=== PATIENT | female | born 1950 | race American Indian/Alaskan Native ===

== ENCOUNTER 2017-02-11 16:10 | Emergency (ER) | payer MEDICARE, BC ==
[2017-02-11 16:10] VITALS: BMI 43.0
[2017-02-11 16:16] VITALS: BP 161/84; TEMP 98.3
--- NOTE | 2017-02-11 17:31 | CT ---
PROCEDURE: CT HEAD WITHOUT CONTRAST. HISTORY: headache COMPARISON: None available. TECHNIQUE: Axial computed tomography images were obtained through the head/brain without intravenous contrast. Radiation dose: Total exam DLP = 726 mGy-cm. This CT exam was performed using one or more of the following dose reduction techniques: Automated exposure control, adjustment of the mA and/or kV according to patient size, and/or use of iterative reconstruction technique. FINDINGS: HEMORRHAGE: No intracranial hemorrhage. BRAIN: No mass effect or edema. No atrophy or chronic microvascular ischemic changes. VENTRICLES: Unremarkable. No hydrocephalus. CALVARIUM: Unremarkable. PARANASAL SINUSES: Unremarkable as visualized. No significant inflammatory changes. MASTOID AIR CELLS: Unremarkable as visualized. No inflammatory changes. OTHER FINDINGS: None. IMPRESSION: Normal CT of the Head.
--- NOTE | 2017-02-11 17:34 | CT ---
PROCEDURE: CT Cervical Spine without contrast HISTORY: Neck pain COMPARISON: None available. TECHNIQUE: Axial computed tomography images were obtained of the cervical spine without the use of intravenous contrast. Coronal and sagittal reformatted images were created and reviewed. Radiation dose: Total exam DLP = 601 mGy-cm. This CT exam was performed using one or more of the following dose reduction techniques: Automated exposure control, adjustment of the mA and/or kV according to patient size, and/or use of iterative reconstruction technique. FINDINGS: VERTEBRAE: No fracture. Normal alignment. No destructive bony lesion. DISCS/SPINAL CANAL/NEURAL FORAMINA: No significant central canal or neural foraminal stenosis. Discs heights are grossly preserved. PARASPINAL SOFT TISSUES: Unremarkable. OTHER FINDINGS: None. IMPRESSION: Unremarkable CT of the cervical spine.
--- NOTE | 2017-02-11 17:40 | ED PDOC ---
Arrival/HPI - General Chief Complaint: Headache Time Seen by Provider: 02/11/17 16:21 Historian: Patient - History of Present Illness Narrative History of Present Illness (Text): 02/11/17 17:32 66yo female with PMhx of diabetes who present with complaint of neck pain that radiates to her lower back and headache x 2days. She noted chronic history of lower back pain secondary to herniated/bulging disc. Notes that neck pain is new. she have had similar headache, but years ago. She took OTC medication without relieve. She denies nuchal ridigity, fever, rash, trauma, focal weakness , urinary/fecal incontinence, urinary symptoms, ripping/tearing upper back pain , abdominal pain, chest pain. Past Medical History - Provider Review Nursing Documentation Reviewed: Yes - Infectious Disease Hx of Infectious Diseases: None - Tetanus Immunization Tetanus Immunization: Up to Date, Unknown - Cardiac Hx Cardiac Disorders: Yes (CAD) Hx Hypertension: Yes Hx Pacemaker: No - Pulmonary Hx Respiratory Disorders: Yes (PULMONARY EMBOLUS) Hx Asthma: Yes Hx Bronchitis: Yes Hx Pneumonia: Yes Hx Pulmonary Embolism: Yes - Neurological Hx Neurological Disorder: No - HEENT Hx HEENT Disorder: No - Renal Hx Renal Disorder: No - Endocrine/Metabolic Hx Endocrine Disorders: Yes Hx Diabetes Mellitus Type 2: Yes - Hematological/Oncological Hx Blood Disorders: Yes Other/Comment: dvt - Integumentary Hx Dermatological Disorder: No - Musculoskeletal/Rheumatological Hx Musculoskeletal Disorders: Yes Hx Falls: Yes - Gastrointestinal Hx Gastrointestinal Disorders: No - Genitourinary/Gynecological Hx Genitourinary Disorders: Yes Hx Hematuria: Yes Hx Urinary Tract Infection: Yes - Psychiatric Hx Emotional Abuse: No Hx Physical Abuse: No Hx Substance Use: No - Surgical History Hx Hysterectomy: Yes Other/Comment: RIGHT KNEE ARTHROSCOPIC SX - Anesthesia Hx Anesthesia: Yes Hx Anesthesia Reactions: No Hx Malignant Hyperthermia: No - Suicidal Assessment Feels Threatened In Home Enviroment: No Family/Social History - Physician Review Nursing Documentation Reviewed: Yes Family/Social History: Unknown Family HX Smoking Status: Never Smoked Hx Alcohol Use: No Hx Substance Use: No Hx Substance Use Treatment: No Allergies/Home Meds Allergies/Adverse Reactions: Allergies Insulins Allergy (Verified 02/11/17 16:16) hyperglycemia prednisone Adverse Reaction (Mild, Verified 02/11/17 16:16) HYPERTENSION Home Medications: Home Meds Medication Instructions Recorded Confirmed Albuterol Sulfate [Proair Hfa] 2 puff IH DAILY 07/24/15 02/11/17 Aspirin [Ecotrin] 81 mg PO DAILY 07/24/15 02/11/17 Atenolol 100 mg PO DAILY 07/24/15 02/11/17 Ergocalciferol (Vitamin D2) 50,000 iu PO WED 07/24/15 02/11/17 [Vitamin D2] Ferrous Sulfate [Feosol] 325 mg PO TTS 07/24/15 02/11/17 Glimepiride 4 mg PO BID 07/24/15 02/11/17 Losartan/Hydrochlorothiazide 1 tab PO DAILY 07/24/15 02/11/17 [Hyzaar 100-25 Tablet] Metformin HCl [Glucophage] 1,000 mg PO BID 07/24/15 02/11/17 Montelukast [Singulair] 10 mg PO DAILY 07/24/15 02/11/17 Pantoprazole Sodium 40 mg PO DAILY 07/24/15 02/11/17 Simvastatin 40 mg PO QPM 07/24/15 02/11/17 Liraglutide [Victoza 2-Aadm] 1.8 mg SC DAILY 07/27/15 02/11/17 Warfarin [Coumadin] 9 mg PO DAILY 07/27/15 02/11/17 Fluticasone/Vilanterol [Breo 1 puff IH DAILY 01/24/17 02/11/17 Ellipta 100-25 Mcg INH] Review of Systems - Physician Review All systems were reviewed & negative as marked: Yes - Review of Systems Constitutional: Normal Eyes: Normal ENT: Normal Respiratory: Normal Cardiovascular: Normal Gastrointestinal: Normal Genitourinary Female: Normal Musculoskeletal: Back Pain, Neck Pain Skin: Normal Neurological: Headache. absent: Dizziness, Focal Weakness, Speech Changes, Facial Droop Endocrine: Normal Hemo/Lymphatic: Normal Psychiatric: Normal Physical Exam Vital Signs Reviewed: Yes Vital Signs Temp Pulse Resp BP Pulse Ox 02/11/17 19:38 85 18 98 02/11/17 16:12 98.3 F 86 20 161/84 H 97 Temperature: Afebrile Blood Pressure: Normal Pulse: Regular Respiratory Rate: Normal Appearance: Positive for: Well-Appearing, Non-Toxic, Comfortable, Other ( Morbidly obese) Pain Distress: None Mental Status: Positive for: Alert and Oriented X 3 - Systems Exam Head: Present: Atraumatic, Normocephalic Pupils: Present: PERRL Extroacular Muscles: Present: EOMI Conjunctiva: Present: Normal Mouth: Present: Moist Mucous Membranes Neck: Present: Normal Range of Motion. No: Meningeal Signs, MIDLINE TENDERNESS , Paraspinal Tenderness Respiratory/Chest: Present: Clear to Auscultation, Good Air Exchange. No: Respiratory Distress, Accessory Muscle Use Cardiovascular: Present: Regular Rate and Rhythm, Normal S1, S2. No: Murmurs Abdomen: Present: Normal Bowel Sounds. No: Tenderness, Distention, Peritoneal Signs Back: Present: Midline Tenderness, Paraspinal Tenderness. No: CVA Tenderness Upper Extremity: Present: Normal Inspection. No: Cyanosis, Edema Lower Extremity: Present: Normal Inspection. No: Edema Neurological: Present: GCS=15, CN II-XII Intact, Speech Normal, Motor Func Grossly Intact, Normal Sensory Function, Normal Cerebellar Funct, Norm Deep Tendon Reflexes, Gait Normal, Memory Normal, Normal 2Pt Descrimination, Other ( No focal neurological deficit) Skin: Present: Warm, Dry, Normal Color. No: Rashes Psychiatric: Present: Alert, Oriented x 3, Normal Insight, Normal Concentration Medical Decision Making ED Course and Treatment: 02/12/17 00:32 PT was neurologically intact in ED. Her pain improved in ED with Tramadol. She have UTI and was treated with macrobid Head/Cervical Ct was negative she was ambulatory in ED with a cane. she was DC home with rx of Tramdol and Macrobid. She was advised to f/u with her PMD for her chronic back pain and further outpt evaluation. Advised to return to ED for anew or worsening symptoms. - Lab Interpretations Lab Results: Lab Results 02/11/17 17:55: Urine Color Yellow, Urine Appearance Clear, Urine pH 6.0, Ur Specific [place] 1.025, Urine Protein 100 H, Urine Glucose (UA) Negative, Urine Ketones Negative, Urine Blood Small H, Urine Nitrate Negative, Urine Bilirubin Negative, Urine Urobilinogen 0.2, Ur Leukocyte Esterase Trace H, Urine RBC 0 - 2 , Urine WBC 1 - 3, Ur Epithelial Cells 3 - 4, Urine Bacteria Small - RAD Interpretation Radiology Orders: 02/11/17 16:51 HEAD W/O CONTRAST [CT] Stat 02/11/17 17:18 CERVICAL SPINE W/O CONTRAST [CT] Stat - Medication Orders Current Medication Orders: Discontinued Medications Nitrofurantoin Macrocrystals (Macrobid) 100 mg PO ONCE STA Stop: 02/11/17 18:32 Last Admin: 02/11/17 19:12 Dose: 100 mg Ondansetron HCl (Zofran Odt) 4 mg PO STAT STA Stop: 02/11/17 18:14 Last Admin: 02/11/17 18:36 Dose: 4 mg Tramadol HCl (Ultram) 50 mg PO STAT STA Stop: 02/11/17 16:53 Last Admin: 02/11/17 17:10 Dose: 50 mg MAR Pain Assessment Document 02/11/17 17:10 GMD (Rec: 02/11/17 17:10 [place] [facility] [id number] Pain Reassessment Is this a pain reassessment? No Sleep Is patient sleeping during reassessment? No Presence of Pain Presence of Pain Yes Location Pain Location Body Temperer Disposition/Present on Arrival - Present on Arrival Any Indicators Present on Arrival: No History of DVT/PE: Yes History of Uncontrolled Diabetes: No Urinary Catheter: No History of Decub. Ulcer: No History Surgical Site Infection Following: None - Disposition Have Diagnosis and Disposition been Completed?: Yes Diagnosis: UTI (urinary tract infection), Back pain Disposition: HOME/ ROUTINE Disposition Time: 19:10 Patient Plan: Discharge Condition: STABLE Discharge Instructions (ExitCare): Urinary Tract Infection in Women (ED) Additional Instructions: Follow up with your doctor Return to ED for any new or worsening symptoms Prescriptions: Nitrofurantoin Macrocrystals [Macrobid] 100 mg PO BID #14 cap traMADol [Ultram] 50 mg PO TID #10 tab Referrals: Fina Canales, [Primary Care Provider] - Follow up with primary Forms: [employer] ([place])
[2017-02-11 18:11] LABS: URINE BILIRUBIN NEGATIVE (NEGATIVE); URINE BLOOD SMALL (NEGATIVE); URINE GLUCOSE (UA) NEGATIVE (NEGATIVE); URINE KETONE NEGATIVE (NEGATIVE); URINE LEUKOCYTE ESTERASE TRACE Leu/uL (NEGATIVE); URINE PROTEIN 100 mg/dL (<30 mg/dL); URINE UROBILINOGEN 0.2 E.U./dL (<1 E.U./dL)
[2017-02-11 18:14] LABS: URINE APPEARANCE CLEAR (CLEAR); URINE BACTERIA SMALL (NEG); URINE COLOR YELLOW (YELLOW); URINE RBC 0 - 2 /hpf (0-2)
[2017-02-11 19:39] VITALS: PULSE 85; RESP 18; O2SAT 98
== END 2017-02-11 19:40 | disposition home or self-care (01) ==
LOC: ED 16:10
DX: N39.0 Urinary tract infection, site not specified (principal); M54.5 Low back pain; E11.9 Type 2 diabetes mellitus without complications; I10 Essential (primary) hypertension; I25.10 Atherosclerotic heart disease of native coronary artery without angina pectoris

== ENCOUNTER 2017-04-17 09:44 | Observation (INO) | payer MEDICARE, BC ==
[2017-04-17 09:45] VITALS: BMI 43.0
--- NOTE | 2017-04-17 10:50 | ED PDOC ---
Arrival/HPI - General Chief Complaint: High Blood Pressure Time Seen by Provider: 04/17/17 09:53 Historian: Patient - History of Present Illness Narrative History of Present Illness (Text): you were treated in the ED today for difficulty breathing with ambulation and transient chest pain since last night. mild headache to back of head noted otherwise without any nausea/vomiting/dizziness/abdomen pain/numbness/tingling/ loss of limb function/pain with urination. history of diabetes, hypertension, hyperlipidemia, asthma, PE on Coumadin, non-obstructive CAD and morbid obesity. Time/Duration: Other (last night) Symptom Course: Unchanged Context: Home Past Medical History - Provider Review Nursing Documentation Reviewed: Yes - Infectious Disease Hx of Infectious Diseases: None - Tetanus Immunization Tetanus Immunization: Up to Date, Unknown - Cardiac Hx Cardiac Disorders: Yes (CAD) Hx Hypertension: Yes Hx Pacemaker: No - Pulmonary Hx Respiratory Disorders: Yes (PULMONARY EMBOLUS) Hx Asthma: Yes Hx Bronchitis: Yes Hx Pneumonia: Yes Hx Pulmonary Embolism: Yes - Neurological Hx Neurological Disorder: No - HEENT Hx HEENT Disorder: No - Renal Hx Renal Disorder: No - Endocrine/Metabolic Hx Endocrine Disorders: Yes Hx Diabetes Mellitus Type 2: Yes - Hematological/Oncological Hx Blood Disorders: Yes Other/Comment: dvt - Integumentary Hx Dermatological Disorder: No - Musculoskeletal/Rheumatological Hx Musculoskeletal Disorders: Yes Hx Falls: Yes - Gastrointestinal Hx Gastrointestinal Disorders: No - Genitourinary/Gynecological Hx Genitourinary Disorders: Yes Hx Hematuria: Yes Hx Urinary Tract Infection: Yes - Psychiatric Hx Emotional Abuse: No Hx Physical Abuse: No Hx Substance Use: No - Surgical History Hx Hysterectomy: Yes Other/Comment: RIGHT KNEE ARTHROSCOPIC SX - Anesthesia Hx Anesthesia: Yes Hx Anesthesia Reactions: No Hx Malignant Hyperthermia: No - Suicidal Assessment Feels Threatened In Home Enviroment: No Family/Social History - Physician Review Nursing Documentation Reviewed: Yes Family/Social History: No Known Family HX Smoking Status: Never Smoked Hx Alcohol Use: No Hx Substance Use: No Hx Substance Use Treatment: No Allergies/Home Meds Allergies/Adverse Reactions: Allergies Insulins Allergy (Verified 04/17/17 09:58) hyperglycemia prednisone Adverse Reaction (Mild, Verified 04/17/17 09:58) HYPERTENSION Home Medications: Home Meds Medication Instructions Recorded Confirmed Albuterol Sulfate [Proair Hfa] 2 puff IH DAILY 07/24/15 02/11/17 Aspirin [Ecotrin] 81 mg PO DAILY 07/24/15 02/11/17 Atenolol 100 mg PO DAILY 07/24/15 02/11/17 Ergocalciferol (Vitamin D2) 50,000 iu PO WED 07/24/15 02/11/17 [Vitamin D2] Ferrous Sulfate [Feosol] 325 mg PO TTS 07/24/15 02/11/17 Losartan/Hydrochlorothiazide 1 tab PO DAILY 07/24/15 02/11/17 [Hyzaar 100-25 Tablet] Metformin HCl [Glucophage] 1,000 mg PO BID 07/24/15 02/11/17 Montelukast [Singulair] 10 mg PO DAILY 07/24/15 02/11/17 Pantoprazole Sodium 40 mg PO DAILY 07/24/15 02/11/17 Simvastatin 40 mg PO QPM 07/24/15 02/11/17 Liraglutide [Victoza 2-Adam] 1.8 mg SC DAILY 07/27/15 02/11/17 Warfarin [Coumadin] 9 mg PO DAILY 07/27/15 04/17/17 Fluticasone/Vilanterol [Breo 1 puff IH DAILY 01/24/17 02/11/17 Ellipta 100-25 Mcg INH] Allopurinol [Zyloprim] 04/17/17 traMADol [Ultram] 80 mg PO BID 04/17/17 04/17/17 Review of Systems - Physician Review All systems were reviewed & negative as marked: Yes - Review of Systems Respiratory: SOB Cardiovascular: Chest Pain Gastrointestinal: absent: Abdominal Pain, Nausea, Vomiting Genitourinary Female: absent: Dysuria Neurological: Headache. absent: Dizziness, Focal Weakness Physical Exam Vital Signs Reviewed: Yes Vital Signs Temp Pulse Resp BP Pulse Ox 04/17/17 11:07 90 17 159/90 H 96 04/17/17 09:55 97.8 F 91 H 19 168/99 H 100 Temperature: Afebrile Blood Pressure: Hypertensive Pulse: Tachycardic Respiratory Rate: Normal Appearance: Positive for: Well-Appearing, Non-Toxic, Comfortable, Other ( Morbidly obese female) Pain Distress: None Mental Status: Positive for: Alert and Oriented X 3 - Systems Exam Head: Present: Atraumatic, Normocephalic Pupils: Present: PERRL Extroacular Muscles: Present: EOMI Conjunctiva: Present: Normal Mouth: Present: Moist Mucous Membranes Neck: Present: Normal Range of Motion Respiratory/Chest: Present: Clear to Auscultation, Good Air Exchange. No: Respiratory Distress, Accessory Muscle Use Cardiovascular: Present: Regular Rate and Rhythm, Normal S1, S2. No: Murmurs Abdomen: Present: Normal Bowel Sounds. No: Tenderness, Distention, Peritoneal Signs Back: Present: Normal Inspection Upper Extremity: Present: Normal Inspection. No: Cyanosis, Edema Lower Extremity: Present: Normal Inspection. No: Edema Neurological: Present: GCS=15, CN II-XII Intact, Speech Normal, Motor Func Grossly Intact, Normal Sensory Function, Normal Cerebellar Funct, Other ( neurologically intact) Skin: Present: Warm, Dry, Normal Color. No: Rashes Psychiatric: Present: Alert, Oriented x 3, Normal Insight, Normal Concentration Medical Decision Making ED Course and Treatment: you were treated in the ED today for difficulty breathing with ambulation and transient chest pain since last night. mild headache to back of head noted otherwise without any nausea/vomiting/dizziness/abdomen pain/numbness/tingling/ loss of limb function/pain with urination. history of diabetes, hypertension, hyperlipidemia, asthma, PE on coumdain, non-obstructive CAD and morbid obesity. You were otherwise breathing easily, smiling when talking, good strength/ sensation, walking easily, clear lungs, no abdomen tenderness, your vision was such no fever temp 97.8, stable heart rate 91, stable breathing rate 19, excellent oxygen level 100% room air, elevated blood pressure 168/99 which we recommend repeat in 2-3 days primary care office to determine further treatment , you have blood tests no infection count 10.1, low blood level hemoglobin 10.2/ platelets 209, stable chemistry sodium normal 140, potassium normal 4.1, bicarbonate normal 24, chloride normal 104, bun mildly elevated 31, creatinine 1.3, glucose mildly elevated 131, liver AST/ALT normal 18/23, Liver Alklaline Phosphatase normal 53, Liver bilirubin normal 0.3, magnesium 1.3, heart blood test normal, no acute CT head or chest xray results, ECG NSR, observation done in the ED with improvement, and d/w with Dr. Mitchell who stated order VQ for PE eval and admit to hospital and she will fu result. Report Date : 04/17/2017 11:52:12 PROCEDURE: CT HEAD WITHOUT CONTRAST. Dictator : Tiana Greco MD IMPRESSION: No acute intracranial abnormality. Report Date : 04/17/2017 12:17:19 Procedure: Chest xray Dictator : Tiana Greco MD IMPRESSION: No active pulmonary disease. 04/17/17 12:58 04/17/17 13:46 - Lab Interpretations Lab Results: 04/17/17 10:46 04/17/17 10:46 Lab Results 04/17/17 11:19: Urine Color Light yellow, Urine Appearance Clear, Urine pH 6.5, Ur Specific [place] 1.020, Urine Protein 100 H, Urine Glucose (UA) Negative, Urine Ketones Negative, Urine Blood Trace-intact H, Urine Nitrate Negative, Urine Bilirubin Negative, Urine Urobilinogen 0.2, Ur Leukocyte Esterase Negative , Urine RBC 0 - 2, Urine WBC 0 - 2, Ur Epithelial Cells 3 - 4, Urine Bacteria Few, Urine Other [place] 04/17/17 10:46: Sodium 140, Potassium 4.1, Chloride 104, Carbon Dioxide 24, Anion Gap 16, BUN 31 H, Creatinine 1.3 H, Est GFR ( Amer) 50, Est GFR ( Non-Af Amer) 41, Random Glucose 131 H, Calcium 9.5, Magnesium 1.3 L, Total Bilirubin 0.3, AST 18, ALT 23, Alkaline Phosphatase 53, Lactate Dehydrogenase 487, Total Creatine Kinase 195, Troponin I < 0.01, NT-Pro-B Natriuret Pep 173, Total Protein 7.0, Albumin 3.6, Globulin 3.4, Albumin/Globulin Ratio 1.1 04/17/17 10:46: PT 18.7 H, INR 1.61 H, APTT 37.0 H 04/17/17 10:46: WBC 10.1, RBC 3.87, Hgb 10.2 L, Hct 33.2 L, MCV 85.8, MCH 26.4, MCHC 30.7 L, RDW 15.8 H, Plt Count 209, MPV 11.7 H, Gran % 69.3 H, Lymph % (Auto ) 23.3, [place] % (Auto) 4.8, Eos % (Auto) 2.4, Baso % (Auto) 0.2, Gran # 6.98 H, Lymph # 2.3, [place] # 0.5, Eos # 0.2, Baso # 0.02 I have reviewed the lab results: Yes - RAD Interpretation Radiology Orders: 04/17/17 10:45 HEAD W/O CONTRAST [CT] Stat CHEST TWO VIEWS (PA/LAT) [RAD] Stat 04/17/17 13:41 LUNG PERF & VENT SCAN [NM] Stat Outside Machinist Supervisor: Radiologist - EKG Interpretation Interpreted by ED Physician: Yes (NSR) Type: 12 lead EKG Disposition/Present on Arrival - Present on Arrival Any Indicators Present on Arrival: Yes History of DVT/PE: Yes History of Uncontrolled Diabetes: No Urinary Catheter: No History of Decub. Ulcer: No History Surgical Site Infection Following: None - Disposition Have Diagnosis and Disposition been Completed?: Yes Diagnosis: Dyspnea, Chest pain Disposition: HOSPITALIZED Disposition Time: 13:47 Patient Plan: Admission, Telemetry Condition: STABLE Discharge Instructions (ExitCare): Chest Pain (ED) Referrals: Tracy Mitchell MD [Primary Care Provider] - Follow up with primary Forms: [employer] ([place]elsh)
[2017-04-17 11:00] LABS: BASO # 0.02 K/mm3 (0.0-2.0); BASO % 0.2 % (0.0-3.0); EOS # 0.2 (0.0-0.7); EOS % 2.4 % (1.5-5.0); GRAN # 6.98 (1.4-6.5); GRAN % 69.3 % (50.0-68.0); HEMOGLOBIN 10.2 g/dL (12.0-16.0); LYMPH # 2.3 (1.2-3.4); LYMPH % 23.3 % (22.0-35.0); MEAN CELL VOLUME 85.8 fl (80.0-105.0); MEAN CORPUSCULAR HEMOGLOBIN 26.4 pg (25.0-35.0); MEAN CORPUSCULAR HGB CONC 30.7 g/dl (31.0-37.0); MEAN PLATELET VOLUME 11.7 fl (7.0-11.0); MONO # 0.5 (0.1-0.6); MONO % 4.8 % (1.0-6.0); RBC 3.87 10^6/uL (3.5-6.1); RED CELL DISTRIBUTION WIDTH 15.8 % (11.5-14.5); WHITE BLOOD COUNT 10.1 10^3/ul (4.5-11.0)
[2017-04-17 11:12] LABS: INR 1.61 (0.93-1.08); PROTHROMBIN TIME 18.7 SECONDS (9.4-12.5)
[2017-04-17 11:13] LABS: ALB/GLOB RATIO 1.1 (1.1-1.8); ALBUMIN 3.6 g/dL (3.0-4.8); ALT/SGPT 23 U/L (7-56); AST/SGOT 18 U/L (14-36); BLOOD UREA NITROGEN 31 mg/dL (7-21); CALCIUM 9.5 mg/dL (8.4-10.5); GFR AFRICAN-AMERICAN 50; GFR NON-AFRICAN AMERICAN 41; MAGNESIUM 1.3 mg/dL (1.7-2.2)
[2017-04-17 11:26] LABS: B-TYPE NATRIURETIC PEPTIDE 173 pg/mL (0-450); TROPONIN I < 0.01 ng/mL
[2017-04-17 11:29] LABS: PH,URINE 6.5 (4.7-8.0); URINE APPEARANCE CLEAR (CLEAR); URINE BILIRUBIN NEGATIVE (NEGATIVE); URINE BLOOD TRACE-INTACT (NEGATIVE); URINE COLOR LIGHT YELLOW (YELLOW); URINE GLUCOSE (UA) NEGATIVE (NEGATIVE); URINE LEUKOCYTE ESTERASE NEGATIVE Leu/uL (NEGATIVE); URINE NITRATE NEGATIVE (NEGATIVE); URINE PROTEIN 100 mg/dL (<30 mg/dL); URINE UROBILINOGEN 0.2 E.U./dL (<1 E.U./dL)
--- NOTE | 2017-04-17 11:53 | CT ---
PROCEDURE: CT HEAD WITHOUT CONTRAST. HISTORY: Headache COMPARISON: 02/11/2017. TECHNIQUE: Axial computed tomography images were obtained through the head/brain without intravenous contrast. Radiation dose: Total exam DLP = 845.77 mGy-cm. This CT exam was performed using one or more of the following dose reduction techniques: Automated exposure control, adjustment of the mA and/or kV according to patient size, and/or use of iterative reconstruction technique. FINDINGS: HEMORRHAGE: No intracranial hemorrhage. BRAIN: Vargas-white matter differentiation is preserved. There is no mass, mass effect or abnormal extra-axial fluid collection. There are scattered extra-axial calcifications in the right parietal and occipital lobes, likely sequela of remote infection. VENTRICLES: There is mild age-related global parenchymal volume loss and proportionate enlargement of the ventricles and cortical sulci. CALVARIUM: The skull base and calvarium are normal. PARANASAL SINUSES: Predominantly clear. MASTOID AIR CELLS: Predominantly clear. OTHER FINDINGS: None. IMPRESSION: No acute intracranial abnormality.
[2017-04-17 12:05] LABS: URINE BACTERIA FEW (NEG); URINE RBC 0 - 2 /hpf (0-2); URINE WBC 0 - 2 /hpf (0-6)
--- NOTE | 2017-04-17 12:19 | RAD ---
HISTORY: COMPARISON: 01/24/2017. TECHNIQUE: Chest PA and lateral FINDINGS: LINES AND TUBES: None. LUNG AND PLEURA: The lungs are well inflated and clear. HEART AND MEDIASTINUM: The heart is not enlarged. The hilar and mediastinal contours are within normal limits. SKELETAL STRUCTURES: The bony structures are within normal limits for the patient's age. VISUALIZED UPPER ABDOMEN: Normal. OTHER FINDINGS: None. IMPRESSION: No active pulmonary disease.
--- NOTE | 2017-04-17 13:58 | CARD ---
APPROVED REPORT EKG Measurement Heart [id number] <Conclusion> Normal sinus rhythm Normal ECG
--- NOTE | 2017-04-17 15:46 | NM ---
COMPARISON: Chest x-ray same day TECHNIQUE: 30.3 mCi technetium 99-m DTPA aerosol. 5.0 mCI technetium 99-m MAA administered intravenously. FINDINGS: VENTILATION COMPONENT: Normal. PERFUSION COMPONENT: Normal. IMPRESSION: Lowprobability ventilation perfusion scan for pulmonary embolism.
[2017-04-17] MEDS ORDERED: Insulin Reg-LOW-Coverage SC SCH (16:30)
[2017-04-17] MEDS: Sodium Chloride 0.45% 1,000 ML IV SCH ×2 (18:51→20:34)
[2017-04-17] MEDS ORDERED: Enoxaparin 120 mg Syringe SC ONE (19:15)
[2017-04-17] MEDS ORDERED: Influenza Vaccine 60 mcg/0.5 mL SYR (4YR UP) IM ONE (19:33)
[2017-04-17] MEDS ORDERED: Pneumococcal 23-Valent Vaccine IM ONE (19:33)
[2017-04-17] MEDS: Magnesium Sulfate 2 GM in Sodium Chloride 0.9% 100 ML IVPB ONE ×2 (19:39→20:35)
[2017-04-17] MEDS ORDERED: Albuterol-Ipratrop 3 mg / 0.5 (3 ml) UD IH PRN (20:55)
[2017-04-18] MEDS: Apap-Butalbital-Caffeine 325-50-40mg Tab PO PRN ×2 (00:17→09:30)
[2017-04-18 00:46] VITALS: RESP 20; O2SAT 98
--- NOTE | 2017-04-18 01:02 | HP ---
CHIEF COMPLAINT: High blood pressure, headache, and shortness of breath. HISTORY OF PRESENT ILLNESS: Ms. Laura Emanuel my private patient is a 66-year-old lady with past medical history of DVT, pulmonary emboli, diabetes mellitus, and obesity came in the Emergency Room of [facility] with difficulty of breathing with ambulation and transient chest pain since last night, mild headache to the back of the head noted otherwise without any nausea or vomiting. No fever and no chills. No hematuria and no hematochezia. No loss of consciousness. No urinary problem. The patient is seen and examined at the bedside in her room. Granddaughter resting on the bedside also. PAST MEDICAL HISTORY: Coronary artery disease, hypertension, history of pulmonary embolism, asthma, bronchitis, pneumonia, diabetes mellitus, falls, hematuria, hysterectomy, and right knee arthroscopic surgery. FAMILY HISTORY: Father and mother noncontributory. HABITS: Never smoked. No drug and no ethanol. ALLERGIES: THE PATIENT IS ALLERGIC WITH INSULIN AND PREDNISONE. HOME MEDICATIONS: ProAir, Ecotrin, atenolol, vitamin D, iron, losartan, Glucophage, Singulair, pantoprazole, simvastatin, Victoza, Coumadin, Ellipta, allopurinol, and tramadol. REVIEW OF SYSTEMS: The patient is seen and examined at the bedside in her room, still complaining about coughing, sometime shortness of breath, persistent headache, and sometimes chest pain. No abdominal pain. No nausea or vomiting. No dysuria. No dizziness or focal weakness. PHYSICAL EXAMINATION: VITAL SIGNS: Temperature of 97.8, pulse of 91, respiratory rate of 19, blood pressure of 168/99, and pulse oximetry of 100%. HEENT: Head is normocephalic and atraumatic. Eyes: PERRLA. Extraocular muscles are intact. Conjunctivae are clear. Nose is patent. Mucous membranes are moist. NECK: Supple. No carotid bruits, JVD, or thyromegaly. CHEST: Bilaterally symmetrical. HEART: S1 and S2 positive. LUNGS: Clear to auscultation. ABDOMEN: Soft. Bowel sounds are positive. No organomegaly. EXTREMITIES: No edema. No cyanosis. NEUROLOGIC: The patient is awake and alert. Moving all four extremities. No focal deficit. LABORATORY DATA: White blood cell of 10.1, hemoglobin of 10.2, hematocrit of 33.2 and platelets of 209. Sodium of 140, potassium of 4.1, BUN of 31, creatinine of 1.3, and glucose of 131. ASSESSMENT AND PLAN: Ms. Laura Emanuel is a 66-year-old female with anemia, renal insufficiency, and hyperglycemia who came in with shortness of breath, chest pain, dyspnea, headache, history of diabetes mellitus type 2, non-insulin requiring, history of pulmonary emboli, obesity, coronary artery disease, asthma, bronchitis, and pneumonia. We admitted to the patient and put on sliding scale, seen by Dr. Brooks and Dr. Liang, they started her on all old medication. Lungs V/Q scan done and CAT scan of the head done. Chest x-ray done and reviewed by me. Restarted Coumadin, INR is low., not therapeutic. Given hydralazine by Dr. Bal. Continue losartan, metformin, and Lovenox given by Dr. Bal. Gastrointestinal and deep vein thrombosis prophylaxis. Repeat laboratories and we will follow. Tracy Mitchell MD
--- NOTE | 2017-04-18 06:23 | CON ---
DATE: 04/17/2017 PULMONARY CONSULTATION REFERRING PHYSICIAN: Dr. Mitchell. REASON FOR CONSULTATION: Sleep apnea syndrome, noncompliant, history of pulmonary embolism, chronic lung disease. HISTORY OF PRESENT ILLNESS: This is a 66-year-old female, known to me, noncompliant with the followup medication and use of her CPAP. She gained weight in the last few years, did not follow up, has been gaining weight, comes into emergency room with headache, chest pain, shortness of breath. No nausea, no vomiting. No diarrhea. No leg pain or leg swelling. PAST MEDICAL HISTORY: Obesity, pulmonary embolism, chronic obstructive lung disease, hypertension, hyperlipidemia, diabetes, sleep apnea syndrome, coronary artery disease. FAMILY HISTORY: No cardiopulmonary disease reported. SOCIAL HISTORY: Never smoked or any alcohol use. ALLERGIES: REALLY NO ALLERGY. Claims with the prednisone she has hypertension. MEDICATIONS: She is on hydralazine 10 mg q.i.d. p.r.n., Coumadin 9 mg daily, Cozaar 100 mg daily, aspirin 81 mg daily, ferrous sulfate 324 mg Fioricet 1 tablet q. 8 hours p.r.n., Breo Ellipta 100/25 one tab daily, metformin 1000 mg twice a day, Norvasc 10 mg daily, IV fluid half-normal saline 50 mL per hour, Tenormin 100 mg daily, allopurinol 300 mg daily. REVIEW OF SYSTEMS: Has a headache, no rhinitis. No cough. No sputum production. Short of breath with minimal exertion, chest pain. No nausea, no vomiting. No diarrhea. No dysuria. No significant leg swelling. PHYSICAL EXAMINATION: GENERAL: Lying in the bed, no acute distress. VITAL SIGNS: Temperature 98, heart rate 80, respiratory rate is 18, blood pressure 145/93, pulse of 98% on 2 liters nasal cannula. HEENT: Moist mucous membranes. Crowded airway. Mallampati score is IV. NECK: Supple. No JVD. LUNGS: Has a fair airflow with few rhonchi. HEART: S1 and S2. ABDOMEN: Soft, nontender. No organomegaly. EXTREMITIES: No edema. NEUROLOGIC: Awake, alert, follows simple commands. LABORATORY DATA: Shows hemoglobin 10.2, hematocrit 33.2, WBC 10.1, platelet count is 209. INR 1.61. PTT 37. Sodium 140, potassium 4.1, chloride 104, bicarbonate 24, BUN 31, creatinine 1.3, glucose is 131, calcium 9.5, magnesium 1.3, AST 18, ALT 23, alkaline phosphatase 53. Troponin less than 0.01. Albumin is 3.6. Urinalysis shows WBC 0 to 2, RBC 0 to 2. V/Q scan shows no DVT. CAT scan of the head is done, which shows no acute intracranial abnormality. Chest x-ray done shows no active pulmonary disease. IMPRESSION AND PLAN: Uncontrolled hypertension, chronic obstructive lung disease, coronary artery disease, diabetes, morbid obesity, sleep apnea syndrome, history of pulmonary embolism, deep venous thrombosis, noncompliant with the followup, she was noncompliant with CPAP machine, was taken away by vendor. We will add inhaled bronchodilator. Readjust her blood pressure medication, placed on BiPAP / while sleeping. Gastric prophylaxis. Spoke in detail with the patient about the risks, benefits, ratio of sleep apnea and its consequences, also weight gain and its relation to blood pressure. She expressed understanding. Thank you and we will follow with you. Layla Brooks MD
[2017-04-18 06:29] VITALS: TEMP 98
[2017-04-18 07:23] LABS: BASO # 0.03 K/mm3 (0.0-2.0); BASO % 0.3 % (0.0-3.0); EOS # 0.3 (0.0-0.7); EOS % 3.4 % (1.5-5.0); GRAN # 5.4 (1.4-6.5); GRAN % 57.8 % (50.0-68.0); HEMOGLOBIN 10.4 g/dL (12.0-16.0); LYMPH # 3.1 (1.2-3.4); MEAN CELL VOLUME 84.7 fl (80.0-105.0); MEAN CORPUSCULAR HEMOGLOBIN 26.1 pg (25.0-35.0); MEAN CORPUSCULAR HGB CONC 30.8 g/dl (31.0-37.0); MEAN PLATELET VOLUME 11.8 fl (7.0-11.0); MONO # 0.5 (0.1-0.6); MONO % 5.5 % (1.0-6.0); RBC 3.99 10^6/uL (3.5-6.1); RED CELL DISTRIBUTION WIDTH 15.8 % (11.5-14.5); WHITE BLOOD COUNT 9.3 10^3/ul (4.5-11.0)
[2017-04-18 07:34] LABS: INR 1.71 (0.93-1.08); PROTHROMBIN TIME 19.9 SECONDS (9.4-12.5)
[2017-04-18 07:52] LABS: LDL CHOLESTEROL 104 mg/dL (0-129)
[2017-04-18 07:59] LABS: ALBUMIN 3.6 g/dL (3.0-4.8); ALT/SGPT 18 U/L (7-56); AST/SGOT 21 U/L (14-36); BLOOD UREA NITROGEN 25 mg/dL (7-21); CALCIUM 9.4 mg/dL (8.4-10.5); GFR AFRICAN-AMERICAN > 60; GFR NON-AFRICAN AMERICAN 50; HDL CHOLESTEROL 37 mg/dL (29-60); MAGNESIUM 1.5 mg/dL (1.7-2.2); URIC ACID 3.1 mg/dL (2.5-6.2)
--- NOTE | 2017-04-18 08:13 | CON ---
DATE: 04/17/2017 CONSULT SERVICE: Cardiology. REASON FOR CONSULTATION: Cardiac evaluation, shortness of breath, questionable history of chest pain. BRIEF CLINICAL HISTORY: This is a 66-year-old morbidly obese female with past medical history significant for DVT, PE on Coumadin, came in with complaint of dyspnea on exertion and difficulty in ambulation, feels tightness in the chest. Denies any nausea or vomiting. Denies any diaphoresis. History of cardiac catheterization on 07/27/2015, nonobstructive coronary artery disease. She feels that air trapped in the chest and short winded.] PAST MEDICAL HISTORY: Significant for hypertension, hyperlipidemia, morbid obesity, history of DVT, history of PE, type 2 diabetes, history of COPD, history of obstructive sleep apnea, and stopped using CPAP more than 4 years ago. SOCIAL HISTORY: Denies smoking. Denies any history of alcohol abuse. PREVIOUS CARDIAC WORKUP: As follows, the patient had a stress test, was abnormal , equivocal ejection fraction 62% in 07/2015, so followed the patient's cardiac catheterization on 07/27/2015, that shows non-obstructive coronary artery disease, limited only to obtuse marginal to OM2 55% diffuse disease, very small caliber vessel less than 1.5 mm, not suitable for PTCA, preserved LV function, ejection fraction 55% to 60%, EDP was in the range of 14. CURRENT MEDICATION AT HOME: The patient was taking simvastatin, , Macrobid, Singulair, metformin, losartan, Victoza, ferrous sulfate, atenolol, aspirin, tramadol, Coumadin 9 mg daily, allopurinol, and Zyloric dose unknown. REVIEW OF SYSTEMS: As per HPI, and negative except HPI. PHYSICAL EXAMINATION: GENERAL: Height of the patient is 5 feet 10 inches, weight of the patient is 300 pounds, body mass index 43 kg/m2. VITAL SIGNS: Temperature afebrile, heart rate 85, blood pressure 158/90. HEENT: PERRLA. Extraocular muscles intact. NECK: Supple. No carotid bruits. No thyromegaly. CHEST: Clear to auscultation. HEART: S1 and S2. Regular. ABDOMEN: Soft. EXTREMITIES: Clubbing and cyanosis negative. LABORATORY DATA: Blood workup as follows; WBC 10.1, hemoglobin 10.2, hematocrit 33.2 and platelet count 209. Chemistry shows sodium 140, potassium 4.2, chloride 104, carbon dioxide 24, anion gap of 16, BUN 31, creatinine 1.3 and random sugar 131. Calcium 9.5, magnesium 1.3, troponin 0.01. EKG showed normal sinus, no acute ST changes, within normal limits. IMPRESSION: Atypical chest pain, diabetes, hypertension, hyperlipidemia, hypomagnesemia, hypokalemia, history of coronary artery disease, non-obstructive, status post cardiac catheterization on 07/27/2015, limited only to obtuse marginal 2, preserved left ventricular function, ejection fraction 55% to 60%, EDP was in the range of 14, obesity, admitted with mild chest pain and shortness of breath. RECOMMENDATIONS: We will follow labs. Serial CPK troponin remains negative. We will get echo to assess LV function. Also, supplement electrolyte, lipid profile, TSH and hemoglobin A1c. We will follow with you. Thank you Dr. Mitchell for providing us the opportunity in taking care of Laura Emanuel. We will follow with you. Layla Bal MD cc: Tracy Mitchell MD
[2017-04-18 09:05] VITALS: BP 138/89; PULSE 75
[2017-04-18] MEDS ORDERED: Magnesium Sulfate 2 GM in Sodium Chloride 0.9% 100 ML IVPB ONE ×2 (09:38→09:46)
[2017-04-18] MEDS ORDERED: Non Formulary Medication (Fluticasone/Vilanterol [Breo Ellipta 100-25 Mcg Inh] 1 PUFF) IH SCH (10:00)
[2017-04-18] MEDS ORDERED: Enoxaparin 120 mg Syringe SC ONE (10:00)
[2017-04-18] MEDS ORDERED: Magnesium Oxide 400 mg Tab UD PO SCH (10:00)
--- NOTE | 2017-04-18 12:35 | PN ---
DATE: 04/18/2017 REASON FOR CONSULTATION: Cardiac evaluation, shortness of breath, questionable history of chest pain, uncontrolled hypertension. SUBJECTIVE: The patient denies any chest pain, shortness of breath or any palpitation. OBJECTIVE: GENERAL: Not in apparent distress. VITAL SIGNS: As follows; temperature afebrile, heart rate 75, and blood pressure 138/89. HEENT: PERRLA. Extraocular muscles intact. NECK: Supple. No carotid bruits or thyromegaly. CHEST: Clear to auscultation. HEART: S1 and S2 regular. ABDOMEN: Soft. EXTREMITIES: Clubbing and cyanosis negative. LABORATORY DATA: Blood workup as follows: WBC 9.3, hemoglobin 10.5, hematocrit 33.8., and platelet count 218. Chemistry shows sodium 144, potassium 3.9, chloride 102, carbon dioxide 27, anion gap of 14, BUN 35, and creatinine 1.1. Total protein 7, albumin 3.6, albumin/globulin ratio 1 207, cholesterol 179, LDL 104, HDL 37, and TSH 1.57. IMPRESSION: Atypical chest pain. No evidence of acute myocardial infarction, uncontrolled hypertension, obesity, history of nonobstructive coronary artery disease, status post cardiac catheterization 07/27/2015, limited only to obtuse marginal branch, 55% stenosis, preserved left ventricular function, ejection fraction of 55% to 60%,EDP was in the range of 14, acute kidney injury, morbid obesity, history of deep vein thrombosis, pulmonary embolism, subtherapeutic INR. RECOMMENDATION: Last night started IV fluid, last night given losartan extra dose and IV fluids given because the patient's acute kidney injury now. This morning, creatinine came back to 1.1 as a normal creatinine function, INR is 1.71, creeping up. I will give one dose of more Lovenox, last night was given because of subtherapeutic INR. Uric acid is 3.1. Yesterday, a stat dose of losartan was given and another losartan was started this morning. If the patient is stable, we will DC telemetry. Further recommendation depend upon hospital course. We will follow with. Yesterday, also a dose of mag was given because mag was low. We will give another dose of magnesium 1 g load, and we will discontinue telemetry. No evidence of acute NE. No further cardiac workup is planned. I will get echo to assess LV function. We will continue IV fluid tonight. We will give one dose of Lovenox more until the INR is therapeutic. Thank you, Dr. Mitchell for providing the opportunity in taking care of Adelfo Sanchez. We will follow with you. Layla Bal MD
== END 2017-04-18 15:36 | disposition home or self-care (01) ==
LOC: ED 09:44 → ERH 13:41 → INTOOBSV 13:41 → ERH 14:05 → 3RSO 16:23
PROVIDERS: ADMIT Internal Medicine; ATTEND Internal Medicine
DX: R07.89 Other chest pain (principal); D64.9 Anemia, unspecified; E11.9 Type 2 diabetes mellitus without complications; E66.01 Morbid (severe) obesity due to excess calories; G47.33 Obstructive sleep apnea (adult) (pediatric); E78.5 Hyperlipidemia, unspecified; I10 Essential (primary) hypertension; I25.10 Atherosclerotic heart disease of native coronary artery without angina pectoris; J44.9 Chronic obstructive pulmonary disease, unspecified; N28.9 Disorder of kidney and ureter, unspecified; E83.42 Hypomagnesemia; Z79.01 Long term (current) use of anticoagulants; Z79.82 Long term (current) use of aspirin; Z79.899 Other long term (current) drug therapy; Z86.711 Personal history of pulmonary embolism; Z86.718 Personal history of other venous thrombosis and embolism; Z87.01 Personal history of pneumonia (recurrent); Z87.440 Personal history of urinary (tract) infections; Z90.710 Acquired absence of both cervix and uterus; Z91.19 Patient's noncompliance with other medical treatment and regimen
CPT/HCPCS: 36415; 70450; 71046; 78582; 80053; 80061; 81001; 82550; 82948; 83036; 83615; 83735; 83880; 84100; 84443; 84484; 84550; 85025; 85610; 85730; 93005; 99285; G0378; J1650; J3475; J7030

== ENCOUNTER 2017-06-16 10:40 | Inpatient (IN) | payer MEDICARE, BC ==
[2017-06-16 10:53] VITALS: BMI 44.1
--- NOTE | 2017-06-16 10:54 | ED PDOC ---
Arrival/HPI - General Chief Complaint: Abnormal Labs Time Seen by Provider: 06/16/17 10:50 Historian: Patient - History of Present Illness Narrative History of Present Illness (Text): 06/16/17 10:53 pt p/w + ~ 1-2 weeks onset of progressively worsening generalized weakness/ fatigue, now worse with exertion; pt also noted increasing shortness of breath with exertion; symptoms worsening over the last few days; pt also noted 1 week onset of left sided diffuse headache, at most pain is 9-10/10; pt states slight light sensitive; + nausea, no vomiting, no fever/chills/sweats; pt denied cp, no palpitations; pt also noted + progressively worsening b/l leg swelling; pt states no abd pain, no dysuria, no bowel changes; noted decr urination over the last few days however; pt had seen her PCP and Dr zayas and repeat Labs this week indicated pt with + worsening Bun/Creat; pt was made aware today and told to come to ED immediately pt denied slurr speech, no facial changes pt denied LOC pt denied new vision changes pt is here for further eval pt's without other complaints PCP: Dr Mitchell heme: Dr Zayas renal: Dr Jimenez 06/16/17 11:04 Time/Duration: 1 week Symptom Onset: Gradual Symptom Course: Worsening Quality: Throbbing Severity Level: 10, Severe Activities at Onset: Rest Context: Home Past Medical History - Provider Review Nursing Documentation Reviewed: Yes - Travel History Have you recently traveled outside [place] w/in the past 3 mons?: No - Past History Past History: No Previous - Infectious Disease Hx of Infectious Diseases: None - Tetanus Immunization Tetanus Immunization: Up to Date, Unknown - Reproductive Menopause: Yes Currently : No - Cardiac Hx Cardiac Disorders: Yes (CAD) Hx Cardiac Arrhythmia: Yes (afib) Hx Hypertension: Yes Hx Pacemaker: No Hx Peripheral Edema: Yes (ble +1) Other/Comment: dvt 5 yrs ago left leg - Pulmonary Hx Respiratory Disorders: Yes (pe 3 yrs ago can't remember which lung) Hx Asthma: Yes Hx Bronchitis: Yes Hx Pneumonia: Yes Hx Sleep Apnea: Yes Other/Comment: medicare took cpap back pt was not using it, pt now in process of getting another one as per dr shepherd, pt's nebulizer machine at home is broken - Neurological Hx Neurological Disorder: No - HEENT Hx HEENT Disorder: No - Renal Hx Renal Disorder: No - Endocrine/Metabolic Hx Endocrine Disorders: Yes Hx Diabetes Mellitus Type 2: Yes - Hematological/Oncological Hx Blood Disorders: Yes Hx Anemia: Yes - Integumentary Hx Dermatological Disorder: No - Musculoskeletal/Rheumatological Hx Falls: Yes (fell 2 wks ago) - Gastrointestinal Hx Gastrointestinal Disorders: Yes (obese) Hx Gastroesophageal Reflux: Yes Other/Comment: colonoscopy 02/13/13 dx hemorrhoids redundant colon - Genitourinary/Gynecological Hx Genitourinary Disorders: Yes Hx Hematuria: Yes Hx Urinary Tract Infection: Yes - Psychiatric Hx Substance Use: No - Surgical History Hx Cardiac Catheterization: Yes (07/2015) Hx Hysterectomy: Yes Other/Comment: RIGHT KNEE ARTHROSCOPIC SX 1998 - Anesthesia Hx Anesthesia: Yes Hx Anesthesia Reactions: No Hx Malignant Hyperthermia: No - Suicidal Assessment Feels Threatened In Home Enviroment: No Family/Social History - Physician Review Nursing Documentation Reviewed: Yes Family/Social History: No Known Family HX Smoking Status: Never Smoked Hx Alcohol Use: No Hx Substance Use: No Hx Substance Use Treatment: No Allergies/Home Meds Allergies/Adverse Reactions: Allergies Insulins Allergy (Verified 06/16/17 10:53) hyperglycemia prednisone Adverse Reaction (Mild, Verified 06/16/17 10:53) HYPERTENSION Home Medications: Home Meds Medication Instructions Recorded Confirmed Albuterol Sulfate [Proair Hfa] 2 puff IH DAILY 07/24/15 04/17/17 Aspirin [Ecotrin] 81 mg PO DAILY 07/24/15 04/17/17 Atenolol 100 mg PO DAILY 07/24/15 04/17/17 Ergocalciferol (Vitamin D2) 50,000 iu PO WED 07/24/15 04/17/17 [Vitamin D2] Ferrous Sulfate [Feosol] 325 mg PO TTS 07/24/15 04/17/17 Losartan/Hydrochlorothiazide 1 tab PO DAILY 07/24/15 04/17/17 [Hyzaar 100-25 Tablet] Metformin HCl [Glucophage] 1,000 mg PO BID 07/24/15 04/17/17 Montelukast [Singulair] 10 mg PO DAILY 07/24/15 04/17/17 Pantoprazole Sodium 40 mg PO DAILY 07/24/15 04/17/17 Simvastatin 40 mg PO QPM 07/24/15 04/17/17 Liraglutide [Victoza 2-Adam] 1.8 mg SC DAILY 07/27/15 04/17/17 Warfarin [Coumadin] 9 mg PO DAILY 07/27/15 04/17/17 Fluticasone/Vilanterol [Breo 1 puff IH DAILY 01/24/17 04/17/17 Ellipta 100-25 Mcg INH] Allopurinol [Zyloprim] 300 mg PO DAILY 04/17/17 04/17/17 traMADol [Ultram] 80 mg PO BID 04/17/17 04/17/17 Review of Systems - Review of Systems Constitutional: Fatigue Eyes: Normal ENT: Normal Respiratory: SOB Cardiovascular: Orthopnea Gastrointestinal: Nausea Genitourinary Female: Urine Output Changes. absent: Dysuria, Frequency, Vaginal Bleeding Musculoskeletal: Normal Skin: Normal Neurological: Headache, Dizziness. absent: Focal Weakness, Gait Changes Endocrine: Normal Hemo/Lymphatic: Normal Psychiatric: Normal Physical Exam Vital Signs Reviewed: Yes Vital Signs Temp Pulse Resp BP Pulse Ox 06/16/17 11:58 93 H 16 139/71 93 L 06/16/17 10:41 98.1 F 112 H 20 147/79 95 Temperature: Afebrile Blood Pressure: Hypertensive Pulse: Tachycardic Respiratory Rate: Normal Appearance: Positive for: Well-Appearing, Uncomfortable, Other (resting in bed, alert/awake, GCS = 15, cooperative, resting in bed, uncomfortable, NAD) Pain Distress: None Mental Status: Positive for: Alert and Oriented X 3 - Systems Exam Head: Present: Atraumatic, Normocephalic Pupils: Present: PERRL, Other (wearing eyeglasses, no nystagmus, no photophobia , sclera anicteric, visual field intact b/l) Extroacular Muscles: Present: EOMI Conjunctiva: Present: Normal Ears: Present: Normal Mouth: Present: Normal Teeth, Other (dry oral mucosa, no drooling/stridor, uvula /tongue are midline, no exudate/lesion) Pharnyx: Present: Normal Nose (External): Present: Atraumatic Nose (Internal): Present: Normal Inspection Neck: Present: Normal Range of Motion, Trachea Midline, Other (intact ROM, no step off). No: MIDLINE TENDERNESS Respiratory/Chest: Present: Clear to Auscultation, Good Air Exchange, Other ( CTA b/l, no accessory muscle use noted, no tachypenia) Cardiovascular: Present: Normal S1, S2, Tachycardic. No: Murmurs Abdomen: Present: Normal Bowel Sounds, Other (well nourished/obese female, no focal tenderness, no masses/rebound/guarding/rigidity, no mcburney's point tenderness, no papiah's sign) Back: Present: Normal Inspection, Other (intact ROM, no step off, no midline tenderness). No: CVA Tenderness, Midline Tenderness Upper Extremity: Present: Normal Inspection, Normal ROM, NORMAL PULSES, Neurovascularly Intact, Other (intact ROM, strength 5/5 grossly intact in all limbs). No: Deformity Lower Extremity: Present: Normal Inspection, Edema, NORMAL PULSES, Normal ROM, Neurovascularly Intact, Other (strength 5-/5 b/l lower ext; + 1-2/5 pitting edema up to mid calf b/l, no meg's sign noted b/l; + ambulatory) Neurological: Present: GCS=15, CN II-XII Intact, Speech Normal, Other (no slurr speech, no facial asymmetries) Skin: Present: Warm, Other (cap refill ~ 1 sec, + dry, mild pallor noted, no petechiae/rashes/ulcerations) Psychiatric: Present: Alert, Oriented x 3 Medical Decision Making ED Course and Treatment: 06/16/17 10:53 Impression: abnl labs i have consider all the differential diagnosis regarding pt's chief medical complaints/clinical findings, including but are not limited to: acute renal failure, r/o electrolyte derrangments, r/o obstructions A/P: abnl labs - labs - iv - xray - ua - observe - supportive care 06/16/17 12:[address] Mitchell, who agrees and accepts plan for patient admission and to consult Dr. Jimenez (nephrology) and Dr. Zayas (heme), respectively. 06/16/17 13:18 pt is doing well currently pt states her symptoms/pain are improved pt/family are made aware of pts' medical results agrees with admission Re-evaluation Time: 13:16 Reassessment Condition: Improving,but remains with symptoms - Critical Care Critical Care Minutes: 30 minutes Critical Care Time: Excluding Proc Time Narrative Critical Care (Text): 06/16/17 13:17 critical care time: 30min, excluding procedure time, excluding time teaching residents/students/mid-level providers; including initial eval/diagnosis, diagnostic interpretation, re-eval, consultations, final disposition - Lab Interpretations Lab Results: 06/16/17 11:00 06/16/17 11:00 Lab Results 06/16/17 11:30: Blood Type Confirm A POSITIVE 06/16/17 11:28: Urine Color Yellow, Urine Appearance Clear, Urine pH 5.5, Ur Specific Douglass 1.020, Urine Protein 30 H, Urine Glucose (UA) Negative, Urine Ketones Negative, Urine Blood Small H, Urine Nitrate Negative, Urine Bilirubin Negative, Urine Urobilinogen 0.2, Ur Leukocyte Esterase Negative, Urine RBC 1 - 3, Urine WBC 0 - 2, Ur Epithelial Cells 3 - 4, Urine Bacteria Few 06/16/17 11:00: Blood Type A POSITIVE, Antibody Screen Negative, BBK History Checked No verified bt 06/16/17 11:00: Sodium 139, Chloride 104, Potassium 4.9, Carbon Dioxide 19 L, Anion Gap 21 H, BUN 112 H, Creatinine 10.0 H* D, Est GFR ( Amer) 5, Est GFR (Non-Af Amer) 4, Random Glucose 245 H, Calcium 8.6, Total Bilirubin 0.3, AST 24, ALT 16, Alkaline Phosphatase 62, Lactate Dehydrogenase 684, Total Creatine Kinase 300 H, CK-MB (CK-2) 2.1, CK-MB (CK-2) % Cancelled, Troponin I 0.03 D, NT-Pro-B Natriuret Pep 2630 H, Total Protein 7.3, Albumin 3.9, Globulin 3.4, Albumin/Globulin Ratio 1.1 06/16/17 11:00: pO2 51, VBG pH 7.17 L*, VBG pCO2 52.0, VBG HCO3 19.0 L, VBG Total CO2 20.6 L, VBG O2 Sat (Calc) 85.9 H, VBG Base Excess -9.8 L, VBG Potassium 4.9, Sodium 136.0, Chloride 104.0, Glucose 254 H, Lactate 2.3 H, FiO2 21.0, Venous Blood Potassium 4.9 06/16/17 11:00: PT 57.2 H, INR 4.82 H*, APTT 51.7 H 06/16/17 11:00: WBC 12.4 H D, RBC 3.73, Hgb 9.8 L, Hct 30.5 L, MCV 81.8, MCH 26.3, MCHC 32.1, RDW 16.0 H, Plt Count 261, MPV 11.3 H, Gran % 55.3, Lymph % ( Auto) 37.2 H, [place] % (Auto) 4.9, Eos % (Auto) 2.4, Baso % (Auto) 0.2, Gran # 6.84 H, Lymph # (Auto) 4.6 H, [place] # (Auto) 0.6, Eos # (Auto) 0.3, Baso # (Auto ) 0.03 I have reviewed the lab results: Yes Interpretation: Abnormal lab values (elevated BUN/creat; elevated INR; elevated BNP) - RAD Interpretation Narrative RAD Interpretations (Text): 06/16/17 11:29 Chest X-ray- Creator : Segundo Hammond MD Dictator : Segundo Hammond MD FINDINGS: LUNGS: No active pulmonary disease. PLEURA: No significant pleural effusion identified, no pneumothorax apparent. CARDIOVASCULAR: Normal. OSSEOUS STRUCTURES: No significant abnormalities. VISUALIZED UPPER ABDOMEN: Normal. IMPRESSION: No active disease. Radiology Orders: 06/16/17 10:55 CHEST PORTABLE [RAD] Stat Trimmer And Reinforcer: Radiologist - EKG Interpretation EKG Interpretation (Text): 06/16/17 11:37 NSR at 90 bpm, normal axis, no ectopy, diffuse low voltage throughout, non- specific st-t changes, ABNL EKG; unchanged compare with old ekg 03/2017 Interpreted by ED Physician: Yes Type: 12 lead EKG Comparison: Similar to previous EKG - Medication Orders Current Medication Orders: Discontinued Medications Calcium Gluconate (Calcium Gluconate Iv) 1,000 mg IVP ONCE ONE Stop: 06/16/17 11:43 Last Admin: 06/16/17 11:47 Dose: 1,000 mg IVP Administration Document 06/16/17 11:47 SRE (Rec: 06/16/17 11:47 SRE [id number]) Charges for Administration # of IVP Administrations 1 Metoclopramide HCl (Reglan) 10 mg IVP STAT STA Stop: 06/16/17 10:58 Last Admin: 06/16/17 11:44 Dose: 10 mg IVP Administration Document 06/16/17 11:44 SRE (Rec: 06/16/17 11:44 SRE [id number]) Charges for Administration # of IVP Administrations 1 Morphine Sulfate (Morphine) 4 mg IVP STAT STA Stop: 06/16/17 11:05 Last Admin: 06/16/17 11:43 Dose: 4 mg MAR Pain Assessment Document 06/16/17 11:43 SRE (Rec: 06/16/17 11:44 SRE [id number]) Pain Reassessment Is this a pain reassessment? Yes Sleep Is patient sleeping during reassessment? No Presence of Pain Presence of Pain Yes Pain Scale Used Pain Scale Used Numeric Location Pain Location Body Head Machinist Description Description Intermittent IVP Administration Document 06/16/17 11:43 SRE (Rec: 06/16/17 11:44 SRE [id number]) Charges for Administration # of IVP Administrations 1 Disposition/Present on Arrival - Present on Arrival Any Indicators Present on Arrival: No History of DVT/PE: No History of Uncontrolled Diabetes: No Urinary Catheter: No History Surgical Site Infection Following: None - Disposition Have Diagnosis and Disposition been Completed?: Yes Diagnosis: Acute renal insufficiency, Respiratory distress, Headache, Weakness, Leg swelling Disposition: HOSPITALIZED Disposition Time: 11:40 Patient Plan: Admission, Telemetry Patient Problems: Current Active Problems Problem Status Onset Acute renal insufficiency Acute Respiratory distress Acute Headache Acute Weakness Acute Condition: FAIR
[2017-06-16] MEDS ORDERED: Morphine 4 mg/ml ISec IVP STA (11:04)
[2017-06-16 11:11] LABS: BASO # 0.03 K/mm3 (0.0-2.0); BASO % 0.2 % (0.0-3.0); EOS # 0.3 (0.0-0.7); EOS % 2.4 % (1.5-5.0); GRAN # 6.84 (1.4-6.5); GRAN % 55.3 % (50.0-68.0); HEMOGLOBIN 9.8 g/dL (12.0-16.0); LYMPH # 4.6 (1.2-3.4); LYMPH % 37.2 % (22.0-35.0); MEAN CELL VOLUME 81.8 fl (80.0-105.0); MEAN CORPUSCULAR HEMOGLOBIN 26.3 pg (25.0-35.0); MEAN CORPUSCULAR HGB CONC 32.1 g/dl (31.0-37.0); MEAN PLATELET VOLUME 11.3 fl (7.0-11.0); MONO # 0.6 (0.1-0.6); MONO % 4.9 % (1.0-6.0); RBC 3.73 10^6/uL (3.5-6.1); WHITE BLOOD COUNT 12.4 10^3/ul (4.5-11.0)
[2017-06-16 11:14] LABS: VENOUS BLOOD GAS BASE EXCESS -9.8 mmol/L (0.0-2.0); VENOUS BLOOD GAS PO2 51 mm/Hg (30-55)
[2017-06-16 11:16] LABS: VENOUS BLOOD PH 7.17 (7.32-7.43)
--- NOTE | 2017-06-16 11:26 | RAD ---
HISTORY: acute shortness of breath COMPARISON: 04/17/2017 FINDINGS: LUNGS: No active pulmonary disease. PLEURA: No significant pleural effusion identified, no pneumothorax apparent. CARDIOVASCULAR: Normal. OSSEOUS STRUCTURES: No significant abnormalities. VISUALIZED UPPER ABDOMEN: Normal. OTHER FINDINGS: None. IMPRESSION: No active disease.
[2017-06-16 11:28] LABS: PROTHROMBIN TIME 57.2 SECONDS (9.4-12.5)
[2017-06-16 11:30] LABS: INR 4.82 (0.93-1.08)
[2017-06-16 11:31] LABS: PARTIAL THROMBOPLASTIN TIME 51.7 Seconds (25.1-36.5); TROPONIN I 0.03 ng/mL
[2017-06-16 11:34] LABS: PH,URINE 5.5 (4.7-8.0); URINE BILIRUBIN NEGATIVE (NEGATIVE); URINE BLOOD SMALL (NEGATIVE); URINE GLUCOSE (UA) NEGATIVE (NEGATIVE); URINE LEUKOCYTE ESTERASE NEGATIVE Leu/uL (NEGATIVE); URINE PROTEIN 30 mg/dL (<30 mg/dL); URINE UROBILINOGEN 0.2 E.U./dL (<1 E.U./dL)
[2017-06-16 11:35] LABS: URINE APPEARANCE CLEAR (CLEAR); URINE COLOR YELLOW (YELLOW)
[2017-06-16 11:39] LABS: ALB/GLOB RATIO 1.1 (1.1-1.8); ALBUMIN 3.9 g/dL (3.0-4.8); CALCIUM 8.6 mg/dL (8.4-10.5)
[2017-06-16 11:52] LABS: URINE BACTERIA FEW (NEG); URINE WBC 0 - 2 /hpf (0-6)
[2017-06-16 12:12] LABS: CK-MB 2.1 ng/mL (0.0-3.6)
[2017-06-16] MEDS ORDERED: Sodium Chloride 0.45% 1,000 ML IV SCH (15:30)
[2017-06-16] MEDS ORDERED: Darbepoetin Alfa 100 mcg/ml Inj SC ONE (15:59)
[2017-06-16 17:35] LABS: VENOUS BLOOD GAS BASE EXCESS -8.9 mmol/L (0.0-2.0); VENOUS BLOOD GAS PO2 35 mm/Hg (30-55); VENOUS BLOOD PH 7.23 (7.32-7.43)
--- NOTE | 2017-06-16 17:54 | CON ---
CONSULT REQUESTED BY: Tracy Mitchell MD. REASON FOR CONSULTATION: Anemia, hypercoagulable state, history of DVT, PE. HISTORY OF PRESENT ILLNESS: Ms. Sanchez is a 66-year-old female seen in the office. Blood work done from office showed creatinine of 9.0, BUN 113, potassium of 5.7. She was advised to go to the ER for hospitalization for acute renal failure. She has history of chronic kidney disease, creatinine has been in the range of 1.5-1.9 in the office, monitored for past few years. She had anemia, but hemoglobin always has been above 10 g/dL. She has not required erythropoietin-stimulating agents for chronic kidney disease. She was complaining of decreased urine output for past few days. Also, increased leg swelling bilateral for past few days. She also had diarrhea for 3-4 days. This morning, she developed severe headache. She has not been feeling well for not more than 1 week. INR is supratherapeutic at 4. 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 No history of fever, chills, or rigor. PAST MEDICAL HISTORY: Coronary artery disease; atrial fibrillation; hypertension; history of DVT and history of pulmonary embolism; bilateral leg edema, worsening for 3 days. History of sleep apnea. Chronic kidney disease, stage III. PAST SURGICAL HISTORY: Cardiac catheterization in 2016, right knee surgery. FAMILY HISTORY: Strong positive family history of renal failure. Her sister has chronic kidney disease. One nephew is on dialysis for ESRD. PERSONAL HISTORY: Never smoked. No history of alcohol abuse. ALLERGIES: PREDNISONE, . HOME MEDICATIONS: Albuterol, aspirin, atenolol 100 daily, vitamin D, losartan, metformin, Protonix, simvastatin, Victoza, Coumadin, allopurinol, and tramadol. PHYSICAL EXAMINATION: VITAL SIGNS: Temperature 98.1, heart rate 93, respiratory rate 16 per minute, blood pressure 139/71, pulse ox is 93%. HEENT: No lymphadenopathy. normal CHEST: Air entry present and equal bilateral. No added sounds. CARDIOVASCULAR: S1 and S2 normal. No murmur. No gallop. ABDOMEN: Obese, soft, and nontender. EXTREMITIES: Bilateral 2+ edema. CENTRAL NERVOUS SYSTEM: Awake, alert, and oriented x3. No focal sensory or motor deficit. Skin ; no petechie, rash Spine : non tender. LABORATORY DATA: White count 12,000, hemoglobin 9.8, hematocrit 30.5, platelet 261. Sodium 139, potassium 4.9, BUN 112, creatinine 10, glucose 245. Troponin 0.03. BNP 26.30. EKG unchanged from previous. Chest x-ray, no infiltrate. ASSESSMENT: 1. Acute renal failure. 2. Chronic renal insufficiency. 3. Anemia related to chronic kidney disease. 4. Hypercoagulable state, history of pulmonary embolism, history of lower extremity deep venous thrombosis. 5. Coagulopathy due to Coumadin, supratherapeutic INR. 6. Coronary artery disease. 7. Hypertension. 8. Diabetes mellitus type 2. PLAN: 1. Anemia related to chronic kidney disease. Her blood iron has been normal and being monitored in the office. Hemoglobin declined to 9.8. Her hemoglobin has been more than 10 gm/dl for past few years. We will give her a dose of Aranesp 100 mg subcu now. We will continue to monitor hemoglobin and hematocrit. 2. Supratherapeutic INR of 4.2. We will hold Coumadin. If she needs any procedure, placement of dialysis catheter, we will reverse the INR. We will resume Coumadin once INR is around 2, at lower doses. She was talking 9 mg/day prior to hospitalization. 3. Acute renal failure. Renal supervisor home energy consultant Dr. Jimenez has seen her in office recently. Renal ultrasound was done on 05/29/2017 showed simple cyst, no mass lesions. No significant change compared to the prior exam. 4. Diabetes mellitus type 2. Management as per Dr. Mitchell. 5. Hypertension. Blood pressure controlled with current medication. Renal doses of medication will be advised as per Dr. Jimenez. Thank you, Dr. Micthell, for allowing us to participate in Ms. Emanuel's care. We will continue to follow during hospitalization. Darlene Zayas MD MTDThalia
[2017-06-16] MEDS ORDERED: GLIMEPIRIDE 1 MG PO SCH (18:00)
[2017-06-16] MEDS ORDERED: Non Formulary Medication (Simvastatin [Simvastatin] 40 MG) PO SCH (18:00)
[2017-06-16 19:48] LABS: IRON 45 ug/dL (45-180)
[2017-06-16 19:49] LABS: CALCIUM 8.5 mg/dL (8.4-10.5)
[2017-06-16 19:58] LABS: % IRON SATURATION 15 % (20-55); TOTAL IRON BINDING CAPACITY 308 ug/dL (265-497)
--- NOTE | 2017-06-16 20:21 | CARD ---
APPROVED REPORT EKG Measurement Heart [id number] <Conclusion> Normal sinus rhythm Low voltage QRS Borderline ECG
[2017-06-16] MEDS ORDERED: Sod Polystyrene Sulf 15 gm/60 ml Susp PO ONE (20:27)
[2017-06-16] MEDS ORDERED: Dextrose 50% SYRINGE Inj (50 ml) IVP ONE (20:28)
[2017-06-16] MEDS ORDERED: Insulin Regular 1 UNITS/0.01 ML ML IVP STA (20:28)
[2017-06-16] MEDS ORDERED: Albuterol 0.083% Inhal Sol (2.5 mg/3 mL) UD INH STA (20:31)
[2017-06-16] MEDS: Insulin Reg-LOW-Coverage SC SCH (21:28)
[2017-06-17] MEDS: Albuterol-Ipratrop 3 mg / 0.5 (3 ml) UD IH SCH ×5 (00:16→20:42)
--- NOTE | 2017-06-17 02:36 | CP.PCM.PN ---
Subjective - Date & Time of Evaluation Date of Evaluation: 06/17/17 Time of Evaluation: 02:34 - Subjective Subjective: Nurse calls to insert a heparin lock and to get and order for pain medications for headache. Patient was seen at bedside. She complains of left temporal headache for past 3 days, mild headache , going down to left side of neck, denies injury. States that she also has some tremors for same period. Denies dizziness, nausea, paraesthesia, weakness. Medical record was reviewed. This 66 year old woman was admitted with generalized weakness , fatigue, increasing sob, left sided diffuse headache, leukocytosis, anemia, renal insufficiency,respiratory distress. Has PMH of CAD, atrial fibrillation, HTN, obesity, DVT,PE,leg edema, SILVA , CKD III. Objective - Vital Signs/Intake and Output Vital Signs (last 24 hours): Temp Pulse Resp BP Pulse Ox 98.5 F 84 18 139/72 97 06/17/17 00:00 06/17/17 00:13 06/17/17 00:00 06/17/17 00:00 06/17/17 00:00 Intake and Output: 06/16/17 06/17/17 18:59 06:59 Output Total 1000 Balance -1000 - Medications Medications: Current Medications Albuterol/Ipratropium (Duoneb 3 Mg/0.5 Mg (3 Ml) Ud) 3 ml IH [id number] [facility] Last Admin: 06/17/17 01:20 Dose: Not Given Amlodipine Besylate (Norvasc) 10 mg PO DAILY [facility] Atenolol (Tenormin) 100 mg PO DAILY [facility] Atorvastatin Calcium (Lipitor) 20 mg PO DIN [facility] Ergocalciferol (Drisdol 50,000 Intl Units Cap) 1 cap PO WED [facility] Ferrous Sulfate (Feosol) 324 mg PO TTS [facility] Gabapentin (Neurontin) 300 mg PO TID [facility] PRN Reason: Protocol Last Admin: 06/16/17 18:21 Dose: 300 mg Glimepiride (Amaryl) 1 mg PO BID [facility] Last Admin: 06/16/17 18:21 Dose: 1 mg Sodium Bicarbonate 50 meq/ (Sodium Chloride) 1,050 mls @ 60 mls/hr IV .[id number] [facility] Stop: 06/17/17 08:59 Last Admin: 06/16/17 21:17 Dose: 60 mls/hr Insulin Human Regular (Humulin R Low) 0 units SC ACHS [facility] PRN Reason: Protocol Last Admin: 06/16/17 21:28 Dose: Not Given Pantoprazole Sodium (Protonix Ec Tab) 40 mg PO DAILY [facility] Tramadol HCl (Ultram) 50 mg PO DAILY [facility] - Labs Labs: 06/16/17 19:06 PT 57.2 SECONDS (9.4-12.5) H 06/16/17 11:00 INR 4.82 (0.93-1.08) H* 06/16/17 11:00 APTT 51.7 Seconds (25.1-36.5) H 06/16/17 11:00 Most Recent Lab Values WBC 12.4 10^3/ul (4.5-11.0) H D 06/16/17 11:00 RBC 3.73 10^6/uL (3.5-6.1) 06/16/17 11:00 Hgb 9.8 g/dL (12.0-16.0) L 06/16/17 11:00 Hct 30.5 % (36.0-48.0) L 06/16/17 11:00 MCV 81.8 fl (80.0-105.0) 06/16/17 11:00 MCH 26.3 pg (25.0-35.0) 06/16/17 11:00 MCHC 32.1 g/dl (31.0-37.0) 06/16/17 11:00 RDW 16.0 % (11.5-14.5) H 06/16/17 11:00 Plt Count 261 10^3/uL (120.0-450.0) 06/16/17 11:00 MPV 11.3 fl (7.0-11.0) H 06/16/17 11:00 Gran % 55.3 % (50.0-68.0) 06/16/17 11:00 Lymph % (Auto) 37.2 % (22.0-35.0) H 06/16/17 11:00 [place] % (Auto) 4.9 % (1.0-6.0) 06/16/17 11:00 Eos % (Auto) 2.4 % (1.5-5.0) 06/16/17 11:00 Baso % (Auto) 0.2 % (0.0-3.0) 06/16/17 11:00 Gran # 6.84 (1.4-6.5) H 06/16/17 11:00 Lymph # (Auto) 4.6 (1.2-3.4) H 06/16/17 11:00 [place] # (Auto) 0.6 (0.1-0.6) 06/16/17 11:00 Eos # (Auto) 0.3 (0.0-0.7) 06/16/17 11:00 Baso # (Auto) 0.03 K/mm3 (0.0-2.0) 06/16/17 11:00 PT 57.2 SECONDS (9.4-12.5) H 06/16/17 11:00 INR 4.82 (0.93-1.08) H* 06/16/17 11:00 APTT 51.7 Seconds (25.1-36.5) H 06/16/17 11:00 pO2 35 mm/Hg (30-55) 06/16/17 17:25 VBG pH 7.23 (7.32-7.43) L 06/16/17 17:25 VBG pCO2 44.0 (40-60) 06/16/17 17:25 VBG HCO3 18.4 mmol/l (21-28) L 06/16/17 17:25 VBG Total CO2 19.8 mmol.L (22-28) L 06/16/17 17:25 VBG O2 Sat (Calc) 80.3 % (40-65) H 06/16/17 17:25 VBG Base Excess -8.9 mmol/L (0.0-2.0) L 06/16/17 17:25 VBG Potassium 6.6 mmol/L (3.6-5.2) H* 06/16/17 17:25 Sodium 135.0 mmol/L (132-148) 06/16/17 17:25 Chloride 103.0 mmol/L (98-107) 06/16/17 17:25 Glucose 285 mg/dl (65-105) H 06/16/17 17:25 Lactate 2.1 mmol/L (0.7-2.1) 06/16/17 17:25 FiO2 21.0 % 06/16/17 17:25 Sodium 137 mmol/L (132-148) 06/16/17 19:06 Potassium 6.5 mmol/L (3.6-5.0) H* D 06/16/17 19:06 Chloride 104 mmol/L (98-107) 06/16/17 19:06 Carbon Dioxide 18 mmol/L (21-33) L 06/16/17 19:06 Anion Gap 22 (10-20) H 06/16/17 19:06 BUN 110 mg/dL (7-21) H 06/16/17 19:06 Creatinine 10.4 mg/dl (0.7-1.2) H* 06/16/17 19:06 Est GFR ( Amer) 5 06/16/17 19:06 Est GFR (Non-Af Amer) 4 06/16/17 19:06 POC Glucose (mg/dL) 271 mg/dL (65-110) H 06/16/17 21:00 Random Glucose 332 mg/dL (70-110) H* D 06/16/17 19:06 Calcium 8.5 mg/dL (8.4-10.5) 06/16/17 19:06 Iron 45 ug/dL (45-180) 06/16/17 19:06 TIBC 308 ug/dL (265-497) 06/16/17 19:06 % Saturation 15 % (20-55) L 06/16/17 19:06 Total Bilirubin 0.3 mg/dL (0.2-1.3) 06/16/17 11:00 AST 24 U/L (14-36) 06/16/17 11:00 ALT 16 U/L (7-56) 06/16/17 11:00 Alkaline Phosphatase 62 U/L (38-126) 06/16/17 11:00 Lactate Dehydrogenase 684 U/L (333-699) 06/16/17 11:00 Total Creatine Kinase 300 U/L (35-230) H 06/16/17 11:00 CK-MB (CK-2) 2.1 ng/mL (0.0-3.6) 06/16/17 11:00 CK-MB (CK-2) % Cancelled 06/16/17 11:00 Troponin I 0.03 ng/mL D 06/16/17 11:00 NT-Pro-B Natriuret Pep 2630 pg/mL (0-450) H 06/16/17 11:00 Total Protein 7.3 g/dL (5.8-8.3) 06/16/17 11:00 Albumin 3.9 g/dL (3.0-4.8) 06/16/17 11:00 Globulin 3.4 gm/dL 06/16/17 11:00 Albumin/Globulin Ratio 1.1 (1.1-1.8) 06/16/17 11:00 Triglycerides 135 mg/dL (35-160) 06/16/17 19:06 Cholesterol 135 mg/dL (130-200) 06/16/17 19:06 LDL Cholesterol Direct 59 mg/dL (0-129) 06/16/17 19:06 HDL Cholesterol 35 mg/dL (29-60) 06/16/17 19:06 Venous Blood Potassium 6.6 mmol/L (3.6-5.2) H* 06/16/17 17:25 Urine Color Yellow (YELLOW) 06/16/17 11:28 Urine Appearance Clear (CLEAR) 06/16/17 11:28 Urine pH 5.5 (4.7-8.0) 06/16/17 11:28 Ur Specific [place] 1.020 (1.005-1.035) 06/16/17 11:28 Urine Protein 30 mg/dL (<30 mg/dL) H 06/16/17 11:28 Urine Glucose (UA) Negative mg/dL (NEGATIVE) 06/16/17 11:28 Urine Ketones Negative mg/dL (NEGATIVE) 06/16/17 11:28 Urine Blood Small (NEGATIVE) H 06/16/17 11:28 Urine Nitrate Negative (NEGATIVE) 06/16/17 11:28 Urine Bilirubin Negative (NEGATIVE) 06/16/17 11:28 Urine Urobilinogen 0.2 E.U./dL (<1 E.U./dL) 06/16/17 11:28 Ur Leukocyte Esterase Negative Roman/uL (NEGATIVE) 06/16/17 11:28 Urine RBC 1 - 3 /hpf (0-2) 06/16/17 11:28 Urine WBC 0 - 2 /hpf (0-6) 06/16/17 11:28 Ur Epithelial Cells 3 - 4 /hpf (0-5) 06/16/17 11:28 Urine Bacteria Few (NEG) 06/16/17 11:28 Ur Random Creatinine 95 mg/dL 06/17/17 02:10 Ur Random Sodium 40 meq/L 06/17/17 02:10 Blood Type A POSITIVE 06/16/17 11:00 Blood Type Confirm A POSITIVE 06/16/17 11:30 Antibody Screen Negative 06/16/17 11:00 BBK History Checked No verified bt 06/16/17 11:00 - Constitutional Appears: Well, No Acute Distress - Head Exam Head Exam: ATRAUMATIC, NORMAL INSPECTION, NORMOCEPHALIC Additional comments: Obese. - ENT Exam ENT Exam: Normal External Ear Exam - Neck Exam Neck Exam: Normal Inspection - Respiratory Exam Respiratory Exam: NORMAL BREATHING PATTERN - Cardiovascular Exam Cardiovascular Exam: absent: JVD - GI/Abdominal Exam GI & Abdominal Exam: absent: Distended - Rectal Exam Rectal Exam: Deferred - Exam Additional comments: Deferred. - Extremities Exam Extremities Exam: Pedal Edema - Back Exam Back Exam: NORMAL INSPECTION - Neurological Exam Neurological Exam: Alert, Awake, Oriented x3 - Psychiatric Exam Psychiatric exam: Normal Affect, Normal Mood - Skin Skin Exam: Normal Color Assessment and Plan - Assessment and Plan (Free Text) Assessment: Headache-Left temporal. Poor venous access. HTN. Atrial fibrillation. CAD. Obesity. SILVA. CKD III. Plan: Tylenol 975 mg PO x 1. # 24 angiocath was inserted in left hand dorsum. Continue management as per PMD.
--- NOTE | 2017-06-17 02:49 | CON ---
DATE: 06/16/2017 REASON FOR CONSULTATION: Acute kidney injury, shortness of breath, edema. HISTORY OF PRESENTING ILLNESS: A 66-year-old lady known to me from recent evaluation in the office. The patient was seen in February. She was seen for proteinuria. She has a history of NIDDM, hypertension. At the time of consultation in February her creatinine was 1.4. Today, she was sent to the emergency room by Dr. Zayas because of a finding of creatinine of 10 as outpatient. In the emergency room, she was found to be mildly tachypneic. She is in moderate distress. She complains of shortness of breath. She complains of lower extremity edema for 2 weeks. She also reports that she has not been urinating as much for the last 2-3 weeks. She denies any nausea. She denies any bad taste. She denies any vomiting. She denies any NSAID use recently. Lasix 40 mg daily, allopurinol 100 mg daily, tramadol was recently added on 05/31. Review of her med list shows that she is on losartan 100/25 at home, atenolol 100, amlodipine 10. She denies any recent antibiotic use. PAST MEDICAL AND SURGICAL HISTORY: Lower extremity DVT, pulmonary embolism, morbid obesity, NIDDM, hypertension, chronic kidney disease stage II/III, creatinine of 1.4 in February. Recent renal ultrasound done on 05/29 showed right kidney to be 11.4 cm, left kidney to be 10.6 cm. The patient has a history of nonobstructive CAD, history of cardiac catheterization in July of 2015. FAMILY HISTORY: Noncontributory. SOCIAL HISTORY: No smoking, no alcohol use, no IV drug abuse. ALLERGIES: INSULIN AND PREDNISONE. MEDICATIONS AT HOME: Included atenolol 100, Protonix, glimepiride 1 mg b.i.d., KCl 10 mEq, Feosol 325, gabapentin 300, simvastatin 40, Lasix 40 mg, allopurinol 100, tramadol, amlodipine 10, Coumadin 9 mg, Hyzaar 100/25. REVIEW OF SYSTEMS: All systems are reviewed, pertinent positives as mentioned in history of presenting illness, rest unremarkable. PHYSICAL EXAMINATION: GENERAL: An obese elderly lady lying in bed in mild distress. VITAL SIGNS: Blood pressure 138/89, heart rate 75, respiratory rate 20, temperature 98. HEENT: Normocephalic, atraumatic, positive pallor. NECK: Supple, no JVD. LUNGS: Bilateral equal air entry, bilateral equal expansion, no rales. CARDIAC: S1 and S2, regular rate and rhythm, no murmur, no rub. ABDOMEN: Obese, distended, soft, nontender, bowel sounds present. EXTREMITIES: 1+ pitting edema of the lower extremities. INTAKE AND OUTPUT: Not charted. LABORATORY DATA WBC 9.3, hemoglobin 10.4, hematocrit 34, platelets 218, MCV 84.7. Sodium 140, potassium 3.9, chloride 102, CO2 of 27, BUN 25, creatinine 1.1, glucose 114, calcium 9.4, phosphorus 3.8, magnesium 1.5. Hemoglobin A1c 7.7, AST 21, ALT 18, albumin 3.6. TSH 1.5. Urinalysis, specific gravity 1.020, protein 100, trace blood, rbc's 0 to 2. ASSESSMENT: 1. Acute kidney injury superimposed on chronic kidney disease stage II. Etiology of acute kidney injury is not entirely clear, but suspect she has prerenal azotemia in the setting of Lasix, hydrochlorothiazide and angiotensin-receptor lakhwinder. 2. Underlying chronic kidney disease stage II. 3. Morbid obesity. 4. Sleep apnea. 5. History of deep vein thrombosis, pulmonary embolism, hypercoagulable state. 6. Lta-coeyimh-ioarpjyiz diabetes mellitus. 7. Anemia. 8. Hypomagnesemia. 9. Mild hypokalemia. 10. Contraction alkalosis. PLAN: 1. Hold ARB. 2. Hold hydrochlorothiazide and Lasix. 3. Monitor urine output closely. 4. Push p.o. fluids. 5. Hypotonic fluids, half normal saline x1 liter. Check urine sodium/urine creatinine. Monitor daily labs. Cheryl Jimenez MD
[2017-06-17 02:55] LABS: CREATININE,RANDOM URINE 95 mg/dL
[2017-06-17 07:35] LABS: HEMOGLOBIN 8.5 g/dL (12.0-16.0); MEAN CELL VOLUME 80.6 fl (80.0-105.0); MEAN CORPUSCULAR HEMOGLOBIN 26.2 pg (25.0-35.0); MEAN CORPUSCULAR HGB CONC 32.6 g/dl (31.0-37.0); MEAN PLATELET VOLUME 12.3 fl (7.0-11.0); RBC 3.24 10^6/uL (3.5-6.1); WHITE BLOOD COUNT 10.3 10^3/ul (4.5-11.0)
[2017-06-17 08:00] LABS: CALCIUM 8.4 mg/dL (8.4-10.5)
[2017-06-17 08:10] LABS: PROTHROMBIN TIME 69.1 SECONDS (9.4-12.5)
[2017-06-17] MEDS: Insulin Reg-LOW-Coverage SC SCH ×2 (08:10→12:01)
[2017-06-17 08:11] LABS: INR 5.8 (0.93-1.08)
[2017-06-17] MEDS ORDERED: Phytonadione 10 mg/ml Inj (Adult) SC ONE (08:34)
[2017-06-17] MEDS: Pantoprazole 40 mg EC Tab PO SCH (09:40)
[2017-06-17] MEDS ORDERED: ATENOLOL 100 MG PO SCH (10:00)
[2017-06-17] MEDS ORDERED: Non Formulary Medication (Ferrous Sulfate [Feosol] 325 MG) PO SCH (10:00)
[2017-06-17 11:06] LABS: IRON 35 ug/dL (45-180)
[2017-06-17 11:15] LABS: % IRON SATURATION 12 % (20-55); TOTAL IRON BINDING CAPACITY 302 ug/dL (265-497)
[2017-06-17] MEDS ORDERED: Insulin Lispro (humaLOG) MEDIUM Coverage SC SCH (11:30)
[2017-06-17] MEDS ORDERED: Insulin Reg-MEDIUM-Coverage SC ONE (12:00)
[2017-06-17 12:12] LABS: FOLATE 16.7 ng/mL
--- NOTE | 2017-06-17 16:24 | PN ---
DATE: 06/17/2017 SUBJECTIVE: The patient is seen lying in bed. She is awake, she is alert. She is eating lunch. She denies any chest pain. She denies any shortness of breath. She denies any nausea. She denies any vomiting. PHYSICAL EXAMINATION: GENERAL: Morbidly obese elderly lady lying in bed. VITAL SIGNS: Blood pressure 137/76, heart rate 77, respiratory rate 18, temperature 98.5. HEENT: Normocephalic, atraumatic, positive pallor. NECK: Supple, no JVD. LUNGS: Bilateral equal air entry, bilateral equal expansion, no rales. CARDIAC: S1 and S2. Regular rate and rhythm. No murmur, no rub. ABDOMEN: Obese, distended, soft, nontender, bowel sounds present. EXTREMITIES: A 1+ pitting edema of the ankles. INTAKE AND OUTPUT: 1000 output. LABORATORY DATA: WBC 10.3, hemoglobin 8.5, hematocrit 26, platelets 254. Sodium 138, potassium 4.6, chloride 106, CO2 of 19, BUN 110, creatinine 10.5, glucose 78, calcium 8.4. Iron saturation 12, iron 35. CURRENT MEDICATIONS: Amaryl 1 mg b.i.d., Drisdol, DuoNeb, insulin, iron, Lipitor, gabapentin, amlodipine, Protonix, atenolol, and Ultram. ASSESSMENT: 1. Acute kidney injury, superimposed on chronic kidney disease stage III. Suspect prerenal azotemia in the setting of diuresis, LALITA inhibitor, plus suspect underlying gastrointestinal bleed. 2. Over anticoagulation. 3. Severe anemia with low iron stores. 4. Non-insulin dependant diabetes mellitus. 5. Hypertension. 6. History of deep venous thrombosis/pulmonary embolism/hypercoagulable state. 7. Morbid obesity. PLAN: 1. Venofer 200 mg IV piggyback, total of 1 g. 2. Check stool occults. 3. GI evaluation. 4. Monitor H and H. 5. Continue hypotonic IV fluids with sodium bicarbonate. 6. No indication for renal replacement therapy at this time. We will monitor closely. Cheryl Jimenez MD [facility] # [id number]
--- NOTE | 2017-06-17 16:29 | CON ---
DATE: 06/17/2017 PULMONARY CONSULT REFERRING PHYSICIAN: Tracy Mitchell MD. REASON FOR CONSULT: Chronic lung disease, obstructive sleep apnea syndrome. HISTORY OF PRESENT ILLNESS: This is a 66-year-old female, known to me from office and previous admission, noncompliant with the followup. Has a history of chronic obstructive lung disease, obstructive sleep apnea syndrome, noncompliant with the CPAP, history of DVT, pulmonary embolism, on anticoagulation. Apparently, she had been constipated and subsequently had a large bowel movement. Seen at Hematology/Oncology office. Not feeling well and had a blood work done, which shows acute renal failure, coagulopathy. Sent to ER. She was found to be hyperkalemic. Received Kayexalate, was placed on BiPAP last night. Nebulizer treatment was given. This morning, she feels a little better. Has some tremor, sore throat. No nausea. No vomiting. Has a loose bowel movement overnight with Kayexalate. Not significant leg swelling. PAST MEDICAL HISTORY: Chronic obstructive lung disease, obstructive sleep apnea syndrome, coronary artery disease, atrial fibrillation, hypertension, history of DVT, history of pulmonary embolism, renal insufficiency. ALLERGIES: TO PREDNISONE. SOCIAL HISTORY: No active smoking. No alcohol use. FAMILY HISTORY: Positive for renal failure. MEDICATIONS: She is on Amaryl 1 mg twice a day, vitamin D 50,000 units weekly, DuoNeb every 6 hours, ferrous sulfate 324 mg, insulin coverage, Lipitor 20 mg daily, gabapentin 300 mg three times a day, Norvasc 10 mg daily, Protonix 40 mg daily, IV fluid with bicarbonate 60 mL/hour, Tenormin 100 mg daily, Ultram 50 mg daily, vitamin K subcu was given. REVIEW OF SYSTEMS: No headache, no rhinitis. Mild sore throat. No chest pain. No nausea. No vomiting. No abdominal pain. Not much leg swelling. PHYSICAL EXAMINATION: GENERAL: Lying in the bed, no acute distress. VITAL SIGNS: Temperature is 98, heart rate is 84, respiratory rate is 20, blood pressure 139/72, pulse ox 97% on room air. HEENT: Moist mucous membrane. Crowded airway. Mallampati score Is 4. NECK: Supple. No JVD. LUNGS: Have a fair airflow with rhonchi. HEART: S1 and S2. ABDOMEN: Soft, nontender. No organomegaly. EXTREMITIES: No edema. NEUROLOGIC: Awake and alert. Follows simple command. LABORATORY DATA: Shows hemoglobin 8.5, hematocrit 26.1, WBC 10.3, platelet is 254. INR today is 5.80. Blood gases done yesterday shows, VBG, pH 7.23, pCO2 was 44, O2 of 35. Sodium 138, potassium 4.6, chloride 106, bicarbonate is 19, BUN 110, creatinine 10.5, glucose is 78, calcium is 8.4. Had a chest x-ray done in the ER, which shows no active infiltrate or effusion. IMPRESSION AND PLAN: Acute renal failure, coagulopathy, anemia, atrial fibrillation, coronary artery disease, chronic obstructive lung disease, obstructive sleep apnea syndrome, history of recurrent deep venous thrombosis, history of pulmonary embolism. Agree with the present management. Continue IV fluid, inhaled bronchodilator. Bilevel positive airway pressure while sleeping. Follow up electrolyte, BUN, creatinine, INR. Nephrology, Hematology followup. Thank you and we will follow with you. Layla Brooks MD
[2017-06-17] MEDS: Insulin Reg-MEDIUM-Coverage SC SCH (17:01)
--- NOTE | 2017-06-17 19:12 | CON ---
DATE: 06/17/2017 LOCATION: The patient in room 365, bed 1. REASON FOR CONSULTATION: Shortness of breath, swelling of legs, acute kidney failure. HISTORY OF PRESENT ILLNESS: A 66-year-old morbidly obese female who has past history of DVT, pulmonary embolism, hypertension, type 2 diabetes mellitus, history of COPD, history of obstructive sleep apnea, admitted to the hospital with a history that she had a creatinine of 1.4 in02/2017. Dr. Zayas did the blood work and found the creatinine was 10, so patient was advised to come to the hospital. In emergency, patient was found to have slight shortness of breath. Also, noticed some swelling of the legs. She denies any chest pain or palpitation. Patient is now lying flat in bed without any shortness of breath. PAST MEDICAL HISTORY: Positive for hypertension, hyperlipidemia, morbid obesity, history of DVT, pulmonary embolism, type 2 diabetes mellitus, COPD, history of obstructive sleep apnea, stopped using CPAP more than 4 years ago. Patient's creatinine in 02/2017 was 1.4. PATIENT'S PREVIOUS CARDIAC WORKUP: Patient had echocardiogram on 05/20/2015, which showed normal-sized LV, [id number] LV hypertrophy, normal LV systolic function with ejection fraction of 61%, [id number] tricuspid regurgitation with RVSP 44 mmHg suggestive of very mild pulmonary hypertension. Patient has stress test on 06/25/2015, which was equivocal for reversible anteroseptal ischemia with ejection fraction of 63%. So, patient has cardiac catheterization on 07/27/2015, which showed nonobstructive coronary artery disease, limited only to obtuse marginal, OM2, 55% diffuse disease, very small caliber vessel, less than 1.5 mm, which is not suitable for PTCA, preserved LV function with ejection fraction of 55% to 60%, EDP was in the range of 14. PERSONAL HISTORY: Denies smoking, denies alcohol abuse. MEDICATIONS AT HOME: Patient was taking Protonix, simvastatin 40 daily, Lasix 40 daily, allopurinol 100 daily, tramadol, amlodipine 10 mg daily, Coumadin 9 mg daily, Hyzaar 100/25, hydrochlorothiazide once daily, KCl 10 mEq daily, Feosol 325 daily, gabapentin 300 mg daily, atenolol 100 daily, Protonix 40 daily, glimepiride 1 mg b.i.d. ALLERGIES: PATIENT DENIES ANY ALLERGIES. REVIEW OF SYSTEMS: All the systems reviewed, positive mentioned in the history, others are negative. PHYSICAL EXAMINATION: VITAL SIGNS: Blood pressure 137/76, respiration 18, pulse 77, patient is afebrile. HEENT: Head: Normocephalic. Eyes: Pupils are normal. Conjunctivae are slightly pale. NECK: JVP low. Carotids are equal. THORAX: AP diameter is normal. LUNGS: No significant rales. CARDIOVASCULAR: S1 and S2. ABDOMEN: Protuberant. No organomegaly. EXTREMITIES: No clubbing. No cyanosis. LABORATORY DATA: WBC 10.3, hemoglobin 8.5, hematocrit 26.1, platelet 254. Sodium 138, potassium 4.6, BUN 110, creatinine 10.5, random sugar 65, another sugar 407. AST and ALT normal. Troponin 0.03. NT-proB natriuretic peptide 2630. Chest x-ray, no active disease. EKG showed normal sinus rhythm, low voltage QRS, borderline EKG. DIAGNOSES: [id number] renal failure, diabetes mellitus, hypertension, morbid obesity, sleep apnea, anemia, history of deep vein thrombosis, pulmonary embolism, hyperkalemia, yesterday's potassium was 6.5, today is 4.6, although BNP is slightly elevated, but clinically patient is not in congestive heart failure. PLAN: As mentioned above, patient with previous cardiac cath, echo, and stress test, showed normal LV function and nonobstructive coronary artery disease. Plan is to continue glimepiride 1 mg b.i.d., DuoNeb hand nebulizer therapy, insulin as ordered, iron sucrose 200 mg IV piggyback daily for 5 days. Patient yesterday received Kayexalate, atorvastatin 20 mg daily, Neurontin 300 mg t.i.d., amlodipine 10 mg daily, Protonix 40 daily, atenolol 100 mg daily. We will follow up labs and we will follow with you. Layla Liang MD
--- NOTE | 2017-06-17 23:50 | PN ---
DATE: SUBJECTIVE: The patient is a 66-year-old female. The patient seen and examined at the bedside. Looking comfortable. No nausea, vomiting or diarrhea. No hematuria. No hematochezia. Still having headache. Sometime feeling nauseous, fatigue, tired. Awake and alert. No chest pain. Still having swelling of the leg. PHYSICAL EXAMINATION: VITAL SIGNS: Blood pressure 137/76, heart rate 77, respiratory rate 18, temperature 98.5. HEENT: Head normocephalic and atraumatic. Eyes, PERRLA. Extraocular muscles intact. Conjunctivae clear. Nose patent. Mucous membrane moist. NECK: Supple. No carotid bruit. No JVD or thyromegaly. CHEST: Bilaterally symmetrical. LUNGS: Bilateral equal air entry. Bilateral equal expansion. No rales. HEART: S1 and S2 positive. Regular rate and rhythm. No murmur. ABDOMEN: Soft. Bowel sounds present. No organomegaly. EXTREMITIES: +1 pitting edema of both ankles. NEUROLOGIC: Awake, alert. Moving all 4 extremities. Follows simple commands. MEDICATIONS: Amaryl, vitamin D, albuterol, insulin, iron, Lipitor, Neurontin, Norvasc, Protonix, Tenormin, tramadol. LABORATORY DATA: White blood cells 10.3, hemoglobin 8.5, hematocrit 26.1, platelets 254. Sodium 138, potassium 4.6. BUN 110, creatinine 10.5, glucose 407. ASSESSMENT AND PLAN: Ms. Laura Emanuel is a 66-year-old lady with leukocytosis, anemia, renal insufficiency, hyperkalemia, insulin-dependant diabetes mellitus, not very well controlled, proteinuria, hematuria, seen by Dr. Jimenez, ad operations associate, acute kidney injury superimposed on chronic kidney disease stage III, suspected prerenal azotemia in the setting of diuresis, LALITA inhibitors plus suspected underlying gastrointestinal bleeding, coagulopathy, hypertension, history of deep vein thrombosis and pulmonary emboli, morbid obesity; got Venofer, check stool, GI evaluation, monitoring hemoglobin and hematocrit, continue hypotonic IV fluids with sodium bicarbonate. No indication of renal replacement therapy at this time as per ad operations associate. atrial fibrillation, coronary artery disease, continue IV fluid, inhaled bronchodilator, bilevel positive airway pressure. We will follow with you. Tracy Mitchell MD [facility]
[2017-06-18] MEDS: Insulin Reg-MEDIUM-Coverage SC SCH ×5 (00:28→21:50)
[2017-06-18] MEDS: Albuterol-Ipratrop 3 mg / 0.5 (3 ml) UD IH SCH ×4 (03:38→22:39)
--- NOTE | 2017-06-18 05:25 | CP.PCM.PN ---
Subjective - Date & Time of Evaluation Date of Evaluation: 06/18/17 Time of Evaluation: 05:23 (Patient was seen earlier.) - Subjective Subjective: Patient was seen because she had headache. Mild head ache, left side of head, no other complaints. Denies dizziness,nausea,paraesthesia, weakness. Medical record was reviewed. 66 year old woman was admitted with fatigue, generalized weakness, increasing sob, left sided diffuse headache, leukocytosis, anemia, renal insufficiency,respiratory distress. PMH of CAD, atrial fibrillation, HTN, obesity, DVT,PE,leg edema, SILVA , CKD III. Objective - Vital Signs/Intake and Output Vital Signs (last 24 hours): Temp Pulse Resp BP Pulse Ox 98.5 F 70 18 137/76 97 06/17/17 00:00 06/18/17 02:00 06/17/17 00:00 06/17/17 09:40 06/17/17 00:00 Intake and Output: 06/17/17 06/18/17 18:59 06:59 Intake Total 1920 420 Output Total 1125 300 Balance 795 120 - Medications Medications: Current Medications Albuterol/Ipratropium (Duoneb 3 Mg/0.5 Mg (3 Ml) Ud) 3 ml IH [id number] [facility] Last Admin: 06/18/17 03:38 Dose: 3 ml Amlodipine Besylate (Norvasc) 10 mg PO DAILY [facility] Last Admin: 06/17/17 09:40 Dose: 10 mg Atenolol (Tenormin) 100 mg PO DAILY [facility] Last Admin: 06/17/17 09:40 Dose: 100 mg Atorvastatin Calcium (Lipitor) 20 mg PO DIN [facility] Last Admin: 06/17/17 17:01 Dose: 20 mg Ergocalciferol (Drisdol 50,000 Intl Units Cap) 1 cap PO WED [facility] Gabapentin (Neurontin) 300 mg PO TID [facility] PRN Reason: Protocol Last Admin: 06/17/17 17:01 Dose: 300 mg Glimepiride (Amaryl) 1 mg PO BID [facility] Last Admin: 06/17/17 17:01 Dose: 1 mg Iron Sucrose 200 mg/ Sodium (Chloride) 110 mls @ 110 mls/hr IVPB DAILY [facility] Stop: 06/21/17 10:59 Last Admin: 06/17/17 11:12 Dose: 110 mls/hr Insulin Human Regular (Humulin R Med) 0 units SC ACHS [facility] PRN Reason: Protocol Last Admin: 06/18/17 00:28 Dose: Not Given Pantoprazole Sodium (Protonix Ec Tab) 40 mg PO DAILY [facility] Last Admin: 06/17/17 09:40 Dose: 40 mg Tramadol HCl (Ultram) 50 mg PO DAILY [facility] Last Admin: 06/17/17 09:41 Dose: 50 mg - Labs Labs: 06/17/17 07:00 06/17/17 07:00 PT 69.1 SECONDS (9.4-12.5) H 06/17/17 07:00 INR 5.80 (0.93-1.08) H* 06/17/17 07:00 APTT 51.7 Seconds (25.1-36.5) H 06/16/17 11:00 - Constitutional Appears: Well, No Acute Distress - Head Exam Head Exam: ATRAUMATIC, NORMAL INSPECTION, NORMOCEPHALIC Additional comments: Found sitting at the edg of bed, not in distress. - Eye Exam Eye Exam: Normal appearance - ENT Exam ENT Exam: Normal Exam - Neck Exam Neck Exam: Normal Inspection - Respiratory Exam Respiratory Exam: NORMAL BREATHING PATTERN - Cardiovascular Exam Cardiovascular Exam: absent: JVD - GI/Abdominal Exam GI & Abdominal Exam: absent: Distended - Rectal Exam Rectal Exam: Deferred - Exam Additional comments: Deferred. - Extremities Exam Extremities Exam: Normal Inspection - Back Exam Back Exam: NORMAL INSPECTION - Neurological Exam Neurological Exam: Alert, Awake - Psychiatric Exam Psychiatric exam: Normal Affect, Normal Mood - Skin Skin Exam: Normal Color Assessment and Plan - Assessment and Plan (Free Text) Assessment: Headache. CAD. Atrial fibrillation. Hypertension. Obesity. DVT. PE. SILVA. CKD III. Plan: [id number] mg PO x 1. Continue present management.
--- NOTE | 2017-06-18 05:44 | CON ---
DATE: This patient was seen and evaluated earlier. HISTORY OF PRESENT ILLNESS: This is a 66-year-old patient with a past medical history of DVT, PE, morbid obesity, noninsulin-dependent diabetes mellitus, hypertension, chronic kidney disease with a creatinine of 1.4 in February because of the worsening of renal function and the kidney function deteriorated, the creatinine went from 1.4 to 10. The patient was also found to be anemic with a hemoglobin of 8.5. Yesterday, it was 9.8. GI consult was requested because of worsening of anemia with a drop in blood count. No bleeding per rectum or melena, nor any abdominal pain. The patient's colonoscopy was in 2012. No polyps found at that time. Never had an endoscopy done. OTHER PAST MEDICAL HISTORY: Significant as above. FAMILY HISTORY: Noncontributory. SOCIAL HISTORY: Denies smoking or alcohol. ALLERGIES: ALLERGIC TO INSULIN AND PREDNISONE. REVIEW OF SYSTEMS: Positive as above. Other systems reviewed. PHYSICAL EXAMINATION GENERAL: On examination, the patient is lying in the bed, not in acute distress. VITAL SIGNS: Temperature afebrile, blood pressure 127/76, pulse 77, and respirations 18. HEENT: Atraumatic, anicteric. NECK: Supple. HEART: S1 and S2 heard. LUNGS: Bilateral air entry present. ABDOMEN: Soft. No tenderness. EXTREMITIES: Bilateral pitting pedal edema present. NEUROLOGIC: Alert and oriented. Moves all the extremities. LABORATORY DATA: Hemoglobin 8.5, hematocrit 26.1, WBC 10.3, and platelets 254. Chemistry: Creatinine 10.5, sodium 138, potassium 4.6, and BUN 19. IMPRESSION: This is a 66-year-old patient, admitted with shortness of breath, weakness, and found to have [id number] kidney injury with a creatinine of 10. The patient was also found to be anemic, noticed that there is a drop in hemoglobin from 10.4 slowly to 8.5. No obvious gastrointestinal blood loss. RECOMMENDATIONS: I would recommend: 1. Stool for occult blood. 2. Iron studies, B12 normal. Transferrin saturation is slightly low, 12%. The etiology for anemia, drop in blood count unclear. Could be multifactorial in etiology, worsening of renal function. The patient's MCV is normal. Normocytic anemia, but saturation is slightly on the low. It is probably multifactorial in etiology. We would recommend: 1. Followup of stool for occult blood. 2. Empiric therapy with H2 blockers. The patient is on PPI. We will cut down the dose of the medication from 40 to 20 mg. 3. Close followup of the hemoglobin and hematocrit, and we will consider a CT scan of the abdomen and pelvis to further evaluate with only p.o. contrast. We will discuss with Renal to order the CAT scan. The patient would definitely benefit from the EGD and colonoscopy, which we will consider later after further patient, unless the patient has an active bleeding. Isela Rivera MD
[2017-06-18 07:06] LABS: HEMOGLOBIN 8.4 g/dL (12.0-16.0); MEAN CELL VOLUME 79.8 fl (80.0-105.0); MEAN CORPUSCULAR HEMOGLOBIN 25.8 pg (25.0-35.0); MEAN CORPUSCULAR HGB CONC 32.3 g/dl (31.0-37.0); RBC 3.26 10^6/uL (3.5-6.1); RED CELL DISTRIBUTION WIDTH 15.6 % (11.5-14.5); WHITE BLOOD COUNT 10.3 10^3/ul (4.5-11.0)
[2017-06-18 07:24] LABS: PROTHROMBIN TIME 52.5 SECONDS (9.4-12.5)
[2017-06-18 07:26] LABS: INR 4.43 (0.93-1.08)
[2017-06-18 07:38] LABS: CALCIUM 8.4 mg/dL (8.4-10.5)
[2017-06-18] MEDS: Pantoprazole 40 mg EC Tab PO SCH (09:26)
--- NOTE | 2017-06-18 14:31 | PN ---
DATE: 06/18/2017 LOCATION: The patient in room 365, bed 1. REASON FOR CONSULTATION AND FOLLOWUP: Shortness of breath, swelling of legs, [id number] kidney failure, COPD, history of pulmonary embolism, hypertension, diabetes, morbid obesity. SUBJECTIVE: Patient is lying flat in bed. Breathing is stable. Denies chest pain or palpitations. PHYSICAL EXAMINATION VITAL SIGNS: Blood pressure 148/72, respirations 20, pulse 78, patient is afebrile. HEENT: Head is normocephalic. Eyes: Pupils are normal. Conjunctivae are slightly pale. NECK: JVP low. Carotids are equal. THORAX: AP diameter is normal. LUNGS: Clear. CARDIOVASCULAR: S1 and S2. EXTREMITIES: No clubbing. No cyanosis. LABORATORY DATA: WBC 10.3, hemoglobin 8.4, hematocrit 26, platelet 241,000. Sodium 138, potassium 4.6, BUN 110, creatinine 10.5, glucose 78, calcium 8.4. Today's blood work shows sodium 139, potassium 4.9, BUN 111, creatinine 10.4, sugar 95, calcium 8.4. CARDIAC WORKUP: Patient had an echo on 05/20/2015, which showed normal-sized LV, [id number] LV hypertrophy, normal LV systolic function with ejection fraction of 61%, [id number] tricuspid regurgitation with RVSP 44 mmHg suggestive of very mild pulmonary hypertension. Patient had stress test on 06/25/2015, which was equivocal for reversible anterolateral ischemia with ejection fraction of 63%. So, patient had cardiac catheterization on 07/27/2015, which showed nonobstructive coronary artery disease, limited only to obtuse marginal, OM2, 55% diffuse disease, very small caliber vessel, less than 1.5 mm, which is not suitable for PTCA, preserved LV function with ejection fraction of 55% to 60%, EDP was in the range of 14. PLAN: We will repeat echocardiogram. Patient is on glimepiride 1 mg p.o. b.i.d., insulin as ordered, iron sucrose IV, Lipitor 20 mg daily, Neurontin 300 mg p.o. t.i.d., amlodipine 10 mg daily, Protonix 40 mg daily, atenolol 100 mg daily. We will follow. Layla Liang MD
--- NOTE | 2017-06-18 18:22 | PN ---
DATE: 06/18/2017 SUBJECTIVE: The patient is seen lying in bed. She is awake. She is alert. She is comfortable. She denies any nausea or vomiting. She denies any bad taste in the mouth. She denies any shortness of breath. PHYSICAL EXAMINATION: GENERAL: Obese elderly lady lying in bed. VITAL SIGNS: Blood pressure 148/72, heart rate 78, respiratory rate 20, temperature 97.9. HEENT: Normocephalic, atraumatic. NECK: Supple, no JVD. LUNGS: Bilateral equal air entry, bilateral equal expansion, no rales. CARDIAC: S1, S2, regular rate and rhythm, no murmur, no rub. ABDOMEN: Obese, distended, soft, nontender, bowel sounds present. EXTREMITIES: Trace lower extremity edema. INTAKE AND OUTPUT: 2340/2125. LABORATORY DATA: WBC 10.3, hemoglobin 8.4, hematocrit 26, platelets . Sodium 139, potassium 4.9, chloride 105, CO2 of 22, BUN 111, creatinine 10.4, glucose 104, calcium 8.1. CURRENT MEDICATIONS: Amaryl 1 mg b.i.d., Drisdol, DuoNeb, Humulin, Venofer 200 mg IV piggyback, Lipitor, gabapentin 300 t.i.d., amlodipine 10, Protonix 40, atenolol 100, tramadol 50. ASSESSMENT: 1. Acute kidney injury superimposed on chronic kidney disease stage III, no improvement in renal function. 2. Prerenal azotemia ?. 3. Gastrointestinal bleed ?. 4. Resolved hyperkalemia. 5. Non-insulin dependant diabetes mellitus. 6. Hypertension. 7. History of pulmonary embolism, deep venous thrombosis, hypercoagulable state, ? renal vein thrombosis. PLAN: 1. Change Neurontin to 300 mg daily in light of advanced kidney failure. 2. Increase IV fluids at 200 mL/hour. 3. Monitor H and H. 4. Follow up stool occults. 5. Continue Venofer. 6. Discussed with patient may need renal replacement therapy tomorrow if creatinine is still higher than 9. 7. Monitor fingersticks and attempt euglycemia. 8. Renal vein Dopplers. Cheryl Jimenez MD [facility] # [id number]
--- NOTE | 2017-06-18 22:04 | PN ---
DATE: 06/18/2017 PULMONARY PROGRESS NOTE REFERRING PHYSICIAN: Dr. Mitchell. SUBJECTIVE: She is lying in the bed, head at 45 degrees. Still has tremor, aches and pain. Nursing staff is at bedside. Tolerated BiPAP well. No headache, no rhinitis, not much cough or sputum production. No nausea, no vomiting, no diarrhea, no leg pain or leg swelling. OBJECTIVE: GENERAL: In no acute distress. VITAL SIGNS: Temperature is 98, heart rate is 86, respiratory rate 20, blood pressure 148/72, pulse oximetry 95% on room air. HEENT: Moist mucous membranes. Crowded airway. NECK: Supple. No JVD. LUNGS: Have fair airflow with rhonchi. HEART: S1, S2. ABDOMEN: Soft, nontender, no organomegaly. EXTREMITIES: No edema. NEUROLOGIC: Awake, alert, and follows simple commands. MEDICATIONS: She is on Amaryl 1 mg twice a day, vitamin D 50,000 units subcutaneous weekly, albuterol/Atrovent nebulizer every 6 hours around the clock, iron sucrose 200 mg IV daily, Lipitor 20 mg daily, Mycelex Filippo 10 mg three times a day, Neurontin 300 mg daily, Norvasc 10 mg daily, Protonix 40 mg daily, IV fluid 75 mL per hour, atenolol 100 mg daily, and Ultram 50 mg daily. LABORATORY DATA: Shows hemoglobin 8.4, hematocrit 26.0, WBC 10.3, platelet is 241. INR 4.43. Sodium 139, potassium 4.9, chloride 105, bicarbonate 22, BUN 111, creatinine 10.4, glucose 104, calcium is 8.4. IMPRESSION AND PLAN: Acute renal failure, coagulopathy which is iatrogenic, anemia, atrial fibrillation, coronary artery disease, chronic obstructive lung disease, obstructive sleep apnea syndrome, recurrent deep venous thrombosis, history of pulmonary embolism. Pulmonary point of view, she is okay. Keep head at 45 degrees. Encourage bilevel positive airway pressure use. Continue bronchodilator. Her coagulopathy was reversed yesterday with fresh frozen plasma. Presently getting intravenous iron. Continue intravenous fluid. Encourage p.o. intake. Follow BUN and creatinine. Gastric prophylaxis. Sequential compression device to lower extremities. Follow up labs in the morning. Thank you, and we will follow with you. Layla Brooks MD [facility] # [id number]
[2017-06-19] MEDS: Insulin Reg-MEDIUM-Coverage SC SCH ×5 (00:05→22:18)
[2017-06-19 00:14] LABS: ARTERIAL BLOOD GAS HCO3 19.2 mmol/L (21-28); ARTERIAL BLOOD GAS HEMOGLOBIN 9.2 g/dL (11.7-17.4); ARTERIAL BLOOD GAS O2 CAPACITY 12.8 mL/dl (16-24); ARTERIAL BLOOD GAS O2 CONTENT 12.5 ML/dl (15-23); ARTERIAL BLOOD GAS O2 SAT 97.5 % (95-98); ARTERIAL BLOOD GAS PCO2 34 mm/Hg (35-45); ARTERIAL BLOOD GAS PH 7.36 (7.35-7.45); ARTERIAL BLOOD GAS TCO2 20.2 mmol.L (22-28)
--- NOTE | 2017-06-19 00:39 | CP.PCM.PN ---
Subjective - Date & Time of Evaluation Date of Evaluation: 06/19/17 Time of Evaluation: 00:35 - Subjective Subjective: Patient was seen because nurse told that patient has been lethargic. I evaluated patient.She complains of head ache on left side, TICS in the head. No other complaints. Denies nausea,dizziness,chest pain, sob. Finger stick blood glucose was 379 mg %,repeat one is 312 mg % . BP 160/81, Temp:98.0*F, Pulse 86/ min, RR 20/min, pulse ox 96% on BiPAP -12/7 30 %. Medical record was reviewed. 66 year old woman was admitted with generalized increasing sob ,weakness, fatigue, left sided diffuse headache, leukocytosis, anemia, renal insufficiency,respiratory distress. Has PMH of HTN, CAD, atrial fibrillation,obesity, DVT,PE,leg edema, SILVA , CKD III. Objective - Vital Signs/Intake and Output Vital Signs (last 24 hours): Temp Pulse Resp BP Pulse Ox 98.0 F 86 20 148/72 96 06/18/17 23:40 06/18/17 23:40 06/18/17 23:40 06/18/17 09:26 06/18/17 23:40 Intake and Output: 06/18/17 06/19/17 18:59 06:59 Intake Total 420 Output Total 950 Balance -530 - Medications Medications: Current Medications Albuterol/Ipratropium (Duoneb 3 Mg/0.5 Mg (3 Ml) Ud) 3 ml IH [id number] [facility] Last Admin: 06/18/17 22:39 Dose: 3 ml Amlodipine Besylate (Norvasc) 10 mg PO DAILY [facility] Last Admin: 06/18/17 09:26 Dose: 10 mg Atenolol (Tenormin) 100 mg PO DAILY [facility] Last Admin: 06/18/17 09:26 Dose: 100 mg Atorvastatin Calcium (Lipitor) 20 mg PO DIN [facility] Last Admin: 06/18/17 16:45 Dose: 20 mg Clotrimazole (Mycelex Filippo) 10 mg MT TID [facility] Last Admin: 06/18/17 18:11 Dose: 10 mg Ergocalciferol (Drisdol 50,000 Intl Units Cap) 1 cap PO WED [facility] Gabapentin (Neurontin) 300 mg PO DAILY [facility] PRN Reason: Protocol Glimepiride (Amaryl) 1 mg PO BID [facility] Last Admin: 06/18/17 18:11 Dose: 1 mg Iron Sucrose 200 mg/ Sodium (Chloride) 110 mls @ 110 mls/hr IVPB DAILY [facility] Stop: 06/21/17 10:59 Last Admin: 06/18/17 09:27 Dose: 110 mls/hr Sodium Bicarbonate 75 meq/ (Sodium Chloride) 1,000 mls @ 80 mls/hr IV .[id number] [facility] Stop: 06/19/17 13:16 Last Admin: 06/18/17 16:01 Dose: 80 mls/hr Insulin Human Regular (Humulin R Med) 0 units SC ACHS [facility] PRN Reason: Protocol Last Admin: 06/19/17 00:05 Dose: 4 units Pantoprazole Sodium (Protonix Ec Tab) 40 mg PO DAILY [facility] Last Admin: 06/18/17 09:26 Dose: 40 mg Tramadol HCl (Ultram) 50 mg PO DAILY [facility] Last Admin: 06/18/17 09:31 Dose: 50 mg - Labs Labs: 06/18/17 06:25 06/18/17 06:25 PT 52.5 SECONDS (9.4-12.5) H 06/18/17 06:25 INR 4.43 (0.93-1.08) H* 06/18/17 06:25 APTT 51.7 Seconds (25.1-36.5) H 06/16/17 11:00 Most Recent Lab Values WBC 10.3 10^3/ul (4.5-11.0) 06/18/17 06:25 RBC 3.26 10^6/uL (3.5-6.1) L 06/18/17 06:25 Hgb 8.4 g/dL (12.0-16.0) L 06/18/17 06:25 Hct 26.0 % (36.0-48.0) L 06/18/17 06:25 MCV 79.8 fl (80.0-105.0) L 06/18/17 06:25 MCH 25.8 pg (25.0-35.0) 06/18/17 06:25 MCHC 32.3 g/dl (31.0-37.0) 06/18/17 06:25 RDW 15.6 % (11.5-14.5) H 06/18/17 06:25 Plt Count 241 10^3/uL (120.0-450.0) 06/18/17 06:25 MPV 12.0 fl (7.0-11.0) H 06/18/17 06:25 Gran % 55.3 % (50.0-68.0) 06/16/17 11:00 Lymph % (Auto) 37.2 % (22.0-35.0) H 06/16/17 11:00 [place] % (Auto) 4.9 % (1.0-6.0) 06/16/17 11:00 Eos % (Auto) 2.4 % (1.5-5.0) 06/16/17 11:00 Baso % (Auto) 0.2 % (0.0-3.0) 06/16/17 11:00 Gran # 6.84 (1.4-6.5) H 06/16/17 11:00 Lymph # (Auto) 4.6 (1.2-3.4) H 06/16/17 11:00 [place] # (Auto) 0.6 (0.1-0.6) 06/16/17 11:00 Eos # (Auto) 0.3 (0.0-0.7) 06/16/17 11:00 Baso # (Auto) 0.03 K/mm3 (0.0-2.0) 06/16/17 11:00 PT 52.5 SECONDS (9.4-12.5) H 06/18/17 06:25 INR 4.43 (0.93-1.08) H* 06/18/17 06:25 APTT 51.7 Seconds (25.1-36.5) H 06/16/17 11:00 pCO2 34 mm/Hg (35-45) L 06/18/17 23:58 pO2 90.0 mm/Hg (80-100) 06/18/17 23:58 HCO3 19.2 mmol/L (21-28) L 06/18/17 23:58 ABG pH 7.36 (7.35-7.45) 06/18/17 23:58 ABG Total CO2 20.2 mmol.L (22-28) L 06/18/17 23:58 ABG O2 Saturation 97.5 % (95-98) 06/18/17 23:58 ABG O2 Content 12.5 ML/dl (15-23) L 06/18/17 23:58 ABG Base Excess -5.6 mmol/L (-2.0-3.0) L 06/18/17 23:58 ABG Hemoglobin 9.2 g/dL (11.7-17.4) L 06/18/17 23:58 ABG Carboxyhemoglobin 1.5 % (0.5-1.5) 06/18/17 23:58 POC ABG HHb (Measured) 2.4 % (0-5) 06/18/17:58 ABG Methemoglobin 0.7 % (0.0-3.0) 06/18/17 23:58 ABG O2 Capacity 12.8 mL/dl (16-24) L 06/18/17 23:58 VBG pH 7.23 (7.32-7.43) L 06/16/17 17:25 VBG pCO2 44.0 (40-60) 06/16/17 17:25 VBG HCO3 18.4 mmol/l (21-28) L 06/16/17 17:25 VBG Total CO2 19.8 mmol.L (22-28) L 06/16/17 17:25 VBG O2 Sat (Calc) 80.3 % (40-65) H 06/16/17 17:25 VBG Base Excess -8.9 mmol/L (0.0-2.0) L 06/16/17 17:25 VBG Potassium 6.6 mmol/L (3.6-5.2) H* 06/16/17 17:25 Hgb O2 Saturation 95.5 % (95.0-98.0) 06/18/17 23:58 Sodium 135.0 mmol/L (132-148) 06/16/17 17:25 Chloride 103.0 mmol/L (98-107) 06/16/17 17:25 Glucose 285 mg/dl (65-105) H 06/16/17 17:25 Lactate 2.1 mmol/L (0.7-2.1) 06/16/17 17:25 FiO2 30.0 % 06/18/17 23:58 Sodium 139 mmol/L (132-148) 06/18/17 06:25 Potassium 4.9 mmol/L (3.6-5.0) 06/18/17 06:25 Chloride 105 mmol/L (98-107) 06/18/17 06:25 Carbon Dioxide 22 mmol/L (21-33) 06/18/17 06:25 Anion Gap 17 (10-20) 06/18/17 06:25 BUN 111 mg/dL (7-21) H 06/18/17 06:25 Creatinine 10.4 mg/dl (0.7-1.2) H* 06/18/17 06:25 Est GFR ( Amer) 5 06/18/17 06:25 Est GFR (Non-Af Amer) 4 06/18/17 06:25 POC Glucose (mg/dL) 312 mg/dL (65-110) H 06/18/17 23:42 Random Glucose 104 mg/dL (70-110) 06/18/17 06:25 Hemoglobin A1c 8.1 % (4.2-6.5) H 06/16/17 19:06 Calcium 8.4 mg/dL (8.4-10.5) 06/18/17 06:25 Iron 35 ug/dL (45-180) L 06/17/17 10:00 TIBC 302 ug/dL (265-497) 06/17/17 10:00 % Saturation 12 % (20-55) L 06/17/17 10:00 Ferritin 589.0 ng/mL 06/17/17 10:00 Total Bilirubin 0.3 mg/dL (0.2-1.3) 06/16/17 11:00 AST 24 U/L (14-36) 06/16/17 11:00 ALT 16 U/L (7-56) 06/16/17 11:00 Alkaline Phosphatase 62 U/L (38-126) 06/16/17 11:00 Lactate Dehydrogenase 684 U/L (333-699) 06/16/17 11:00 Total Creatine Kinase 300 U/L (35-230) H 06/16/17 11:00 CK-MB (CK-2) 2.1 ng/mL (0.0-3.6) 06/16/17 11:00 CK-MB (CK-2) % Cancelled 06/16/17 11:00 Troponin I 0.03 ng/mL D 06/16/17 11:00 NT-Pro-B Natriuret Pep 2630 pg/mL (0-450) H 06/16/17 11:00 Total Protein 7.3 g/dL (5.8-8.3) 06/16/17 11:00 Albumin 3.9 g/dL (3.0-4.8) 06/16/17 11:00 Globulin 3.4 gm/dL 06/16/17 11:00 Albumin/Globulin Ratio 1.1 (1.1-1.8) 06/16/17 11:00 Triglycerides 135 mg/dL (35-160) 06/16/17 19:06 Cholesterol 135 mg/dL (130-200) 06/16/17 19:06 LDL Cholesterol Direct 59 mg/dL (0-129) 06/16/17 19:06 HDL Cholesterol 35 mg/dL (29-60) 06/16/17 19:06 Vitamin B12 473 pg/mL (239-931) 06/16/17 19:06 Folate 16.7 ng/mL 06/16/17 19:06 Venous Blood Potassium 6.6 mmol/L (3.6-5.2) H* 06/16/17 17:25 Urine Color Yellow (YELLOW) 06/16/17 11:28 Urine Appearance Clear (CLEAR) 06/16/17 11:28 Urine pH 5.5 (4.7-8.0) 06/16/17 11:28 Ur Specific [place] 1.020 (1.005-1.035) 06/16/17 11:28 Urine Protein 30 mg/dL (<30 mg/dL) H 06/16/17 11:28 Urine Glucose (UA) Negative mg/dL (NEGATIVE) 06/16/17 11:28 Urine Ketones Negative mg/dL (NEGATIVE) 06/16/17 11:28 Urine Blood Small (NEGATIVE) H 06/16/17 11:28 Urine Nitrate Negative (NEGATIVE) 06/16/17 11:28 Urine Bilirubin Negative (NEGATIVE) 06/16/17 11:28 Urine Urobilinogen 0.2 E.U./dL (<1 E.U./dL) 06/16/17 11:28 Ur Leukocyte Esterase Negative Roman/uL (NEGATIVE) 06/16/17 11:28 Urine RBC 1 - 3 /hpf (0-2) 06/16/17 11:28 Urine WBC 0 - 2 /hpf (0-6) 06/16/17 11:28 Ur Epithelial Cells 3 - 4 /hpf (0-5) 06/16/17 11:28 Urine Bacteria Few (NEG) 06/16/17 11:28 Urine Eosinophils Negative 06/17/17 02:10 Ur Random Creatinine 95 mg/dL 06/17/17 02:10 Ur Random Sodium 40 meq/L 06/17/17 02:10 Blood Type A POSITIVE 06/16/17 11:00 Blood Type Confirm A POSITIVE 06/16/17 11:30 Antibody Screen Negative 06/16/17 11:00 BBK History Checked No verified bt 06/16/17 11:00 - Constitutional Appears: Well, No Acute Distress - Head Exam Head Exam: ATRAUMATIC, NORMAL INSPECTION, NORMOCEPHALIC - Eye Exam Eye Exam: Normal appearance - Neck Exam Neck Exam: Normal Inspection - Respiratory Exam Respiratory Exam: Clear to Ausculation Bilateral, NORMAL BREATHING PATTERN - Cardiovascular Exam Cardiovascular Exam: REGULAR RHYTHM, +S1 (Normal.), +S2 (Normal.). absent: JVD - GI/Abdominal Exam GI & Abdominal Exam: absent: Distended - Rectal Exam Rectal Exam: Deferred - Exam Additional comments: Deferred. - Extremities Exam Extremities Exam: Normal Inspection - Back Exam Back Exam: NORMAL INSPECTION - Neurological Exam Neurological Exam: Alert, Awake, Oriented x3 Additional comments: She is oriented to time, preson,location. Can recognize her nurse. - Psychiatric Exam Psychiatric exam: Normal Affect, Normal Mood - Skin Skin Exam: Normal Color Assessment and Plan - Assessment and Plan (Free Text) Assessment: Lethargy. AMS. Hyperglycemia. HTN. CKD. Obesity. SILVA. COPD Hx. CAD. Atrial fibrillation. Headaches/Tremors/Tics. Plan: FSBS stat. 312mg %.-Regular insulin 4 units SC x 1. ABG---> Hx COPD, R/o Hypercarbia. Awaiting a CT scan of head in AM. Observation. May need Neurology consultation.
--- NOTE | 2017-06-19 01:16 | PN ---
DATE: SUBJECTIVE: The patient is a 66-year-old female. Patient is seen and examined at the bedside. Looking comfortable. No nausea, vomiting, or diarrhea. No hematuria or hematochezia. No swelling of the legs. No chest pain, no palpitation. No headache, no dizziness. Feeling little bit depressed because of her medical condition. PHYSICAL EXAMINATION: VITAL SIGNS: Temperature 98.6, pulse 83, blood pressure 148/72, oxygenation 95%. HEENT: Head: Normocephalic, atraumatic. Eyes: PERRLA. Extraocular muscles are intact. Conjunctivae clear. Nose patent. NECK: Supple. No carotid bruits, JVD, or thyromegaly. CHEST: Bilaterally symmetrical. HEART: S1, S2 positive. LUNGS: Clear to auscultation. ABDOMEN: Soft. Bowel sounds present. No organomegaly. EXTREMITIES: No edema. No cyanosis. NEUROLOGICAL: Patient is awake, alert. Moving all four extremities. No focal deficit. MEDICATIONS: Amaryl, ergocalciferol, insulin, iron, atorvastatin, Mycelex Filippo, Neurontin, Norvasc, Lipitor, Protonix, NS, Ultram. LABORATORY DATA: White blood cells 10.3, hemoglobin 8.4, hematocrit 26.0, platelets 241. Sodium 139, potassium 4.9, BUN 111, creatinine 10.4, glucose 254. Yesterday, creatinine was 10.5, BUN was 111. ASSESSMENT AND PLAN: Ms. Laura Emanuel is a 66-year-old female with anemia; history of leukocytosis, improved; renal insufficiency, per Dr. Jimenez looks like pre-azotemia; diabetes mellitus type 2 uncontrolled; acute kidney injury, looks like superimposed on a chronic kidney disease stage III, no improvement in renal function; maybe gastrointestinal bleeding resolved; hyperkalemia; hypertension; history of pulmonary embolism; deep vein thrombosis; hypercoagulable state; rule out renal vein thrombosis as per Dr. Jimenez. Change Neurontin to daily. Increase intravenous fluid. Monitoring hemoglobin and hematocrit. Follow up stool culture, stool occult. Continue Venofer. According to Dr. Jimenez, maybe patient needs renal replacement therapy tomorrow if creatinine is still higher than 9. Monitoring fingerstick and attempt euglycemia. Renal vein Doppler ordered by Dr. Jimenez. Sometimes patient is feeling tremors and sometimes forgetting her words. Last seen by Dr. Cao for headache towards the left side. We will order CAT scan of the head. Gastrointestinal and deep vein thrombosis prophylaxis. We will follow up. Tracy Mitchell MD
[2017-06-19] MEDS: Albuterol-Ipratrop 3 mg / 0.5 (3 ml) UD IH SCH ×4 (03:35→21:10)
--- NOTE | 2017-06-19 05:32 | PN ---
DATE: SUBJECTIVE: This patient was seen and evaluated earlier. Patient is comfortable, not in acute distress, tolerating the diet. PHYSICAL EXAMINATION: VITAL SIGNS: Temperature is afebrile, blood pressure 148/72, heart rate 78, respirations 20. HEENT: Atraumatic, anicteric. NECK: Supple. HEART: S1 and S2 heard. LUNGS: Bilateral air entry present. ABDOMEN: Soft. There is no tenderness. EXTREMITIES: Bilateral edema present. NEUROLOGIC: Alert, oriented, moves all the extremities. LABORATORY DATA: Hemoglobin 8.4, hematocrit 26. IMPRESSION: This is a 66-year-old patient admitted with acute kidney disease on the top of chronic kidney disease, significant drop in the blood count, probably multifactorial etiology. No obvious gastrointestinal blood loss noticed. No bright red blood per rectum. Other comorbidities include kvx-iiuadji-nlfoojwhr diabetes mellitus, hypertension, history of pulmonary embolism, deep vein thrombosis, on anticoagulation. RECOMMENDATIONS: I would recommend followup of the hemoglobin and hematocrit. Patient would consider CT of the abdomen and pelvis to further evaluate. The last colonoscopy was in 2012, no polyps were found at that time. Thank you very much for allowing us to participate in the care of the patient. Isela Rivera MD
[2017-06-19 07:09] LABS: INR 2.12 (0.93-1.08); PROTHROMBIN TIME 24.8 SECONDS (9.4-12.5)
[2017-06-19 07:30] LABS: ALB/GLOB RATIO 1.1 (1.1-1.8); ALBUMIN 3.2 g/dL (3.0-4.8); CALCIUM 8.4 mg/dL (8.4-10.5)
--- NOTE | 2017-06-19 08:53 | HP ---
DATE OF EXAM: 06/16/2017 CHIEF COMPLAINT: Swelling of the leg, feeling of fatigue and tired, abnormal labs. HISTORY OF PRESENT ILLNESS: Ms. Adelfo Sanchez is a 66-year-old female with a past medical history of diabetes mellitus, PE, DVT, from two weeks has progressively worsening generalized weakness, fatigue, now worse with exertion. The patient also noted increasing shortness of breath with exertion with the symptom worsening over the last few days. The patient has noticed one week onset of left-sided diffuse headache. At most time, pain is 10/10. The patient states slight light sensitive nausea. No vomiting. No fever. No chills. No sweating. Denies chest pain. No palpitation, but has progressively worsening bilateral swelling of the leg. No abdominal pain. No hematuria. No hematochezia. No dysuria. The patient was seen in Dr. Zayas's office. She did her labs and her creatinine was 9 for the first time. She called my office after discussion and then we planned to sent the patient to the Emergency Room. While sitting in the Emergency Room even, her creatinine was higher, it was 10. Seen by Dr. Jimenez in the Emergency Room. I saw the patient in the room. Her granddaughter was sitting on the bedside also. PAST MEDICAL HISTORY: Coronary artery disease, atrial fibrillation, hypertension, bilateral swelling of the leg, DVT, PE, asthma, bronchitis, pneumonia, sleep apnea, diabetes mellitus type 2, not controlled, is under care of transitional studies instructor, obesity, history of hemorrhoids, right knee arthroscopy. FAMILY HISTORY: Father and mother noncontributory. HABITS: Never smoked. No drug. No ethanol. ALLERGIES: THE PATIENT IS ALLERGIC WITH INSULIN AND PREDNISONE HOME MEDICATIONS: Ecotrin, atenolol, vitamin D, Feosol, losartan, metformin, Singulair, pantoprazole, simvastatin, Victoza, Coumadin, fluticasone, allopurinol, and tramadol. REVIEW OF SYSTEMS: The patient seen and examined at bedside in her room. Still having the swelling of the leg, shortness of breath, fatigue, tired. Not nauseous at this moment. No chest pain or palpitation. According to the patient, has urine output changes. No vaginal bleeding. No dysuria. Sometimes complaining of headache and dizziness. No focal weakness. No gait changes. PHYSICAL EXAMINATION: VITAL SIGNS: Temperature 98.1, pulse 112, respiratory rate 20, blood pressure 147/79. HEENT: Head: Normocephalic, atraumatic. Eyes: PERRLA. Extraocular movements are intact. Conjunctivae are clear. Nose patent. Mucous membranes are moist. NECK: Supple. No carotid bruit. No JVD or thyromegaly. CHEST: Bilaterally symmetrical. HEART: S1 and S2 positive. LUNGS: Clear to auscultation. ABDOMEN: Soft, bowel sounds present. No organomegaly. EXTREMITIES: Positive edema bilaterally. NEUROLOGICAL: Awake and alert, moving all 4 extremities, no focal deficits. LABORATORY DATA: White blood cells 12.4, hemoglobin 9.8, hematocrit 30.5, platelets 261. Sodium 139, potassium 4.9, BUN 112, creatinine 10.0. Glucose 245. ASSESSMENT AND PLAN: Ms. Adelfo Sanchez is a 66-year-old lady with leukocytosis, anemia, renal insufficiency, new onset, acute on chronic, hyperglycemia, uncontrolled diabetes mellitus, history pulmonary embolism and deep vein thrombosis, is on Coumadin, INR is heigh , history of coronary artery disease, atrial fibrillation, does have sleep apnea, hypercoagulable state, h/o kidney disease. Hemoglobin is low and being monitored in the office by Dr. Zayas. Dr. Jimenez is patient's telepathist, and according to patient, patient was seen by Dr. Jimenez last week and ultrasound was done and Dr. Jimenez's office called her , informed results ' for Hypertension, the patient is getting medicine from Dr. Jimenez. Gastrointestinal and deep vein thrombosis prophylaxes. Repeat laboratories. Discussion done with the patient and the patient's granddaughter and the patient's nurse and Dr. Zayas. The patient has congestive heart failure. Cardiology consult called by Dr. Liang. We will follow up. Tracy Mitchell MD [facility]
--- NOTE | 2017-06-19 09:33 | CT ---
CT of the head without contrast History. Altered mentation Comments. CT of the head was performed without IV contrast. Comparison study 04/17/2017 The brain parenchyma is normal. There is no evidence of infarct or hemorrhage. The ventricles and sulci are normal in size. Impression: Negative study
--- NOTE | 2017-06-19 10:06 | US ---
PROCEDURE: Bilateral renal vein duplex ultrasound. CLINICAL HISTORY: Evaluate for renal vein thrombosis PHYSICIAN(S): Maikol Soares M.D. TECHNIQUE: Duplex sonography with color-flow Doppler was used to evaluate the visualized segments of the main renal veins. The patient was evaluated in a fasting state. Imaging in a supine and decubitus position was performed. FINDINGS: The kidneys are normal in size shape and location. The renal parenchyma is normal in thickness but somewhat echogenic. No hydronephrosis or solid renal mass is present. Limited images of the renal veins are patent. O obvious main renal vein thrombosis is appreciated. IMPRESSION: 1. No sonographic evidence of main renal vein thrombosis 2. The kidneys are normal in size, shape, and location. Renal parenchyma is somewhat echogenic 3. No hydronephrosis
[2017-06-19] MEDS: Pantoprazole 40 mg EC Tab PO SCH (11:00)
[2017-06-19] MEDS ORDERED: Apap-Butalbital-Caffeine 325-50-40mg Tab PO PRN (16:04)
--- NOTE | 2017-06-19 16:30 | PN ---
DATE: 06/19/2017 LOCATION: Patient is in room 365, bed 1. REASON FOR THE CONSULTATION AND FOLLOWUP: Shortness of breath, swelling of legs, acute on chronic kidney failure, COPD, history of pulmonary embolism, hypertension, diabetes, morbid obesity. SUBJECTIVE: Patient denies any chest pain or palpitation. Her breathing is also stable. Denies any shortness of breath. Patient is lying flat in bed at this present moment. PHYSICAL EXAMINATION: VITAL SIGNS: Blood pressure 148/81, respirations 20, pulse 85, temperature 99.6. HEENT: Head is normocephalic. Eyes: Pupils are normal. Conjunctivae are slightly pale. NECK: JVP low. Carotids are equal. THORAX: AP diameter is normal. LUNGS: Clear. CARDIOVASCULAR: S1 and S2. ABDOMEN: Soft, nontender. No organomegaly. EXTREMITIES: No clubbing. No cyanosis. LABORATORY DATA: WBC 10.3, hemoglobin 8.4, hematocrit 26, platelets 241. Sodium 139, potassium 4.9, BUN 114, creatinine 9.6. Random sugar 156. AST, ALT. total protein, albumin normal. Previous cardiac workup showed echo in 05/20/2015, which showed normal-sized LV, clmk-sa-ebvwpfnb LV hypertrophy, normal LV systolic function, ejection fraction 61%, azvp-ed-lcjsbxbj tricuspid regurgitation with RVSP 44 mmHg suggestive of very mild pulmonary hypertension. Patient has stress test on 06/25/2015, which was equivocal for reversible anterolateral ischemia with ejection fraction of 63%. So, patient had cardiac catheterization on 07/27/2015, which showed nonobstructive coronary artery disease, limited only to obtuse marginal branch, OM2, which showed 55% diffuse disease, but was a very small caliber vessel, not suitable for a PTCA, ejection fraction of 55% to 60%, EDP was in the range of 14. PLAN: Patient's creatinine is very slightly decreasing. Today the creatinine is 9.6, before that was 10.4, before that was 10.5. Plan is patient getting IV fluid, glimepiride 1 mg b.i.d., DuoNeb hand nebulizer therapy, atorvastatin 20 daily, gabapentin 300 daily, amlodipine 10 daily, atenolol 100 p.o. daily. Patient will have echocardiogram today to evaluate LV function. We will continue present therapy. We will follow with you. Layla Liang MD [facility] # [id number]
--- NOTE | 2017-06-19 16:54 | CARD ---
APPROVED REPORT EXAM: Two-dimensional and M-mode echocardiogram with Doppler and color Doppler. INDICATION LVFX/RVSP/EF/SOB 2D DIMENSIONS Left Atrium (2D)4.7 (1.6-4.0cm)IVSd1.2 (0.7-1.1cm) LVDd5.0 (3.9-5.9cm)PWd1.3 (0.7-1.1cm) LVDs3.1 (2.5-4.0cm)FS (%) 37.4 % LVEF (%)67.1 (>50%) M-Mode DIMENSIONS Aortic Root3.60 (2.2-3.7cm)Aortic Cusp Exc.2.10 (1.5-2.0cm) Aortic Valve AoV Peak Lkiaipcn990.0cm/Thomas Peak GR.9mmHgLVOT Peak Ftyjwwqf895.0cm/s LVOT VTI26.00cm Mitral Valve MV E Vsxjomsr964.0cm/sMV A Wkucsusr81.8cm/sE/A ratio1.2 TDI Lateral E' Peak V11.30cm/sMedial E' Peak V10.30cm/sE/Lateral E'9.1 E/Medial E'10.0 Pulmonary Valve PV Peak Aslpaeop33.8cm/sPV Peak Grad.3mmHg Tricuspid Valve TR Peak Ogxyusqa607dy/sRAP AWKRLDLA73igKvST Peak Gr.43mmHg [id number] LEFT VENTRICLE The left ventricle is normal size. There is mild concentric left ventricular hypertrophy. The left ventricular function is normal.EF-55-60% There is normal LV segmental wall motion. Transmitral Doppler flow pattern is Grade II-pseudonormal filling dynamics. No left ventricle thrombus noted on this study. There is no ventricular septal defect visualized. There is no left ventricular aneurysm. RIGHT VENTRICLE The right ventricle is normal size. There is normal right ventricular wall thickness. The right ventricular systolic function is normal. ATRIA The left atrium is mildly dilated. The right atrium is mildly dilated. The interatrial septum is intact with no evidence for an atrial septal defect. AORTIC VALVE The aortic valve is thickened but opens well. No aortic regurgitation is present. There is no aortic valvular stenosis. There is no aortic valvular vegetation. MITRAL VALVE The mitral valve is thickened but opens well. Mitral regurgitation is mild. There is no mitral valve stenosis. There is no evidence of mitral valve prolapse. TRICUSPID VALVE The tricuspid valve leaflets are thickened , but open well. There is mild to moderate tricuspid regurgitation.RVSP-53 mmof hg. There is mild pulmonary hypertension. There is no tricuspid valve stenosis. There is no tricuspid valve prolapse or vegetation. PULMONIC VALVE The pulmonary valve is normal in structure. There is trace pulmonic valvular regurgitation. There is no pulmonic valvular stenosis. GREAT VESSELS The aortic root is normal in size. The ascending aorta is normal in size. The pulmonary artery is normal. The IVC is normal in size and collapses >50% with inspiration. PERICARDIAL EFFUSION There is no pleural effusion. There is no pericardial effusion. <Conclusion> The left ventricle is normal size. There is mild concentric left ventricular hypertrophy. The left ventricular function is normal.EF-55-60% No aortic regurgitation is present. Mitral regurgitation is mild. There is mild to moderate tricuspid regurgitation.RVSP-53 mmof hg. There is mild pulmonary hypertension. The IVC is normal in size and collapses >50% with inspiration. There is no pericardial effusion.
--- NOTE | 2017-06-19 17:47 | CON ---
DATE: 06/19/2017 NEUROLOGY CONSULTATION CHIEF COMPLAINT: Headache on the left side. HISTORY OF PRESENT ILLNESS: A 66-year-old woman with past medical history of lower extremity DVT; pulmonary embolism; morbid obesity; jrj-enatzai-mlrkxbmll diabetes mellitus; hypertension; chronic kidney disease, stage II to III; history of nonobstructive coronary artery disease, who came in for shortness of breath and lower extremity edema for past 2 weeks who has been followed by Nephrology and electrolytes have been currently managed, kidney disease. Currently, no swelling of the legs, was consulted for throbbing left-sided headache. She describes the headache as more of a buzzing feeling on the left side. She has been stressed and she also has hyperglycemic fluctuations. Her A1c is 8 indicative of poorly controlled diabetes. Otherwise no focal weakness of lower extremities, feels to have evidence of diabetic peripheral neuropathy on neuro exam. PAST MEDICAL HISTORY AND SURGICAL HISTORY: Shows lower extremity DVT; pulmonary embolism; morbid obesity; djj-yxtgvnc-hslysmoxi diabetes mellitus; hypertension; chronic kidney disease, stage II to III; history of nonobstructive coronary artery disease; history cardiac catheterization in 07/2015. FAMILY HISTORY: Noncontributory. SOCIAL HISTORY: No illicit drug use, smoking or EtOH abuse. ALLERGIES: ALLERGIC TO INSULIN AND PREDNISONE. MEDICATIONS: Reviewed by nurse reconciliation sheet. REVIEW OF SYSTEMS: A 14-point review of systems negative except as per the HPI. LABORATORY DATA: Sodium is 139, potassium 4.9, chloride 102, carbon dioxide 22, BUN 114, creatinine 9.6, random glucose of 196. PHYSICAL EXAMINATION: VITAL SIGNS: Temperature 99.6, pulse 85, blood pressure 148/81, respiratory rate 20, oxygen saturation 96%. GENERAL: Patient is sitting up in bed, in no acute distress. She is morbidly obese. HEENT: Head is atraumatic, normocephalic. PERRLA. Extraocular muscles intact. NECK: Supple. No JVD. No adenopathy noted. LUNGS: Clear to auscultation. No adventitious sounds. HEART: S1,S2, normal rate and rhythm. No murmurs, rubs or gallops. ABDOMEN: Soft, nontender, nondistended. Bowel sounds are present. EXTREMITIES: No clubbing, no cyanosis. Peripheral pulses are 2+ felt bilaterally. Has 1+ pitting edema in lower extremities. NEUROLOGIC: Patient is alert, oriented to person, place, month and year. Speech is fluent without any errors. Cranial nerves II through XII intact. Motor: Moves all extremities equally. Toes are downgoing bilaterally. Sensory: Decreased light touch and pinprick up to the calves bilaterally. Decreased vibration of the toes. DTRs are 2+ throughout and absent at the knees and ankles. Coordination: Fmvltl-wj-aaor intact. No dysmetria noted. Gait is deferred for now. ASSESSMENT AND PLAN: This is a 66-year-old woman with history of nonobstructive coronary artery disease; rra-omaislz-ehqwnatum diabetes mellitus; history of lower extremity deep venous thrombosis pulmonary embolism; morbid obesity; history of sleep apnea, on continuous positive airway pressure, who presented with shortness of breath; generalized weakness; lower extremity swelling, found to have acute kidney injury superimposed on underlying chronic kidney disease stage II, which is being managed by Nephrology, was consulted for left-sided headache. Left-sided headache seems most likely a tension based headache with neuralgiform component likely from underlying electrolyte derangement as well as sleep apnea as well tension and hyperglycemic accelerations. RECOMMENDATIONS: At this time, recommend: 1. Keep blood sugars between 140 and 180. Given that her A1c is 8, needs a better diabetic regimen. 2. Advised weight reduction. 3. CPAP daily for underlying sleep apnea. 4. Get Fioricet one tab every 4 hours acute onset headache p.r.n. 5. Gabapentin 400 mg p.o. at bedtime for neuropathic pain as well as headache. 6. Continue with current medical management. Thank you for this consult. Jurgen Van MD
--- NOTE | 2017-06-19 18:26 | PN ---
DATE: 06/19/2017 SUBJECTIVE: The patient is seen sitting in bed. She is awake. She is alert. She is comfortable. She denies any cough, shortness of breath. She denies any abdominal pain. She denies any nausea, vomiting or diarrhea. Appetite is good. PHYSICAL EXAMINATION: GENERAL: Morbidly obese elderly lady, sitting in bed. VITAL SIGNS: Blood pressure 148/81, heart rate 85, respiratory rate 20, temperature 98.4. HEENT: Normocephalic, atraumatic. NECK: Supple, no JVD. LUNGS: Bilateral equal air entry, no rales. CARDIAC: S1 and S2, regular rate and rhythm, no murmur, no rub. ABDOMEN: Obese, distended, soft, nontender, bowel sounds present. EXTREMITIES: No lower extremity edema. INTAKE AND OUTPUT: 420/1600? LABORATORY DATA: No new CBC. Chemistry: Sodium 139, potassium 4.9, chloride 103, CO2 of 22, BUN 114, creatinine 9.6, glucose 196, calcium 8.4, AST 23, ALT 25. CURRENT MEDICATIONS: Amaryl 1 mg b.i.d., Drisdol, DuoNeb, Fioricet, Venofer, Lipitor, Neurontin, amlodipine 10, Protonix, half-normal saline with 75 mEq of sodium bicarbonate at 80, Tenormin, Ultram. ASSESSMENT: 1. Acute kidney injury superimposed on chronic kidney disease stage 2/3. 2. Largely prerenal azotemia. 3. ? gastrointestinal bleed. 4. Morbid obesity. 5. History of deep venous thrombosis/pulmonary embolism/hypercoagulable state. 6. Severe anemia. 7. Maa-zwogwsd-hhykxnyxg diabetes mellitus. 8. Hypertension. PLAN: 1. Continue IV fluids with sodium bicarbonate. 2. Monitor urine output closely. 3. Monitor for uremic signs and symptoms. 4. No renal replacement therapy at this time. 5. Follow up GI workup. Cheryl Jimenez MD
--- NOTE | 2017-06-19 23:04 | PN ---
DATE: 06/19/2017 PULMONARY PROGRESS NOTE REFERRING PHYSICIAN: Tracy Mitchell MD SUBJECTIVE: Patient is sitting at side of the bed, feels better than yesterday. Tremors are better. Still having some cluster type of headaches, seen by Neurology, tolerated BiPAP well. No chest pain, no shortness of breath. No leg swelling. OBJECTIVE: GENERAL: In no acute distress. VITAL SIGNS: Temperature is 98, heart rate is 89, respiratory rate is 20, blood pressure is 148/81, pulse ox is 96% on BiPAP at night. HEENT: Moist mucous membrane. Crowded airway. NECK: Supple. No JVD. LUNGS: Have fair airflow with few rhonchi. HEART: S1, S2. ABDOMEN: Soft, nontender, no organomegaly. EXTREMITIES: There is no edema. NEUROLOGIC: Awake, alert, and follows simple commands. MEDICATIONS: She is on Amaryl 1 mg twice a day, vitamin D 50,000 units weekly, DuoNeb every 6 hours, Fioricet 1 tablet every 4 hours p.r.n., insulin coverage, iron sucrose 200 mg daily, Lipitor 20 mg daily, Mycelex Filippo 10 mg three times a day, Neurontin 400 mg at bedtime, Norvasc 10 mg daily, Protonix 40 mg daily, IV fluid with bicarb 80 mL per hour, Tenormin 100 mg daily, Ultram 50 mg daily. LABORATORY DATA: Reviewed and shows INR today 2.12. Sodium 139, potassium 4.9, chloride 103, bicarbonate 22, BUN is 114, creatinine is 9.6, glucose 196, calcium is 8.4. AST 23, ALT 25, alkaline phosphatase is 45, albumin is 3.2. Echocardiogram shows right ventricular systolic function is 53, LV ejection fraction is 55 to 60. IMPRESSION AND PLAN: Acute renal failure, coagulopathy, anemia, atrial fibrillation, coronary artery disease, chronic obstructive lung disease, obstructive sleep apnea syndrome, recurrent deep venous thrombosis, pulmonary embolism. Clinically, she is improved. We will continue BiPAP while sleeping, keep head at 45 degrees. May need to start on Coumadin back again, has a history of pulmonary embolism and deep venous thrombosis, fall precaution, gastric prophylaxis. Followup labs in the morning. Thank you and we will follow with you. Layla Brooks MD [facility] # [id number]
[2017-06-20 00:11] LABS: INR 1.69 (0.93-1.08); PROTHROMBIN TIME 19.5 SECONDS (9.4-12.5)
[2017-06-20] MEDS: Albuterol-Ipratrop 3 mg / 0.5 (3 ml) UD IH SCH ×4 (01:58→19:59)
--- NOTE | 2017-06-20 03:01 | PN ---
DATE: SUBJECTIVE: Patient is a 66-year-old female. Patient is seen and examined at the bedside, looking a little bit comfortable, sleepy, arousable. Tremors are better, headache is better, cough is better. No shortness of breath. Denies any abdominal pain. Denies any nausea, vomiting, or diarrhea. No hematuria or hematochezia. Appetite is appropriate. PHYSICAL EXAMINATION: VITAL SIGNS: Blood pressure 140/80, heart rate 85, respiratory rate 20, temperature 98.4. HEENT: Head: Normocephalic, atraumatic. Eyes: PERRLA. Extraocular muscles intact. Conjunctivae clear. Nose: patent. Mucous membranes moist. NECK: Supple. No carotid bruits. No JVD or thyromegaly. CHEST: Bilaterally symmetrical. HEART: S1, S2 positive. Regular rate and rhythm. LUNGS: Clear to auscultation. No rales. ABDOMEN: Obese, distended, soft, nontender, no organomegaly. EXTREMITIES: Trace edema. LABORATORY DATA: White blood cell is 10.1, hemoglobin 8.4, hematocrit 26.0, platelets 241. Sodium 139; potassium 4.9; BUN 114; creatinine 9.6, yesterday was 10.4; glucose 340. ASSESSMENT AND PLAN: Ms. Laura Emanuel is a 66-year-old female with history of leukocytosis, improved; anemia; acute on chronic renal insufficiency, improving very slowly; diabetes mellitus, uncontrolled; seen by Dr. Cheryl Jimenez, merchandise stocker, acute kidney injury superimposed on chronic kidney disease, stage II/III; prerenal azotemia; rule out gastrointestinal bleeding as per Dr. Jimenez; morbid obesity, history of deep vein thrombosis; pulmonary emboli; hypercoagulable state; hypertension. Continue IV fluids, with sodium bicarbonate, monitor urine output closely, monitor for uremic signs and symptoms, no renal replacement therapy at this point. Seen by Dr. Van also, neurologist. Has nonobstructive coronary artery disease, sleep apnea syndrome. Continue with positive airway pressure. Left-sided headache, most likely has tension-based headache with neurology form of components likely from underlying left leg derangement as well as sleep apnea as well as tension and hyperglycemic acceleration. Try to manage blood sugar, urged to lose weight, we actually set one tablet every 4 hours acute onset headache p.r.n., gabapentin. We will follow up. Tracy Mitchell MD
--- NOTE | 2017-06-20 05:48 | PN ---
DATE: SUBJECTIVE: This patient was seen and evaluated earlier today. Patient is tolerating the diet. PHYSICAL EXAMINATION: VITAL SIGNS: Temperature is afebrile. Blood pressure 148/81, pulse 85, respirations 18. HEENT: Atraumatic and anicteric. NECK: Supple. HEART: S1 and S2 heard. LUNGS: Bilateral air entry present. ABDOMEN: Soft. No tenderness. LABORATORY DATA: Hemoglobin 8.4, hematocrit 26, WBC 10.3, platelets 241. Chemistry shows BUN 114, creatinine 9.6. IMPRESSION AND PLAN: This 66-year-old patient was admitted with acute kidney injury on top of chronic kidney disease, has a significant drop in blood count. Patient has been on anticoagulation for deep venous thrombosis and pulmonary embolism. No obvious bleeding per rectum or melena. Patient did have a colonoscopy done in 2012; no polyps were found. I had a detailed discussion with the patient and also spoke with Dr. Jimenez. Ordered for a CT scan of the abdomen and pelvis with only p.o. contrast to rule out any retroperitoneal or intraabdominal blood loss and rule out any mass/lesion. Patient may benefit from the colonoscopy. After further optimization, GI workup can be performed electively unless the patient has active blood loss to follow up the stool for occult blood. Isela Rivera MD : 06/20/2017 1:09:41
[2017-06-20 06:36] LABS: HEMOGLOBIN 8.6 g/dL (12.0-16.0); MEAN CELL VOLUME 79.9 fl (80.0-105.0); MEAN CORPUSCULAR HEMOGLOBIN 26.2 pg (25.0-35.0); MEAN CORPUSCULAR HGB CONC 32.8 g/dl (31.0-37.0); MEAN PLATELET VOLUME 12.3 fl (7.0-11.0); RBC 3.28 10^6/uL (3.5-6.1); WHITE BLOOD COUNT 13.9 10^3/ul (4.5-11.0)
[2017-06-20 06:51] LABS: CALCIUM 8.9 mg/dL (8.4-10.5)
[2017-06-20] MEDS ORDERED: Barium Sulfate Susp 2.1% w/v, 2.0% w/w 450 mL Bottle PO ONE (06:58)
[2017-06-20] MEDS: Pantoprazole 40 mg EC Tab PO SCH (09:02)
[2017-06-20] MEDS: Insulin Reg-MEDIUM-Coverage SC SCH ×4 (09:08→21:56)
[2017-06-20] MEDS ORDERED: Midazolam 2 MG/2 ML VIAL ONE ×2 (09:31→11:03)
[2017-06-20] MEDS ORDERED: Lidocaine 2% Inj (20ml) ONE (09:32)
[2017-06-20] MEDS ORDERED: Insulin Regular 100 units/ml ONE (12:13)
--- NOTE | 2017-06-20 15:30 | PN ---
DATE: 06/20/2017 SUBJECTIVE: The patient is seen in the dialysis unit. She is awake. She is somewhat groggy. She does not appear to be in any kind of distress. PHYSICAL EXAMINATION: VITAL SIGNS: Blood pressure 154/84, heart rate 76, respiratory rate 18, temperature 97.6. HEENT: Normocephalic, atraumatic, positive pallor. NECK: Supple, no JVD. LUNGS: Bilateral equal air entry, bilateral equal expansion, no rales. CARDIAC: S1, S2, regular rate and rhythm, no murmur, no rub. ABDOMEN: Obese, distended, soft, nontender, bowel sounds present. EXTREMITIES: No lower extremity edema. INTAKE AND OUTPUT: Not charted/675?. LABORATORY DATA: WBC 13.9, hemoglobin 8.6, hematocrit 26, platelets 258. Sodium 139, potassium 5.1, chloride 101, CO2 of 26, BUN 119, creatinine 10.3, glucose 249, calcium 8.9. Stool occults positive. ASSESSMENT: 1. Acute kidney injury superimposed on chronic kidney disease stage II/III. 2. Severe anemia, suspected gastrointestinal bleed. 3. Hyperkalemia. 4. Poor response to intravenous fluids. 5. Eyf-fjtnlma-yfnamtrha diabetes mellitus. 6. Hypertension. 7. History of deep venous thrombosis and pulmonary embolism. 8. Morbid obesity. PLAN: 1. Since renal function is not improving, the patient is somewhat hyperkalemic today, we will initiate dialysis. 2. Follow up CT of the abdomen. 3. GI followup, stool occult is positive. 4. Monitor fingersticks and intensified glycemic control. 5. Monitor daily labs. 6. Renal scan to evaluate for ATN. Cheryl Jimenez MD
--- NOTE | 2017-06-20 17:14 | PN ---
DATE: REASON FOR THE CONSULTATION AND FOLLOWUP: Shortness of breath, swelling of the leg, [id number] renal insufficiency, COPD, history of pulmonary embolism, hypertension, diabetes, and morbid obesity. SUBJECTIVE: Patient denies any chest pain, shortness of breath or any palpitations. Awaiting to go for vascular access for dialysis catheter. OBJECTIVE GENERAL: Not in apparent distress. VITAL SIGNS: As follows, temperature afebrile, heart rate 88, blood pressure 167/92. HEENT: PERRLA. Intact. NECK: Supple. No carotid bruit or thyromegaly. CHEST: Clear to auscultation. HEART: S1 and S2, regular. ABDOMEN: Soft. EXTREMITIES: Clubbing and cyanosis negative. LABORATORY DATA: Blood workup as follows: WBC of 13.9, hemoglobin of 8.6, hematocrit of 26.2, and platelet count of 258. Chemistry shows sodium of 139, potassium of 5.1, chloride 109, carbon dioxide , anion gap of 17, BUN of 119, and creatinine of 10.3. The patient had an echocardiography done yesterday that showed ejection fracture of 55% to 60%. No aortic regurgitation, mild mitral regurgitation, qhzi-cm-etlrisgi tricuspid regurgitation, mild pulmonary hypertension, right ventricular systolic function of 53, and no pericardial effusion. The patient had a stress test on 06/25/2015, which was equivocal for reversible ischemia with ejection fraction 55%. The patient had cardiac catheterization on 07/27/2015, which showed nonobstructive coronary artery disease, limited only to obtuse marginal 1 and acute renal insufficiency on chronic renal insufficiency. I recommended the patient is going for dialysis catheter today. Once the probably, we will start dialysis. Continue aggressively modification of lifestyle, modification of risk factor, insisted on weight reduction. Continue atorvastatin. Continue gabapentin. Continue low-dose beta-lakhwinder. We will follow with you. Since the patient will start dialysis, we will start LALITA inhibitors, once the patient start dialysis. For now, we will put hydralazine p.r.n. for systolic blood pressure more than 170. No further cardiac workup is planned or warranted. Thank you, Dr. Mitchell, for providing us the opportunity in taking care of the patient, Laura Emanuel. Layla Bal MD
--- NOTE | 2017-06-20 17:17 | CT ---
PROCEDURE: CT Abdomen and Pelvis without intravenous contrast HISTORY: anemia r/o retroperitoneal bleed r/o mass lesion COMPARISON: 07/07/2014 TECHNIQUE: Without contrast. Contrast Dose: Radiation dose: Total exam DLP = Total exam DLP = 1003 mGy-cm. This CT exam was performed using one or more of the following dose reduction techniques: Automated exposure control, adjustment of the mA and/or kV according to patient size, and/or use of iterative reconstruction technique. FINDINGS: LOWER THORAX: Unremarkable. LIVER: Unremarkable. No gross lesion or ductal dilatation. GALLBLADDER AND BILE DUCTS: Unremarkable. PANCREAS: Unremarkable. No gross lesion or ductal dilatation. SPLEEN: Unremarkable. ADRENALS: Unremarkable. No mass. KIDNEYS AND URETERS: Unremarkable. No hydronephrosis. No solid mass. VASCULATURE: Unremarkable. No aortic aneurysm. BOWEL: Unremarkable. No obstruction. No gross mural thickening. APPENDIX: Unremarkable. Normal appendix. PERITONEUM: Unremarkable. No free fluid. No free air. LYMPH NODES: Unremarkable. No enlarged lymph nodes. BLADDER: Unremarkable. REPRODUCTIVE: Unremarkable. BONES: No acute fracture. OTHER FINDINGS: None. IMPRESSION: No acute intra-abdominal findings. No evidence of retroperitoneal bleed
--- NOTE | 2017-06-20 17:29 | PN ---
DATE: SUBJECTIVE: Patient is a 66-year-old female. Patient is seen and examined at the bedside, early in the morning before fistula formation and before CAT scan. She looks comfortable. No nausea, vomiting, or diarrhea. Tolerating food very well. No headache. No dizziness. No chest pain. No palpitations. PHYSICAL EXAMINATION VITAL SIGNS: Temperature 98.6, blood pressure 140/80, pulse 85, respiratory rate 18. HEENT: Head: Normocephalic, atraumatic. Eyes: PERRLA. Extraocular muscles intact. Conjunctivae clear. Nose: patent. Mucous membranes moist. NECK: Supple. No carotid bruits, JVD or thyromegaly. CHEST: Bilaterally symmetrical. HEART: S1, S2 positive. LUNGS: Clear to auscultation. ABDOMEN: Soft, bowel sounds present. No organomegaly. EXTREMITIES: Trace edema. NEUROLOGICAL: Patient is awake, alert. Moving all four extremities. Following simple commands. LABORATORY DATA: White blood cells 13.9, hemoglobin 8.6, hematocrit 26.2, platelets 258. Sodium 139, potassium 5.1, BUN 119, creatinine 10.3, glucose 244. ASSESSMENT AND PLAN: Ms. Adelfo Sanchez is a 66-year-old lady with leukocytosis; anemia, acute on chronic, multifactorial; hyperkalemia; renal insufficiency, acute on chronic; diabetes mellitus, not very well controlled; history of pulmonary emboli and deep vein thrombosis; coagulopathy; coronary artery disease; chronic obstructive pulmonary disease; sleep apnea syndrome; we will continue Bilevel Positive Airway Pressure while sleeping; the patient has Dr. Jimenez, school of nursing director in the case even as outpatient; Dr. Morejon from the patient's vest tailor and Dr. Zayas is the patient's commercial credit reviewer monitoring PT and INR; we called consult with Dr. Rivera also; I appreciated Dr. Rivera's nurse practitioner Zoila's notes; Neurology consult was called by Dr. Van for headache and tremors; I appreciated his input; morbid obesity; has left sided headache, looks like tension-based headache as pre neurologist. PLAN: The patient will get catheter for dialysis as per Dr. Jimenez. Go for CAT scan of the abdomen and pelvis, p.o. contrast to make sure that she do not have any retroperitoneal bleeding. Stool guaiac is positive. GI is on the case. We will follow up. Tracy Mitchell MD [facility]
--- NOTE | 2017-06-20 17:46 | VASCULAR ---
PROCEDURE: Ultrasound and fluoroscopic tunneled right IJ dialysis catheter. CLINICAL HISTORY: ESRD PHYSICIAN(S): Maikol Soares M.D. TECHNIQUE: The relative risks and indications for the procedure were explained to the patient and informed written consent obtained. The patient was placed supine on the arteriography table and the right neck/chest was prepped and draped in the usual sterile fashion. 1% Xylocaine was used to anesthetize the skin and soft tissues at the puncture site. Conscious sedation and monitoring were provided throughout the procedure by a nurse. Under direct ultrasound guidance, the rightinternal jugular vein was punctured with a micropuncture set. A 0.035 Glidewire was advanced into the IVC. Sequential dilatation was performed with subsequent placement of a 28cm nextgen catheter with its tip in the right atrium. A retrograde tunnel below the right clavicle was performed. The catheter was trimmed and the hub attached. Both ports aspirate and inject easily. The catheter was secured and a dressing applied. The patient tolerated the procedure well. IMPRESSION: 1. Ultrasound and fluoroscopically placed right IJ tunneled dialysis catheter.
--- NOTE | 2017-06-20 21:26 | PN ---
DATE: 06/20/2017 PULMONARY PROGRESS NOTE REFERRING PHYSICIAN: Tracy Mitchell MD SUBJECTIVE: Patient is lying in the stretcher in Dialysis, status post dialysis. Night was unremarkable, tolerated CPAP well. No headache, no rhinitis. No nausea, no vomiting, no diarrhea. No leg pain or leg swelling. OBJECTIVE: GENERAL: In no acute distress. VITAL SIGNS: Temperature is 98, heart rate 76, respiratory rate is 20, blood pressure 154/84, pulse ox 97% on 3 liter nasal cannula. HEENT: Moist mucous membranes. Crowded airway. NECK: Supple. No JVD. LUNGS: Have fair airflow with rhonchi. HEART: S1, S2. ABDOMEN: Soft, nontender. No organomegaly. EXTREMITIES: There is no edema. NEUROLOGICAL: Awake, alert, follow simple commands. MEDICATIONS: She is on Amaryl 1 mg twice a day, hydralazine 10 mg q.i.d. p.r.n., vitamin D 50,000 units weekly, DuoNeb every 6 hours, Fioricet one tablet every 4 hours p.r.n., insulin coverage, iron sucrose 20 mg daily, Lipitor 20 mg daily, Mycelex Filippo 10 mg with the meals three times a day, gabapentin 400 mg at bedtime, Norvasc 10 mg daily, Protonix 40 mg daily, getting IV fluid with bicarbonate 80 mL/hour, Tenormin 100 mg daily, Ultram 50 mg daily, Zofran p.r.n. basis. LABORATORY DATA: Shows hemoglobin 8.6, hematocrit 26.2, WBC 13.9, platelet count is 254. Sodium 139, potassium 5.1, chloride 101, bicarbonate 26, BUN 119, creatinine 10.3, glucose 249, calcium is 8.9. IMPRESSION AND PLAN Acute renal failure, coagulopathy, anemia, atrial fibrillation, coronary artery disease, chronic obstructive lung disease, obstructive sleep apnea syndrome, reacting deep venous thrombosis, history of pulmonary embolism. After seeing no response to IV fluid and conservative therapy, dialysis was done today. She feels okay post dialysis. Continue to encourage BiPAP. Keep head at 45 degrees. Anticoagulation. Gastric prophylaxis. Fall precaution. Thank you and we will follow with you. Layla Brooks MD [facility] # [id number]
--- NOTE | 2017-06-20 23:34 | PN ---
DATE: 06/20/2017 SUBJECTIVE: She is very anxious right now. She is undergoing hemodialysis right now. The patient was seen in hemodialysis unit. Earlier today, she had CAT scan of the abdomen and pelvis, did not show any evidence of retroperitoneal bleeding. She stated that she was taking some supplements, which she ordered online, for past few months and all the troubles started then. I had advised her in office previously not to take unknown supplements, especially that she ordered online. She had some shaking tremors, evaluated by Neurology. She is very anxious about dialysis and asking if she has to continue dialysis life-long, like her nephew who is a very young 35-year-old and on hemodialysis. She also has iron deficiency anemia, which is chronic. Coumadin was on hold since admission because INR was supra-therapeutic, she had dialysis catheter placed today. We will start low-dose Coumadin 2 mg starting tomorrow. INR is 1.6 today. REVIEW OF SYSTEMS: As per HPI. A 12-point review of systems reviewed negative. LABORATORY DATA: White count 13.9, hemoglobin 8.6, hematocrit 26.2, platelet 258. Sodium 139, potassium 5.1, creatinine 10.3, calcium 8.9. MEDICATIONS: Fioricet one q.4h. p.r.n., DuoNeb, Norvasc 10 mg daily, atenolol 100 mg daily, Lipitor 20 mg daily, Mycelex, vitamin D, gabapentin, iron sucrose 200 mg daily, Protonix 40 mg daily, tramadol 50 mg daily. PHYSICAL EXAMINATION: GENERAL: Very anxious, currently getting dialyzed. VITAL SIGNS: Temperature 99.2, heart rate 82 per minute, blood pressure 157/83, respiratory rate 19 per minute, oxygen saturation 95% on oxygen by nasal cannula. HEENT: Pallor mucosa. NECK: No lymphadenopathy. CHEST: Air entry present and equal bilaterally. No added sounds. CARDIOVASCULAR: S1, S2 normal. No murmur. No gallop. ABDOMEN: Soft, nontender, obese. No hepatosplenomegaly. EXTREMITIES: Bilateral lower extremity edema. SKIN: Pallor positive. No petechiae. No rash. ASSESSMENT: 1. Hypercoagulable state, history of deep-vein thrombosis, history of pulmonary embolism. 2. Diabetes mellitus type 2. 3. Hypertension. 4. Acute renal failure. 5. Chronic anemia, iron deficiency, related to chronic kidney disease. PLAN: She is currently getting IV iron. Hemoglobin is stable at 8.6. She received a dose of iron as 100 mg . She is getting dialyzed. History of DVT and pulmonary embolism; we will start low-dose Coumadin at 2 mg daily. Chronic anemia; hemoglobin/hematocrit stable now. will continue aranesp weekly 100 mg [address]Q. Thank you Dr. Mitchell for allowing us to participate in Ms. Emanuel's care. Darlene Zayas MD [facility]
[2017-06-21] MEDS: Albuterol-Ipratrop 3 mg / 0.5 (3 ml) UD IH SCH ×4 (01:08→19:54)
--- NOTE | 2017-06-21 03:50 | CP.PCM.PN ---
Subjective - Date & Time of Evaluation Date of Evaluation: 06/21/17 Time of Evaluation: 03:15 - Subjective Subjective: Pt seen for her c/o pain at the site of insertion of the [place] Catheter. The Catheter was inserted yesterday morning.She had dialysis after that. Denies any other associated symptoms. Objective - Vital Signs/Intake and Output Vital Signs (last 24 hours): Temp Pulse Resp BP Pulse Ox 99.2 F 76 19 157/83 H 95 06/20/17 16:00 06/20/17 22:00 06/20/17 16:00 06/20/17 16:00 06/20/17 16:00 Intake and Output: 06/20/17 06/21/17 18:59 06:59 Intake Total 240 420 Output Total 500 600 Balance -260 -180 - Medications Medications: Current Medications Acetaminophen/Butalbital/Caffeine (Fioricet) 1 tab PO Q4H PRN PRN Reason: Headache Last Admin: 06/19/17 22:18 Dose: 1 tab Albuterol/Ipratropium (Duoneb 3 Mg/0.5 Mg (3 Ml) Ud) 3 ml IH [id number] [facility] Last Admin: 06/20/17 19:59 Dose: 3 ml Amlodipine Besylate (Norvasc) 10 mg PO DAILY [facility] Last Admin: 06/20/17 09:02 Dose: 10 mg Atenolol (Tenormin) 100 mg PO DAILY [facility] Last Admin: 06/20/17 09:04 Dose: 100 mg Atorvastatin Calcium (Lipitor) 20 mg PO DIN [facility] Last Admin: 06/20/17 18:46 Dose: 20 mg Clotrimazole (Mycelex Filippo) 10 mg MT TID [facility] Last Admin: 06/20/17 18:45 Dose: 10 mg Ergocalciferol (Drisdol 50,000 Intl Units Cap) 1 cap PO WED [facility] Gabapentin (Neurontin) 400 mg PO HS [facility] PRN Reason: Protocol Last Admin: 06/20/17 21:55 Dose: 400 mg Glimepiride (Amaryl) 1 mg PO BID [facility] Last Admin: 06/20/17 18:46 Dose: 1 mg Hydralazine HCl (Apresoline) 10 mg PO QID PRN PRN Reason: for sbp>170 Iron Sucrose 200 mg/ Sodium (Chloride) 110 mls @ 110 mls/hr IVPB DAILY [facility] Stop: 06/21/17 10:59 Last Admin: 06/20/17 09:07 Dose: 110 mls/hr Sodium Bicarbonate 75 meq/ (Sodium Chloride) 1,075 mls @ 80 mls/hr IV .[id number] [facility] Last Admin: 06/20/17 04:28 Dose: 80 mls/hr Insulin Human Regular (Humulin R Med) 0 units SC ACHS [facility] PRN Reason: Protocol Last Admin: 06/20/17 21:56 Dose: 5 units Ondansetron HCl (Zofran Inj) 4 mg IVP Q6H PRN PRN Reason: Nausea/Vomiting Pantoprazole Sodium (Protonix Ec Tab) 40 mg PO DAILY [facility] Last Admin: 06/20/17 09:02 Dose: 40 mg Tramadol HCl (Ultram) 50 mg PO DAILY [facility] Last Admin: 06/20/17 09:03 Dose: 50 mg Warfarin Sodium (Coumadin) 2 mg PO 1800 [facility] PRN Reason: Protocol Last Admin: 06/20/17 18:46 Dose: 2 mg - Labs Labs: 06/20/17 06:19 06/20/17 06:19 PT 19.5 SECONDS (9.4-12.5) H 06/19/17 23:40 INR 1.69 (0.93-1.08) H 06/19/17 23:40 APTT 51.7 Seconds (25.1-36.5) H 06/16/17 11:00 - Constitutional Appears: No Acute Distress - Head Exam Head Exam: ATRAUMATIC, NORMAL INSPECTION, NORMOCEPHALIC - Eye Exam Eye Exam: PERRL Additional comments: Conjuctiva is pale - ENT Exam ENT Exam: Mucous Membranes Moist - Neck Exam Neck Exam: Tenderness (localised tenderness is noted at the site of the R supraclavicular region.The dressing is intact,there is no bleeding noted.). absent: Meningismus - Respiratory Exam Respiratory Exam: Decreased Breath Sounds, NORMAL BREATHING PATTERN. absent: Wheezes, Respiratory Distress, Stridor Additional comments: Dialysis catheter is noted in the R upper chest wall. - Cardiovascular Exam Cardiovascular Exam: REGULAR RHYTHM - GI/Abdominal Exam GI & Abdominal Exam: Soft, Normal Bowel Sounds. absent: Tenderness - Extremities Exam Extremities Exam: Pedal Edema. absent: Calf Tenderness - Neurological Exam Neurological Exam: Alert, Awake, Oriented x3 - Psychiatric Exam Psychiatric exam: Anxious - Skin Skin Exam: Dry, Warm Assessment and Plan - Assessment and Plan (Free Text) Assessment: Tenderness at site of catheter insertion Plan: Removal of the dressing covering the site of the catheter insertion relieved the pain. (Apparently the dressing may have been too tight.) Pt is to be closely observed.
[2017-06-21 06:55] LABS: CALCIUM 8.6 mg/dL (8.4-10.5)
[2017-06-21 06:56] LABS: HEMOGLOBIN 8.2 g/dL (12.0-16.0); MEAN CELL VOLUME 80.4 fl (80.0-105.0); MEAN CORPUSCULAR HEMOGLOBIN 25.5 pg (25.0-35.0); MEAN CORPUSCULAR HGB CONC 31.7 g/dl (31.0-37.0); MEAN PLATELET VOLUME 12.6 fl (7.0-11.0); RBC 3.22 10^6/uL (3.5-6.1); RED CELL DISTRIBUTION WIDTH 15.7 % (11.5-14.5); WHITE BLOOD COUNT 11.3 10^3/ul (4.5-11.0)
[2017-06-21 06:57] LABS: INR 1.48 (0.93-1.08); PROTHROMBIN TIME 17.1 SECONDS (9.4-12.5)
--- NOTE | 2017-06-21 08:43 | PN ---
DATE: 06/20/2017 SUBJECTIVE: The patient seen and examined at the bedside, a little bit anxious, awake, agitation, then sometimes groggy, but not in severe distress. No fever, no chills. No hematuria or hematochezia. PHYSICAL EXAMINATION: VITAL SIGNS: Blood pressure 154/84, heart rate 80 , respiratory rate 18, temperature 97.6. HEENT: Head: Normocephalic, atraumatic. Eyes: PERRLA. Extraocular muscles intact. Conjunctivae clear. Nose patent. Mucous membranes moist. NECK: Supple. No carotid bruit, JVD or thyromegaly. CHEST: Bilaterally symmetrical. HEART: S1, S2 positive. LUNGS: Bilateral equal air entry. Bilateral equal expansion. No rales, no rhonchi. ABDOMEN: Obese, distended, soft, nontender. Bowel sounds positive. No organomegaly. EXTREMITIES: Trace edema. NEUROLOGIC: Patient is awake, alert. Moving all 4 extremities, obeying simple orders. LABORATORY DATA: White blood cells 13.9, hemoglobin 8.6, hematocrit 26, platelets 258. Sodium 139, potassium 5.1, BUN 119, creatinine 10.3, glucose 249, calcium 8.9, stool occult positive. MEDICATIONS: Glimepiride, hydralazine, vitamin D, albuterol, Mycelex troches, amlodipine, atorvastatin. ASSESSMENT AND PLAN: Brandi Emanuel is a 66-year-old female with acute kidney injury superimposed on chronic kidney disease, stage II/III; severe anemia, suspect gastrointestinal bleeding; wqohs-ok-hgzwfly hyperkalemia; poor response to intravenous fluids; diabetes mellitus, not controlled; hypertension; Tracy Mitchell MD [facility]
[2017-06-21] MEDS: Insulin Reg-MEDIUM-Coverage SC SCH ×4 (08:47→21:43)
[2017-06-21] MEDS ORDERED: Ergocalciferol 50,000 Intl Units Cap PO SCH (10:00)
[2017-06-21] MEDS ORDERED: POLYETHYLENE GLYCOL 3350 17 GM/Dose PACKET PO ONE (11:29)
--- NOTE | 2017-06-21 11:57 | CP.PCM.PN ---
<Pamela Milton - Last Filed: 06/21/17 12:44> Subjective - Date & Time of Evaluation Date of Evaluation: 06/21/17 Time of Evaluation: 10:15 - Subjective Subjective: Seen and examined at the bedside earlier today, status post dialysis catheter yesterday and dialysis treatment. She is due to have another treatment of dialysis today. Complain of constipation, had a small bowel movement but with straining. No reports of nausea, vomiting, abdominal pain or overt GI bleed. Tolerated small amount of food today. Objective - Vital Signs/Intake and Output Vital Signs (last 24 hours): Temp Pulse Resp BP Pulse Ox 98.8 F 67 20 113/58 L 95 06/21/17 08:04 06/21/17 08:04 06/21/17 08:04 06/21/17 08:04 06/21/17 08:04 Intake and Output: 06/21/17 06/21/17 06:59 18:59 Intake Total 660 Output Total 1100 Balance -440 - Medications Medications: Current Medications Acetaminophen/Butalbital/Caffeine (Fioricet) 1 tab PO Q4H PRN PRN Reason: Headache Last Admin: 06/19/17 22:18 Dose: 1 tab Albuterol/Ipratropium (Duoneb 3 Mg/0.5 Mg (3 Ml) Ud) 3 ml IH [id number] [facility] Last Admin: 06/21/17 08:11 Dose: 3 ml Amlodipine Besylate (Norvasc) 10 mg PO DAILY [facility] Last Admin: 06/20/17 09:02 Dose: 10 mg Atenolol (Tenormin) 100 mg PO DAILY [facility] Last Admin: 06/20/17 09:04 Dose: 100 mg Atorvastatin Calcium (Lipitor) 20 mg PO DIN [facility] Last Admin: 06/20/17 18:46 Dose: 20 mg Clotrimazole (Mycelex Filippo) 10 mg MT TID [facility] Last Admin: 06/20/17 18:45 Dose: 10 mg Ergocalciferol (Drisdol 50,000 Intl Units Cap) 1 cap PO WED [facility] Gabapentin (Neurontin) 400 mg PO HS [facility] PRN Reason: Protocol Last Admin: 06/20/17 21:55 Dose: 400 mg Glimepiride (Amaryl) 1 mg PO BID [facility] Last Admin: 06/20/17 18:46 Dose: 1 mg Hydralazine HCl (Apresoline) 10 mg PO QID PRN PRN Reason: for sbp>170 Sodium Bicarbonate 75 meq/ (Sodium Chloride) 1,075 mls @ 80 mls/hr IV .[id number] [facility] Last Admin: 06/20/17 04:28 Dose: 80 mls/hr Insulin Human Regular (Humulin R Med) 0 units SC ACHS [facility] PRN Reason: Protocol Last Admin: 06/21/17 11:26 Dose: 7 units Ondansetron HCl (Zofran Inj) 4 mg IVP Q6H PRN PRN Reason: Nausea/Vomiting Pantoprazole Sodium (Protonix Ec Tab) 40 mg PO DAILY [facility] Last Admin: 06/20/17 09:02 Dose: 40 mg Tramadol HCl (Ultram) 50 mg PO DAILY [facility] Last Admin: 06/20/17 09:03 Dose: 50 mg Warfarin Sodium (Coumadin) 7.5 mg PO 1800 [facility] PRN Reason: Protocol - Labs Labs: 06/21/17 06:00 06/21/17 06:00 PT 17.1 SECONDS (9.4-12.5) H 06/21/17 06:00 INR 1.48 (0.93-1.08) H 06/21/17 06:00 APTT 51.7 Seconds (25.1-36.5) H 06/16/17 11:00 - Constitutional Appears: No Acute Distress - Head Exam Head Exam: NORMOCEPHALIC - Eye Exam Eye Exam: Normal appearance. absent: Scleral icterus - ENT Exam ENT Exam: Mucous Membranes Moist - Neck Exam Neck Exam: Normal Inspection Additional comments: Hayward catheter present on right side of neck dressing dry and intact - Respiratory Exam Respiratory Exam: NORMAL BREATHING PATTERN. absent: Respiratory Distress - Cardiovascular Exam Cardiovascular Exam: +S1, +S2 - GI/Abdominal Exam GI & Abdominal Exam: Soft, Normal Bowel Sounds. absent: Guarding, Tenderness, Rebound - Extremities Exam Extremities Exam: Pedal Edema. absent: Calf Tenderness - Neurological Exam Neurological Exam: Alert, Awake, Oriented x3 Assessment and Plan - Assessment and Plan (Free Text) Assessment: Assessment: Acute on chronic renal insufficiency status post needle catheter and dialysis Constipation Anemia Positive guaiac Morbid obesity History of DVT/PE Plan: Continue to monitor H&H and for overt GI bleed Will start patient on MiraLAX daily hold first stools greater than 2 with day Diet as tolerated Patient would benefit from GI workup would consider when patient is more optimized. On Protonix 40 daily, decrease dose to 20 mg for ARF patient start on Coumadin tonight Seen and discussed with Dr. Rivera. <Isela Rivera V - Last Filed: 06/21/17 23:57> Objective - Vital Signs/Intake and Output Vital Signs (last 24 hours): Temp Pulse Resp BP Pulse Ox 98.4 F 73 20 154/79 H 100 06/21/17 16:00 06/21/17 16:08 06/21/17 16:00 06/21/17 16:08 06/21/17 16:00 Intake and Output: 06/21/17 06/22/17 18:59 06:59 Intake Total 600 Output Total 800 Balance -200 - Medications Medications: Current Medications Acetaminophen/Butalbital/Caffeine (Fioricet) 1 tab PO Q4H PRN PRN Reason: Headache Last Admin: 06/19/17 22:18 Dose: 1 tab Albuterol/Ipratropium (Duoneb 3 Mg/0.5 Mg (3 Ml) Ud) 3 ml IH [id number] [facility] Last Admin: 06/21/17 19:54 Dose: 3 ml Amlodipine Besylate (Norvasc) 10 mg PO DAILY [facility] Last Admin: 06/21/17 16:07 Dose: 10 mg Atenolol (Tenormin) 100 mg PO DAILY [facility] Last Admin: 06/21/17 16:08 Dose: 100 mg Atorvastatin Calcium (Lipitor) 20 mg PO DIN [facility] Last Admin: 06/21/17 16:07 Dose: 20 mg Clotrimazole (Mycelex Filippo) 10 mg MT TID [facility] Last Admin: 06/21/17 18:11 Dose: 10 mg Darbepoetin Emmanuel (Aranesp) 100 mcg SC ONCE ONE Stop: 06/22/17 10:01 Ergocalciferol (Drisdol 50,000 Intl Units Cap) 1 cap PO WED [facility] Last Admin: 06/21/17 16:07 Dose: 1 cap Gabapentin (Neurontin) 400 mg PO HS [facility] PRN Reason: Protocol Last Admin: 06/21/17 21:43 Dose: 400 mg Glimepiride (Amaryl) 1 mg PO BID [facility] Last Admin: 06/21/17 18:11 Dose: 1 mg Hydralazine HCl (Apresoline) 10 mg PO QID PRN PRN Reason: for sbp>170 Sodium Chloride (Sodium Chloride 0.45%) 1,000 mls @ 80 mls/hr IV .[id number] [facility] Last Admin: 06/21/17 16:07 Dose: 80 mls/hr Insulin Human Regular (Humulin R Med) 0 units SC ACHS [facility] PRN Reason: Protocol Last Admin: 06/21/17 21:43 Dose: Not Given Ondansetron HCl (Zofran Inj) 4 mg IVP Q6H PRN PRN Reason: Nausea/Vomiting Pantoprazole Sodium (Protonix Ec Tab) 20 mg PO ACB [facility] Tramadol HCl (Ultram) 50 mg PO DAILY [facility] Last Admin: 06/21/17 16:07 Dose: 50 mg Warfarin Sodium (Coumadin) 10 mg PO 1800 [facility] PRN Reason: Protocol Last Admin: 06/21/17 18:11 Dose: 10 mg - Labs Labs: 06/21/17 06:00 06/21/17 06:00 PT 17.1 SECONDS (9.4-12.5) H 06/21/17 06:00 INR 1.48 (0.93-1.08) H 06/21/17 06:00 APTT 51.7 Seconds (25.1-36.5) H 06/16/17 11:00 Attending/Attestation - Attestation I have personally seen and examined this patient.: Yes I have fully participated in the care of the patient.: Yes I have reviewed all pertinent clinical information, including history, physical exam and plan: Yes Notes (Text): This is an addendum to GI progress report dictated by Pamela Milton APN.The patient was seen and examined earlier. Medical records, lab studies, imagings were reviewed. Last 24 hours events reviewed. Agreed with the above treatment plan as outlined in Pamela Milton APN's notes the with the addition of the following patient comfortable hematology note reviewed history of hypercoagulable sp DVT PE acute kidney injury on CKD on dialysis stool for occult blood positive If the hemoglobin drops she would need EGD and colonoscopy in view of long-term anticoagulatio need 06/21/17 23:54
[2017-06-21] MEDS ORDERED: Magnesium Sulfate 1 gm in D5W 1 GM/100 ML BAG IVPB ONE (13:09)
[2017-06-21] MEDS ORDERED: Sodium Chloride 0.45% 1,000 ML IV SCH (13:38)
--- NOTE | 2017-06-21 16:15 | PN ---
DATE: 06/21/2017 REASON FOR CONSULTATION: Shortness of breath, swelling of the leg, [id number] renal insufficiency, COPD, history of pulmonary embolism, hypertension, diabetes, and morbid obesity. SUBJECTIVE: Patient denies any chest pain, shortness of breath or any palpitations. Yesterday, had a dialysis, feels better. OBJECTIVE GENERAL: Not in distress, lying almost flat in the bed. Had a dialysis catheter yesterday placed and then, dialysis yesterday. VITAL SIGNS: Temperature afebrile, heart rate , blood pressure 113/58. HEENT: PERRLA. Extraocular muscles intact. NECK: Supple. No carotid bruit or thyromegaly. CHEST: Clear to auscultation. HEART: S1 and S2, regular. ABDOMEN: Soft. EXTREMITIES: Clubbing and cyanosis negative. LABORATORY DATA: Blood workup as follows: WBC of , hemoglobin of 8.2, hematocrit of 25.9, platelet count of 222. Chemistry shows sodium of 141, potassium of , chloride 100, carbon dioxide 30, anion gap of 14, BUN of 85, and creatinine of 7.6. IMPRESSION: Acute kidney injury on chronic renal insufficiency, status post dialysis yesterday first session and status post dialysis catheter placed yesterday. The patient had echocardiography done yesterday that showed ejection fracture of 55% to 60%. No aortic regurgitation, mild mitral regurgitation, [id number] tricuspid regurgitation, mild pulmonary hypertension, right ventricular systolic function of 53, and no pericardial effusion. The patient had a stress test on 06/25/2015, which was equivocal for reversible ischemia with ejection fraction 55%. The patient had cardiac catheterization on 07/27/2015, which showed nonobstructive coronary artery disease, limited only to obtuse marginal 1. Medical treatment recommended. Morbid obesity, history of deep venous thrombosis, pulmonary embolism, INR 1.48. RECOMMENDATIONS: Continue dialysis as per nuisance animal damage control agent. Patient is getting IV fluids, possibly discontinue. We will leave up to the nuisance animal damage control agent. If the patient needs a long-term dialysis, there was started LALITA inhibitor. Patient is getting 2 mg of Coumadin, INR is 1.48. We will increase Coumadin to 7.5 today and tomorrow, monitor daily PT/INR. We will do CBC and basic profile tomorrow. Thank you, Dr. Mitchell, for providing us the opportunity in taking care of the patient, Laura Emanuel. Layla Bal MD
--- NOTE | 2017-06-21 17:40 | PN ---
DATE: 06/21/2017 PULMONARY PROGRESS NOTE REFERRING PHYSICIAN: Tracy Mitchell M.D. SUBJECTIVE: She is on dialysis, stable. Feels okay. Night was unremarkable, tolerated BiPAP well. She has some chest discomfort on the right side with deep breath. No nausea, no vomiting, no diarrhea. No leg pain or leg swelling. PHYSICAL EXAMINATION: GENERAL: In no acute distress. VITAL SIGNS: Temperature is 98, heart rate is 67, respiratory rate is 20, blood pressure 113/58, pulse ox 95% on nasal cannula. HEENT: Moist mucous membranes. Crowded airway. Mallampati score is 4. NECK: Supple. No JVD. LUNGS: Fair airflow. HEART: S1 and S2. ABDOMEN: Soft and nontender. No organomegaly. EXTREMITIES: No edema. NEUROLOGICAL: She is awake and alert. Follows simple commands. MEDICATIONS: She is on Amaryl 1 mg twice a day, hydralazine 10 mg q.i.d. p.r.n., Coumadin 7.5 mg given tonight, vitamin D 50,000 units weekly, DuoNeb every 6 hours round the clock, Fioricet one tablet every 4 hours p.r.n., insulin coverage, Lipitor 20 mg daily, Mycelex Filippo 10 mg with the meals three times a day, gabapentin 400 mg at bedtime, Norvasc 10 mg daily, Protonix 40 mg daily, IV fluid half normal saline 80 mL/hour, Tenormin 100 mg daily, Ultram 50 mg daily, Zofran on a p.r.n. basis. LABORATORY DATA: Shows hemoglobin 8.2, hematocrit 25.9, WBC 11.3, and platelet is 222. INR today 1.4. Sodium 141, potassium 4.2, chloride 100, bicarbonate 30, BUN 85, creatinine 7.6, glucose is 212, phosphorus is 5.6, magnesium 1.5. IMPRESSION AND PLAN: Acute renal failure, coagulopathy, anemia, atrial fibrillation, coronary artery disease, chronic obstructive lung disease, obstructive sleep apnea syndrome, history of deep venous thrombosis, history of recurrent pulmonary embolism. We received Coumadin 7.5 mg today. Encouraged BiPAP use. Continue bronchodilator. Follow up INR in the morning. Fall precautions. Thank you and we will follow with you. Layla Brooks MD [facility] # [id number]
--- NOTE | 2017-06-21 23:22 | CP.PCM.PN ---
Subjective - Date & Time of Evaluation Date of Evaluation: 06/21/17 Time of Evaluation: 08:00 - Subjective Subjective: Comfortable in bed. Complain of speech disturbance. Unable to find words for expression. She was dialyzed yesterday. Hypercoaguable state. Coumadin on hold for supratherapeutic INR. No nausea, vomiting. Hb declined to 8.2 gm/dl. Objective - Vital Signs/Intake and Output Vital Signs (last 24 hours): Temp Pulse Resp BP Pulse Ox 98.4 F 73 20 154/79 H 100 06/21/17 16:00 06/21/17 16:08 06/21/17 16:00 06/21/17 16:08 06/21/17 16:00 Intake and Output: 06/21/17 06/22/17 18:59 06:59 Intake Total 600 Output Total 800 Balance -200 - Medications Medications: Current Medications Acetaminophen/Butalbital/Caffeine (Fioricet) 1 tab PO Q4H PRN PRN Reason: Headache Last Admin: 06/19/17 22:18 Dose: 1 tab Albuterol/Ipratropium (Duoneb 3 Mg/0.5 Mg (3 Ml) Ud) 3 ml IH [id number] [facility] Last Admin: 06/21/17 19:54 Dose: 3 ml Amlodipine Besylate (Norvasc) 10 mg PO DAILY [facility] Last Admin: 06/21/17 16:07 Dose: 10 mg Atenolol (Tenormin) 100 mg PO DAILY [facility] Last Admin: 06/21/17 16:08 Dose: 100 mg Atorvastatin Calcium (Lipitor) 20 mg PO DIN [facility] Last Admin: 06/21/17 16:07 Dose: 20 mg Clotrimazole (Mycelex Filippo) 10 mg MT TID [facility] Last Admin: 06/21/17 18:11 Dose: 10 mg Ergocalciferol (Drisdol 50,000 Intl Units Cap) 1 cap PO WED [facility] Last Admin: 06/21/17 16:07 Dose: 1 cap Gabapentin (Neurontin) 400 mg PO HS [facility] PRN Reason: Protocol Last Admin: 06/21/17 21:43 Dose: 400 mg Glimepiride (Amaryl) 1 mg PO BID [facility] Last Admin: 06/21/17 18:11 Dose: 1 mg Hydralazine HCl (Apresoline) 10 mg PO QID PRN PRN Reason: for sbp>170 Sodium Chloride (Sodium Chloride 0.45%) 1,000 mls @ 80 mls/hr IV .[id number] [facility] Last Admin: 06/21/17 16:07 Dose: 80 mls/hr Insulin Human Regular (Humulin R Med) 0 units SC ACHS [facility] PRN Reason: Protocol Last Admin: 06/21/17 21:43 Dose: Not Given Ondansetron HCl (Zofran Inj) 4 mg IVP Q6H PRN PRN Reason: Nausea/Vomiting Pantoprazole Sodium (Protonix Ec Tab) 20 mg PO ACB [facility] Tramadol HCl (Ultram) 50 mg PO DAILY [facility] Last Admin: 06/21/17 16:07 Dose: 50 mg Warfarin Sodium (Coumadin) 10 mg PO 1800 [facility] PRN Reason: Protocol Last Admin: 06/21/17 18:11 Dose: 10 mg - Labs Labs: 06/21/17 06:00 06/21/17 06:00 PT 17.1 SECONDS (9.4-12.5) H 06/21/17 06:00 INR 1.48 (0.93-1.08) H 06/21/17 06:00 APTT 51.7 Seconds (25.1-36.5) H 06/16/17 11:00 - Constitutional Appears: Chronically Ill - Head Exam Head Exam: ATRAUMATIC, NORMAL INSPECTION, NORMOCEPHALIC - Eye Exam Eye Exam: Normal appearance - ENT Exam ENT Exam: Mucous Membranes Moist - Neck Exam Neck Exam: Normal Inspection - Cardiovascular Exam Cardiovascular Exam: REGULAR RHYTHM, +S1, +S2 - GI/Abdominal Exam GI & Abdominal Exam: Soft, Normal Bowel Sounds - Extremities Exam Extremities Exam: Normal Inspection, Pedal Edema - Back Exam Back Exam: NORMAL INSPECTION - Neurological Exam Neurological Exam: Alert, Awake, Oriented x3 - Psychiatric Exam Psychiatric exam: Anxious - Skin Skin Exam: Pallor, Warm Assessment and Plan - Assessment and Plan (Free Text) Assessment: 1. Acute renal failure on CKD. Started on hemodialysis yesterday. Creatinine improved. 2. Hypercoaguable state. INR declined. 10 mg coumadin today. NO procedures planned. 3. Anemia : related to CKD, iron deficiency. On IV iron, s/p aranesp 100 mg last week. 1 unit of PRBC to be given today. Aranesp 100 mg SQ tomorrow. 4. Expressive partial aphasia : neuro consulted. Thank you Dr. Mitchell for allowing us to participate in her care.
[2017-06-22] MEDS: Albuterol-Ipratrop 3 mg / 0.5 (3 ml) UD IH SCH ×3 (02:24→14:01)
[2017-06-22 06:50] LABS: BASO # 0.02 K/mm3 (0.0-2.0); BASO % 0.2 % (0.0-3.0); EOS # 0.3 (0.0-0.7); EOS % 2.4 % (1.5-5.0); GRAN # 8.52 (1.4-6.5); GRAN % 75.9 % (50.0-68.0); HEMOGLOBIN 8.8 g/dL (12.0-16.0); LYMPH # 1.9 (1.2-3.4); LYMPH % 16.5 % (22.0-35.0); MEAN CELL VOLUME 82.6 fl (80.0-105.0); MEAN CORPUSCULAR HEMOGLOBIN 26.4 pg (25.0-35.0); MEAN PLATELET VOLUME 12.3 fl (7.0-11.0); MONO # 0.6 (0.1-0.6); RBC 3.33 10^6/uL (3.5-6.1); RED CELL DISTRIBUTION WIDTH 15.7 % (11.5-14.5); WHITE BLOOD COUNT 11.2 10^3/ul (4.5-11.0)
[2017-06-22 06:54] LABS: INR 1.37 (0.93-1.08); PROTHROMBIN TIME 15.8 SECONDS (9.4-12.5)
[2017-06-22 07:18] LABS: CALCIUM 8.9 mg/dL (8.4-10.5)
[2017-06-22] MEDS ORDERED: Pantoprazole 20 mg EC Tab PO SCH (07:30)
[2017-06-22 08:27] VITALS: RESP 19; O2SAT 98
--- NOTE | 2017-06-22 08:37 | PN ---
DATE: 06/21/2017 SUBJECTIVE: The patient is seen in the dialysis unit. She is awake, she is alert, she is somewhat groggy. She denies any pain. She denies any shortness of breath. She complains of some pain on inspiration on the right side of her chest. PHYSICAL EXAMINATION: GENERAL: Obese elderly lady, sitting in chair. VITAL SIGNS: Blood pressure 154/79, heart rate 73, respiratory rate 20, temperature 98.4. HEENT: Normocephalic, atraumatic. NECK: Supple, no JVD. LUNGS: Bilateral equal air entry, bilateral equal expansion, no rales. CARDIAC: S1 and S2, regular rate and rhythm, no murmur, no rub. ABDOMEN: Obese, distended, soft, nontender, bowel sounds present. EXTREMITIES: No lower extremity edema. INTAKE AND OUTPUT: 900/1600 LABORATORY DATA: WBC 11.3, hemoglobin 8.2, hematocrit 26, and platelets 222. Sodium 141, potassium 4.2, chloride 100, CO2 of 30. BUN 85, creatinine 7.6. Glucose 212. Calcium 8.6, phosphorus 5.6 magnesium 1.5. CURRENT MEDICATIONS: Amaryl one b.i.d., Coumadin 10 to be given today, Drisdol 50,000, DuoNeb, Fioricet, insulin, Lipitor, Mycelex, Neurontin, amlodipine 10, Protonix, sodium bicarbonate with IV fluids, Tenormin, tramadol, and Zofran. ASSESSMENT AND PLAN: 1. Acute kidney injury superimposed on chronic kidney disease stage 3. 2. Severe anemia. 3. History of deep venous thrombosis and pulmonary embolism. 4. Uxs-vihydwi-dentjkast diabetes mellitus. 5. Hypertension. 6. Morbid obesity. 7. Sleep apnea. PLAN: 1. Stable dialysis. 2. Change IV fluids to half-normal saline. 3. Restart Coumadin. 4. Monitor H and H. 5. Transfuse on dialysis tomorrow if needed. Cheryl Jimenez MD
--- NOTE | 2017-06-22 09:15 | PN ---
DATE: 06/21/2017 SUBJECTIVE: The patient is seen and examined at the bedside, status post dialysis, stable. Feels fine, but still feeling fatigue and tired. Tolerated BiPAP very well. No nausea, vomiting or diarrhea. No swelling of the leg. No headache. No dizziness. No fever. No chills. PHYSICAL EXAMINATION VITAL SIGNS: Temperature 98, heart rate 67, respiratory rate 20, blood pressure 113/58, and pulse oximetry 95% on nasal cannula. HEENT: Head: normocephalic, atraumatic. Eyes: PERRLA. Extraocular movements are intact. Conjunctivae clear. Nose patent. Mucous membranes are moist. NECK: Supple. No carotid bruits. No JVD or thyromegaly. CHEST: Bilaterally symmetrical. HEART: S1, S2 positive. ABDOMEN: Soft, nontender. No organomegaly. EXTREMITIES: No edema. NEUROLOGIC: The patient is sleepy. Otherwise, positive response. Moving all four extremities. MEDICATIONS: Amaryl, hydralazine, Coumadin, vitamin D, DuoNeb, Fioricet, insulin, Lipitor, Mycelex Troches, gabapentin, Norvasc, Protonix, Tenormin, tramadol and Zofran. LABORATORY DATA: Hemoglobin 8.2, hematocrit 25.9, white blood cells 11.3 and platelets 222. BUN 85, creatinine 7.6, and glucose 212. ASSESSMENT AND PLAN: Ms. Brandi Emanuel is a 66-year-old lady with anemia, acute on chronic, getting blood transfusion; acute renal failure, getting dialysis; coagulopathy, atrial fibrillation, coronary artery disease, chronic obstructive lung disease, obstructive sleep apnea syndrome; history of deep vein thrombosis and pulmonary embolisms, getting Coumadin. Encouragebilevel positive airway pressure. Getting bronchodilators. Follow up PT/INR. We will repeat hemoglobin and hematocrit after blood transfusion. Seen by croze cutter, GI, sash repairer and platform architect. History of constipation, positive guaiac, morbid obesity. Continue monitoring hemoglobin and hematocrit for overt gastrointestinal bleeding. We will start the patient on MiraLax and hold if stool is greater than 2 times a day. According to GI, the patient will get benefit from gastrointestinal workup when is more optimized. Patient is on Protonix 40 mg, decreased to 20 mg because of acute renal failure. We will follow up. Tracy Mitchell MD [facility] # [id number]
[2017-06-22] MEDS ORDERED: Darbepoetin Alfa 100 mcg/ml Inj SC ONE (10:00)
[2017-06-22] MEDS: Insulin Reg-MEDIUM-Coverage SC SCH ×3 (10:25→17:48)
--- NOTE | 2017-06-22 13:01 | PN ---
DATE: 06/22/2017 PULMONARY PROGRESS NOTE REFERRING PHYSICIAN: Tracy Mitchell MD. SUBJECTIVE: She is lying in the bed, sleepy, arousable. Part of the night used BiPAP. No headache. No rhinitis. Mild discomfort at the catheter site, which is dialysis catheter. No nausea. No vomiting, diarrhea, leg pain, leg swelling. OBJECTIVE: GENERAL: In no acute distress. VITAL SIGNS: Temperature is 98, heart rate is 75, respiratory rate is 98, blood pressure is 144/70. HEENT: Moist mucous membrane. Crowded airway. NECK: Supple. No JVD. LUNGS: Have a fair airflow with rhonchi. HEART: S1 and S2. ABDOMEN: Soft, nontender. No organomegaly. EXTREMITIES: No edema. NEUROLOGIC: Sleepy, arousable. Follows simple command. MEDICATIONS: She is on Amaryl 1 mg twice a day, hydralazine 10 mg four times daily p.r.n., Coumadin 10 mg, vitamin D 50,000 units weekly, DuoNeb every 6 hours, Fioricet 1 tab every 4 hours p.r.n., insulin coverage, Lipitor 20 mg daily, Mycelex Filippo 10 mg three times a day, gabapentin 400 mg at bedtime, Norvasc 10 mg daily, Protonix 20 mg daily, IV fluid half-normal saline 80 mL/hour, Tenormin 100 mg daily, Ultram 50 mg daily, Zofran p.r.n. basis. LABORATORY DATA: Shows hemoglobin 8.8, hematocrit 27.5, WBC 11.2, platelet is 202. INR 1.37. Sodium 138, potassium 4.4, chloride 99, bicarbonate 29, BUN 58, creatinine 5.1, glucose 250, calcium is 8.9. IMPRESSION AND PLAN: Acute renal failure, status post coagulopathy, anemia, atrial fibrillation, coronary artery disease, chronic obstructive lung disease, obstructive sleep apnea syndrome, history of deep venous thrombosis, history of recurrent pulmonary embolism. She will receive Coumadin 10 mg today. INR in the morning. Continue to encourage bilevel positive airway pressure use. Gastric prophylaxis. Status post transfusion. Out of bed to chair, physical therapy. Thank you and we will follow with you. Layla Brooks MD [facility] # [id number]
[2017-06-22] MEDS ORDERED: Iron Sucrose 100 mg/5 ml Inj IVP ONE ×2 (14:57→15:15)
[2017-06-22] MEDS ORDERED: Darbepoetin Alfa 100 mcg/ml Inj IVP ONE (15:31)
--- NOTE | 2017-06-22 15:34 | PN ---
DATE: REASON FOR CONSULTATION AND FOLLOWUP: Shortness of breath, swelling of the leg, acute on chronic renal insufficiency, COPD, morbid obesity, history of pulmonary embolism, hypertension, diabetes, nonobstructive coronary artery disease, status post dialysis started. SUBJECTIVE: Patient denies any chest pain, shortness of breath, or any palpitations. Feels better, swelling of the leg going down. OBJECTIVE: GENERAL: Not in apparent distress. VITAL SIGNS: Temperature afebrile, heart rate 77, blood pressure 144/70. HEENT: PERRLA, intact. NECK: Supple. No carotid bruit or thyromegaly. CHEST: Clear to auscultation. HEART: S1 and S2, regular. ABDOMEN: Soft. EXTREMITIES: Clubbing and cyanosis negative. LABORATORY DATA: Blood workup as follows: WBC 11.8, hemoglobin of 8.8, hematocrit of 27.5, platelet count of 202. Chemistry shows sodium of 130, potassium of 4.4, chloride 99, carbon dioxide 29, anion gap of 14. BUN of 58 and creatinine of 5.1. IMPRESSION: End-stage renal disease, on dialysis, started recently and still getting IV fluid; morbid obesity; diabetes; hypertension; hyperlipidemia; status pot cardiac catheterization; nonobstructive coronary artery disease. Last echo done yesterday shows ejection fraction of 55% to 60%, no aortic regurgitation, mild mitral regurgitation, mild to moderate tricuspid regurgitation, mild pulmonary hypertension, right ventricular systolic pressure 53, no pericardial effusion. As mentioned, the patient had a stress test on 06/25/2015, which was equivocal, following that the patient had cardiac catheterization on 07/27/2015, that showed nonobstructive coronary artery disease, limited only to obtuse marginal 1. Medical treatment. History of deep venous thrombosis, history of pulmonary embolism. INR yesterday was 1.48, today went to 1.39. We will and PT/INR daily. Once INR is around 2, we will cut down to 10 mg to adjust probably patient with 9 mg at home. We will follow with you. Thank you, Dr. Mitchell, for providing us the opportunity in taking care of the patient, Laura Emanuel. Layla Bal MD
--- NOTE | 2017-06-22 17:33 | PN ---
DATE: 06/22/2017 SUBJECTIVE: The patient is seen in the dialysis unit. She is awake and alert. She is comfortable. She reports she had some rectal bleeding versus vaginal bleeding this morning. She also reports that she got 1 unit of blood transfusion early this morning. She denies any chest pain. She denies any palpitations. She denies any abdominal pain. PHYSICAL EXAMINATION: GENERAL: Obese elderly lady seen in the dialysis unit. VITAL SIGNS: Blood pressure 144/70, heart rate 75, respiratory rate 18, temperature 98.6. HEENT: Normocephalic, atraumatic. NECK: Supple, no JVD. LUNGS: Bilateral equal air entry, bilateral equal expansion, no rales. CARDIAC: S1, S2, regular rate and rhythm, no murmur, no rub. ABDOMEN: Obese, distended, soft, nontender, bowel sounds present. EXTREMITIES: No lower extremity edema. INTAKE AND OUTPUT: 925/800. LABORATORY DATA: WBC 11, hemoglobin 8.8, hematocrit 27.5, platelets 202. Sodium 138, potassium 4.4, chloride 99, CO2 of 29, BUN 58, creatinine 5.1, glucose 250, calcium 8.9. CURRENT MEDICATIONS: Amaryl, Apresoline, Coumadin, Drisdol, DuoNeb, insulin, Lipitor, Neurontin, amlodipine, Protonix, Tenormin, Ultram, Zofran. ASSESSMENT: 1. Acute kidney injury superimposed on chronic kidney disease stage III, etiology not entirely clear. 2. Severe anemia,? gastrointestinal bleed. 3. History of deep venous thrombosis/pulmonary embolism,on chronic anticoagulation. 4. Qpu-mfnayik-fuqecqnoy diabetes mellitus. 5. Hypertension. 6. Morbid obesity. PLAN: 1. Nuclear renal scan to assess for ATN. 2. No objection to transfer to TCU. 3. Will likely need dialysis at least for the short-term. 4. Venofer 100 mg IV on dialysis. 5. Start phosphate binders. 6. Check intact PTH levels. Cheryl Jimenez MD
[2017-06-22 18:01] VITALS: BP 127/83; PULSE 72; TEMP 98.8
== END 2017-06-22 18:49 | DRG 683 ==
LOC: ED 10:40 → ERH 12:09 → 3RNO 15:11
PROVIDERS: ADMIT Internal Medicine; ATTEND Internal Medicine
PROC: 05HM33Z Insertion of Infusion Device into Right Internal Jugular Vein, Percutaneous Approach (ICD-10-PCS; principal; 2017-06-20)
PROC: B543ZZA Ultrasonography of Right Jugular Veins, Guidance (ICD-10-PCS; 2017-06-20)
PROC: B5131ZA Fluoroscopy of Right Jugular Veins using Low Osmolar Contrast, Guidance (ICD-10-PCS; 2017-06-20)
PROC: 5A1D70Z Performance of Urinary Filtration, Intermittent, Less than 6 Hours Per Day (ICD-10-PCS; 2017-06-20)
PROC: 5A1D70Z Performance of Urinary Filtration, Intermittent, Less than 6 Hours Per Day (ICD-10-PCS; 2017-06-21)
PROC: 5A1D70Z Performance of Urinary Filtration, Intermittent, Less than 6 Hours Per Day (ICD-10-PCS; 2017-06-22)
DX: N17.9 Acute kidney failure, unspecified (principal); D68.59 Other primary thrombophilia; E87.3 Alkalosis; I13.2 Hypertensive heart and chronic kidney disease with heart failure and with stage 5 chronic kidney disease, or end stage renal disease; I82.3 Embolism and thrombosis of renal vein; K92.2 Gastrointestinal hemorrhage, unspecified; R47.01 Aphasia; Z68.41 Body mass index [BMI] 40.0-44.9, adult; D50.9 Iron deficiency anemia, unspecified; D63.1 Anemia in chronic kidney disease; E11.22 Type 2 diabetes mellitus with diabetic chronic kidney disease; E11.65 Type 2 diabetes mellitus with hyperglycemia; E66.01 Morbid (severe) obesity due to excess calories; E78.5 Hyperlipidemia, unspecified; E83.42 Hypomagnesemia; E87.5 Hyperkalemia; E87.6 Hypokalemia; G47.33 Obstructive sleep apnea (adult) (pediatric); I07.1 Rheumatic tricuspid insufficiency; I25.10 Atherosclerotic heart disease of native coronary artery without angina pectoris; I48.91 Unspecified atrial fibrillation; I50.9 Heart failure, unspecified; J44.9 Chronic obstructive pulmonary disease, unspecified; K21.9 Gastro-esophageal reflux disease without esophagitis; K59.00 Constipation, unspecified; N18.6 End stage renal disease; T45.515A Adverse effect of anticoagulants, initial encounter; Z79.01 Long term (current) use of anticoagulants; Z79.82 Long term (current) use of aspirin; Z79.899 Other long term (current) drug therapy; Z86.711 Personal history of pulmonary embolism; Z86.718 Personal history of other venous thrombosis and embolism; Z87.01 Personal history of pneumonia (recurrent); Z87.440 Personal history of urinary (tract) infections; Z90.710 Acquired absence of both cervix and uterus; Z91.19 Patient's noncompliance with other medical treatment and regimen; Z99.2 Dependence on renal dialysis

== ENCOUNTER 2017-06-22 18:49 | Inpatient (IN) | payer OTHER, BC ==
[2017-06-22 19:59] VITALS: BMI 45.7
[2017-06-22] MEDS: Albuterol-Ipratrop 3 mg / 0.5 (3 ml) UD IH SCH (20:00)
[2017-06-22] MEDS: Sodium Chloride 0.45% 1,000 ML IV SCH (21:34)
[2017-06-22] MEDS: Insulin Reg-MEDIUM-Coverage SC SCH (21:36)
[2017-06-23] MEDS: Albuterol-Ipratrop 3 mg / 0.5 (3 ml) UD IH SCH ×4 (02:00→20:19)
[2017-06-23] MEDS: Pantoprazole 20 mg EC Tab PO SCH ×2 (05:12→08:12)
[2017-06-23 06:51] LABS: BASO # 0.04 K/mm3 (0.0-2.0); BASO % 0.4 % (0.0-3.0); EOS # 0.3 (0.0-0.7); EOS % 2.6 % (1.5-5.0); GRAN # 7.46 (1.4-6.5); GRAN % 65.8 % (50.0-68.0); HEMOGLOBIN 8.5 g/dL (12.0-16.0); LYMPH # 2.8 (1.2-3.4); LYMPH % 24.9 % (22.0-35.0); MEAN CELL VOLUME 83.7 fl (80.0-105.0); MEAN CORPUSCULAR HEMOGLOBIN 26.6 pg (25.0-35.0); MEAN CORPUSCULAR HGB CONC 31.8 g/dl (31.0-37.0); MONO # 0.7 (0.1-0.6); MONO % 6.3 % (1.0-6.0); RBC 3.19 10^6/uL (3.5-6.1); RED CELL DISTRIBUTION WIDTH 16.1 % (11.5-14.5); WHITE BLOOD COUNT 11.3 10^3/ul (4.5-11.0)
[2017-06-23] MEDS: Insulin Reg-MEDIUM-Coverage SC SCH ×4 (06:56→22:15)
[2017-06-23 07:20] LABS: ALB/GLOB RATIO 0.9 (1.1-1.8); CALCIUM 9.1 mg/dL (8.4-10.5)
[2017-06-23] MEDS: Sodium Chloride 0.45% 1,000 ML IV SCH (10:39)
--- NOTE | 2017-06-23 11:06 | CON ---
DATE: 06/23/2017 NEUROLOGY CONSULT CHIEF COMPLAINT: Headache. HISTORY OF PRESENT ILLNESS: This is a 66-year-old woman with past medical history of lower extremity DVT, embolism, morbid obesity, obc-vkfrxwy-bxxgazuxx diabetes mellitus, hypertension, chronic kidney disease stage 2 to 3, history of nonobstructive coronary artery disease, who came in initially to the medical side of the hospital with shortness of breath, lower extremity edema and some electrolyte imbalances, which she was being followed by Nephrology in terms of her acute kidney injury and she was having hyperglycemic fluctuations as well. I was initially called due to having left-sided headache with a buzzy feeling on the left side. She has been stressed lately and was also having hyperglycemic fluctuations. Her A1c was 8 indicating poorly-controlled diabetes. Otherwise, no focal weakness or paresthesia. She is currently on TCU for rehabilitation. She is doing much better than my initial evaluation on the medical side. PAST MEDICAL HISTORY: History of lower extremity DVT, pulmonary embolism, morbid obesity, lch-uqmtzsu-gpgogljbb diabetes mellitus, hypertension, chronic kidney disease stage 2 to 3, history of nonobstructive coronary artery disease, history of cardiac catheterization in 07/2015. FAMILY HISTORY: Noncontributory. SOCIAL HISTORY: No illicit drug use, smoking or EtOH abuse. ALLERGIES: ALLERGIC TO INSULIN AND PREDNISONE. MEDICATIONS: Reviewed by nurse's reconciliation sheet. REVIEW OF SYSTEMS: Fourteen-point review of systems is negative except for the HPI. PHYSICAL EXAMINATION: VITAL SIGNS: Temperature afebrile, pulse rate of 76, blood pressure 137/79, respiratory rate of 18, oxygen saturation 95% by room air. GENERAL: The patient is sitting up in bed, in no acute distress. HEENT: Atraumatic, normocephalic. PERRLA. Extraocular muscles intact. NECK: Supple. No JVD. No adenopathy noted. LUNGS: Clear to auscultation. No adventitious sounds. HEART: S1, S2. Normal rate and rhythm. No murmurs, rubs or gallops. ABDOMEN: Soft, nontender and nondistended. Bowel sounds are present. EXTREMITIES: No clubbing. No cyanosis. Peripheral pulses 2+ felt bilaterally. NEUROLOGIC: The patient is alert and oriented to person, place, month and year. Speech is fluent without any errors. Cranial nerves II through XII intact. Motor exam: Moves all extremities equally. Toes are downgoing bilaterally. Sensory exam: Decreased light touch and pinprick up to the calves bilaterally. Decreased vibration of the toes. DTRs are 2+ throughout and absent at the knees and ankles. Coordination: Oghcac-ey-yobf intact. No dysmetria noted. Gait is deferred for now. LABORATORY DATA: Sodium 148, potassium 4.3, chloride 100, carbon dioxide of 31, BUN of 42, creatinine of 4.3, random glucose of 303. ASSESSMENT AND PLAN: This is a 66-year-old woman, history of nonobstructive coronary artery disease, kdr-iedwewc-cdrvyjhjc diabetes mellitus, history of lower extremity deep venous thrombosis, pulmonary embolism, morbid obesity, history of sleep apnea, on continuous positive airway pressure, who is presenting with shortness of breath, generalized weakness and lower extremity swelling, found to have acute kidney injury superimposed on a chronic kidney disease and has been managed by Nephrology, is now in Transitional Care Unit for rehabilitation, was consulted for a left-sided headache with some underlying paresthesias. Her left-sided headache has seems more likely a tension-base headache with neuralgiform component with underlying electrolyte derangements as well as sleep apnea as well as hyperglycemic accelerations. She is doing well on gabapentin. At this time, recommend, 1. Continue with gabapentin 400 mg p.o. at bedtime for neuropathic relief. 2. Fioricet 1 tablet every 4 hours p.r.n. for acute onset of headache. 3. Continue with continuous positive airway pressure daily for underlying sleep apnea. 4. Advise weight reduction. 5. Monitor electrolytes and correct accordingly. 6. Keep blood sugars between 140-180 given that her A1c is 8 and continue with current present medical management. Thank you for this consult. Jurgen Van MD
--- NOTE | 2017-06-23 17:03 | CP.PCM.HP ---
History of Present Illness - History of Present Illness History of Present Illness: Chief Complaint: Hemodialysis, SOB, fatigue 66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 CPAP use, DM II, morbid obesity, frequent falls, GERD, R knee surgery. On 06/16, pt was admitted for acute renal insufficiency, respirtory distress, headache, weakness, and L swelling. Pt Anemia s/p 1 unit RBC. 06/20/17 R IJ dialysis catheter inserted. Pt is now going to Hemodialysis as needed (scheduled T--S). Pt transfered to TCU for continuity of care. Today, seen in bed with no distress. O2 via nasal cannula in place. Denies fever, chills, headache, nausea, vomiting, diarrhea, constipation or urinary changes. Present on Admission - Present on Admission Any Indicators Present on Admission: No History of DVT/PE: Yes History of Uncontrolled Diabetes: No Urinary Catheter: No Decubitus Ulcer Present: No Review of Systems - Constitutional Constitutional: As Per HPI - EENT Eyes: As Per HPI Ears: As Per HPI Nose/Mouth/Throat: As Per HPI - Breasts Breasts: As Per HPI - Cardiovascular Cardiovascular: As Per HPI - Respiratory Respiratory: As Per HPI - Gastrointestinal Gastrointestinal: As Per HPI - Genitourinary Genitourinary: As Per HPI - Reproductive: Female Reproductive:Female: As Per HPI - Menstruation Menstruation: As Per HPI - Musculoskeletal Musculoskeletal: As Per HPI - Integumentary Integumentary: As Per HPI - Neurological Neurological: As Per HPI - Psychiatric Psychiatric: As Per HPI - Endocrine Endocrine: As Per HPI - Hematologic/Lymphatic Hematologic: As Per HPI Past Patient History - Infectious Disease Hx of Infectious Diseases: None - Tetanus Immunizations Tetanus Immunization: Up to Date, Unknown - Past Social History Smoking Status: Unknown If Ever Smoked - CARDIAC Hx Cardiac Disorders: Yes Hx Hypertension: Yes - PULMONARY Hx Respiratory Disorders: Yes (pe 3 yrs ago can't remember which lung) Hx Asthma: Yes Hx Bronchitis: Yes Hx Pneumonia: Yes Hx Sleep Apnea: Yes Other/Comment: medicare took cpap back pt was not using it, pt now in process of getting another one as per dr brooks, pt's nebulizer machine at home is broken - NEUROLOGICAL Hx Neurological Disorder: No - HEENT Hx HEENT Problems: No - RENAL Hx Chronic Kidney Disease: No - ENDOCRINE/METABOLIC Hx Diabetes Mellitus Type 2: Yes - HEMATOLOGICAL/ONCOLOGICAL Hx Blood Disorders: Yes Hx Anemia: Yes - INTEGUMENTARY Hx Dermatological Problems: No - MUSCULOSKELETAL/RHEUMATOLOGICAL Hx Falls: No - GASTROINTESTINAL Hx Gastrointestinal Disorders: No - GENITOURINARY/GYNECOLOGICAL Hx Reproductive Disorders: No - PSYCHIATRIC Hx Psychophysiologic Disorder: No - SURGICAL HISTORY Hx Cardiac Catheterization: Yes (07/2015) Hx Hysterectomy: Yes Other/Comment: RIGHT KNEE ARTHROSCOPIC SX 1998 - ANESTHESIA Hx Anesthesia: Yes Hx Anesthesia Reactions: No Hx Malignant Hyperthermia: No Meds Allergies/Adverse Reactions: Allergies Allergy/AdvReac Type Severity Reaction Status Date / Time Insulins Allergy hyperglycem Verified 06/22/17 20:42 ia prednisone AdvReac Mild HYPERTENSIO Verified 06/22/17 20:42 N Physical Exam - Constitutional Appears: No Acute Distress - Head Exam Head Exam: ATRAUMATIC, NORMAL INSPECTION, NORMOCEPHALIC - Eye Exam Eye Exam: EOMI, Normal appearance, PERRL Pupil Exam: NORMAL ACCOMODATION, PERRL - ENT Exam ENT Exam: Mucous Membranes Moist, Normal Exam Additional comments: O2 nasal cannula in place. - Neck Exam Neck exam: Positive for: Normal Inspection - Respiratory Exam Respiratory Exam: Clear to Auscultation Bilateral, NORMAL BREATHING PATTERN - Cardiovascular Exam Cardiovascular Exam: REGULAR RHYTHM, +S1, +S2 - GI/Abdominal Exam GI & Abdominal Exam: Normal Bowel Sounds, Soft. absent: Tenderness - Extremities Exam Extremities exam: Positive for: normal inspection - Back Exam Back exam: NORMAL INSPECTION - Neurological Exam Neurological exam: Alert, CN II-XII Intact, Normal Gait, Oriented x3, Reflexes Normal - Psychiatric Exam Psychiatric exam: Normal Affect, Normal Mood - Skin Skin Exam: Dry, Intact, Normal Color, Warm Results - Vital Signs Recent Vital Signs: Last Vital Signs Temp 98.9 F 06/23/17 16:49 Pulse 77 06/23/17 16:49 Resp 18 06/23/17 16:49 BP 139/88 06/23/17 16:49 Pulse Ox 100 06/23/17 16:49 - Labs Result Diagrams: 06/23/17 06:30 06/23/17 06:30 Labs: Laboratory Results - last 24 hr 06/22/17 06/23/17 06/23/17 21:34 06:30 06:30 WBC 11.3 H RBC 3.19 L Hgb 8.5 L Hct 26.7 L MCV 83.7 MCH 26.6 MCHC 31.8 RDW 16.1 H Plt Count 167 MPV 11.0 Gran % 65.8 Lymph % (Auto) 24.9 Churchill % (Auto) 6.3 H Eos % (Auto) 2.6 Baso % (Auto) 0.4 Gran # 7.46 H Lymph # (Auto) 2.8 Churchill # (Auto) 0.7 H Eos # (Auto) 0.3 Baso # (Auto) 0.04 Sodium 138 Potassium 4.3 Chloride 100 Carbon Dioxide 31 Anion Gap 11 BUN 42 H Creatinine 4.3 H Est GFR ( Amer) 13 Est GFR (Non-Af Amer) 10 POC Glucose (mg/dL) 219 H Random Glucose 203 H Calcium 9.1 Total Bilirubin 0.3 AST 32 ALT 16 Alkaline Phosphatase 51 Total Protein 6.3 Albumin 3.0 Globulin 3.3 Albumin/Globulin Ratio 0.9 L 06/23/17 11:08 WBC RBC Hgb Hct MCV MCH MCHC RDW Plt Count MPV Gran % Lymph % (Auto) Churchill % (Auto) Eos % (Auto) Baso % (Auto) Gran # Lymph # (Auto) Churchill # (Auto) Eos # (Auto) Baso # (Auto) Sodium Potassium Chloride Carbon Dioxide Anion Gap BUN Creatinine Est GFR ( Amer) Est GFR (Non-Af Amer) POC Glucose (mg/dL) 229 H Random Glucose Calcium Total Bilirubin AST ALT Alkaline Phosphatase Total Protein Albumin Globulin Albumin/Globulin Ratio Assessment & Plan (1) Chronic renal insufficiency Status: Acute (2) S/P dialysis catheter insertion Status: Acute (3) Constipation Status: Acute (4) Anemia Status: Acute (5) Guaiac positive stools Status: Acute (6) Morbid obesity Status: Acute (7) Personal history of DVT (deep vein thrombosis) Status: Acute (8) Hypercoagulable state Status: Acute (9) Iron deficiency Status: Acute (10) Expressive aphasia Status: Acute (11) Acute renal insufficiency Status: Acute - Assessment and Plan (Free Text) Plan: IVF hydration. Daily Coumadin. Labs ordered. On IV iron, s/p aranesp 1 unit of PRBC 4/4. Aranesp 100 mg SQ. VTE/GI prophlyaxis. PT/OT onboard. Bipap qHS. Consults: Hemo - Dr. Zayas Nephro - Dr. Jimenez Pulmo - Dr. Brooks Cardio - Dr. Garth DENSON - Dr. Rivera Neuro - Dr. Van IR - Dr. Maikol Soares Reviewed: CXR = WNL CT head = WNL Renal US = WNL CT abd/pelvis = WNL ECG = BORDERLINE, NSR, low voltage QRS ECHO = EF 55-60%, mild concentric LVH, mild-mod tricuspid regurg, mild pulmonary htn - Date & Time Date: 06/23/17 Time: 09:45
[2017-06-23] MEDS: Apap-Butalbital-Caffeine 325-50-40mg Tab PO PRN (17:48)
[2017-06-23] MEDS ORDERED: Insulin Reg-MEDIUM-Coverage SC SCH (17:53)
[2017-06-23] MEDS ORDERED: POLYETHYLENE GLYCOL 3350 17 GM/Dose PACKET PO PRN (18:15)
--- NOTE | 2017-06-23 18:15 | CP.PCM.PN ---
Subjective - Date & Time of Evaluation Date of Evaluation: 06/23/17 Time of Evaluation: 10:50 - Subjective Subjective: Seen and examined at the bedside earlier today, chart review. Patient reports good bowel movement yesterday. No reports of any bleeding. Patient denies nausea, vomiting, or abdominal pain. No acute overnight events reported. Objective - Vital Signs/Intake and Output Vital Signs (last 24 hours): Temp Pulse Resp BP Pulse Ox 98.9 F 77 18 139/88 100 06/23/17 16:49 06/23/17 16:49 06/23/17 16:49 06/23/17 16:49 06/23/17 16:49 Intake and Output: 06/23/17 06/23/17 06:59 18:59 Output Total 450 Balance -450 - Medications Medications: Current Medications Acetaminophen/Butalbital/Caffeine (Fioricet) 1 tab PO Q4H PRN PRN Reason: Headache Last Admin: 06/23/17 17:48 Dose: 1 tab Albuterol/Ipratropium (Duoneb 3 Mg/0.5 Mg (3 Ml) Ud) 3 ml IH [id number] [facility] Last Admin: 06/23/17 13:22 Dose: 3 ml Amlodipine Besylate (Norvasc) 10 mg PO DAILY [facility] Last Admin: 06/23/17 10:38 Dose: 10 mg Atenolol (Tenormin) 100 mg PO DAILY [facility] Last Admin: 06/23/17 10:40 Dose: 100 mg Atorvastatin Calcium (Lipitor) 20 mg PO DIN [facility] Last Admin: 06/23/17 17:47 Dose: 20 mg Clotrimazole (Mycelex Filippo) 10 mg MT TID [facility] Last Admin: 06/23/17 17:47 Dose: 10 mg Ergocalciferol (Drisdol 50,000 Intl Units Cap) 1 cap PO WED [facility] Gabapentin (Neurontin) 400 mg PO HS [facility] PRN Reason: Protocol Last Admin: 06/22/17 21:35 Dose: 400 mg Glimepiride (Amaryl) 1 mg PO 0730,1730 [facility] Last Admin: 06/23/17 17:42 Dose: 1 mg Hydralazine HCl (Apresoline) 10 mg PO QID PRN PRN Reason: for sbp>170 Sodium Chloride (Sodium Chloride 0.45%) 1,000 mls @ 80 mls/hr IV .[id number] [facility] Last Admin: 06/23/17 10:39 Dose: Not Given Insulin Human Regular (Humulin R Med) 0 units SC ACHS [facility] PRN Reason: Protocol Ondansetron HCl (Zofran Inj) 4 mg IVP Q6H PRN PRN Reason: Nausea/Vomiting Pantoprazole Sodium (Protonix Ec Tab) 20 mg PO 0630 [facility] Tramadol HCl (Ultram) 50 mg PO DAILY [facility] Last Admin: 06/23/17 10:45 Dose: 50 mg Warfarin Sodium (Coumadin) 4 mg PO 1800 [facility] PRN Reason: Protocol Last Admin: 06/23/17 17:43 Dose: 4 mg - Labs Labs: 06/23/17 06:30 06/23/17 06:30 - Constitutional Appears: No Acute Distress - Head Exam Head Exam: NORMOCEPHALIC - Eye Exam Eye Exam: Normal appearance. absent: Scleral icterus - ENT Exam ENT Exam: Mucous Membranes Moist - Neck Exam Neck Exam: Normal Inspection - Respiratory Exam Respiratory Exam: NORMAL BREATHING PATTERN. absent: Respiratory Distress - Cardiovascular Exam Cardiovascular Exam: +S1, +S2 - GI/Abdominal Exam GI & Abdominal Exam: Soft, Normal Bowel Sounds. absent: Guarding, Tenderness, Rebound - Extremities Exam Extremities Exam: Pedal Edema. absent: Calf Tenderness - Neurological Exam Neurological Exam: Alert, Awake, Oriented x3 Assessment and Plan - Assessment and Plan (Free Text) Assessment: Assessment: Acute on chronic renal insufficiency status post [place] catheter and dialysis Constipation Anemia Positive guiac Morbid obesity History of DVT/PE Plan: Continue to monitor H&H and for overt GI bleed MiraLAX prn Diet as tolerated On Protonix 20 mg daily on Coumadin tonight Patient would benefit from GI workup would consider when patient is more optimized. Seen and discussed with Dr. Rivera.
--- NOTE | 2017-06-23 22:13 | CON ---
DATE: 06/23/2017 LOCATION: Patient is in room 320, bed 1, transitional care unit. REASON FOR CONSULTATION: Follow up shortness of breath, swelling of legs, acute kidney failure. HISTORY OF PRESENT ILLNESS: Patient is a 66-year-old female who was admitted to medical floor with acute on chronic kidney failure and started on dialysis. She improved and now she is admitted to transitional care unit for deconditioning and physical therapy. Patient denies chest pain. Her shortness of breath has improved. Denies any palpitations. Patient has morbid obesity, COPD, sleep apnea, history of DVT and pulmonary embolism, and has been on anticoagulation. Denies cardiac symptoms of chest pain, shortness of breath or palpitations. The patient was admitted to medical floor with complaints of weakness, some shortness of breath and swelling of legs. PAST MEDICAL HISTORY: Positive for hypertension, hyperlipidemia, morbid obesity, history of DVT, pulmonary embolism, type 2 diabetes mellitus, COPD, obstructive sleep apnea, stopped using CPAP more than 4 years ago. Creatinine in 02/2017 was 1.4. PREVIOUS CARDIAC WORKUP: Patient had an echo on 05/20/2015, which showed normal-sized LV, resf-qx-bvozxuql LV hypertrophy, normal LV systolic function with ejection fraction of 61%, uehg-[id number]-aaemrjts tricuspid regurgitation with RVSP 44 mmHg suggestive of very mild pulmonary hypertension. Patient had stress test on 06/25/2015, which was equivocal for reversible anteroseptal ischemia, with ejection fraction of 63%, so patient had cardiac catheterization on 07/27/2015, which showed nonobstructive coronary artery disease, limited only to obtuse marginal, OM2 showed 55% diffused disease, very small caliber vessel, less than 1.5 mm, which is not suitable for PTCA, preserved LV systolic function with ejection fraction of 55% to 60%, EDP was in the range of 14. The patient had again echocardiogram on 06/19/2017, which showed normal-sized LV, mild concentric left ventricular hypertrophy, LV ejection fraction of 55% to 60%, mild mitral regurgitation, eyqy-ui-duzzvxne tricuspid regurgitation, RVSP 53 mmHg suggestive of moderate pulmonary hypertension. PERSONAL HISTORY: Patient denies any smoking, denies alcohol abuse. HOME MEDICATIONS: Patient was taking Protonix, simvastatin 40 daily, Lasix 40 daily, allopurinol 100 daily, tramadol, amlodipine 10 mg daily, Coumadin 9 mg daily, Hyzaar 100/25 once a day, KCl 10 mEq daily, Feosol 325 mg daily, gabapentin 300 mg daily, atenolol 100 mg daily, Protonix 40 daily, glimepiride 1 mg b.i.d. ALLERGIES: PATIENT DENIES ANY ALLERGIES. REVIEW OF SYSTEMS: All the systems reviewed, positive mentioned in the history, others are negative. PHYSICAL EXAMINATION: VITAL SIGNS: Blood pressure 137/79, respiration 18, pulse 76, temperature 97.9. HEENT: Head is normocephalic. Eyes, pupils normal. Conjunctivae are slightly pale. NECK: JVP low. Carotids equal. THORAX: AP diameter is normal. LUNGS: Clear. CARDIOVASCULAR: S1 and S2. ABDOMEN: Soft, nontender. No organomegaly. EXTREMITIES: No clubbing. No cyanosis. LABORATORY DATA: WBC 11.3, hemoglobin 8.5, hematocrit 26.7, platelet 167. Sodium 138, potassium 4.3, BUN 42, creatinine 4.3, sugar random 229. AST and ALT normal. Protein and albumin normal. Chest x-ray, no active disease. EKG showed normal sinus rhythm, low voltage. DIAGNOSES: Luwxz-ge-uohshqc renal failure, patient on dialysis, diabetes, hypertension, morbid obesity, sleep apnea, anemia, history of deep vein thrombosis and pulmonary embolism. PLAN: Clinically, patient's cardiac status is stable. Patient on dialysis, we will continue that. Patient is getting IV fluid 80 mL an hour, glimepiride 1 mg p.o. b.i.d., mg p.o. daily, DuoNeb and nebulizer therapy, insulin as ordered, atorvastatin 20 daily, gabapentin 400 mg at bedtime, amlodipine 10 mg daily, 20 mg daily, atenolol 100 mg daily. We will continue present therapy. The patient is being followed by Renal. The patient getting dialysis. We will follow with you. Layla Liang MD
--- NOTE | 2017-06-24 00:24 | CON ---
DATE: PULMONARY CONSULTATION REFERRING PHYSICIAN: Dr. Mitchell. REASON FOR CONSULTATION: Chronic lung disease, sleep apnea syndrome, history of PE. HISTORY OF PRESENT ILLNESS: This is a 66-year-old female well known to me from the office and previous admission, who has a known history of chronic lung disease; obstructive sleep apnea syndrome, but noncompliant with CPAP and BiPAP; history of DVT, which is recurrent, also has a history of pulmonary embolism, on anticoagulation, who originally admitted with coagulopathy found to have acute renal failure, admitted to hospital, failed conservative treatment for the renal failure, presently on renal replacement therapy, admitted to TICU for continued care. She feels better, still gets short of breath with exertion, tolerating CPAP well. No chest pain. No nausea. No vomiting or diarrhea. No leg pain or leg swelling. PAST MEDICAL HISTORY: Obstructive lung disease, obstructive sleep apnea syndrome, coronary artery disease, atrial fibrillation, hypertension, history of DVT, history of pulmonary embolism, renal failure. ALLERGIES: PREDNISONE. SOCIAL HISTORY: No smoking or no alcohol use. FAMILY HISTORY: Positive for renal failure. MEDICATIONS: She is on Amaryl 1 mg twice a day, hydralazine 10 mg four times a day p.r.n., Coumadin 4 mg will be given today, vitamin D 50,000 units weekly, albuterol/Atrovent nebulizer every 6 hours, Fioricet 1 tablet every 4 hours p.r.n., insulin coverage, Lipitor 20 mg daily, MiraLax 17 g daily, Mycelex Filippo 10 mg three times a day, gabapentin 400 mg at bedtime, Norvasc 10 mg daily, Protonix 20 mg daily, IV fluid half-normal saline 80 mL/hour, Tenormin 100 mg p.o. daily, Ultram 50 mg daily, Zofran p.r.n. basis. LABORATORY DATA: Shows hemoglobin 8.5, hematocrit 26.7, WBC 11.3, platelet is 167. INR 1.37. Sodium 138, potassium 4.3, chloride 100, bicarbonate 31, BUN 42, creatinine 4.3, glucose 203, calcium 9.1, AST 32, ALT 16, alk phos is 51. Albumin is 3.0. IMPRESSION AND PLAN: Acute renal failure, presently on renal replacement therapy, atrial fibrillation, anemia, coronary artery disease, chronic obstructive lung disease, obstructive sleep apnea syndrome, history of deep venous thrombosis, recurrent pulmonary embolism. Pulmonary point view, doing okay. Continue anticoagulation. Keep head at 45 degrees, inhaled bronchodilator, encourage continuous positive airway pressure use, renal replacement therapy. Gastric prophylaxis. Fall precaution. Continue therapy. Thank you and we will follow with you. Layla Brooks MD
--- NOTE | 2017-06-24 00:55 | CON ---
DATE: 06/23/2017 REASON FOR CONSULTATION: Severe anemia, need for dialysis. HISTORY OF PRESENTING ILLNESS: A 66-year lady known to me from recent evaluation on the medical side. Patient has a history of morbid obesity, NIDDM, hypertension. She presented with acute kidney injury. She presented with nonoliguric acute kidney failure. Patient was started on dialysis because of no improvement in her renal function with IV fluids. Patient has a history of DVT and pulmonary embolism. She is on chronic anticoagulation. At the time of presentation, her INR was elevated. She was also found to be severely anemic, but there was no evidence of any GI blood loss. Currently now, she is transferred to the Transitional Care Unit. She remains profoundly anemic. PAST MEDICAL AND SURGICAL HISTORY: Morbid obesity, NIDDM, hypertension, CKD III, CHF, DVT, PE, chronic anticoagulation, chronic anemia. FAMILY HISTORY: Noncontributory. SOCIAL HISTORY: No smoking, no alcohol use, no IV drug abuse. ALLERGIES: INSULIN AND PREDNISONE. CURRENT MEDICATIONS: Glimepiride 1 mg b.i.d., hydralazine 10 four times a day p.r.n., Coumadin 4 mg, Drisdol, DuoNeb, Fioricet, insulin, Lipitor 20, MiraLax 17 g p.r.n., gabapentin 400, amlodipine 10, Protonix 20, half normal saline at 80, Tenormin 100, tramadol, Zofran. REVIEW OF SYSTEMS: All systems are reviewed, pertinent positives are mentioned in the history of presenting illness, rest unremarkable. PHYSICAL EXAMINATION: GENERAL: Morbidly obese, elderly lady, lying in bed. VITAL SIGNS: Blood pressure 139/88, heart rate 77, respiratory rate 18, temperature 98.9. HEENT: Normocephalic, atraumatic, positive pallor. NECK: Supple, no JVD. LUNGS: Bilateral equal air entry, bilateral equal expansion, no rales. CARDIAC: S1, S2. Regular rate and rhythm, no murmur, no rub. ABDOMEN: Obese, distended, soft, nontender, bowel sounds present. EXTREMITIES: No lower extremity edema. LABORATORY DATA: WBC 11.3, hemoglobin 8.5, hematocrit 26.7, platelets 167. Sodium 138, potassium 4.3, chloride 100, CO2 31, BUN 42, creatinine 4.3, glucose 203, calcium 9.1, AST 32, ALT 16, albumin 3.0, globulin 3.3. ASSESSMENT: 1. Acute kidney injury, nonoliguric, suspect acute tubular necrosis. 2. Severe anemia. 3. Non-insulin dependent diabetes mellitus. 4. Hypertension. 5. History of deep venous thrombosis/pulmonary embolism/hypercoagulable state. 6. Stool occult positive. PLAN: 1. Transfuse 1 unit of blood during dialysis tomorrow. 2. Dialysis tomorrow. 3. Discontinue IV fluids. 4. Monitor fingersticks and continue insulin coverage. 5. Continue current antihypertensives. 6. No LALITA inhibitor or ARB. 7. Avoid nephrotoxins. 8. Continue Coumadin as per Hematology. Cheryl Jimenez MD
[2017-06-24] MEDS: Pantoprazole 20 mg EC Tab PO SCH (05:46)
[2017-06-24] MEDS: Insulin Reg-MEDIUM-Coverage SC SCH ×4 (06:56→21:55)
[2017-06-24 07:21] LABS: BASO # 0.03 K/mm3 (0.0-2.0); BASO % 0.2 % (0.0-3.0); EOS # 0.3 (0.0-0.7); EOS % 2.7 % (1.5-5.0); GRAN # 8.43 (1.4-6.5); GRAN % 70.1 % (50.0-68.0); HEMOGLOBIN 8.7 g/dL (12.0-16.0); LYMPH # 2.6 (1.2-3.4); LYMPH % 21.5 % (22.0-35.0); MEAN CELL VOLUME 83.9 fl (80.0-105.0); MEAN CORPUSCULAR HEMOGLOBIN 26.4 pg (25.0-35.0); MEAN CORPUSCULAR HGB CONC 31.5 g/dl (31.0-37.0); MEAN PLATELET VOLUME 11.2 fl (7.0-11.0); MONO # 0.7 (0.1-0.6); MONO % 5.5 % (1.0-6.0); RBC 3.29 10^6/uL (3.5-6.1); RED CELL DISTRIBUTION WIDTH 16.2 % (11.5-14.5)
[2017-06-24] MEDS: Albuterol-Ipratrop 3 mg / 0.5 (3 ml) UD IH SCH ×3 (07:31→19:41)
[2017-06-24 07:38] LABS: INR 1.85 (0.93-1.08); PROTHROMBIN TIME 21.6 SECONDS (9.4-12.5)
--- NOTE | 2017-06-24 13:56 | PN ---
DATE: REASON FOR CONSULTATION AND FOLLOWUP: Shortness of breath; swelling of the leg; acute kidney injury, started on dialysis. SUBJECTIVE: Patient denies any chest pain, shortness of breath, or any palpitations. OBJECTIVE GENERAL: Not in apparent distress. VITAL SIGNS: Temperature afebrile, heart rate 80, blood pressure 134/67. HEENT: PERRLA, extraocular muscles intact. NECK: Supple. No carotid bruit or thyromegaly. CHEST: Clear to auscultation. HEART: S1 and S2, regular. ABDOMEN: Soft. EXTREMITIES: Clubbing and cyanosis negative. LABORATORY DATA: Blood workup as follows: WBC 12, hemoglobin of , hematocrit of 27.6, platelet count 178. Chemistry shows sodium 137, potassium of 3.9, chloride 100, carbon dioxide 27, anion gap of 14. BUN of and creatinine of 5.1. IMPRESSION: Acute kidney injury with chronic renal insufficiency, status post dialysis, morbid obesity; diabetes; hypertension; hyperlipidemia; status post cardiac catheterization; nonobstructive coronary artery disease, deconditioning of the body. RECOMMENDATIONS: The patient is going for dialysis today. Hemoglobin is 8.7, possibly get the blood transfusion during the dialysis. Continue amlodipine, continue atorvastatin, will continue hydralazine, continue Coumadin. INR 1.85. Coumadin for DVT, PE. Thank you, Dr. Mitchell, for providing us the opportunity in taking care of the patient, Laura Emanuel. Layla Bal MD
--- NOTE | 2017-06-24 15:44 | PN ---
DATE: 06/24/2017 SUBJECTIVE: The patient is seen in the dialysis unit. She is awake. She is alert. She has a low-grade fever. She denies any abdominal pain, nausea, vomiting or diarrhea. She complains of some cough. PHYSICAL EXAMINATION: GENERAL: Obese elderly lady seen in the dialysis unit. VITAL SIGNS: Blood pressure 137/75, heart rate 74, respiratory rate 18, temperature 98.4. HEENT: Normocephalic, atraumatic. NECK: Supple, no JVD. LUNGS: Bilateral equal air entry, bilateral equal expansion. CARDIAC: S1 and S2, regular rate and rhythm, no murmur, no rub. ABDOMEN: Obese, distended, soft, nontender, bowel sounds present. EXTREMITIES: No lower extremity edema. INTAKE AND OUTPUT: 850 output. LABORATORY DATA: WBC 12, hemoglobin 8.7, hematocrit 27.6, platelets 178, polys 70%. Sodium 137, potassium 3.9, chloride 100, CO2 of 27, BUN 53, creatinine 5.1, glucose 215, phosphorus 5.0, magnesium 1.7. MEDICATIONS: List reviewed. ASSESSMENT: 1. Acute kidney injury, nonoliguric, currently remains dialysis dependent. 2. Anemia, acute, with low iron stores. 3. Jsf-ayaunol-mglmablok diabetes mellitus. 4. Hypertension. 5. History of deep venous thrombosis, pulmonary embolism, hypercoagulable state, anticoagulation. PLAN: 1. We will hold off on blood transfusion currently because of low-grade fever. 2. Blood cultures x2. 3. Monitor for further high temperatures, 4. Repeat urinalysis and urine culture. 5. Chest x-ray. Cheryl Jimenez MD
[2017-06-25] MEDS: Albuterol-Ipratrop 3 mg / 0.5 (3 ml) UD IH SCH ×4 (01:54→20:03)
--- NOTE | 2017-06-25 03:25 | PN ---
DATE: SUBJECTIVE: The patient seen and examined at the bedside, in the dialysis center. She is awake and alert. Feeling better. Feeling like low grade fevers. Complaining about headache. No nausea, vomiting or diarrhea. No hematuria. No hematochezia. No swelling of the legs. PHYSICAL EXAMINATION: VITAL SIGNS: Temperature 98.6, blood pressure 137/75, heart rate 74, respiratory rate 18. HEENT: Head normocephalic and atraumatic. Eyes: PERRLA. Extraocular muscles intact. Conjunctivae clear. Nose patent. Mucous membrane moist. NECK: Supple. No carotid bruit. No JVD or thyromegaly. CHEST: Bilaterally symmetrical. HEART: S1 and S2 positive. LUNGS: Clear to auscultation. ABDOMEN: Soft. Bowel sounds present. No organomegaly. EXTREMITIES: No edema. No cyanosis. NEUROLOGIC: Patient is awake, alert. Moving all four extremities. No focal deficit. MEDICATIONS: Amaryl, hydralazine, Coumadin, insulin, Lipitor, caffeine, MiraLax, Mycelex Filippo, Neurontin, insulin, Tramadol, Zofran. LABORATORY DATA: White blood cell 12.0, hemoglobin 8.7, hematocrit 27.6, platelets 178. Sodium 137, potassium 3.9, BUN 53, creatinine 5.1. Glucose 262. ASSESSMENT AND PLAN: Ms. Laura Emanuel is a 66-year-old lady with leukocytosis, anemia. INR is almost therapeutic, abnormal liver function test, diabetes mellitus - uncontrolled, hyperphosphatemia. She was seen by Dr. Jimenez, senior actuarial analyst. Acute kidney injury, nonoliguric, currently remain dialysis dependent, iron deficiency, hypertension, history of deep vein thrombosis and pulmonary emboli and hypercoagulable state. She is on warfarin. The patient needs blood transfusion, but as per Dr. Jimenez, we will hold blood transfusion because of low grade fever. Blood cultures x2 ordered. Monitoring further temperature cure. Obtain urinalysis and urine cultures, septic workup. Repeat labs. Chest x-ray actually done. Results are pending. We will follow up. Tracy Mitchell MD [facility] # [id number]
[2017-06-25] MEDS: Apap-Butalbital-Caffeine 325-50-40mg Tab PO PRN ×2 (04:46→22:32)
[2017-06-25] MEDS: Pantoprazole 20 mg EC Tab PO SCH (05:30)
[2017-06-25] MEDS: Insulin Reg-MEDIUM-Coverage SC SCH ×4 (06:51→22:29)
[2017-06-25 07:48] LABS: INR 1.91 (0.93-1.08); PROTHROMBIN TIME 22.3 SECONDS (9.4-12.5)
--- NOTE | 2017-06-25 09:09 | RAD ---
HISTORY: sob, fever COMPARISON: 06/16/2017 TECHNIQUE: Chest PA and lateral FINDINGS: LUNGS: There is a minimal infiltrate at the right lung base. This could represent atelectasis. PLEURA: No significant pleural effusion identified. No pneumothorax apparent. CARDIOVASCULAR: Normal. OSSEOUS STRUCTURES: No significant abnormalities. VISUALIZED UPPER ABDOMEN: Normal. OTHER FINDINGS: There is a right IJ dialysis catheter at the junction of the SVC and right atrium IMPRESSION: Minimal infiltrate at the right lung base
--- NOTE | 2017-06-25 14:39 | PN ---
DATE: 06/25/2017 REASON FOR CONSULTATION: Followup shortness of breath, swelling of the legs, acute kidney disease, started on dialysis. SUBJECTIVE: The patient denies any chest pain, shortness of breath, or any palpitations. The patient not in apparent distress. PHYSICAL EXAMINATION: VITAL SIGNS: Temperature afebrile, heart rate 70, blood pressure 126/87. HEENT: PERRLA. Extraocular muscles intact. NECK: Supple. No carotid bruit or thyromegaly. CHEST: Clear to auscultation. HEART: S1 and S2 regular. ABDOMEN: Soft. EXTREMITIES: Clubbing and cyanosis negative. LABORATORY DATA: Blood workup as follows: WBC 12, hemoglobin __00:51___, hematocrit 27.6, platelet count 178. Chemistry shows sodium __00:54___, potassium 3.9, chloride 100, carbon dioxide 27, anion gap of 14, BUN __00:57___, creatinine 5.1. IMPRESSION: Acute kidney injury, chronic renal insufficiency, status post dialysis started, history of morbid obesity, hypertension, hyperlipidemia, diabetes, status post cardiac catheterization, nonischemic coronary artery disease, deconditioning of the body. RECOMMENDATIONS: Continue dialysis, monitor H and H. If it goes below 8, consider packed RBC transfusion, continue atorvastatin, continue hydralazine p.r.n., continue Coumadin. Today, INR is 1.91 for DVT and PE, repeat PT/INR tomorrow. She is almost therapeutic. Continue amlodipine. Continue atenolol. We will follow with you. We will add baby aspirin. We will repeat the blood workup in the morning. Thank you, Dr. Mitchell, for providing us the opportunity in taking care of the patient, Laura Emanuel. Layla Bal MD
[2017-06-25 19:52] LABS: PH,URINE 6.5 (4.7-8.0); URINE BILIRUBIN NEGATIVE (NEGATIVE); URINE BLOOD SMALL (NEGATIVE); URINE GLUCOSE (UA) NEGATIVE (NEGATIVE); URINE LEUKOCYTE ESTERASE MODERATE Leu/uL (NEGATIVE); URINE PROTEIN 100 mg/dL (<30 mg/dL); URINE UROBILINOGEN 0.2 E.U./dL (<1 E.U./dL)
[2017-06-25 19:58] LABS: URINE APPEARANCE CLEAR (CLEAR); URINE COLOR YELLOW (YELLOW)
[2017-06-25 20:09] LABS: URINE BACTERIA MANY (NEG)
[2017-06-25 20:10] LABS: URINE WBC 20 - 25 /hpf (0-6)
--- NOTE | 2017-06-25 20:30 | PN ---
DATE: 06/25/2017 SUBJECTIVE: The patient is seen lying in bed. The patient is awake. She is alert. She is comfortable. She feels much better today. She denies any chest pain. She denies any shortness of breath. She does have some cough. She denies any urinary complaints. PHYSICAL EXAMINATION GENERAL: Obese elderly lady sitting in bed. VITAL SIGNS: Blood pressure 126/87, heart rate 70, respiratory rate 18, temperature 99.2, T-max was 99.4. HEENT: Normocephalic, atraumatic, positive pallor. NECK: Supple, no JVD. LUNGS: Bilateral equal air entry, bilateral equal expansion, no rales. CARDIAC: S1 and S2, regular rate and rhythm, no murmur, no rub. ABDOMEN: Obese, distended, soft, nontender, bowel sounds present. EXTREMITIES: No lower extremity edema. Intake and output, not charted. LABORATORY DATA: No new labs available. CURRENT MEDICATIONS: Amaryl, Apresoline, aspirin, Coumadin, Drisdol, DuoNeb, insulin, Lipitor, MiraLax, Mycelex, Neurontin, amlodipine, Protonix, Tenormin, Ultram, Zofran. ASSESSMENT: 1. Acute kidney injury superimposed on chronic kidney disease stage III. 2. Severe anemia. 3. Deep venous thrombosis/pulmonary embolism/hypercoagulable state. 4. Morbid obesity. 5. Ppv-jobjniz-ycthdnnci diabetes mellitus. 6. Hypertension. PLAN: 1. DC Munoz. 2. Check urinalysis. 3. Continue fingerstick monitoring. 4. Continue current medications. 5. Will likely need dialysis for the near future, make arrangement for outpatient dialysis at [facility], Monday, Monday and Monday. Cheryl Jimenez MD
--- NOTE | 2017-06-25 22:06 | CP.PCM.CON ---
History of Present Illness - History of Present Illness History of Present Illness: Ms. Sanchez is a 66 year old female admitted with acute renal failure. hemodialysis was started. She also has chronic anemia. She received 2 units of PRBC since admission. Also on Aranesp 100 mcgm weekly. Hb stable now. Hypercoaguable state on coumadin . Review of Systems - Constitutional Constitutional: As Per HPI - EENT Eyes: absent: As Per HPI, Blind Spots, Blurred Vision, Change in Vision, Decreased Night Vision, Diplopia, Discharge, Dry Eye, Exophthalmos, Floaters, Irritation, Itchy Eyes, Loss of Peripheral Vision, Pain, Photophobia, Requires Corrective Lenses, Sees Flashes, Spots in Vision, Tunnel Vision, Other Visual Disturbances, Loss of Vision, Other Nose/Mouth/Throat: absent: As Per HPI, Epistaxis, Nasal Congestion, Nasal Discharge, Nasal Obstruction, Nasal Trauma, Nose Pain, Post Nasal Drip, Sinus Pain, Sinus Pressure, Bleeding Gums, Change in Voice, Dental Pain, Dry Mouth, Dysphagia, Halitosis, Hoarsness, Lip Swelling, Mouth Lesions, Mouth Pain, Odynophagia, Sore Throat, Throat Swelling, Tongue Swelling, Facial Pain, Neck Pain, Neck Mass, Other - Breasts Breasts: absent: As Per HPI, Change in Shape, Mass, Pain, Nipple Discharge, Nipple Inversion, Skin Changes, Swelling, Other - Cardiovascular Cardiovascular: absent: As Per HPI, Acrocyanosis, Chest Pain, Chest Pain at Rest , Chest Pain with Activity, Claudication, Diaphoresis, Dyspnea, Dyspnea on Exertion, Edema, Irregular Heart Rhythm, Pain Radiating to Arm/Neck/Jaw, Leg Edema, Leg Ulcers, Lightheadedness, Orthopnea, Palpitations, Paroxysmal Nocturnal Dyspnea, Pedal Edema, Radiating Pain, Rapid Heart Rate, Slow Heart Rate, Syncope, Other - Respiratory Respiratory: absent: As Per HPI, Cough, Dyspnea, Hemoptysis, Dyspnea on Exertion , Wheezing, Snoring, Stridor, Pain on Inspiration, Chest Congestion, Excessive Mucous Production, Change in Mucous Color, Pain with Coughing, Other - Gastrointestinal Gastrointestinal: As Per HPI - Genitourinary Genitourinary: absent: As Per HPI, Change in Urinary Stream, Difficulty Urinating, Dysuria, Flank Pain, Hematuria, Pyuria, Nocturia, Urinary Incontinence, Urinary Frequency, Urinary Hesitance, Urinary Urgency, Voiding Freq/Small Amts, Freq UTI, Hx Renal/Bladder Calculi, Hx /Renal Surgery, Bladder Distension, Other - Reproductive: Female Reproductive:Female: absent: As Per HPI, Amenorrhea, Amenorrhea/ Control, Currently Menstual, Cycle <21 Days, Cycle >35 Days, Cycle Variable, Menses 1-7 Days, Menses >/= 8 Days, Menses Variable, Cycle > 4 Weeks Between, No Menses for 6 Months, Heavy Menses, Light Menses, Normal Menses, Spotting Between Cycles , S/P Hysterectomy, Menopausal, Post Menopausal, Premenarche, Abnormal Vaginal Bleeding, Dysmenorrhea, Dyspareunia, Genital Lesions, Genital Pruritis, Pelvic Pain, Prolapse Symptoms, Sexual Dysfunction, Vaginal Discharge, Vaginal Dryness , Vaginal Odor, Vaginal Pruritis, Other - Musculoskeletal Musculoskeletal: absent: As Per HPI, Abnormal Gait, Arthralgias, Atrophy, Back Pain, Deformity, Joint Swelling, Limited Range of Motion, Loss of Height, Muscle Cramps, Muscle Weakness, Myalgias, Neck Pain, Numbness, Radiating Pain into Limb, Stiffness, Tingling, Other - Neurological Neurological: absent: As Per HPI, Abnormal Gait, Abnormal Hearing, Abnormal Movements, Abnormal Speech, Behavioral Changes, Burning Sensations, Confusion, Convulsions, Disequilibrium, Dizziness, Numbness, Focal Weakness, Frequent Falls , Headaches, Lack of Coordination, Loss of Vision, Memory Loss, Paresthesias, Radicular Pain, Restless Legs, Sensory Deficit, Syncope, Tingling, Tremor, Vertigo, Weakness, Other Visual Disturbances, Other - Psychiatric Psychiatric: absent: As Per HPI, Abnormal Sleep Pattern, Anhedonia, Anxiety, Auditory Hallucinations, Behavioral Changes, Change in Appetite, Change in Libido, Confusion, Depression, Difficulty Concentrating, Hallucinations, Homicidal Ideation, Hopelessness, Irritability, Memory Loss, Mood Swings, Panic Attacks, Paranoia, Suicidal Ideation, Visual Hallucinations, Tactile Hallucinations, Other - Endocrine Endocrine: absent: As Per HPI, Change in Body Appearance, Change in Libido, Cold Intolorance, Deepening of Voice, Excessive Sweating, Fatigue, Flushing, Heat Intolorance, Increase in Ring/Shoe/Hat Size, Palpitations, Polydipsia, Polyphagia, Polyuria, Other - Hematologic/Lymphatic Hematologic: As Per HPI Past Patient History - Infectious Disease Hx of Infectious Diseases: None - Tetanus Immunizations Tetanus Immunization: Up to Date, Unknown - Past Social History Smoking Status: Unknown If Ever Smoked - CARDIAC Hx Cardiac Disorders: Yes (Afib) Hx Hypertension: Yes - PULMONARY Hx Respiratory Disorders: Yes (pe 3 yrs ago can't remember which lung) Hx Asthma: Yes Hx Bronchitis: Yes Hx Pneumonia: Yes Hx Sleep Apnea: Yes Other/Comment: medicare took cpap back pt was not using it, pt now in process of getting another one as per dr shepherd, pt's nebulizer machine at home is broken - NEUROLOGICAL Hx Neurological Disorder: No - HEENT Hx HEENT Problems: No - RENAL Hx Renal Failure: Yes - ENDOCRINE/METABOLIC Hx Diabetes Mellitus Type 2: Yes - HEMATOLOGICAL/ONCOLOGICAL Hx Blood Disorders: Yes Hx Anemia: Yes - INTEGUMENTARY Hx Dermatological Problems: No - MUSCULOSKELETAL/RHEUMATOLOGICAL Hx Falls: No - GASTROINTESTINAL Hx Gastrointestinal Disorders: No - GENITOURINARY/GYNECOLOGICAL Hx Reproductive Disorders: No - PSYCHIATRIC Hx Psychophysiologic Disorder: No - SURGICAL HISTORY Hx Cardiac Catheterization: Yes (07/2015) Hx Hysterectomy: Yes Other/Comment: RIGHT KNEE ARTHROSCOPIC SX 1998 - ANESTHESIA Hx Anesthesia: Yes Hx Anesthesia Reactions: No Hx Malignant Hyperthermia: No Meds Allergies/Adverse Reactions: Allergies Allergy/AdvReac Type Severity Reaction Status Date / Time Insulins Allergy hyperglycem Verified 06/22/17 20:42 ia prednisone AdvReac Mild HYPERTENSIO Verified 06/22/17 20:42 N - Medications Medications: Current Medications Acetaminophen/Butalbital/Caffeine (Fioricet) 1 tab PO Q4H PRN PRN Reason: Headache Last Admin: 06/25/17 04:46 Dose: 1 tab Albuterol/Ipratropium (Duoneb 3 Mg/0.5 Mg (3 Ml) Ud) 3 ml IH [id number] [facility] Last Admin: 06/25/17 20:03 Dose: 3 ml Amlodipine Besylate (Norvasc) 10 mg PO DAILY [facility] Last Admin: 06/25/17 10:29 Dose: 10 mg Aspirin (Aspirin Chewable) 81 mg PO DAILY [facility] Atenolol (Tenormin) 100 mg PO DAILY [facility] Last Admin: 06/25/17 10:30 Dose: 100 mg Atorvastatin Calcium (Lipitor) 20 mg PO DIN [facility] Last Admin: 06/25/17 17:43 Dose: 20 mg Clotrimazole (Mycelex Filippo) 10 mg MT TID [facility] Last Admin: 06/25/17 17:43 Dose: 10 mg Ergocalciferol (Drisdol 50,000 Intl Units Cap) 1 cap PO WED [facility] Gabapentin (Neurontin) 400 mg PO HS [facility] PRN Reason: Protocol Last Admin: 06/24/17 21:54 Dose: 400 mg Glimepiride (Amaryl) 1 mg PO 0730,1730 [facility] Last Admin: 06/25/17 17:39 Dose: 1 mg Hydralazine HCl (Apresoline) 10 mg PO QID PRN PRN Reason: for sbp>170 Insulin Human Regular (Humulin R Med) 0 units SC ACHS [facility] PRN Reason: Protocol Last Admin: 06/25/17 17:42 Dose: 5 units Ondansetron HCl (Zofran Inj) 4 mg IVP Q6H PRN PRN Reason: Nausea/Vomiting Pantoprazole Sodium (Protonix Ec Tab) 20 mg PO 0630 [facility] Last Admin: 06/25/17 05:30 Dose: 20 mg Polyethylene Glycol (Miralax) 17 gm PO PRN PRN PRN Reason: Constipation Tramadol HCl (Ultram) 50 mg PO DAILY [facility] Last Admin: 06/25/17 10:32 Dose: 50 mg Warfarin Sodium (Coumadin) 3 mg PO 1800 [facility] PRN Reason: Protocol Physical Exam - Constitutional Appears: Chronically Ill - Head Exam Head Exam: ATRAUMATIC, NORMAL INSPECTION, NORMOCEPHALIC - Eye Exam Eye Exam: Normal appearance - ENT Exam ENT Exam: Mucous Membranes Moist - Neck Exam Neck exam: Positive for: Normal Inspection - Respiratory Exam Respiratory Exam: Clear to Auscultation Bilateral, NORMAL BREATHING PATTERN - Cardiovascular Exam Cardiovascular Exam: REGULAR RHYTHM, +S1, +S2 - GI/Abdominal Exam GI & Abdominal Exam: Normal Bowel Sounds - Extremities Exam Extremities exam: Positive for: normal inspection - Back Exam Back exam: NORMAL INSPECTION - Neurological Exam Neurological exam: Alert, CN II-XII Intact, Oriented x3 Results - Vital Signs Recent Vital Signs: Last Vital Signs Temp 97.6 F 06/25/17 16:00 Pulse 72 06/25/17 16:00 Resp 16 06/25/17 16:00 BP 156/81 H 04/08/18 16:00 Pulse Ox 100 06/25/17 16:00 - Labs Result Diagrams: 06/24/17 07:00 06/24/17 06:30 Labs: Laboratory Results - last 24 hr 06/25/17 06/25/17 06/25/17 06:09 07:31 11:31 PT 22.3 H INR 1.91 H POC Glucose (mg/dL) 247 H 272 H Urine Color Urine Appearance Urine pH Ur Specific [place] Urine Protein Urine Glucose (UA) Urine Ketones Urine Blood Urine Nitrate Urine Bilirubin Urine Urobilinogen Ur Leukocyte Esterase Urine RBC Urine WBC Ur Epithelial Cells Urine Bacteria 06/25/17 06/25/17 16:18 19:30 PT INR POC Glucose (mg/dL) 253 H Urine Color Yellow Urine Appearance Clear Urine pH 6.5 Ur Specific [place] 1.015 Urine Protein 100 H Urine Glucose (UA) Negative Urine Ketones Negative Urine Blood Small H Urine Nitrate Negative Urine Bilirubin Negative Urine Urobilinogen 0.2 Ur Leukocyte Esterase Moderate H Urine RBC 10 - 15 Urine WBC 20 - 25 Ur Epithelial Cells 4 - 5 Urine Bacteria Many Assessment & Plan - Assessment and Plan (Free Text) Assessment: 1. Severe anemia : related to CKD, ARF. received IV iron , aranesp . Will continue aranesp 100 mcgm weekly. 2. ARF : on HD. GC improved. 3. Hypercoaguable state. on coumadin. PT INR in am. 4. DM II ; mgm as per Dr. Mitchell . 5. PT : to continue for deconditioning. Thank you Dr. Mitchell for allowing us to participate in her care.
--- NOTE | 2017-06-25 22:09 | CP.PCM.PN ---
Subjective - Date & Time of Evaluation Date of Evaluation: 06/25/17 Time of Evaluation: 11:00 - Subjective Subjective: GC improved. On HD for ARF. Hb/Hct stable at 8.7 gm/dl. No complaints today. Objective - Vital Signs/Intake and Output Vital Signs (last 24 hours): Temp Pulse Resp BP Pulse Ox 97.6 F 72 16 156/81 H 100 06/25/17 16:00 06/25/17 16:00 06/25/17 16:00 06/25/17 16:00 06/25/17 16:00 Intake and Output: 06/25/17 06/26/17 18:59 06:59 Output Total 650 Balance -650 - Medications Medications: Current Medications Acetaminophen/Butalbital/Caffeine (Fioricet) 1 tab PO Q4H PRN PRN Reason: Headache Last Admin: 06/25/17 04:46 Dose: 1 tab Albuterol/Ipratropium (Duoneb 3 Mg/0.5 Mg (3 Ml) Ud) 3 ml IH [id number] [facility] Last Admin: 06/25/17 20:03 Dose: 3 ml Amlodipine Besylate (Norvasc) 10 mg PO DAILY [facility] Last Admin: 06/25/17 10:29 Dose: 10 mg Aspirin (Aspirin Chewable) 81 mg PO DAILY [facility] Atenolol (Tenormin) 100 mg PO DAILY [facility] Last Admin: 06/25/17 10:30 Dose: 100 mg Atorvastatin Calcium (Lipitor) 20 mg PO DIN [facility] Last Admin: 06/25/17 17:43 Dose: 20 mg Clotrimazole (Mycelex Filippo) 10 mg MT TID [facility] Last Admin: 06/25/17 17:43 Dose: 10 mg Ergocalciferol (Drisdol 50,000 Intl Units Cap) 1 cap PO WED [facility] Gabapentin (Neurontin) 400 mg PO HS [facility] PRN Reason: Protocol Last Admin: 06/24/17 21:54 Dose: 400 mg Glimepiride (Amaryl) 1 mg PO 0730,1730 [facility] Last Admin: 06/25/17 17:39 Dose: 1 mg Hydralazine HCl (Apresoline) 10 mg PO QID PRN PRN Reason: for sbp>170 Insulin Human Regular (Humulin R Med) 0 units SC ACHS [facility] PRN Reason: Protocol Last Admin: 06/25/17 17:42 Dose: 5 units Ondansetron HCl (Zofran Inj) 4 mg IVP Q6H PRN PRN Reason: Nausea/Vomiting Pantoprazole Sodium (Protonix Ec Tab) 20 mg PO 0630 [facility] Last Admin: 06/25/17 05:30 Dose: 20 mg Polyethylene Glycol (Miralax) 17 gm PO PRN PRN PRN Reason: Constipation Tramadol HCl (Ultram) 50 mg PO DAILY [facility] Last Admin: 06/25/17 10:32 Dose: 50 mg Warfarin Sodium (Coumadin) 3 mg PO 1800 [facility] PRN Reason: Protocol - Labs Labs: 06/24/17 07:00 06/24/17 06:30 PT 22.3 SECONDS (9.4-12.5) H 06/25/17 07:31 INR 1.91 (0.93-1.08) H 06/25/17 07:31 - Constitutional Appears: Chronically Ill - Head Exam Head Exam: ATRAUMATIC, NORMAL INSPECTION, NORMOCEPHALIC - Eye Exam Eye Exam: Normal appearance Pupil Exam: NORMAL ACCOMODATION - Respiratory Exam Respiratory Exam: Clear to Ausculation Bilateral, NORMAL BREATHING PATTERN - Cardiovascular Exam Cardiovascular Exam: REGULAR RHYTHM, +S1, +S2 - GI/Abdominal Exam GI & Abdominal Exam: Soft, Normal Bowel Sounds - Extremities Exam Extremities Exam: Normal Capillary Refill, Normal Inspection - Back Exam Back Exam: NORMAL INSPECTION - Neurological Exam Neurological Exam: Alert, Awake, CN II-XII Intact, Oriented x3 - Psychiatric Exam Psychiatric exam: Normal Affect - Skin Skin Exam: Normal Color, Warm Assessment and Plan - Assessment and Plan (Free Text) Assessment: 1. Severe anemia : related to CKD, ARF. received IV iron , aranesp . Will continue aranesp 100 mcgm weekly. Monitor Hb/hct. 2. ARF : on HD. GC improved. 3. Hypercoaguable state. on coumadin. PT INR in am. decrease coumadin to 3 mg daily. 4. DM II ; mgm as per Dr. Mitchell . 5. PT : to continue for deconditioning. participating in PT. daughter bedside. Discussed the status with daughter , patient.
--- NOTE | 2017-06-26 00:08 | PN ---
DATE: 06/25/2017 REFERRING PHYSICIAN: Tracy Mitchell MD SUBJECTIVE: The patient is lying in the bed. Night was unremarkable. Doing well, tolerated BiPAP well, able to get up and ambulate now with the help of walker. No headache, no rhinitis. No nausea, no abdominal pain. No leg pain or leg swelling. OBJECTIVE: GENERAL: In no acute distress. VITAL SIGNS: Temperature is 98, heart rate is 72, respiratory rate is 18, blood pressure 158/81, pulse ox 100% on nasal cannula. HEENT: Moist mucous membrane. Crowded airway. NECK: Supple. No JVD. LUNGS: Has a fair airflow with rhonchi. HEART: S1 and S2. ABDOMEN: Soft, nontender, no organomegaly. EXTREMITIES: No edema. NEUROLOGICAL: Awake and alert, follows simple command. MEDICATIONS: She is on Amaryl 1 mg twice a day, hydralazine 10 mg four times daily p.r.n., aspirin 81 mg daily, Coumadin 6 mg will be given today, vitamin D 50,000 units weekly, DuoNeb every 6 hours [id number], Fioricet 1 tablet every 4 hours p.r.n., insulin coverage, Lipitor 20 mg daily, MiraLax 17 g p.r.n. basis, Mycelex to the mouth three times a day, Neurontin 400 mg at bedtime, Norvasc 10 mg daily, Protonix 20 mg daily, Tenormin 100 mg daily, Ultram 50 mg daily, Zofran p.r.n. basis. LABORATORY DATA: Reviewed. INR is 1.91. Blood sugar this morning 272. Microbiology, blood culture has been so far negative drawn since yesterday. Had a chest x-ray done yesterday which showed minimal infiltrate at the right lung base. IMPRESSION AND PLAN: Acute renal failure requiring renal replacement therapy, atrial fibrillation, anemia, coronary artery disease, chronic obstructive lung disease, obstructive sleep apnea syndrome, history of deep vein thrombosis, history of recurrent pulmonary embolism. Continue anticoagulation. Keep head at 45 degrees. Encourage BiPAP use. Continue renal replacement therapy. Gastric prophylaxis. SCD to lower extremities. Continue therapy. Thank you. We will send procalcitonin for tomorrow and we will follow with you. Layla Brooks MD [facility] # [id number]
[2017-06-26] MEDS: Albuterol-Ipratrop 3 mg / 0.5 (3 ml) UD IH SCH ×5 (02:14→20:09)
[2017-06-26] MEDS: Pantoprazole 20 mg EC Tab PO SCH (05:31)
[2017-06-26] MEDS: Insulin Reg-MEDIUM-Coverage SC SCH ×4 (06:53→22:23)
[2017-06-26 07:06] LABS: BASO # 0.04 K/mm3 (0.0-2.0); BASO % 0.3 % (0.0-3.0); EOS # 0.3 (0.0-0.7); EOS % 2.6 % (1.5-5.0); GRAN # 8.89 (1.4-6.5); GRAN % 70.3 % (50.0-68.0); HEMOGLOBIN 8.9 g/dL (12.0-16.0); LYMPH # 2.7 (1.2-3.4); LYMPH % 20.9 % (22.0-35.0); MEAN CELL VOLUME 85.7 fl (80.0-105.0); MEAN CORPUSCULAR HEMOGLOBIN 25.9 pg (25.0-35.0); MEAN CORPUSCULAR HGB CONC 30.3 g/dl (31.0-37.0); MEAN PLATELET VOLUME 11.5 fl (7.0-11.0); MONO # 0.8 (0.1-0.6); MONO % 5.9 % (1.0-6.0); RBC 3.43 10^6/uL (3.5-6.1); RED CELL DISTRIBUTION WIDTH 16.8 % (11.5-14.5); WHITE BLOOD COUNT 12.7 10^3/ul (4.5-11.0)
[2017-06-26 07:22] LABS: CALCIUM 9.4 mg/dL (8.4-10.5)
[2017-06-26 07:28] LABS: INR 1.82 (0.93-1.08); PROTHROMBIN TIME 21.2 SECONDS (9.4-12.5)
--- NOTE | 2017-06-26 11:11 | PN ---
DATE: 06/25/2017 SUBJECTIVE: Patient is 66-year-old female. Patient is seen and examined at the bedside, looking comfortable, seen early in the morning, just woke up. Headache is better, shortness of breath is better, coughing is better, tremors are better. No fever, no chills. Does not look like in apparent distress. REVIEW OF SYSTEMS: A 10-point review of system is within normal limits except above. PHYSICAL EXAMINATION: VITAL SIGNS: Patient is afebrile, heart rate 70, blood pressure 126/87, respiratory rate 18. HEENT: Head normocephalic and atraumatic. Eyes: PERRLA. Extraocular muscles intact. Conjunctivae clear. Nose patent. Mucous membrane moist. NECK: Supple. No carotid bruit. No JVD or thyromegaly. CHEST: Bilaterally symmetrical. HEART: S1 and S2 positive. Regular rate and rhythm. ABDOMEN: Soft. Bowel sounds present. No organomegaly. EXTREMITIES: No edema. No cyanosis. NEUROLOGIC: Patient is awake, alert. Follows simple commands. LABORATORY DATA: White blood cells 12, hemoglobin 8.7, hematocrit 27.6, platelets 178. Sodium 137, potassium 3.9, BUN 53, creatinine 5.1, glucose 272, phosphorus 5.0. ASSESSMENT AND PLAN: Ms. Laura Emanuel is a 66-year-old lady with leukocytosis, anemia, renal insufficiency, getting dialysis three times a week, getting better. INR is 1.91, almost therapeutic. Seen by the blunger, Dr. Bal, and sales strategy manager, Dr. Jimenez. Patient has acute kidney injury, chronic renal insufficiency, history of morbid obesity, hypercholesterolemia, status post cardiac catheterization, non-ischemic coronary artery disease, deconditioning. Continue dialysis. Monitoring hemoglobin and hematocrit. If patient has a drop in hemoglobin below 8, needs blood transfusion as per blunger. Continue atorvastatin, Coumadin and checking PT/INR. Appreciated other doctors' notes. Gastrointestinal and deep vein thrombosis prophylaxis. Repeat labs. We will follow up. Tracy Mitchell MD
[2017-06-26] MEDS ORDERED: Magnesium Sulfate 1 gm in D5W 1 GM/100 ML BAG IVPB ONE (13:08)
--- NOTE | 2017-06-26 14:10 | CP.PCM.PN ---
<Tasia Johnson - Last Filed: 06/26/17 14:07> Subjective - Date & Time of Evaluation Date of Evaluation: 06/26/17 Time of Evaluation: 11:45 - Subjective Subjective: Chief Complaint: R anterior chest wall pain, "Blisters" R neck 66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 CPAP use, DM II, morbid obesity, frequent falls, GERD, R knee surgery. On 06/16, pt was admitted for acute renal insufficiency, respirtory distress, headache, weakness, and L swelling. Pt Anemia s/p 1 unit RBC. 06/20/17 R IJ dialysis catheter inserted. Pt is now going to Hemodialysis as needed (scheduled --). Pt transfered to TCU for continuity of care. Today, seen in bed reporting R anterior chest wall pain and "Blisters" on R neck. O2 via nasal cannula in place. Denies fever, chills, headache, nausea, vomiting, diarrhea, constipation or urinary changes. Objective - Vital Signs/Intake and Output Vital Signs (last 24 hours): Temp Pulse Resp BP Pulse Ox 98.2 F 72 20 157/88 H 97 06/26/17 06:00 06/26/17 06:00 06/26/17 06:00 06/26/17 10:17 06/26/17 06:00 - Medications Medications: Current Medications Acetaminophen/Butalbital/Caffeine (Fioricet) 1 tab PO Q4H PRN PRN Reason: Headache Last Admin: 06/25/17 22:32 Dose: 1 tab Albuterol/Ipratropium (Duoneb 3 Mg/0.5 Mg (3 Ml) Ud) 3 ml IH [id number] [facility] Last Admin: 06/26/17 13:33 Dose: 3 ml Amlodipine Besylate (Norvasc) 10 mg PO DAILY [facility] Last Admin: 06/26/17 10:16 Dose: 10 mg Aspirin (Aspirin Chewable) 81 mg PO DAILY [facility] Last Admin: 06/26/17 10:16 Dose: 81 mg Atenolol (Tenormin) 100 mg PO DAILY [facility] Last Admin: 06/26/17 10:17 Dose: 100 mg Atorvastatin Calcium (Lipitor) 20 mg PO DIN [facility] Last Admin: 06/25/17 17:43 Dose: 20 mg Clotrimazole (Mycelex Filippo) 10 mg MT TID [facility] Last Admin: 06/26/17 10:18 Dose: 10 mg Ergocalciferol (Drisdol 50,000 Intl Units Cap) 1 cap PO WED [facility] Gabapentin (Neurontin) 400 mg PO HS [facility] PRN Reason: Protocol Last Admin: 06/25/17 22:29 Dose: 400 mg Glimepiride (Amaryl) 1 mg PO 0730,1730 [facility] Last Admin: 06/26/17 08:03 Dose: 1 mg Hydralazine HCl (Apresoline) 10 mg PO QID PRN PRN Reason: for sbp>170 Magnesium Sulfate/Dextrose (Magnesium Sulfate 1 Gm/100 Ml D5w) 1 gm in 100 mls @ 100 mls/hr IVPB ONCE ONE Stop: 06/26/17 14:07 Insulin Human Regular (Humulin R Med) 0 units SC ACHS [facility] PRN Reason: Protocol Last Admin: 06/26/17 12:13 Dose: 7 units Lidocaine (Lidocaine 5%) 0 gm TOP DAILY [facility] Ondansetron HCl (Zofran Inj) 4 mg IVP Q6H PRN PRN Reason: Nausea/Vomiting Pantoprazole Sodium (Protonix Ec Tab) 20 mg PO 0630 [facility] Last Admin: 06/26/17 05:31 Dose: 20 mg Polyethylene Glycol (Miralax) 17 gm PO PRN PRN PRN Reason: Constipation Tramadol HCl (Ultram) 50 mg PO DAILY [facility] Last Admin: 06/26/17 10:17 Dose: 50 mg Warfarin Sodium (Coumadin) 3 mg PO 1800 [facility] PRN Reason: Protocol - Labs Labs: 06/26/17 06:30 06/26/17 06:30 PT 21.2 SECONDS (9.4-12.5) H 06/26/17 06:30 INR 1.82 (0.93-1.08) H 06/26/17 06:30 - Constitutional Appears: No Acute Distress - Head Exam Head Exam: ATRAUMATIC, NORMAL INSPECTION, NORMOCEPHALIC - Eye Exam Eye Exam: EOMI, Normal appearance, PERRL Pupil Exam: NORMAL ACCOMODATION, PERRL - ENT Exam ENT Exam: Mucous Membranes Moist, Normal Exam - Neck Exam Neck Exam: Full ROM Additional comments: R nape of neck 1x1cm blister - Respiratory Exam Respiratory Exam: Chest Wall Tenderness, Clear to Ausculation Bilateral, NORMAL BREATHING PATTERN - Cardiovascular Exam Cardiovascular Exam: REGULAR RHYTHM, +S1, +S2 - GI/Abdominal Exam GI & Abdominal Exam: Soft, Normal Bowel Sounds. absent: Tenderness - Extremities Exam Extremities Exam: Full ROM, Normal Capillary Refill, Normal Inspection. absent : Joint Swelling, Pedal Edema - Back Exam Back Exam: NORMAL INSPECTION - Neurological Exam Neurological Exam: Alert, Awake, CN II-XII Intact, Normal Gait, Oriented x3 - Psychiatric Exam Psychiatric exam: Normal Affect, Normal Mood - Skin Skin Exam: Vesicles Assessment and Plan (1) Chronic renal insufficiency Status: Acute (2) S/P dialysis catheter insertion Status: Acute (3) Constipation Status: Acute (4) Anemia Status: Acute (5) Guaiac positive stools Status: Acute (6) Morbid obesity Status: Acute (7) Personal history of DVT (deep vein thrombosis) Status: Acute (8) Hypercoagulable state Status: Acute (9) Iron deficiency Status: Acute (10) Expressive aphasia Status: Acute (11) Acute renal insufficiency Status: Acute - Assessment and Plan (Free Text) Plan: Topical lidocaine ordered to apply to R chest wall. Cultures ordered for R neck blister if they rupture. Keep as a standing order. Daily Coumadin. Labs ordered. s/p IVF hydration, s/p IV iron, & s/p aranesp 1 unit of PRBC on 06/21. Aranesp 100 mg SQ. Blood culture: NEGATIVE. VTE/GI prophlyaxis. PT/OT onboard. Bipap qHS. pain mngmnt: tramadol 50mg q daily, topical lidocaine Consults: Hemo - Dr. Zayas Nephro - Dr. Jimenez Pulmo - Dr. Brooks Cardio - Dr. Liang GI - Dr. Rivera Neuro - Dr. Van IR - Dr. Maikol Soares Reviewed: CXR = WNL CT head = WNL Renal US = WNL CT abd/pelvis = WNL ECG = BORDERLINE, NSR, low voltage QRS ECHO = EF 55-60%, mild concentric LVH, mild-mod tricuspid regurg, mild pulmonary htn <Tracy Mitchell - Last Filed: 06/26/17 17:32> Objective - Vital Signs/Intake and Output Vital Signs (last 24 hours): Temp Pulse Resp BP Pulse Ox 97.6 F 68 18 143/70 97 06/26/17 16:00 06/26/17 16:00 06/26/17 16:00 06/26/17 16:00 06/26/17 16:00 - Medications Medications: Current Medications Acetaminophen/Butalbital/Caffeine (Fioricet) 1 tab PO Q4H PRN PRN Reason: Headache Last Admin: 06/25/17 22:32 Dose: 1 tab Albuterol/Ipratropium (Duoneb 3 Mg/0.5 Mg (3 Ml) Ud) 3 ml IH [id number] [facility] Last Admin: 06/26/17 13:33 Dose: 3 ml Amlodipine Besylate (Norvasc) 10 mg PO DAILY [facility] Last Admin: 06/26/17 10:16 Dose: 10 mg Aspirin (Aspirin Chewable) 81 mg PO DAILY [facility] Last Admin: 06/26/17 10:16 Dose: 81 mg Atenolol (Tenormin) 100 mg PO DAILY [facility] Last Admin: 06/26/17 10:17 Dose: 100 mg Atorvastatin Calcium (Lipitor) 20 mg PO DIN [facility] Last Admin: 06/26/17 17:21 Dose: 20 mg Clotrimazole (Mycelex Filippo) 10 mg MT TID [facility] Last Admin: 06/26/17 17:24 Dose: 10 mg Ergocalciferol (Drisdol 50,000 Intl Units Cap) 1 cap PO WED [facility] Gabapentin (Neurontin) 400 mg PO HS [facility] PRN Reason: Protocol Last Admin: 06/25/17 22:29 Dose: 400 mg Glimepiride (Amaryl) 1 mg PO 0730,1730 [facility] Last Admin: 06/26/17 17:21 Dose: 1 mg Hydralazine HCl (Apresoline) 10 mg PO QID PRN PRN Reason: for sbp>170 Insulin Human Regular (Humulin R Med) 0 units SC ACHS [facility] PRN Reason: Protocol Last Admin: 06/26/17 17:20 Dose: 3 units Lidocaine (Lidocaine 5%) 0 gm TOP DAILY [facility] Last Admin: 06/26/17 14:34 Dose: 1 appl Magnesium Oxide (Mag-Ox) 400 mg PO BID [facility] Stop: 06/29/17 18:01 Last Admin: 06/26/17 17:23 Dose: 400 mg Ondansetron HCl (Zofran Inj) 4 mg IVP Q6H PRN PRN Reason: Nausea/Vomiting Pantoprazole Sodium (Protonix Ec Tab) 20 mg PO 0630 [facility] Last Admin: 06/26/17 05:31 Dose: 20 mg Polyethylene Glycol (Miralax) 17 gm PO PRN PRN PRN Reason: Constipation Tramadol HCl (Ultram) 50 mg PO DAILY [facility] Last Admin: 06/26/17 10:17 Dose: 50 mg Warfarin Sodium (Coumadin) 3 mg PO 1800 [facility] PRN Reason: Protocol Last Admin: 06/26/17 17:26 Dose: 3 mg - Labs Labs: 06/26/17 06:30 06/26/17 06:30 PT 21.2 SECONDS (9.4-12.5) H 06/26/17 06:30 INR 1.82 (0.93-1.08) H 06/26/17 06:30 Assessment and Plan - Assessment and Plan (Free Text) Plan: 66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 CPAP use, DM II, morbid obesity, frequent falls, GERD, R knee surgery. On 06/16, pt was admitted for acute renal insufficiency, respirtory distress, headache, weakness, and L swelling. Pt Anemia s/p 1 unit RBC. 06/20/17 R IJ dialysis catheter inserted. Pt is now going to Hemodialysis as needed (scheduled M-W-F). Pt transfered to TCU for continuity of care. Today, seen in bed reporting R anterior chest wall pain and "Blisters" on R neck. O2 via nasal cannula in place. Denies fever, chills, headache, nausea, vomiting, diarrhea, constipation or urinary changes. pt is seen and examined at bed side , agreed all above , will f/u
[2017-06-26] MEDS: Lidocaine 5% Oint(35 gm) TOP SCH (14:34)
--- NOTE | 2017-06-26 16:33 | PN ---
DATE: 06/26/2017 LOCATION: The patient is in room 320, bed 1. REASON FOR THE CONSULTATION AND FOLLOWUP: Shortness of breath, swelling of legs, and acute kidney disease, the patient on dialysis. SUBJECTIVE: The patient is lying flat in bed without any cardiac symptoms like chest pain, shortness of breath, or palpitation. The patient's edema in legs has also improved. The patient has been on dialysis. PHYSICAL EXAMINATION: VITAL SIGNS: Blood pressure 148/85, respirations 20, pulse 72, temperature 98.2. HEENT: Head is normocephalic. Eyes: Pupils are normal. Conjunctivae are slightly pale. NECK: JVP low. Carotids equal. THORAX: AP diameter is normal. LUNGS: Clear. CARDIOVASCULAR: S1 and S2. ABDOMEN: Protuberant, no organomegaly. EXTREMITIES: No clubbing. No cyanosis. LABORATORY DATA: WBC 12.7, hemoglobin 8.9, hematocrit 29.4, platelets 169. Sodium 140, potassium 3.6, BUN 47, creatinine 4.4. Random sugar 301. Magnesium is 1.6. TSH 1.37. IMPRESSION: Acute on chronic kidney disease, exacerbation of underlying renal insufficiency, status post dialysis which was started on this admission; morbid obesity; hypertension; hyperlipidemia; diabetes; status post cardiac catheterization; nonobstructive coronary artery disease; deconditioning; and hypomagnesemia. The patient's prothrombin time is 31.2, INR 1.82. PLAN: The patient on dialysis. The patient is on warfarin 3 mg p.o. daily, glimepiride 1 mg p.o. b.i.d., hydralazine 10 mg p.o. 4 times daily p.r.n, insulin as ordered. We will give 2 mg extra warfarin today, total dose today will be 5 mg. Atorvastatin 20 daily, clotrimazole 10 mg p.o. t.i.d., Neurontin 400 mg at bedtime, amlodipine 10 mg daily, Protonix 20 mg p.o. daily, atenolol 100 mg p.o. daily. We will give magnesium therapy. We will follow with you. Layla Liang MD
[2017-06-26] MEDS: Magnesium Oxide 400 mg Tab UD PO SCH (17:23)
--- NOTE | 2017-06-26 17:28 | PN ---
DATE: 06/26/2017 SUBJECTIVE: The patient is seen lying in bed. She is awake. She is alert. She complains of pain on the right side of her neck at the site of the catheter. She denies any fever, chills. PHYSICAL EXAMINATION: GENERAL: Morbidly obese, elderly lady, lying in bed. VITAL SIGNS: Blood pressure 157/88, heart rate 72, respiratory rate 20, temperature 98.2, T-max is 98.2. HEENT: Normocephalic, atraumatic, positive pallor. NECK: Supple, no JVD. LUNGS: Bilateral equal air entry, bilateral equal expansion. CARDIAC: S1 and S2, regular rate and rhythm, no murmur, no rub. ABDOMEN: Obese, distended, soft, nontender, bowel sounds present. EXTREMITIES: No lower extremity edema. INTAKE AND OUTPUT: Output charted at 650. LABORATORY DATA: WBC 12.7, hemoglobin 8.9, hematocrit 29, platelets 169. Sodium 140, potassium 3.6, chloride 99, CO2 of 31, BUN 47, creatinine 4.4, glucose 199, calcium 9.4, magnesium 1.6. Urinalysis: Yellow, clear, pH 6.5, specific gravity 1.015, protein 100, blood small, leukocyte esterase moderate, rbc's 10-15, wbc's 20-25. CURRENT MEDICATIONSL: Amaryl, Apresoline, aspirin, Coumadin, Drisdol, DuoNeb, Fioricet, Lipitor 20, mag oxide 400 b.i.d., MiraLax, Neurontin, amlodipine, Protonix, Tenormin, tramadol, Zofran. ASSESSMENT: 1. Acute kidney injury superimposed on chronic kidney disease stage 3, currently dialysis dependent. 2. Severe anemia, low iron stores, stool occult positive. 3. Deep venous thrombosis/pulmonary embolism/hypercoagulable state, on chronic anticoagulation. 4. Morbid obesity. 5. Uiy-fctdrhi-fqketuufe diabetes mellitus. 6. Hypertension. PLAN: 1. Will likely need dialysis at least for the short-term. 2. Low-grade fever. Follow up urine culture. 3. Munoz is now out. 4. Dr. Maikol Soares to follow up for tenderness around the catheter. 5. Physical therapy. Cheryl Jimenez MD [facility] # [id number]
--- NOTE | 2017-06-26 22:23 | PN ---
DATE: 06/26/2017 PULMONARY PROGRESS NOTE REFERRING PHYSICIAN: Tracy Mitchell MD. SUBJECTIVE: She is sitting on the side of the bed. Night was unremarkable. Doing well. Tolerated BiPAP well. Able to ambulate. No chest pain. No nausea, no vomiting, or diarrhea. No leg pain or leg swelling. OBJECTIVE: GENERAL: In no acute distress. VITAL SIGNS: Temperature 98, heart rate 68, respiratory rate 18, blood pressure 143/70, pulse ox 97% on 2 L nasal cannula. HEENT: Moist mucous membrane. No ulcer or thrush. NECK: Supple. No JVD. LUNGS: Fair airflow with a few rhonchi. HEART: S1 and S2. ABDOMEN: Soft, nontender. No organomegaly. EXTREMITIES: No edema. NEUROLOGIC: Awake and alert, follows simple command. MEDICATIONS: She is on Amaryl 1 mg twice a day, hydralazine 10 mg four times a day p.r.n., aspirin 81 mg daily, Coumadin 3 mg will be given today, vitamin D 50,000 units weekly, DuoNeb every 6 hours round the clock, Fioricet 1 tab every 4 hours p.r.n., insulin coverage, lidocaine patch to affected area daily, Lipitor 20 mg daily, magnesium oxide 400 mg twice a day, MiraLax 17 g p.r.n., Mycelex Filippo 10 mg three times a day, Neurontin 400 mg at bedtime, Norvasc 10 mg daily, Protonix 40 mg daily, Tenormin 100 mg daily, Ultram 50 mg daily, Zofran p.r.n. basis. LABORATORY DATA: Hemoglobin 8.9, hematocrit 29.4, WBC 12.7, platelets 169. INR 1.82. Sodium 140, potassium 3.6, chloride 99, bicarbonate 31, BUN 47, creatinine 4.4, glucose 301, calcium is 9.4, phosphorus 4.2, magnesium 1.6, procalcitonin 0.22. Microbiology: Blood culture, there is no growth. IMPRESSION AND PLAN: Acute renal failure requiring renal transplant therapy, atrial fibrillation, anemia, coronary artery disease, chronic obstructive lung disease, obstructive sleep apnea syndrome, history of deep vein thrombosis, pulmonary embolism. Pulmonary point of view, she is doing okay. Encourage BiPAP use, keep head at 45 degree, bronchodilators, gastric prophylaxis, sequential compression device to lower extremities, fall precaution, nephrology followup. Thank you and we will follow with you. Layla Brooks MD
--- NOTE | 2017-06-26 23:47 | CP.PCM.PN ---
Subjective - Date & Time of Evaluation Date of Evaluation: 06/26/17 Time of Evaluation: 19:00 - Subjective Subjective: Comfortable in bed. fatigue improved. shortness of breath improved. On HD for ARF. Hb/hct stable. INR improved. On coumadin. Objective - Vital Signs/Intake and Output Vital Signs (last 24 hours): Temp Pulse Resp BP Pulse Ox 97.6 F 68 18 143/70 97 06/26/17 16:00 06/26/17 23:12 06/26/17 16:00 06/26/17 16:00 06/26/17 16:00 - Medications Medications: Current Medications Acetaminophen/Butalbital/Caffeine (Fioricet) 1 tab PO Q4H PRN PRN Reason: Headache Last Admin: 06/25/17 22:32 Dose: 1 tab Albuterol/Ipratropium (Duoneb 3 Mg/0.5 Mg (3 Ml) Ud) 3 ml IH [id number] [facility] Last Admin: 06/26/17 20:09 Dose: 3 ml Amlodipine Besylate (Norvasc) 10 mg PO DAILY [facility] Last Admin: 06/26/17 10:16 Dose: 10 mg Aspirin (Aspirin Chewable) 81 mg PO DAILY [facility] Last Admin: 06/26/17 10:16 Dose: 81 mg Atenolol (Tenormin) 100 mg PO DAILY [facility] Last Admin: 06/26/17 10:17 Dose: 100 mg Atorvastatin Calcium (Lipitor) 20 mg PO DIN [facility] Last Admin: 06/26/17 17:21 Dose: 20 mg Clotrimazole (Mycelex Filippo) 10 mg MT TID [facility] Last Admin: 06/26/17 17:24 Dose: 10 mg Ergocalciferol (Drisdol 50,000 Intl Units Cap) 1 cap PO WED [facility] Gabapentin (Neurontin) 400 mg PO HS [facility] PRN Reason: Protocol Last Admin: 06/26/17 21:38 Dose: 400 mg Glimepiride (Amaryl) 1 mg PO 0730,1730 [facility] Last Admin: 06/26/17 17:21 Dose: 1 mg Hydralazine HCl (Apresoline) 10 mg PO QID PRN PRN Reason: for sbp>170 Insulin Human Regular (Humulin R Med) 0 units SC ACHS [facility] PRN Reason: Protocol Last Admin: 06/26/17 22:23 Dose: Not Given Lidocaine (Lidocaine 5%) 0 gm TOP DAILY [facility] Last Admin: 06/26/17 14:34 Dose: 1 appl Magnesium Oxide (Mag-Ox) 400 mg PO BID [facility] Stop: 06/29/17 18:01 Last Admin: 06/26/17 17:23 Dose: 400 mg Ondansetron HCl (Zofran Inj) 4 mg IVP Q6H PRN PRN Reason: Nausea/Vomiting Pantoprazole Sodium (Protonix Ec Tab) 20 mg PO 0630 [facility] Last Admin: 06/26/17 05:31 Dose: 20 mg Polyethylene Glycol (Miralax) 17 gm PO PRN PRN PRN Reason: Constipation Tramadol HCl (Ultram) 50 mg PO DAILY [facility] Last Admin: 06/26/17 10:17 Dose: 50 mg Warfarin Sodium (Coumadin) 3 mg PO 1800 [facility] PRN Reason: Protocol Last Admin: 06/26/17 17:26 Dose: 3 mg - Labs Labs: 06/26/17 06:30 06/26/17 06:30 PT 21.2 SECONDS (9.4-12.5) H 06/26/17 06:30 INR 1.82 (0.93-1.08) H 06/26/17 06:30 - Constitutional Appears: Chronically Ill - Head Exam Head Exam: ATRAUMATIC, NORMAL INSPECTION, NORMOCEPHALIC - Eye Exam Pupil Exam: NORMAL ACCOMODATION - ENT Exam ENT Exam: Mucous Membranes Moist - Neck Exam Neck Exam: Normal Inspection - Respiratory Exam Respiratory Exam: Clear to Ausculation Bilateral, NORMAL BREATHING PATTERN - Cardiovascular Exam Cardiovascular Exam: REGULAR RHYTHM, +S1, +S2 - GI/Abdominal Exam GI & Abdominal Exam: Normal Bowel Sounds - Extremities Exam Extremities Exam: Normal Inspection - Back Exam Back Exam: NORMAL INSPECTION - Neurological Exam Neurological Exam: Alert, Normal Gait - Skin Skin Exam: Normal Color, Pallor Assessment and Plan - Assessment and Plan (Free Text) Assessment: 1. Severe anemia : related to CKD, ARF. received IV iron , aranesp . Will continue aranesp 100 mcgm weekly. Monitor Hb/hct. Hb stable. 2. ARF : on HD. GC improved. 3. Hypercoaguable state. on coumadin. PT INR in am. decrease coumadin to 3 mg daily. 4. DM II ; mgm as per Dr. Mitchell . 5. PT : to continue for deconditioning. participating in PT. 6. B/L leg edema improved. Thank you Dr. Mitchell for allowing us to participate in her care.
[2017-06-27] MEDS: Albuterol-Ipratrop 3 mg / 0.5 (3 ml) UD IH SCH ×4 (01:26→21:15)
[2017-06-27] MEDS: Pantoprazole 20 mg EC Tab PO SCH (05:41)
--- NOTE | 2017-06-27 06:46 | PN ---
DATE: PULMONARY PROGRESS NOTE REFERRING PHYSICIAN: Tracy Mitchell MD. SUBJECTIVE: She is lying in the bed, head at 45 degrees, getting dialysis. Night was unremarkable. Had low grade fever. Her blood culture is being done. Tolerated BiPAP well. No cough. No sputum production. No nausea. Did have a bowel movement. No leg pain or leg swelling. OBJECTIVE: GENERAL: In no acute distress. VITAL SIGNS: Temperature is 98, heart rate is 74, respiratory rate is 20, blood pressure is 137/75, pulse ox of 95% on nasal cannula. HEENT: Moist mucous membrane. Crowded airway. Mallampati score is 4. NECK: Supple. No JVD. LUNGS: Have a fair airflow with a few rhonchi. HEART: S1 and S2. ABDOMEN: Soft, nontender. No organomegaly. EXTREMITIES: No edema. NEUROLOGIC: Awake and alert, follows simple command. MEDICATIONS: She is on Amaryl 1 mg twice a day, hydralazine 10 mg four times daily p.r.n., Coumadin 4 mg will be given today, vitamin D 50,000 units weekly, albuterol/Atrovent nebulizer every 6 hours, Fioricet 1 tab every 4 hours p.r.n., insulin coverage, Lipitor 20 mg daily, MiraLax 17 g p.r.n., Mycelex Filippo 10 mg three times a day, Neurontin 400 mg at bedtime, Norvasc 10 mg daily, Protonix 20 mg daily, atenolol 100 mg daily, Ultram 50 mg daily, Zofran p.r.n. basis. LABORATORY DATA: Shows hemoglobin 8.7, hematocrit 27.6, WBC 12, platelet is 178. INR 1.85. Sodium 137, potassium 3.9, chloride 100, bicarbonate 27, BUN 53, creatinine 5.1, glucose 229, phosphorus 5, magnesium 1.7. IMPRESSION AND PLAN: Acute renal failure, presently on dialysis, anemia, atrial fibrillation, coronary artery disease, chronic obstructive lung disease, obstructive sleep apnea syndrome, history of deep venous thrombosis, recurrent pulmonary embolism. Pulmonary point of view, she is doing okay, getting blood cultures done. Continue to encourage bilevel positive airway pressure use. Continue bronchodilators. Continue stool softener. Follow up blood pressure. Thank you and we will follow with you. Layla Brooks MD [facility] # [phone]
[2017-06-27 06:54] LABS: INR 1.65 (0.93-1.08); PROTHROMBIN TIME 19.2 SECONDS (9.4-12.5)
[2017-06-27] MEDS: Insulin Reg-MEDIUM-Coverage SC SCH ×4 (06:58→21:44)
[2017-06-27 07:08] LABS: CALCIUM 9.4 mg/dL (8.4-10.5)
[2017-06-27] MEDS: Magnesium Oxide 400 mg Tab UD PO SCH ×2 (10:25→17:53)
--- NOTE | 2017-06-27 10:58 | CP.PCM.PN ---
<Tasia Johnson - Last Filed: 06/27/17 10:55> Subjective - Date & Time of Evaluation Date of Evaluation: 06/27/17 Time of Evaluation: 09:45 - Subjective Subjective: Chief Complaint: R anterior chest wall pain 66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 CPAP use, DM II, morbid obesity, frequent falls, GERD, R knee surgery. On 06/16, pt was admitted for acute renal insufficiency, respirtory distress, headache, weakness, and L swelling. Pt Anemia s/p 1 unit RBC. 06/20/17 R IJ dialysis catheter inserted. Pt is now going to Hemodialysis as needed (scheduled --). Pt transferred to TCU for continuity of care. Today, reports minor R anterior chest wall pain relief with ointment. "Blisters" are actually new keloids that have formed on R neck per Dr. Soares. O2 via nasal cannula in place. Denies fever, chills, headache, nausea, vomiting, diarrhea, constipation or urinary changes. Objective - Vital Signs/Intake and Output Vital Signs (last 24 hours): Temp Pulse Resp BP Pulse Ox 99 F 71 16 145/80 100 06/27/17 10:49 06/27/17 10:49 06/27/17 10:49 06/27/17 10:49 06/27/17 10:49 - Medications Medications: Current Medications Acetaminophen/Butalbital/Caffeine (Fioricet) 1 tab PO Q4H PRN PRN Reason: Headache Last Admin: 06/25/17 22:32 Dose: 1 tab Albuterol/Ipratropium (Duoneb 3 Mg/0.5 Mg (3 Ml) Ud) 3 ml IH [id number] [facility] Last Admin: 06/27/17 07:17 Dose: 3 ml Amlodipine Besylate (Norvasc) 10 mg PO DAILY [facility] Last Admin: 06/27/17 10:26 Dose: Not Given Aspirin (Aspirin Chewable) 81 mg PO DAILY [facility] Last Admin: 06/26/17 10:16 Dose: 81 mg Atenolol (Tenormin) 100 mg PO DAILY [facility] Last Admin: 06/27/17 10:26 Dose: Not Given Atorvastatin Calcium (Lipitor) 20 mg PO DIN [facility] Last Admin: 06/26/17 17:21 Dose: 20 mg Clotrimazole (Mycelex Filippo) 10 mg MT TID [facility] Last Admin: 06/27/17 10:25 Dose: 10 mg Ergocalciferol (Drisdol 50,000 Intl Units Cap) 1 cap PO WED [facility] Gabapentin (Neurontin) 400 mg PO HS [facility] PRN Reason: Protocol Last Admin: 06/26/17 21:38 Dose: 400 mg Glimepiride (Amaryl) 1 mg PO 0730,1730 [facility] Last Admin: 06/27/17 08:22 Dose: 1 mg Hydralazine HCl (Apresoline) 10 mg PO QID PRN PRN Reason: for sbp>170 Insulin Human Regular (Humulin R Med) 0 units SC ACHS [facility] PRN Reason: Protocol Last Admin: 06/27/17 06:58 Dose: 1 units Lidocaine (Lidocaine 5%) 0 gm TOP DAILY [facility] Last Admin: 06/26/17 14:34 Dose: 1 appl Magnesium Oxide (Mag-Ox) 400 mg PO BID [facility] Stop: 06/29/17 18:01 Last Admin: 06/27/17 10:25 Dose: 400 mg Ondansetron HCl (Zofran Inj) 4 mg IVP Q6H PRN PRN Reason: Nausea/Vomiting Pantoprazole Sodium (Protonix Ec Tab) 20 mg PO 0630 [facility] Last Admin: 06/27/17 05:41 Dose: 20 mg Polyethylene Glycol (Miralax) 17 gm PO PRN PRN PRN Reason: Constipation Tramadol HCl (Ultram) 50 mg PO DAILY [facility] Last Admin: 06/27/17 10:28 Dose: 50 mg Warfarin Sodium (Coumadin) 3 mg PO 1800 [facility] PRN Reason: Protocol Last Admin: 06/26/17 17:26 Dose: 3 mg - Labs Labs: 06/26/17 06:30 06/27/17 05:45 PT 19.2 SECONDS (9.4-12.5) H 06/27/17 05:45 INR 1.65 (0.93-1.08) H 06/27/17 05:45 - Constitutional Appears: No Acute Distress, Chronically Ill - Head Exam Head Exam: ATRAUMATIC, NORMAL INSPECTION, NORMOCEPHALIC - Eye Exam Eye Exam: EOMI, Normal appearance, PERRL Pupil Exam: NORMAL ACCOMODATION, PERRL - ENT Exam ENT Exam: Mucous Membranes Moist, Normal Exam - Neck Exam Neck Exam: Tenderness Additional comments: R nape of neck 1x1cm keloid - Respiratory Exam Respiratory Exam: Chest Wall Tenderness, Clear to Ausculation Bilateral, NORMAL BREATHING PATTERN - Cardiovascular Exam Cardiovascular Exam: REGULAR RHYTHM, +S1, +S2. absent: Murmur - GI/Abdominal Exam GI & Abdominal Exam: Soft, Normal Bowel Sounds. absent: Tenderness - Extremities Exam Extremities Exam: Full ROM, Normal Capillary Refill, Normal Inspection. absent : Joint Swelling, Pedal Edema - Back Exam Back Exam: NORMAL INSPECTION - Neurological Exam Neurological Exam: Alert, Awake, CN II-XII Intact, Normal Gait, Oriented x3 - Psychiatric Exam Psychiatric exam: Normal Affect, Normal Mood - Skin Skin Exam: Dry, Intact, Normal Color, Warm Assessment and Plan (1) Chronic renal insufficiency Status: Acute (2) S/P dialysis catheter insertion Status: Acute (3) Constipation Status: Acute (4) Anemia Status: Acute (5) Guaiac positive stools Status: Acute (6) Morbid obesity Status: Acute (7) Personal history of DVT (deep vein thrombosis) Status: Acute (8) Hypercoagulable state Status: Acute (9) Iron deficiency Status: Acute (10) Expressive aphasia Status: Acute (11) Acute renal insufficiency Status: Acute - Assessment and Plan (Free Text) Plan: Daily Coumadin. Continue topical lidocaine. As needed, standing order: cultures ordered for R neck blister if they rupture. Labs ordered. s/p IVF hydration, s/ p IV iron, & s/p aranesp 1 unit of PRBC on 06/21. Aranesp 100 mg SQ. Blood culture : NEGATIVE. VTE/GI prophlyaxis. PT/OT onboard. Bipap qHS. pain mngmnt: tramadol 50mg q daily, topical lidocaine Consults: Hemo - Dr. Zayas Nephro - Dr. Jimenez Pulmo - Dr. Brooks Cardio - Dr. Liang GI - Dr. Rivera Neuro - Dr. Van IR - Dr. Maikol Soares Reviewed: CXR = WNL CT head = WNL Renal US = WNL CT abd/pelvis = WNL ECG = BORDERLINE, NSR, low voltage QRS ECHO = EF 55-60%, mild concentric LVH, mild-mod tricuspid regurg, mild pulmonary htn <Tracy Mitchell - Last Filed: 06/27/17 21:56> Objective - Vital Signs/Intake and Output Vital Signs (last 24 hours): Temp Pulse Resp BP Pulse Ox 97.1 F L 81 18 154/83 H 100 06/27/17 17:00 06/27/17 17:00 06/27/17 17:00 06/27/17 17:00 06/27/17 17:00 - Medications Medications: Current Medications Acetaminophen/Butalbital/Caffeine (Fioricet) 1 tab PO Q4H PRN PRN Reason: Headache Last Admin: 06/25/17 22:32 Dose: 1 tab Albuterol/Ipratropium (Duoneb 3 Mg/0.5 Mg (3 Ml) Ud) 3 ml IH [id number] [facility] Last Admin: 06/27/17 21:15 Dose: 3 ml Amlodipine Besylate (Norvasc) 10 mg PO DAILY [facility] Last Admin: 06/27/17 10:26 Dose: Not Given Aspirin (Aspirin Chewable) 81 mg PO DAILY [facility] Last Admin: 06/27/17 10:52 Dose: 81 mg Atenolol (Tenormin) 100 mg PO DAILY [facility] Last Admin: 06/27/17 10:26 Dose: Not Given Atorvastatin Calcium (Lipitor) 20 mg PO DIN [facility] Last Admin: 06/27/17 17:52 Dose: 20 mg Calcium Acetate (Phoslo) 667 mg PO WM [facility] Last Admin: 06/27/17 17:53 Dose: 667 mg Clotrimazole (Mycelex Filippo) 10 mg MT TID [facility] Last Admin: 06/27/17 17:53 Dose: 10 mg Ergocalciferol (Drisdol 50,000 Intl Units Cap) 1 cap PO WED [facility] Gabapentin (Neurontin) 400 mg PO HS [facility] PRN Reason: Protocol Last Admin: 06/27/17 21:43 Dose: 400 mg Glimepiride (Amaryl) 1 mg PO 0730,1730 [facility] Last Admin: 06/27/17 17:49 Dose: 1 mg Hydralazine HCl (Apresoline) 10 mg PO QID PRN PRN Reason: for sbp>170 Insulin Human Regular (Humulin R Med) 0 units SC ACHS [facility] PRN Reason: Protocol Last Admin: 06/27/17 21:44 Dose: 2 units Lidocaine (Lidocaine 5%) 0 gm TOP DAILY [facility] Last Admin: 06/27/17 13:59 Dose: 1 appl Magnesium Oxide (Mag-Ox) 400 mg PO BID [facility] Stop: 06/29/17 18:01 Last Admin: 06/27/17 17:53 Dose: 400 mg Ondansetron HCl (Zofran Inj) 4 mg IVP Q6H PRN PRN Reason: Nausea/Vomiting Pantoprazole Sodium (Protonix Ec Tab) 20 mg PO 0630 [facility] Last Admin: 06/27/17 05:41 Dose: 20 mg Polyethylene Glycol (Miralax) 17 gm PO PRN PRN PRN Reason: Constipation Polysaccharide Iron Complex (Ferrex-150) 150 mg PO DAILY [facility] Last Admin: 06/27/17 17:50 Dose: 150 mg Tramadol HCl (Ultram) 50 mg PO DAILY [facility] Last Admin: 06/27/17 10:28 Dose: 50 mg Warfarin Sodium (Coumadin) 5 mg PO 1800 [facility] PRN Reason: Protocol Last Admin: 06/27/17 19:50 Dose: 5 mg - Labs Labs: 06/26/17 06:30 06/27/17 05:45 PT 19.2 SECONDS (9.4-12.5) H 06/27/17 05:45 INR 1.65 (0.93-1.08) H 06/27/17 05:45 Assessment and Plan - Assessment and Plan (Free Text) Plan: 66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 CPAP use, DM II, morbid obesity, frequent falls, GERD, R knee surgery. On 06/16, pt was admitted for acute renal insufficiency, respirtory distress, headache, weakness, and L swelling. Pt Anemia s/p 1 unit RBC. 06/20/17 R IJ dialysis catheter inserted. Pt is now going to Hemodialysis as needed (scheduled --). Pt transferred to TCU for continuity of care. Today, reports minor R anterior chest wall pain relief with ointment. "Blisters" are actually new keloids that have formed on R neck per Dr. Soares. O2 via nasal cannula in place. Denies fever, chills, headache, nausea, vomiting, diarrhea, constipation or urinary changes. pt is seen and examined at bed side , agreed all above , chart , meds and labs noted , will f/ u
--- NOTE | 2017-06-27 11:59 | PN ---
DATE: 06/27/2017 PULMONARY PROGRESS NOTE REFERRING PHYSICIAN: Tracy Mitchell MD. SUBJECTIVE: Sitting on side of the bed. Just finished her physical therapy. Night was unremarkable. Tolerated BiPAP well. No cough. No sputum production. Breathing is better. No nausea. No vomiting, diarrhea. Decreased leg swelling. OBJECTIVE: GENERAL: In no acute distress. VITAL SIGNS: Temp is 99, heart rate is 71, respiratory rate is 18, blood pressure 145/80, pulse ox 100% on 2 L nasal cannula. HEENT: Moist mucous membrane. Crowded airway. NECK: Supple. No JVD. LUNGS: Have a fair airflow with few rhonchi. HEART: S1 and S2. Right dialysis catheter in the right chest wall. There is mild tenderness. ABDOMEN: Soft, nontender. No organomegaly. EXTREMITIES: Not much edema. NEUROLOGICAL: Awake and alert. Follows simple command. LABORATORY DATA: Shows INR 1.65. Sodium 140, potassium 3.7, chloride 100, bicarbonate 29, BUN 52, creatinine 4.2, glucose 200, calcium 9.4, magnesium is 1.6. Microbiology: Blood culture and urine culture, there is no growth so far. MEDICATIONS: She is on Amaryl 1 mg twice a day, hydralazine 10 mg four times daily p.r.n., aspirin 81 mg daily, Coumadin 3 mg, vitamin D 50,000 units weekly, DuoNeb q. 6 hours round the clock, Fioricet 1 tab every 4 hours p.r.n., insulin coverage, lidocaine patch to affected area, Lipitor 20 mg daily, magnesium oxide 400 mg twice a day, MiraLax 17 g daily p.r.n., Mycelex 10 mg three times a day, Neurontin 400 mg at bedtime, Norvasc 10 mg daily, Protonix 40 mg daily, Tenormin 100 mg daily, Ultram 50 mg daily, Zofran 4 mg daily p.r.n. IMPRESSION AND PLAN: Acute renal failure, on renal replacement therapy; atrial fibrillation; anemia; coronary artery disease; chronic obstructive lung disease; obstructive sleep apnea syndrome; history of deep vein thrombosis; pulmonary embolism. Pulmonary point of view, doing well. Encourage bilevel positive airway pressure use, keep head at 45 degrees. Fall precaution. We will give Coumadin 5 mg today. INR in the morning. Thank you and we will follow with you. Layla Brooks MD
[2017-06-27] MEDS: Lidocaine 5% Oint(35 gm) TOP SCH (13:59)
--- NOTE | 2017-06-27 15:25 | PN ---
DATE: SUBJECTIVE: The patient is currently seen sitting up in bed. She is in no acute distress. She has no significant edema. She has no uremic symptoms. Dialysis has been on hold for several days. Her creatinine has remained stable in the mid 4 range. The patient is complaining about her right chest wall PermCath. MEDICATIONS: Medication list reviewed. The patient is currently on Amaryl, Apresoline, aspirin, Coumadin, vitamin D, DuoNeb, Fioricet, insulin, lidocaine, Lipitor, mag oxide, MiraLax, Mycelex Filippo , Neurontin, Norvasc, Protonix, Tenormin, Ultram p.r.n. and Zofran p.r.n. OBJECTIVE: VITAL SIGNS: Blood pressure 145/80, temperature 99, respiratory rate is 16 with a pulse of 71. Pulse ox is 100%. HEENT: Shows her to be normocephalic, atraumatic. Conjunctivae are pale. NECK: Supple. No neck vein distention. CHEST: Clear to auscultation and percussion. No rales, rhonchi or wheezing. CARDIOVASCULAR: Shows S1, S2 which are regular. No audible murmurs, rubs or gallops. ABDOMEN: Obese. Bowel sounds normal. No rebound, guarding or masses. EXTREMITIES: Show trace ankle edema. No cyanosis or clubbing. Diminished lower extremity pulses bilaterally. LABORATORY DATA AND IMAGING: CBC: White blood cell count from yesterday 12.7, hemoglobin 8.9 with a platelet count of 169,000. Chemistries from today showed a BUN of 52 with a creatinine of 4.4, normal electrolytes. Glucose is 200. Calcium 9.4, phosphorus 4.7 with a magnesium level of 1.6. Microbiology: Urine cultures are negative. Blood cultures are negative at 48 hours. ASSESSMENT: 1. Acute renal failure superimposed on chronic kidney disease stage III/IV. The patient's creatinine appears to be stable in the 4.4 range. She has absolutely no uremic symptoms. She has been off dialysis for several days. The patient has no significant edema. The patient is currently off diuretic therapy. As discussed with the patient, I will obtain a 24-hour urine for creatinine clearance to establish a residual baseline renal function. If it appears that she has enough renal function, perhaps dialysis can be placed on hold and the PermCath can be removed. If her clearances are very low, perhaps she will need dialysis perhaps twice a week and not three times a week as she likely has some residual renal reserve. 2. History of anemia. Patient had low iron saturation levels. She was occult positive in her stool. The patient will continue iron supplementation. 3. History of deep venous thrombosis, history of pulmonary embolism, history of hypercoagulable state, on chronic anticoagulation. 4. History of morbid obesity. 5. History of hypertension. Blood pressure control is acceptable on present medical therapy. 6. History of [id number] diabetes mellitus. Glucose control is acceptable. The patient will continue present oral medication for her diabetes and continue on sliding scale insulin. 7. History of secondary hyperparathyroidism. I will start the patient on binder therapy and she will continue a renal diet. PLAN: 1. A 24-hour urine as noted above. 2. Discussed with the patient the possibility of removing her PermCath if her clearances show a significant renal reserve. If not, the patient will likely require dialysis perhaps 2 days a week rather than 3 days a week. 3. Follow cultures, blood cultures, urine cultures negative to date. 4. Continue physical therapy in the TCU and monitor labs on a daily basis. El Rico MD [facility]
--- NOTE | 2017-06-27 17:45 | CP.PCM.PN ---
Subjective - Date & Time of Evaluation Date of Evaluation: 06/27/17 Time of Evaluation: 11:20 - Subjective Subjective: Seen and examined at the bedside earlier today, chart was reviewed. No acute overnight events reported. Patient reports having a bowel movement today, no diarrhea or any overt GI bleed. Awaiting to go for dialysis. Tolerating oral intake. Objective - Vital Signs/Intake and Output Vital Signs (last 24 hours): Temp Pulse Resp BP Pulse Ox 97.1 F L 81 18 154/83 H 100 06/27/17 17:00 06/27/17 17:00 06/27/17 17:00 06/27/17 17:00 06/27/17 17:00 - Medications Medications: Current Medications Acetaminophen/Butalbital/Caffeine (Fioricet) 1 tab PO Q4H PRN PRN Reason: Headache Last Admin: 06/25/17 22:32 Dose: 1 tab Albuterol/Ipratropium (Duoneb 3 Mg/0.5 Mg (3 Ml) Ud) 3 ml IH [id number] [facility] Last Admin: 06/27/17 13:21 Dose: 3 ml Amlodipine Besylate (Norvasc) 10 mg PO DAILY [facility] Last Admin: 06/27/17 10:26 Dose: Not Given Aspirin (Aspirin Chewable) 81 mg PO DAILY [facility] Last Admin: 06/27/17 10:52 Dose: 81 mg Atenolol (Tenormin) 100 mg PO DAILY [facility] Last Admin: 06/27/17 10:26 Dose: Not Given Atorvastatin Calcium (Lipitor) 20 mg PO DIN [facility] Last Admin: 06/26/17 17:21 Dose: 20 mg Calcium Acetate (Phoslo) 667 mg PO WM [facility] Clotrimazole (Mycelex Filippo) 10 mg MT TID [facility] Last Admin: 06/27/17 14:00 Dose: 10 mg Ergocalciferol (Drisdol 50,000 Intl Units Cap) 1 cap PO WED [facility] Gabapentin (Neurontin) 400 mg PO HS [facility] PRN Reason: Protocol Last Admin: 06/26/17 21:38 Dose: 400 mg Glimepiride (Amaryl) 1 mg PO 0730,1730 [facility] Last Admin: 06/27/17 08:22 Dose: 1 mg Hydralazine HCl (Apresoline) 10 mg PO QID PRN PRN Reason: for sbp>170 Insulin Human Regular (Humulin R Med) 0 units SC ACHS [facility] PRN Reason: Protocol Last Admin: 06/27/17 12:38 Dose: Not Given Lidocaine (Lidocaine 5%) 0 gm TOP DAILY [facility] Last Admin: 06/27/17 13:59 Dose: 1 appl Magnesium Oxide (Mag-Ox) 400 mg PO BID [facility] Stop: 06/29/17 18:01 Last Admin: 06/27/17 10:25 Dose: 400 mg Ondansetron HCl (Zofran Inj) 4 mg IVP Q6H PRN PRN Reason: Nausea/Vomiting Pantoprazole Sodium (Protonix Ec Tab) 20 mg PO 0630 [facility] Last Admin: 06/27/17 05:41 Dose: 20 mg Polyethylene Glycol (Miralax) 17 gm PO PRN PRN PRN Reason: Constipation Polysaccharide Iron Complex (Ferrex-150) 150 mg PO DAILY [facility] Tramadol HCl (Ultram) 50 mg PO DAILY [facility] Last Admin: 06/27/17 10:28 Dose: 50 mg Warfarin Sodium (Coumadin) 5 mg PO 1800 [facility] PRN Reason: Protocol - Labs Labs: 06/26/17 06:30 06/27/17 05:45 PT 19.2 SECONDS (9.4-12.5) H 06/27/17 05:45 INR 1.65 (0.93-1.08) H 06/27/17 05:45 - Constitutional Appears: No Acute Distress - Head Exam Head Exam: NORMOCEPHALIC - Eye Exam Eye Exam: Normal appearance. absent: Scleral icterus - ENT Exam ENT Exam: Mucous Membranes Moist - Neck Exam Neck Exam: Normal Inspection - Respiratory Exam Respiratory Exam: NORMAL BREATHING PATTERN. absent: Respiratory Distress - Cardiovascular Exam Cardiovascular Exam: +S1, +S2 - GI/Abdominal Exam GI & Abdominal Exam: Soft, Normal Bowel Sounds. absent: Guarding, Tenderness, Rebound - Extremities Exam Extremities Exam: absent: Calf Tenderness - Neurological Exam Neurological Exam: Alert, Awake, Oriented x3 - Skin Skin Exam: Dry, Warm Assessment and Plan - Assessment and Plan (Free Text) Assessment: Assessment: Acute on chronic renal insufficiency on dialysis Resolved Constipation Anemia Positive guiac Morbid obesity History of DVT/PE Plan: Continue to monitor H&H and for overt GI bleed MiraLAX prn Diet as tolerated On Protonix 20 mg daily on Coumadin and aspirin On iron supplement Patient would benefit from GI workup, can consider electively as outpatient unless otherwise indicated, discussed with patient Seen and discussed with Dr. Rivera.
[2017-06-27] MEDS: Iron Complex Polysacch 150mg Cap PO SCH (17:50)
[2017-06-28] MEDS: Albuterol-Ipratrop 3 mg / 0.5 (3 ml) UD IH SCH ×4 (02:00→19:43)
[2017-06-28] MEDS: Pantoprazole 20 mg EC Tab PO SCH (05:31)
[2017-06-28] MEDS: Insulin Reg-MEDIUM-Coverage SC SCH ×4 (06:57→22:16)
[2017-06-28 07:08] LABS: MEAN CELL VOLUME 85.4 fl (80.0-105.0); MEAN CORPUSCULAR HEMOGLOBIN 26.3 pg (25.0-35.0); MEAN CORPUSCULAR HGB CONC 30.8 g/dl (31.0-37.0); MEAN PLATELET VOLUME 11.4 fl (7.0-11.0); RBC 3.42 10^6/uL (3.5-6.1); RED CELL DISTRIBUTION WIDTH 16.9 % (11.5-14.5); WHITE BLOOD COUNT 11.1 10^3/ul (4.5-11.0)
[2017-06-28 07:24] LABS: INR 1.68 (0.93-1.08); PROTHROMBIN TIME 19.5 SECONDS (9.4-12.5)
[2017-06-28 07:41] LABS: ALBUMIN 3.3 g/dL (3.0-4.8); CALCIUM 8.9 mg/dL (8.4-10.5)
[2017-06-28] MEDS: Iron Complex Polysacch 150mg Cap PO SCH (09:49)
[2017-06-28] MEDS: Lidocaine 5% Oint(35 gm) TOP SCH (09:49)
[2017-06-28] MEDS: Magnesium Oxide 400 mg Tab UD PO SCH ×2 (09:49→17:37)
[2017-06-28] MEDS ORDERED: Ergocalciferol 50,000 Intl Units Cap PO SCH (10:00)
[2017-06-28] MEDS: Mometasone 0.1% Cream(15 gm) TOP SCH ×2 (13:59→17:29)
--- NOTE | 2017-06-28 14:37 | PN ---
DATE: 06/28/2017 LOCATION: Patient in room 320, bed 1. REASON FOR CONSULTATION AND FOLLOWUP: Shortness of breath, swelling of legs, acute kidney disease. Patient was on dialysis, now the dialysis is on hold because of stabilized kidney function at present. SUBJECTIVE: Patient is lying flat in bed without any chest pain, shortness of breath, palpitation. Patient's edema in legs has also improved. PHYSICAL EXAMINATION: VITAL SIGNS: Blood pressure 155/86, respirations 18, pulse 71, temperature 99. HEENT: Head is normocephalic. Eyes: Pupils are normal. Conjunctivae are slightly pale. NECK: JVP low. Carotids equal. THORAX: AP diameter is normal. LUNGS: Clear. CARDIOVASCULAR: S1 and S2. ABDOMEN: Soft. No tenderness. No organomegaly. Bowel sounds normal. EXTREMITIES: No clubbing. No cyanosis. LABORATORY DATA: WBC 11.1, hemoglobin 9, hematocrit 29.2, platelets 186. Sodium 140, potassium 3.5, BUN 57, creatinine 3.9. Random glucose 207. Magnesium 1.5, calcium 8.9, phosphorus 4. Alkaline phosphatase, total protein, albumin normal. IMPRESSION: [id number] kidney disease with exacerbation of underlying renal insufficiency, status post dialysis, now dialysis has been not given for few days because of stabilizing of the kidney function, morbid obesity, hypertension, hyperlipidemia and diabetes mellitus status post cardiac catheterization, which showed nonobstructive coronary artery disease, deconditioning, history of thrombophlebitis, history of pulmonary embolism. Today, prothrombin time 19.5 with INR 1.68. PLAN: Patient's dialysis has been on hold because the kidney function have been staying stable and being followed by Renal. Patient's warfarin already has been increased to 5 mg daily. Patient also on aspirin 81 mg daily, iron-polysaccharide 150 mg p.o. daily, insulin as ordered, atorvastatin 20 mg daily, mag oxide 400 mg b.i.d., Neurontin 400 mg p.o. daily, amlodipine 10 mg daily, Protonix 20 daily, atenolol 100 mg daily. We will continue present therapy and we will also continue physical therapy. Patient is going to have 24 hour urine to assess the baseline renal function at present. We will follow. Layla Liang MD
--- NOTE | 2017-06-28 15:20 | PN ---
DATE: 06/28/2017 SUBJECTIVE: The patient is seen sitting in bed. She is awake. She is alert. She is comfortable. She denies any chest tightness. She denies any shortness of breath. She complains of pain at the Perm-A-Cath insertion site and all over the tract. She denies any urinary complaints. PHYSICAL EXAMINATION: GENERAL: Obese elderly lady sitting in bed. VITAL SIGNS: Blood pressure 146/80, heart rate 84, respiratory rate 18, temperature 99, T-max is 99. HEENT: Normocephalic, atraumatic, positive pallor. NECK: Supple, no JVD. LUNGS: Bilateral equal entry, bilateral equal expansion, no rales. CARDIAC: S1 and S2, regular rate and rhythm, no murmur, no rub. ABDOMEN: Obese, distended, soft, nontender, bowel sounds present. EXTREMITIES: No lower extremity edema. INTAKE AND OUTPUT: Not charted. LABORATORY DATA: WBC 11, hemoglobin 9, hematocrit 29, platelets 186. Sodium 140, potassium 3.5, chloride 99, CO2 of 29, BUN 57, creatinine 3.9, glucose 207, calcium 8.9, phosphorus 4, magnesium 1.5, albumin 3.3. Urine culture, no growth. CURRENT MEDICATIONS: Amaryl, Apresoline, aspirin, Claritin, Coumadin, Drisdol, Fioricet, insulin, Lipitor, mag oxide, MiraLax, gabapentin, amlodipine, PhosLo, Protonix, Singulair, and atenolol. ASSESSMENT: 1. Acute kidney injury, nonoliguric, renal recovery? 2. Underlying chronic kidney disease stage III. 3. Morbid obesity. 4. Ddl-ipwbizg-emorxtfvx diabetes mellitus. 5. Hypertension. 6. Hypercoagulable state, history of deep venous thrombosis, pulmonary embolism. 7. Chronic anemia. 8. Hyperphosphatemia, controlled. PLAN: 1. Follow up 24 hours urine. 2. Hold dialysis today. 3. Discontinue calcium acetate. 4. Monitor low-grade fevers. 5. Continue to hold ARB. 6. Continue to hold metformin. 7. GI workup at a later date. Cheryl Jimenez MD [facility] # [id number]
--- NOTE | 2017-06-28 17:31 | PN ---
DATE: 06/28/2017 PULMONARY PROGRESS NOTE REFERRING PHYSICIAN: Tracy Mitchell MD SUBJECTIVE: She is out of bed to side of the bed, sitting up. Night was unremarkable. Tolerated BiPAP well. No headache. No rhinitis. Doing well in therapy. Still has sensitivity of the dialysis catheter. No nausea. No leg pain or leg swelling. OBJECTIVE: VITAL SIGNS: Temperature 99, heart rate is 71, respiratory rate is 18, blood pressure 146/80, pulse ox 97% on nasal cannula. HEENT: Moist mucous membrane. Crowded airway. NECK: Supple. No JVD. LUNGS: Fair airflow with few rhonchi. HEART: S1, S2. ABDOMEN: Soft, nontender, no organomegaly. EXTREMITIES: No edema. NEUROLOGIC: Awake, alert, and follows simple commands. MEDICATIONS: She is on Amaryl 1 mg twice a day, hydralazine 10 mg four times a day p.r.n., aspirin 81 mg daily, Claritin 10 mg daily, Coumadin 10 mg will be given tonight, vitamin D 50,000 units weekly, DuoNeb every 6 hours round the clock, Ferrex 150 mg daily, Fioricet one tablet every 4 hours p.r.n., insulin coverage, Lipitor 20 mg daily, mag oxide 400 mg twice a day, MiraLax 17 g daily, Mycelex Filippo three times a day, Neurontin 400 mg at bedtime, Norvasc 10 mg daily, PhosLo with meals, Protonix 40 mg daily, Singulair 10 mg daily, atenolol 100 mg daily, Ultram 50 mg daily, Zofran p.r.n. basis. LABORATORY DATA: Shows hemoglobin 9, hematocrit 29.2, WBC 11.1, platelet count is 186. INR 1.68. Sodium 140, potassium 3.5, chloride 99, bicarbonate 29. BUN 57, creatinine 3.9. Glucose 207. Calcium is 8.9, phosphorus 4, magnesium 1.5. AST 36, ALT 25, alkaline phosphatase is 54, albumin 3.3. IMPRESSION AND PLAN: Acute renal failure, on dialysis; atrial fibrillation; anemia; coronary artery disease; chronic obstructive lung disease; obstructive sleep apnea syndrome; history of deep venous thrombosis; recurrent pulmonary embolism. Pulmonary point of view, she is doing okay. Continue bronchodilators, keep head at 45 degrees. Continue CPAP while sleeping. Renal replacement therapy, fall precautions. Continue Coumadin, INR in the morning. Thank you and we will follow with you. Layla Brooks MD
--- NOTE | 2017-06-28 19:18 | CP.PCM.PN ---
Subjective - Date & Time of Evaluation Date of Evaluation: 06/28/17 Time of Evaluation: 18:45 - Subjective Subjective: PGY-[address] Mitchell CC: temporary dialysis cath bleeding S: Ms Emanuel, 66 AAF, with PMH CAD, A-fib on coumadin, DVT leg/PE, DM2, was recently on dialysis for SARAH on CKD. Temporary dialysis cath was put in on 06/[address] Maikol Soares, IR. After pt awoke from afternoon nap, she noticed blood at the dialysis cath site from looking at the mirror. Denies trauma, palpitation, dizziness, n/v. Her INR was 1.[address] Dior planned to increase her coumadin to 10mg this evening. O: VS stable Gen: NAD Card: regular, s1 s2. About 10 cc dry red blood contained in R chest dressing. No erythema. Catheter intact. Pulm: CTA b/l no w/r/r skin: warm. cap refill < 2 AAO x 3 Assessment: Bleeding from large bore catheter, controlled, asymptomatic Plan: - Stat PT/INR to determine if tonight's dose warfarin is needed or not - dressing change in sterile fashion - RN to monitor if further bleed tonight. Objective - Vital Signs/Intake and Output Vital Signs (last 24 hours): Temp Pulse Resp BP Pulse Ox 98.2 F 70 20 162/84 H 99 06/28/17 17:46 06/28/17 17:46 06/28/17 17:46 06/28/17 17:46 06/28/17 17:46 - Medications Medications: Current Medications Acetaminophen/Butalbital/Caffeine (Fioricet) 1 tab PO Q4H PRN PRN Reason: Headache Last Admin: 06/25/17 22:32 Dose: 1 tab Albuterol/Ipratropium (Duoneb 3 Mg/0.5 Mg (3 Ml) Ud) 3 ml IH [id number] [facility] Last Admin: 06/28/17 13:34 Dose: 3 ml Amlodipine Besylate (Norvasc) 10 mg PO DAILY [facility] Last Admin: 06/28/17 09:50 Dose: 10 mg Aspirin (Aspirin Chewable) 81 mg PO 0800 [facility] PRN Reason: Protocol Atenolol (Tenormin) 100 mg PO DAILY [facility] Last Admin: 06/28/17 12:17 Dose: 100 mg Atorvastatin Calcium (Lipitor) 20 mg PO DIN [facility] Last Admin: 06/28/17 17:37 Dose: 20 mg Clotrimazole (Mycelex Filippo) 10 mg MT TID [facility] Last Admin: 06/28/17 17:38 Dose: 10 mg Ergocalciferol (Drisdol 50,000 Intl Units Cap) 1 cap PO WED [facility] Last Admin: 06/28/17 09:48 Dose: 1 cap Gabapentin (Neurontin) 400 mg PO HS [facility] PRN Reason: Protocol Last Admin: 06/27/17 21:43 Dose: 400 mg Glimepiride (Amaryl) 1 mg PO 0730,1730 [facility] Last Admin: 06/28/17 17:28 Dose: 1 mg Hydralazine HCl (Apresoline) 10 mg PO QID PRN PRN Reason: for sbp>170 Last Admin: 06/28/17 17:40 Dose: 10 mg Insulin Human Regular (Humulin R Med) 0 units SC ACHS [facility] PRN Reason: Protocol Last Admin: 06/28/17 17:34 Dose: 5 units Loratadine (Claritin) 10 mg PO DAILY [facility] PRN Reason: Protocol Last Admin: 06/28/17 13:59 Dose: 10 mg Magnesium Oxide (Mag-Ox) 400 mg PO BID [facility] Stop: 06/29/17 18:01 Last Admin: 06/28/17 17:37 Dose: 400 mg Mometasone Furoate (Elocon Cream) 0 gm TOP BID [facility] PRN Reason: Protocol Last Admin: 06/28/17 17:29 Dose: 1 applic Montelukast Sodium (Singulair) 10 mg PO HS [facility] PRN Reason: Protocol Ondansetron HCl (Zofran Inj) 4 mg IVP Q6H PRN PRN Reason: Nausea/Vomiting Pantoprazole Sodium (Protonix Ec Tab) 20 mg PO 0630 [facility] Last Admin: 06/28/17 05:31 Dose: 20 mg Polyethylene Glycol (Miralax) 17 gm PO PRN PRN PRN Reason: Constipation Last Admin: 06/28/17 17:39 Dose: 17 gm Polysaccharide Iron Complex (Ferrex-150) 150 mg PO DAILY [facility] Last Admin: 06/28/17 09:49 Dose: 150 mg Tramadol HCl (Ultram) 50 mg PO DAILY [facility] Last Admin: 06/28/17 09:53 Dose: 50 mg Warfarin Sodium (Coumadin) 10 mg PO 1800 [facility] PRN Reason: Protocol - Labs Labs: 06/28/17 06:30 06/28/17 06:30 PT 19.5 SECONDS (9.4-12.5) H 06/28/17 06:30 INR 1.68 (0.93-1.08) H 06/28/17 06:30
[2017-06-28 19:20] LABS: INR 1.55 (0.93-1.08); PROTHROMBIN TIME 17.8 SECONDS (9.4-12.5)
--- NOTE | 2017-06-28 21:55 | PN ---
DATE: SUBJECTIVE: The patient is a 66-year-old female. Patient is seen and examined at the bedside, looking comfortable. No nausea, vomiting or diarrhea. No hematuria or hematochezia. No headache. No dizziness. Having slight chest pain and skin irritation around the port. Tolerated BiPAP very well. No fever. No chills. Doing well on physical therapy, getting dialysis. PHYSICAL EXAMINATION: VITAL SIGNS: Temperature 99 , heart rate 71, respiratory rate 18, blood pressure 146/88, pulse oximetry 97% on a nasal cannula. HEENT: Head normocephalic and atraumatic. Eyes: PERRLA. Extraocular muscles intact. Conjunctivae clear. Nose patent. Mucous membrane moist. NECK: Supple. No carotid bruit. No JVD or thyromegaly. CHEST: Bilaterally symmetrical. There is skin irritation around the dialysis catheter. HEART: S1 and S2 positive. LUNGS: Clear to auscultation with fair airflow with few rhonchi. ABDOMEN: Soft and nontender. No organomegaly. EXTREMITIES: No edema. No cyanosis. NEUROLOGIC: Patient is awake, alert. Follow simple commands. MEDICATIONS: Amaryl, hydralazine, aspirin, Claritin, Coumadin, DuoNeb, vitamin D, Ferrex, Fioricet, insulin coverage, Lipitor, magnesium oxide, MiraLax, Mycelex, Neurontin, Norvasc, PhosLo, Protonix, Singulair, atenolol, tramadol and Zofran. LABORATORY DATA: Hemoglobin 9, hematocrit 29.2, white blood cell 11.2, platelets 186. INR 1.68. Sodium 140, potassium 3.5, BUN 57, creatinine 3.9. Glucose 207. AST 36, ALT 25. ASSESSMENT AND PLAN: Ms. Laura Emanuel with acute renal failure on chronic renal insufficiency, getting hemodialysis, atrial fibrillation, pulmonary emboli, deep venous thrombosis on Coumadin, anemia, status post blood transfusion, coronary artery disease, chronic obstructive lung disease; obstructive sleep apnea syndrome. Patient is improving. Creatinine is improving very slowly with the dialysis. Continue bronchodilators. Continue CPAP while sleeping. Renal replacement therapy. Fall precautions. Getting physical therapy. Repeat labs. We will follow up. Tracy Mitchell MD
[2017-06-29] MEDS: Albuterol-Ipratrop 3 mg / 0.5 (3 ml) UD IH SCH ×4 (01:10→19:58)
[2017-06-29] MEDS: Pantoprazole 20 mg EC Tab PO SCH (05:47)
[2017-06-29] MEDS: Insulin Reg-MEDIUM-Coverage SC SCH ×4 (06:33→21:13)
[2017-06-29 07:15] LABS: HEMOGLOBIN 9.4 g/dL (12.0-16.0); MEAN CELL VOLUME 84.7 fl (80.0-105.0); MEAN CORPUSCULAR HEMOGLOBIN 26.1 pg (25.0-35.0); MEAN CORPUSCULAR HGB CONC 30.8 g/dl (31.0-37.0); MEAN PLATELET VOLUME 11.4 fl (7.0-11.0); RBC 3.6 10^6/uL (3.5-6.1); RED CELL DISTRIBUTION WIDTH 16.6 % (11.5-14.5)
[2017-06-29 07:29] LABS: ALBUMIN 3.4 g/dL (3.0-4.8); CALCIUM 9.4 mg/dL (8.4-10.5)
[2017-06-29 07:32] LABS: URINE CREATININE 42.6 mg/dL
[2017-06-29] MEDS: Mometasone 0.1% Cream(15 gm) TOP SCH ×2 (09:32→17:13)
[2017-06-29] MEDS: Iron Complex Polysacch 150mg Cap PO SCH (09:32)
[2017-06-29] MEDS: Magnesium Oxide 400 mg Tab UD PO SCH ×2 (09:33→17:15)
--- NOTE | 2017-06-29 14:03 | PN ---
DATE: 06/29/2017 LOCATION: The patient is in room 320, bed 1. REASON FOR CONSULTATION AND FOLLOWUP: Shortness of breath, swelling of legs, [id number] kidney failure. The patient was on dialysis. Now, dialysis is on hold because of stabilization of kidney function at present, hypertension, diabetes, obesity, hyperlipidemia. SUBJECTIVE: The patient is lying comfortably without any chest pain, shortness of breath or palpitation. Legs edema is also improved. The patient is getting physical therapy without any cardiac symptoms. PHYSICAL EXAMINATION VITAL SIGNS: On examination, blood pressure 132/86, respirations 17, pulse 66, temperature 98.7. HEENT: Head is normocephalic. Eyes: Pupils are normal. Conjunctivae are slightly pale. NECK: JVP low. Carotids equal. THORAX: AP diameter is normal. LUNGS: Clear. CARDIOVASCULAR: S1, S2. ABDOMEN: Protuberant. No organomegaly. EXTREMITIES: No clubbing. No cyanosis. Edema has improved. LABORATORY DATA: WBC 11, hemoglobin 9.4, hematocrit 30.5, platelets 194. Sodium 142, potassium 3.5, BUN 54, creatinine 3.6. Yesterday, BUN was 57 and creatinine 3.9. Random glucose 268. AST and ALT normal. Total protein and albumin normal. DIAGNOSES: [id number]-csssbqz kidney disease with exacerbation of underlying renal insufficiency leading to failure, needing dialysis a few times and now for last few days, dialysis has been on hold because of stabilization of kidney function at present, morbid obesity, hypertension, hyperlipidemia and diabetes mellitus; status post cardiac catheterization, which showed nonobstructive coronary artery disease; deconditioning; history of thrombophlebitis; history of pulmonary embolism. Today, the PT/INR not available. We will order one for tomorrow. PLAN: This patient's dialysis is on hold because of stabilization of kidney function as described above. The patient's 24-hour urine has been sent as per Renal and final report is pending. The patient is continuing iron-polysaccharide 150 mg p.o. daily, DuoNeb hand nebulizer therapy, warfarin has cary increased to 10 mg p.o. daily, aspirin 81 mg p.o. daily, glimepiride 1 mg p.o. b.i.d., hydralazine 10 mg four times a day p.r.n., atorvastatin 20 mg p.o. daily, magnesium oxide 400 mg b.i.d., Neurontin 400 mg at bedtime, amlodipine 10 mg daily, Protonix 20 mg daily, Singulair 10 mg at bedtime, atenolol 100 mg daily. Repeat chemistry lab already requested for tomorrow. We will order PT/INR for tomorrow. CBC also requested for tomorrow. We will follow. Layla Liang MD
--- NOTE | 2017-06-29 14:45 | PN ---
DATE: 06/29/2017 SUBJECTIVE: The patient is seen sitting in chair. She is awake. She is alert. She is comfortable. She reports that she is annoyed. PHYSICAL EXAMINATION: GENERAL: Obese elderly lady, sitting in chair. VITAL SIGNS: Blood pressure 132/86, heart rate 66, respiratory rate 17, temperature 98.7. HEENT: Normocephalic, atraumatic. NECK: Supple, no JVD. LUNGS: Bilateral equal air entry, bilateral equal expansion, no rales. CARDIAC: S1 and S2, regular rate and rhythm, no murmur, no rub. ABDOMEN: Obese, distended, soft, nontender, bowel sounds present. EXTREMITIES: No lower extremity edema. INTAKE AND OUTPUT: Not charted. LABORATORY DATA: WBC 11, hemoglobin 9.4, hematocrit 30.5, platelets 194. Sodium 142, potassium 3.5, chloride 100, CO2 of 30, BUN 54, creatinine 3.6, glucose 202, calcium 9.4, AST 34, ALT 25, albumin 3.4. 24-hour urine collection shows 3100 mL of urine. Creatinine clearance 25. CURRENT MEDICATIONS: Amaryl 1 mg b.i.d., Apresoline being used p.r.n., aspirin, Claritin, Coumadin, Drisdol, DuoNeb, iron, Fioricet, Tylenol, insulin, Lipitor, mag oxide, MiraLax, gabapentin, amlodipine 10, Protonix 20, Singulair, Tenormin, Ultram, Zofran. ASSESSMENT: 1. Acute kidney injury, requiring dialysis, now with renal recovery. 2. Underlying chronic kidney disease stage 3. 3. Morbid obesity. 4. Acute on chronic anemia. 5. Bcs-yfhpqqx-vygebqxfm diabetes mellitus. 6. Hypertension. 7. Hypercoagulable state. 8. Hypokalemia. 9. Sleep apnea? PLAN: 1. Check magnesium and if it is normal, discontinue mag oxide. 2. The patient is off phosphate binder, check phosphorus. 3. Remove PermCath. No further dialysis. 4. Monitor fingersticks attempt for euglycemia. 5. Physical therapy. 6. Outpatient followup. 7. Currently, her ARB is on hold. Ideally, she should be back on it, but we will hold off until creatinine reverts to baseline. Cheryl Jimenez MD [facility] # [id number]
[2017-06-29 16:30] VITALS: RESP 18
--- NOTE | 2017-06-29 17:08 | CP.PCM.PN ---
Subjective - Date & Time of Evaluation Date of Evaluation: 06/29/17 Time of Evaluation: 10:25 - Subjective Subjective: Seen and examined at the bedside earlier today, chart review. Patient reports no bowel movement for 3 days, patient reports that she took MiraLAX a day. Discussed with patient to continue MiraLAX daily and monitor stools tonight. Denies nausea, vomiting, or abdominal pain. Patient reports she didn't sleep well last night. No acute overnight events. Objective - Vital Signs/Intake and Output Vital Signs (last 24 hours): Temp Pulse Resp BP Pulse Ox 97.4 F L 70 18 145/88 100 06/29/17 16:00 06/29/17 16:00 06/29/17 16:00 06/29/17 16:00 06/29/17 16:00 Intake and Output: 06/29/17 06/29/17 06:59 18:59 Intake Total 420 Output Total 1 Balance 419 - Medications Medications: Current Medications Acetaminophen/Butalbital/Caffeine (Fioricet) 1 tab PO Q4H PRN PRN Reason: Headache Last Admin: 06/25/17 22:32 Dose: 1 tab Albuterol/Ipratropium (Duoneb 3 Mg/0.5 Mg (3 Ml) Ud) 3 ml IH [id number] [facility] Last Admin: 06/29/17 13:27 Dose: 3 ml Amlodipine Besylate (Norvasc) 10 mg PO DAILY [facility] Last Admin: 06/29/17 09:34 Dose: 10 mg Aspirin (Aspirin Chewable) 81 mg PO 0800 [facility] PRN Reason: Protocol Last Admin: 06/29/17 08:10 Dose: 81 mg Atenolol (Tenormin) 100 mg PO DAILY [facility] Last Admin: 06/29/17 09:35 Dose: 100 mg Atorvastatin Calcium (Lipitor) 20 mg PO DIN [facility] Last Admin: 06/28/17 17:37 Dose: 20 mg Clotrimazole (Mycelex Filippo) 10 mg MT TID [facility] Last Admin: 06/29/17 13:20 Dose: 10 mg Ergocalciferol (Drisdol 50,000 Intl Units Cap) 1 cap PO WED [facility] Last Admin: 06/28/17 09:48 Dose: 1 cap Gabapentin (Neurontin) 400 mg PO HS [facility] PRN Reason: Protocol Last Admin: 06/28/17 22:16 Dose: 400 mg Glimepiride (Amaryl) 1 mg PO 0730,1730 [facility] Last Admin: 06/29/17 08:10 Dose: 1 mg Hydralazine HCl (Apresoline) 10 mg PO QID PRN PRN Reason: for [id number] Last Admin: 06/28/17 17:40 Dose: 10 mg Insulin Human Regular (Humulin R Med) 0 units SC ACHS [facility] PRN Reason: Protocol Last Admin: 06/29/17 12:06 Dose: 5 units Loratadine (Claritin) 10 mg PO DAILY [facility] PRN Reason: Protocol Last Admin: 06/29/17 09:32 Dose: 10 mg Magnesium Oxide (Mag-Ox) 400 mg PO BID [facility] Stop: 06/29/17 18:01 Last Admin: 06/29/17 09:33 Dose: 400 mg Mometasone Furoate (Elocon Cream) 0 gm TOP BID [facility] PRN Reason: Protocol Last Admin: 06/29/17 09:32 Dose: 1 applic Montelukast Sodium (Singulair) 10 mg PO HS [facility] PRN Reason: Protocol Last Admin: 06/28/17 22:16 Dose: 10 mg Ondansetron HCl (Zofran Inj) 4 mg IVP Q6H PRN PRN Reason: Nausea/Vomiting Pantoprazole Sodium (Protonix Ec Tab) 20 mg PO 0630 [facility] Last Admin: 06/29/17 05:47 Dose: 20 mg Polyethylene Glycol (Miralax) 17 gm PO PRN PRN PRN Reason: Constipation Last Admin: 06/28/17 17:39 Dose: 17 gm Polysaccharide Iron Complex (Ferrex-150) 150 mg PO DAILY [facility] Last Admin: 06/29/17 09:32 Dose: 150 mg Tramadol HCl (Ultram) 50 mg PO DAILY [facility] Last Admin: 06/29/17 09:41 Dose: 50 mg Warfarin Sodium (Coumadin) 10 mg PO 1800 [facility] PRN Reason: Protocol Last Admin: 06/28/17 22:17 Dose: 10 mg - Labs Labs: 06/29/17 06:30 06/29/17 06:46 PT 17.8 SECONDS (9.4-12.5) H 06/28/17 19:08 INR 1.55 (0.93-1.08) H 06/28/17 19:08 - Constitutional Appears: No Acute Distress - Head Exam Head Exam: NORMOCEPHALIC - Eye Exam Eye Exam: Normal appearance. absent: Scleral icterus - ENT Exam ENT Exam: Mucous Membranes Moist - Neck Exam Neck Exam: Normal Inspection - Respiratory Exam Respiratory Exam: NORMAL BREATHING PATTERN. absent: Respiratory Distress - Cardiovascular Exam Cardiovascular Exam: +S1, +S2 - GI/Abdominal Exam GI & Abdominal Exam: Soft, Normal Bowel Sounds. absent: Guarding, Tenderness, Rebound - Extremities Exam Extremities Exam: absent: Calf Tenderness - Neurological Exam Neurological Exam: Alert, Awake, Oriented x3 - Skin Skin Exam: Dry, Warm Assessment and Plan - Assessment and Plan (Free Text) Assessment: Assessment: Acute on chronic renal insufficiency on dialysis Constipation Anemia Positive guiac Morbid obesity History of DVT/PE Plan: Continue to monitor H&H and for overt GI bleed MiraLAX to daily Diet as tolerated On Protonix 20 mg daily on Coumadin and aspirin On iron supplement Patient would benefit from GI workup, can consider electively as outpatient unless otherwise indicated, discussed with patient Seen and discussed with Dr. Rivera.
[2017-06-30] MEDS: Albuterol-Ipratrop 3 mg / 0.5 (3 ml) UD IH SCH ×3 (02:00→13:31)
--- NOTE | 2017-06-30 02:56 | PN ---
DATE: PULMONARY PROGRESS NOTE REFERRING PHYSICIAN: Dr. Mitchell. SUBJECTIVE: She is sitting on the side of the bed. Night was unremarkable, feels better, making good urine now. Tolerated BiPAP well. No cough. No sputum production. No nausea. No vomiting or diarrhea. No leg pain or leg swelling. OBJECTIVE: GENERAL: In no acute distress. VITAL SIGNS: Temperature is 98, heart rate is 77, respiratory rate is 18, blood pressure 145/88, pulse ox 100% on nasal cannula. HEENT: Moist mucous membrane. Crowded airway. NECK: Supple. No JVD. LUNGS: Has fair airflow with few rhonchi. HEART: S1 and S2. ABDOMEN: Soft, nontender. No organomegaly. EXTREMITIES: No edema. NEUROLOGIC: Awake and alert, follows simple command. MEDICATIONS: She is on Amaryl 1 mg twice a day, hydralazine 10 mg four times a day p.r.n., aspirin 81 mg daily, Claritin 10 mg daily, Coumadin 10 mg will be given, vitamin D 50,000 units weekly, albuterol/Atrovent nebulizer every 6 hours, Ferrex 150 mg daily, Fioricet one tablet every 4 hours p.r.n., Lipitor 20 mg daily, MiraLax 17 g daily, Neurontin 400 mg at bedtime, Norvasc 10 mg daily, Protonix 40 mg daily, Singulair 10 mg daily, Tenormin 100 mg daily, Ultram 50 mg daily, Zofran p.r.n. basis. LABORATORY DATA: Shows hemoglobin 9.4, hematocrit 30.5, WBC 11, platelet count is 194. Sodium 142, potassium 3.5, chloride 100, bicarbonate 30, BUN 54, creatinine 3.6, glucose 196, phosphorus 4, magnesium 1.5. IMPRESSION AND PLAN: Acute renal failure, on dialysis; atrial fibrillation; anemia; coronary artery disease; chronic obstructive lung disease; obstructive sleep apnea syndrome; history of deep venous thrombosis; recurrent pulmonary embolism. Pulmonary point of view, she is doing well. Continue to encourage bilevel positive airway pressure use. Bronchodilator. Fall precaution. Gastric prophylaxis. Anticoagulation. Nephrology followup. Thank you and we will follow up with you. Layla Brooks MD [facility] # [phone]
[2017-06-30] MEDS: Pantoprazole 20 mg EC Tab PO SCH (05:34)
[2017-06-30] MEDS: Insulin Reg-MEDIUM-Coverage SC SCH ×2 (06:31→12:16)
[2017-06-30 07:06] LABS: HEMOGLOBIN 9.3 g/dL (12.0-16.0); MEAN CELL VOLUME 84.6 fl (80.0-105.0); MEAN CORPUSCULAR HEMOGLOBIN 26.5 pg (25.0-35.0); MEAN CORPUSCULAR HGB CONC 31.3 g/dl (31.0-37.0); MEAN PLATELET VOLUME 11.7 fl (7.0-11.0); RBC 3.51 10^6/uL (3.5-6.1); RED CELL DISTRIBUTION WIDTH 16.7 % (11.5-14.5); WHITE BLOOD COUNT 10.1 10^3/ul (4.5-11.0)
[2017-06-30 07:23] LABS: ALBUMIN 3.2 g/dL (3.0-4.8); CALCIUM 9.2 mg/dL (8.4-10.5)
[2017-06-30 07:29] LABS: INR 1.72 (0.93-1.08)
--- NOTE | 2017-06-30 08:37 | PN ---
DATE: 06/29/2017 SUBJECTIVE: The patient was seen and examined at the bedside on 06/29/2017. No nausea, vomiting or diarrhea. No hematuria. No hematochezia. No swelling of the leg. Chest, skin rash is getting better. No bowel movement for 3 days. Patient took MiraLax and she was feeling movements in the stomach. No fever. No chills. No headache. No dizziness. REVIEW OF SYSTEMS: A 10-point review of systems was negative except above. PHYSICAL EXAMINATION: VITAL SIGNS: Temperature 97.4, pulse 70, respiratory rate 18, blood pressure 145/88, pulse oximetry 100. HEENT: Head, normocephalic and atraumatic. Eyes, PERRLA. Extraocular muscles intact. Conjunctivae clear. Nose patent. Mucous membranes are moist. NECK: Supple. No carotid bruits. No JVD or thyromegaly. CHEST: Bilaterally symmetrical. HEART: S1, S2 positive. LUNGS: Clear to auscultation. ABDOMEN: Soft. Bowel sounds present. No organomegaly. EXTREMITIES: No edema. No cyanosis. NEUROLOGIC: Patient is awake, alert. Moving all four extremities. No focal deficits. MEDICATIONS: Acetaminophen, albuterol, aspirin, atenolol, atorvastatin, vitamin D, gabapentin, Amaryl, hydralazine, insulin, Claritin, magnesium oxide, Elocon, Singulair, Zofran, Protonix, MiraLax, Ferrex, Ultram and Coumadin. LABORATORY DATA: White blood cells 11, hemoglobin 9.4, hematocrit 38.5, platelets 194. Creatinine 3.6. ASSESSMENT AND PLAN: Ms. Sara Emanuel is a 66-year-old lady with [id number] renal insufficiency , got MiraLax; anemia, status post blood transfusion, positive guaiac, morbid obesity, history of deep vein thrombosis and pulmonary embolism. We are monitoring hemoglobin and hematocrit for overt gastrointestinal bleeding, MiraLax given. Diet as tolerated, Protonix. Patient is getting Coumadin. Aspirin will be continued. Patient will get iron supplement. According to GI, patient will get benefits from GI workup , will do blood test for electively as outpatient, unless otherwise indicated. Appreciated GI input. Seen by projects manager Dr. Jimenez also and Cardiology, Dr. Liang. and Dr. Jimenez, waiting for PermCath. Monitoring fingerstick, euglycemic. Physical therapy, outpatient followup. Currently, her angiotensin receptor lakhwinder is on hold. Ideally, she should be back on it, but we will hold off until her creatinine reverts to baseline. Patient has obstructive sleep apnea syndrome also, electrolyte imbalance and hypercoagulable state, non-insulin dependant diabetes mellitus. INR is 1.55. We will give another dose of 10 mg Coumadin Tracy Mitchell MD MTDD
[2017-06-30] MEDS: Apap-Butalbital-Caffeine 325-50-40mg Tab PO PRN (09:53)
[2017-06-30] MEDS: Iron Complex Polysacch 150mg Cap PO SCH (10:00)
[2017-06-30] MEDS ORDERED: POLYETHYLENE GLYCOL 3350 17 GM/Dose PACKET PO SCH (10:00)
[2017-06-30] MEDS: Mometasone 0.1% Cream(15 gm) TOP SCH (10:03)
[2017-06-30 10:09] VITALS: BP 157/97; PULSE 72
[2017-06-30 11:42] VITALS: TEMP 98.5; O2SAT 94
--- NOTE | 2017-06-30 12:10 | CP.PCM.DIS ---
<ElizabethTasia Gradyriz - Last Filed: 06/30/17 12:05> Provider - Provider Date of Admission: 06/22/17 18:49 Attending physician: Tracy Mitchell MD Primary care physician: Tracy Mitchell MD Consults: Hemo - Dr. Zayas Nephro - Dr. Jimenez Pulmo - Dr. Brooks Cardio - Dr. Liang GI - Dr. Rivera Neuro - Dr. Van IR - Dr. Maikol Soares Time Spent in preparation of Discharge (in minutes): 40 Diagnosis - Discharge Diagnosis (1) Chronic renal insufficiency Status: Acute (2) S/P dialysis catheter insertion Status: Acute (3) Constipation Status: Acute (4) Anemia Status: Acute (5) Guaiac positive stools Status: Acute (6) Morbid obesity Status: Acute (7) Personal history of DVT (deep vein thrombosis) Status: Acute (8) Hypercoagulable state Status: Acute (9) Iron deficiency Status: Acute (10) Expressive aphasia Status: Acute (11) Acute renal insufficiency Status: Acute Hospital Course - Lab Results Lab Results: Micro Results 06/24/17 12:45 Blood-During Dialysis Blood Culture - Final NO GROWTH AFTER 5 DAYS 06/24/17 13:30 Blood-During Dialysis Blood Culture - Final NO GROWTH AFTER 5 DAYS 06/24/17 13:30 Blood-During Dialysis Gram Stain - Final TEST NOT PERFORMED 06/27/17 06:23 Other: Please Indicate Gram Stain - Final 06/27/17 06:23 Other: Please Indicate Wound Culture - Preliminary No growth. 06/27/17 13:50 Urine,Clean Catch Urine Culture - Final No Growth (<1,000 CFU/ML) 06/25/17 19:30 Urine,Munoz Urine Culture - Final No Growth (<1,000 CFU/ML) Most Recent Lab Values WBC 10.1 10^3/ul (4.5-11.0) 06/30/17 06:30 RBC 3.51 10^6/uL (3.5-6.1) 06/30/17 06:30 Hgb 9.3 g/dL (12.0-16.0) L 06/30/17 06:30 Hct 29.7 % (36.0-48.0) L 06/30/17 06:30 MCV 84.6 fl (80.0-105.0) 06/30/17 06:30 MCH 26.5 pg (25.0-35.0) 06/30/17 06:30 MCHC 31.3 g/dl (31.0-37.0) 06/30/17 06:30 RDW 16.7 % (11.5-14.5) H 06/30/17 06:30 Plt Count 200 10^3/uL (120.0-450.0) 06/30/17 06:30 MPV 11.7 fl (7.0-11.0) H 06/30/17 06:30 Gran % 70.3 % (50.0-68.0) H 06/26/17 06:30 Lymph % (Auto) 20.9 % (22.0-35.0) L 06/26/17 06:30 Glenn % (Auto) 5.9 % (1.0-6.0) 06/26/17 06:30 Eos % (Auto) 2.6 % (1.5-5.0) 06/26/17 06:30 Baso % (Auto) 0.3 % (0.0-3.0) 06/26/17 06:30 Gran # 8.89 (1.4-6.5) H 06/26/17 06:30 Lymph # (Auto) 2.7 (1.2-3.4) 06/26/17 06:30 Glenn # (Auto) 0.8 (0.1-0.6) H 06/26/17 06:30 Eos # (Auto) 0.3 (0.0-0.7) 06/26/17 06:30 Baso # (Auto) 0.04 K/mm3 (0.0-2.0) 06/26/17 06:30 PT 20.0 SECONDS (9.4-12.5) H 06/30/17 06:30 INR 1.72 (0.93-1.08) H 06/30/17 06:30 Sodium 139 mmol/L (132-148) 06/30/17 06:30 Potassium 3.3 mmol/L (3.6-5.0) L 06/30/17 06:30 Chloride 100 mmol/L (98-107) 06/30/17 06:30 Carbon Dioxide 29 mmol/L (21-33) 06/30/17 06:30 Anion Gap 12 (10-20) 06/30/17 06:30 BUN 52 mg/dL (7-21) H 06/30/17 06:30 Creatinine 3.3 mg/dl (0.7-1.2) H 06/30/17 06:30 Est GFR ( Amer) 17 06/30/17 06:30 Est GFR (Non-Af Amer) 14 06/30/17 06:30 POC Glucose (mg/dL) 187 mg/dL (65-110) H 06/30/17 11:16 Random Glucose 198 mg/dL (70-110) H 06/30/17 06:30 Calcium 9.2 mg/dL (8.4-10.5) 06/30/17 06:30 Phosphorus 4.0 mg/dL (2.5-4.5) 06/29/17 14:17 Magnesium 1.5 mg/dL (1.7-2.2) L 06/29/17 14:17 Total Bilirubin 0.3 mg/dL (0.2-1.3) 06/30/17 06:30 AST 47 U/L (14-36) H D 06/30/17 06:30 ALT 29 U/L (7-56) 06/30/17 06:30 Alkaline Phosphatase 55 U/L (38-126) 06/30/17 06:30 Total Protein 6.5 g/dL (5.8-8.3) 06/30/17 06:30 Albumin 3.2 g/dL (3.0-4.8) 06/30/17 06:30 Globulin 3.3 gm/dL 06/30/17 06:30 Albumin/Globulin Ratio 1.0 (1.1-1.8) L 06/30/17 06:30 Procalcitonin 0.22 NG/ML (0.19-0.49) 06/26/17 06:30 TSH 3rd Generation 1.37 mIU/mL (0.46-4.68) 06/26/17 06:30 Urine Color Yellow (YELLOW) 06/25/17 19:30 Urine Appearance Clear (CLEAR) 06/25/17 19:30 Urine pH 6.5 (4.7-8.0) 06/25/17 19:30 Ur Specific [place] 1.015 (1.005-1.035) 06/25/17 19:30 Urine Protein 100 mg/dL (<30 mg/dL) H 06/25/17 19:30 Urine Glucose (UA) Negative mg/dL (NEGATIVE) 06/25/17 19:30 Urine Ketones Negative mg/dL (NEGATIVE) 06/25/17 19:30 Urine Blood Small (NEGATIVE) H 06/25/17 19:30 Urine Nitrate Negative (NEGATIVE) 06/25/17 19:30 Urine Bilirubin Negative (NEGATIVE) 06/25/17 19:30 Urine Urobilinogen 0.2 E.U./dL (<1 E.U./dL) 06/25/17 19:30 Ur Leukocyte Esterase Moderate Roman/uL (NEGATIVE) H 06/25/17 19:30 Urine RBC 10 - 15 /hpf (0-2) 06/25/17 19:30 Urine WBC 20 - 25 /hpf (0-6) 06/25/17 19:30 Ur Epithelial Cells 4 - 5 /hpf (0-5) 06/25/17 19:30 Urine Bacteria Many (NEG) 06/25/17 19:30 Urine Collection Time 24 HOURS 06/29/17 06:46 Urine Total Volume 3100 mL (800-1400) H 06/29/17 06:46 Creatinine Clearance 25.0 ml/min (80-120) L 06/29/17 06:46 Blood Type A POSITIVE 06/24/17 07:00 Antibody Screen Negative 06/24/17 07:00 Crossmatch See Detail 06/24/17 07:00 BBK History Checked Patient has bt 06/24/17 07:00 - Hospital Course Hospital Course: 66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 CPAP use, DM II, morbid obesity, frequent falls, GERD, R knee surgery. On 06/16, pt was admitted for acute renal insufficiency, respirtory distress, headache, weakness, and L swelling. Pt Anemia s/p 1 unit RBC. 06/20/17 R IJ dialysis catheter inserted. Keloids have formed on R neck per Dr. Soares. Pt is now going to Hemodialysis as needed (scheduled M-W-). Pt transferred to TCU for continuity of care and PT/ OT. O2 via nasal cannula provided. Daily Coumadin. s/p IVF hydration, s/p IV iron, & s/p aranesp 1 unit of PRBC on 06/21. Aranesp 100 mg SQ. Blood culture: NEGATIVE. Bipap qHS ordered. Pt is now cleared for discharge home and may f/u in our office. Reviewed: CXR = WNL CT head = WNL Renal US = WNL CT abd/pelvis = WNL ECG = BORDERLINE, NSR, low voltage QRS ECHO = EF 55-60%, mild concentric LVH, mild-mod tricuspid regurg, mild pulmonary htn - Date & Time of H&P Date of H&P: 06/30/17 Time of H&P: 10:00 Discharge Exam - Head Exam Head Exam: ATRAUMATIC, NORMAL INSPECTION, NORMOCEPHALIC - Eye Exam Eye Exam: EOMI, Normal appearance, PERRL Pupil Exam: NORMAL ACCOMODATION, PERRL - ENT Exam ENT Exam: Normal Exam - Neck Exam Neck exam: Normal Inspection - Respiratory Exam Respiratory Exam: Clear to PA & Lateral, NORMAL BREATHING PATTERN, UNREMARKABLE - Cardiovascular Exam Cardiovascular Exam: REGULAR RHYTHM, +S1, +S2 Additional comments: R IJ permacatheter - GI/Abdominal Exam GI & Abdominal Exam: Normal Bowel Sounds - Extremities Exam Extremities exam: normal inspection - Back Exam Back exam: NORMAL INSPECTION - Neurological Exam Neurological exam: Alert, CN II-XII Intact, Normal Gait, Oriented x3, Reflexes Normal - Psychiatric Exam Psychiatric exam: Normal Affect, Normal Mood - Skin Skin Exam: Dry, Intact, Normal Color, Warm Discharge Plan - Follow Up Plan Condition: GOOD Disposition: HOME/ ROUTINE Instructions: Coronary Heart Disease, Atrial Fibrillation (DC), Chronic Kidney Disease, Diabetes Type 2 (DC), Going Home on Blood Thinners , Constipation (DC) , Renal Failure Diet (DC) Additional Instructions: Please take medication as instructed, follow up with Dr. tyler, Dr. Zayas and Dr. Jimenez after discharge. If symptoms worsen please call primary or go to the nearest emergency room. Patient is to return to hospital on 07/04/17 for removal of U-Dall at 12:[address] Maikol Soares. Only take 5mg of Coumadin 06/30/[address] Zayas and hold Coumadin until 07/04/17Monday. Please go to Dr. Zayas's office on Monday after procedure to get a dose of Lovenox. Calll Dr. Tyler's office for an appointment next week Referrals: Tracy Mitchell MD [Primary Care Provider] - Cheryl Jimenez MD [Staff Provider] - Darlene Zayas MD [Staff Provider] - Maikol Soares MD [Staff Provider] - <Tracy Mitchell - Last Filed: 06/30/17 21:18> Provider - Provider Date of Admission: 06/22/17 18:49 Attending physician: Tracy Mitchell MD Primary care physician: Tracy Mitchell MD Hospital Course - Lab Results Lab Results: Micro Results 06/27/17 06:23 Other: Please Indicate Gram Stain - Final 06/27/17 06:23 Other: Please Indicate Wound Culture - Preliminary Gram Positive Cocci 06/24/17 12:45 Blood-During Dialysis Blood Culture - Final NO GROWTH AFTER 5 DAYS 06/24/17 13:30 Blood-During Dialysis Blood Culture - Final NO GROWTH AFTER 5 DAYS 06/24/17 13:30 Blood-During Dialysis Gram Stain - Final TEST NOT PERFORMED 06/27/17 13:50 Urine,Clean Catch Urine Culture - Final No Growth (<1,000 CFU/ML) 06/25/17 19:30 Urine,Munoz Urine Culture - Final No Growth (<1,000 CFU/ML) Most Recent Lab Values WBC 10.1 10^3/ul (4.5-11.0) 06/30/17 06:30 RBC 3.51 10^6/uL (3.5-6.1) 06/30/17 06:30 Hgb 9.3 g/dL (12.0-16.0) L 06/30/17 06:30 Hct 29.7 % (36.0-48.0) L 06/30/17 06:30 MCV 84.6 fl (80.0-105.0) 06/30/17 06:30 MCH 26.5 pg (25.0-35.0) 06/30/17 06:30 MCHC 31.3 g/dl (31.0-37.0) 06/30/17 06:30 RDW 16.7 % (11.5-14.5) H 06/30/17 06:30 Plt Count 200 10^3/uL (120.0-450.0) 06/30/17 06:30 MPV 11.7 fl (7.0-11.0) H 06/30/17 06:30 Gran % 70.3 % (50.0-68.0) H 06/26/17 06:30 Lymph % (Auto) 20.9 % (22.0-35.0) L 06/26/17 06:30 Glenn % (Auto) 5.9 % (1.0-6.0) 06/26/17 06:30 Eos % (Auto) 2.6 % (1.5-5.0) 06/26/17 06:30 Baso % (Auto) 0.3 % (0.0-3.0) 06/26/17 06:30 Gran # 8.89 (1.4-6.5) H 06/26/17 06:30 Lymph # (Auto) 2.7 (1.2-3.4) 06/26/17 06:30 Glenn # (Auto) 0.8 (0.1-0.6) H 06/26/17 06:30 Eos # (Auto) 0.3 (0.0-0.7) 06/26/17 06:30 Baso # (Auto) 0.04 K/mm3 (0.0-2.0) 06/26/17 06:30 PT 20.0 SECONDS (9.4-12.5) H 06/30/17 06:30 INR 1.72 (0.93-1.08) H 06/30/17 06:30 Sodium 139 mmol/L (132-148) 06/30/17 06:30 Potassium 3.3 mmol/L (3.6-5.0) L 06/30/17 06:30 Chloride 100 mmol/L (98-107) 06/30/17 06:30 Carbon Dioxide 29 mmol/L (21-33) 06/30/17 06:30 Anion Gap 12 (10-20) 06/30/17 06:30 BUN 52 mg/dL (7-21) H 06/30/17 06:30 Creatinine 3.3 mg/dl (0.7-1.2) H 06/30/17 06:30 Est GFR ( Amer) 17 06/30/17 06:30 Est GFR (Non-Af Amer) 14 06/30/17 06:30 POC Glucose (mg/dL) 187 mg/dL (65-110) H 06/30/17 11:16 Random Glucose 198 mg/dL (70-110) H 06/30/17 06:30 Calcium 9.2 mg/dL (8.4-10.5) 06/30/17 06:30 Phosphorus 4.0 mg/dL (2.5-4.5) 06/29/17 14:17 Magnesium 1.5 mg/dL (1.7-2.2) L 06/29/17 14:17 Total Bilirubin 0.3 mg/dL (0.2-1.3) 06/30/17 06:30 AST 47 U/L (14-36) H D 06/30/17 06:30 ALT 29 U/L (7-56) 06/30/17 06:30 Alkaline Phosphatase 55 U/L (38-126) 06/30/17 06:30 Total Protein 6.5 g/dL (5.8-8.3) 06/30/17 06:30 Albumin 3.2 g/dL (3.0-4.8) 06/30/17 06:30 Globulin 3.3 gm/dL 06/30/17 06:30 Albumin/Globulin Ratio 1.0 (1.1-1.8) L 06/30/17 06:30 Procalcitonin 0.22 NG/ML (0.19-0.49) 06/26/17 06:30 TSH 3rd Generation 1.37 mIU/mL (0.46-4.68) 06/26/17 06:30 Urine Color Yellow (YELLOW) 06/25/17 19:30 Urine Appearance Clear (CLEAR) 06/25/17 19:30 Urine pH 6.5 (4.7-8.0) 06/25/17 19:30 Ur Specific [place] 1.015 (1.005-1.035) 06/25/17 19:30 Urine Protein 100 mg/dL (<30 mg/dL) H 06/25/17 19:30 Urine Glucose (UA) Negative mg/dL (NEGATIVE) 06/25/17 19:30 Urine Ketones Negative mg/dL (NEGATIVE) 06/25/17 19:30 Urine Blood Small (NEGATIVE) H 06/25/17 19:30 Urine Nitrate Negative (NEGATIVE) 06/25/17 19:30 Urine Bilirubin Negative (NEGATIVE) 06/25/17 19:30 Urine Urobilinogen 0.2 E.U./dL (<1 E.U./dL) 06/25/17 19:30 Ur Leukocyte Esterase Moderate Roman/uL (NEGATIVE) H 06/25/17 19:30 Urine RBC 10 - 15 /hpf (0-2) 06/25/17 19:30 Urine WBC 20 - 25 /hpf (0-6) 06/25/17 19:30 Ur Epithelial Cells 4 - 5 /hpf (0-5) 06/25/17 19:30 Urine Bacteria Many (NEG) 06/25/17 19:30 Urine Collection Time 24 HOURS 06/29/17 06:46 Urine Total Volume 3100 mL (800-1400) H 06/29/17 06:46 Creatinine Clearance 25.0 ml/min (80-120) L 06/29/17 06:46 Blood Type A POSITIVE 06/24/17 07:00 Antibody Screen Negative 06/24/17 07:00 Crossmatch See Detail 06/24/17 07:00 BBK History Checked Patient has bt 06/24/17 07:00 - Hospital Course Hospital Course: pt is seen and examined at bed side . agreed all above , chart , meds and labs noted , d/d with n/p dc home , meds pres. given ,
[2017-06-30] MEDS ORDERED: Potassium Chloride 10 mEq ER Tab PO STA (12:55)
--- NOTE | 2017-06-30 17:03 | PN ---
DATE: 06/30/2017 LOCATION: The patient is in room 320, bed 1. REASON FOR CONSULTATION AND FOLLOWUP: Shortness of breath, swelling of legs, acute on chronic kidney failure. SUBJECTIVE: The patient was on dialysis, but now kidney function is stabilized, so dialysis has been put on hold. The patient denies any chest pain, shortness of breath or palpitation. The patient is lying flat in bed without any cardiac symptoms. PHYSICAL EXAMINATION VITAL SIGNS: Blood pressure 157/97, respirations 18, pulse 72, temperature 98.5. HEENT: Head is normocephalic. Eyes: Pupils are normal. Conjunctivae are slightly pale. NECK: JVP low. Carotids equal. THORAX: AP diameter is normal. LUNGS: Clear. CARDIOVASCULAR: S1, S2. ABDOMEN: Protuberant. No organomegaly. Bowel sounds normal. EXTREMITIES: No clubbing. No cyanosis. LABORATORY DATA: WBC 10.1, hemoglobin 9.3, hematocrit 29.7, platelet 200. Sodium 139, potassium 3.3, BUN 52, creatinine 3.3. Random sugar 187. Total protein 6.5, albumin 3.2. DIAGNOSES: Acute on chronic kidney disease with exacerbation of underlying renal insufficiency leading to renal failure, the patient needed dialysis earlier, but now BUN and creatinine are stabilizing, so dialysis has been on hold; morbid obesity; hypertension; hyperlipidemia; diabetes mellitus; hypokalemia; status post cardiac catheterization which showed nonobstructive coronary artery disease; deconditioning; history of thrombophlebitis; history of pulmonary embolism. Today, the PT is 20, INR 1.72. PLAN: The patient's dialysis is on hold because of stabilization of kidney function which showing improvement. We will give potassium 10 mEq today. The patient's Coumadin was changed to 10 mg, so she received yesterday 10 mg and received again today 10 mg, aspirin 81 daily, glimepiride 1 mg p.o. daily, hydralazine 10 mg p.o. q.i.d. p.r.n., iron-polysaccharide 150 daily, atorvastatin 20 daily, amlodipine 10 daily, atenolol 100 mg daily. We will repeat SMA-7 and PT/INR tomorrow. We will follow. Layla Liang MD [facility] # [id number]
--- NOTE | 2017-06-30 17:09 | PN ---
DATE: 06/30/2017 SUBJECTIVE: The patient is seen sitting in bed. She is awake. She is alert. She is comfortable. She denies any shortness of breath, chest pain. PHYSICAL EXAMINATION GENERAL: Obese elderly lady sitting in bed. VITAL SIGNS: Blood pressure 157/97, heart rate 72, respiratory rate 18, temperature 98.5. HEENT: Normocephalic, atraumatic. NECK: Supple, no JVD. LUNGS: Bilateral equal air entry, bilateral equal expansion, no rales. CARDIAC: S1 and S2, regular rate and rhythm, no murmur, no rub. ABDOMEN: Obese, distended, soft, nontender, bowel sounds present. EXTREMITIES: No lower extremity edema. LABORATORY DATA: WBC 10, hemoglobin 9.3, hematocrit 30, platelets 200. Sodium 139, potassium 3.3, chloride 100, CO2 of 29, BUN 52, creatinine 2.3, glucose 198, calcium 9.2, AST 47, ALT 29, albumin 3.2. MEDICATIONS: Amaryl 1 mg, Apresoline not needed, aspirin, Claritin, Coumadin 10 mg, Drisdol, DuoNeb, oral iron, Fioricet, insulin, Lipitor, MiraLax, Neurontin, amlodipine 10, Protonix, Singulair, Tenormin, Ultram, Zofran. ASSESSMENT AND PLAN: 1. Resolved acute kidney injury, underlying chronic kidney disease stage III. 2. Hypokalemia. 3. Resolved hyperphosphatemia. 4. Chronic anemia. 5. Grz-ejgagzu-cbtywsjju diabetes mellitus. 6. Hypertension. 7. Hypercoagulable state. PLAN: 1. Agree with potassium replacement orally. 2. Continue amlodipine for blood pressure control for the time being. 3. Will require close outpatient followup. 4. No objection to discharge. Cheryl Jimenez MD
--- NOTE | 2017-06-30 22:47 | PN ---
DATE: 06/30/2017 PULMONARY PROGRESS NOTE REFERRING PHYSICIAN: Dr. Mitchell. SUBJECTIVE: She is sitting at the side of the bed. Night was unremarkable. Tolerated BiPAP well. No headache. No rhinitis. No nausea. No vomiting. No diarrhea. No leg pain or leg swelling. Has a right chest dialysis catheter. OBJECTIVE: GENERAL: In no acute distress. VITAL SIGNS: Temperature is 98, heart rate 72, respiratory rate is 18, blood pressure is 157/97, pulse ox 94% on room air. HEENT: Moist mucous membrane. Crowded airway. NECK: Supple. No JVD. LUNGS: Had a fair airflow with few rhonchi. HEART: S1 and S2. ABDOMEN: Soft, nontender. No organomegaly. EXTREMITIES: No edema. NEUROLOGIC: Awake and alert, follows simple command. MEDICATIONS: Reviewed. No new changes in medication reported since yesterday. LABORATORY DATA: Reviewed shows hemoglobin 9.3, hematocrit 29.7, WBC 10.1, platelet count is 200. INR 1.72. Sodium 139, potassium 3.9, chloride 100, bicarbonate 29, BUN 52, creatinine 3.3, glucose 198, calcium is 9.2. AST 47, ALT 29, alk phos is 55, albumin is 3.2. IMPRESSION AND PLAN: Acute renal failure requiring few dialysis, presently off dialysis; atrial fibrillation; anemia; coronary artery disease; chronic obstructive lung disease; obstructive sleep apnea syndrome; history of deep venous thrombosis; recurrent pulmonary embolism in the past. Pulmonary point of view, she is doing okay. Patient was noncompliant with the continuous positive airway pressure, last study was more than 2 to 3 years ago, may need to qualify again for the continuous positive airway pressure. Sleep apnea consequences discussed with the patient. She expressed understanding and will come back to the office to set up for sleep study. May benefit from sleep study. Continue bronchodilator. Patient is advised not to take [id number] as well as overseas teas and other food supplement especially in the setting of acute renal failure. Gastric prophylaxis. Continue anticoagulation. Patient is scheduled to come back next week to discontinue her dialysis catheter if everything goes okay. Thank you and we will follow. Layla Brooks MD
== END 2017-06-30 17:02 | disposition home or self-care (01) | DRG 683 ==
LOC: TRCU 18:49
PROVIDERS: ADMIT Internal Medicine; ATTEND Internal Medicine
PROC: F07Z9FZ Gait Training/Functional Ambulation Treatment using Assistive, Adaptive, Supportive or Protective Equipment (ICD-10-PCS; principal; 2017-06-23)
PROC: F08Z4FZ Home Management Treatment using Assistive, Adaptive, Supportive or Protective Equipment (ICD-10-PCS; 2017-06-23)
PROC: 3E0F7GC Introduction of Other Therapeutic Substance into Respiratory Tract, Via Natural or Artificial Opening (ICD-10-PCS; 2017-06-23)
PROC: 5A09457 Assistance with Respiratory Ventilation, 24-96 Consecutive Hours, Continuous Positive Airway Pressure (ICD-10-PCS; 2017-06-24)
PROC: 5A1D70Z Performance of Urinary Filtration, Intermittent, Less than 6 Hours Per Day (ICD-10-PCS; 2017-06-24)
DX: N17.9 Acute kidney failure, unspecified (principal); D68.59 Other primary thrombophilia; R47.01 Aphasia; Z68.42 Body mass index [BMI] 45.0-49.9, adult; N18.3 Chronic kidney disease, stage 3 (moderate); E66.01 Morbid (severe) obesity due to excess calories; I12.9 Hypertensive chronic kidney disease with stage 1 through stage 4 chronic kidney disease, or unspecified chronic kidney disease; I27.20 Pulmonary hypertension, unspecified; I48.91 Unspecified atrial fibrillation; I25.10 Atherosclerotic heart disease of native coronary artery without angina pectoris; E11.22 Type 2 diabetes mellitus with diabetic chronic kidney disease; E11.65 Type 2 diabetes mellitus with hyperglycemia; K21.9 Gastro-esophageal reflux disease without esophagitis; J44.9 Chronic obstructive pulmonary disease, unspecified; I08.1 Rheumatic disorders of both mitral and tricuspid valves; N25.81 Secondary hyperparathyroidism of renal origin; G47.33 Obstructive sleep apnea (adult) (pediatric); D63.1 Anemia in chronic kidney disease; K59.00 Constipation, unspecified; R29.6 Repeated falls; E78.00 Pure hypercholesterolemia, unspecified; E83.42 Hypomagnesemia; E87.6 Hypokalemia; E83.39 Other disorders of phosphorus metabolism; Z91.19 Patient's noncompliance with other medical treatment and regimen; Z86.718 Personal history of other venous thrombosis and embolism; Z86.711 Personal history of pulmonary embolism; Z79.01 Long term (current) use of anticoagulants

== ENCOUNTER 2017-07-01 00:19 | Emergency (ER) | payer MEDICARE, BC ==
[2017-07-01 00:38] VITALS: BMI 45.6
[2017-07-01 00:47] VITALS: RESP 18
--- NOTE | 2017-07-01 01:57 | ED PDOC ---
Arrival/HPI - General Historian: Patient - History of Present Illness Time/Duration: Prior to Arrival <Mendy Tyler - Last Filed: 07/01/17 01:53> <El Juan - Last Filed: 07/01/17 02:19> - General Chief Complaint: Medical Clearance - History of Present Illness Narrative History of Present Illness (Text): 07/01/17 01:53 66yr female, w/ history of CAD, HTN, Afib, DVT/PE, DM II, recent admission for acute renal failure requiring dialysis, presents complaining of bleeding at the site of a R chest wall tunneled catheter. Patient was discharged earlier this morning, and reports that she had similar bleeding yesterday, and dressing was changed. Patient denies easy bruising, nose bleed, bleeding gums, joint swelling. Patient denies any chest pain, shortness of breath, dizziness/lightheadedness. (Mendy Tyler) Past Medical History - Provider Review Nursing Documentation Reviewed: Yes - Travel History Have you recently traveled outside [place] w/in the past 3 mons?: No - Past History Past History: No Previous - Infectious Disease Hx of Infectious Diseases: None - Tetanus Immunization Tetanus Immunization: Up to Date, Unknown - Cardiac Hx Pacemaker: No - Pulmonary Hx Respiratory Disorders: Yes (pe 3 yrs ago can't remember which lung) Hx Asthma: Yes Hx Bronchitis: Yes Hx Pneumonia: Yes Hx Sleep Apnea: Yes Other/Comment: medicare took cpap back pt was not using it, pt now in process of getting another one as per dr shepherd, pt's nebulizer machine at home is broken - Neurological Hx Paralysis: No - HEENT Hx HEENT Disorder: No - Renal Hx Renal Failure: Yes - Endocrine/Metabolic Hx Diabetes Mellitus Type 2: Yes - Hematological/Oncological Hx Blood Transfusions: No - Integumentary Hx Dermatological Disorder: No - Musculoskeletal/Rheumatological Hx Musculoskeletal Disorders: Yes - Gastrointestinal Hx Gastrointestinal Disorders: No - Genitourinary/Gynecological Hx Reproductive Disorders: No - Psychiatric Hx Psychophysiologic Disorder: No Hx Substance Use: No - Surgical History Hx Cardiac Catheterization: Yes (07/2015) Hx Hysterectomy: Yes Other/Comment: RIGHT KNEE ARTHROSCOPIC SX 1998 - Anesthesia Hx Anesthesia Reactions: No Hx Malignant Hyperthermia: No - Suicidal Assessment Feels Threatened In Home Enviroment: No <Mendy Tyler - Last Filed: 07/01/17 01:53> Family/Social History - Physician Review Nursing Documentation Reviewed: Yes Family/Social History: Unknown Family HX Smoking Status: Unknown If Ever Smoked Hx Alcohol Use: No Hx Substance Use: No Hx Substance Use Treatment: No <JaysonClyderizwanroverto - Last Filed: 07/01/17 01:53> Allergies/Home Meds <JaysonClyderizwanroverto - Last Filed: 07/01/17 01:53> <El Juan - Last Filed: 07/01/17 02:19> Allergies/Adverse Reactions: Allergies No Known Allergies Allergy (Verified 07/01/17 00:38) Home Medications: Home Meds Medication Instructions Recorded Confirmed Warfarin [Coumadin] 9 mg PO DAILY 07/27/15 07/01/17 Review of Systems - Review of Systems Constitutional: Normal Eyes: Normal ENT: Normal Respiratory: Normal Cardiovascular: Normal Gastrointestinal: Normal Genitourinary Female: Normal Musculoskeletal: Normal Skin: Normal Neurological: Normal Endocrine: Normal Hemo/Lymphatic: Normal Psychiatric: Normal <JaysonClyderizwanroverto - Last Filed: 07/01/17 01:53> Physical Exam Vital Signs Reviewed: Yes Temperature: Afebrile Blood Pressure: Normal Pulse: Regular Respiratory Rate: Normal Appearance: Positive for: Well-Appearing, Non-Toxic, Comfortable Pain Distress: None Mental Status: Positive for: Alert and Oriented X 3 - Systems Exam Head: Present: Atraumatic, Normocephalic Pupils: Present: PERRL Extroacular Muscles: Present: EOMI Conjunctiva: Present: Normal Mouth: Present: Moist Mucous Membranes Neck: Present: Normal Range of Motion Respiratory/Chest: Present: Clear to Auscultation, Good Air Exchange. No: Respiratory Distress, Accessory Muscle Use Cardiovascular: Present: Regular Rate and Rhythm, Normal S1, S2. No: Murmurs Abdomen: Present: Normal Bowel Sounds. No: Tenderness, Distention Upper Extremity: Present: Normal Inspection. No: Cyanosis, Edema Lower Extremity: Present: Normal Inspection. No: Edema, CALF TENDERNESS Neurological: Present: GCS=15, CN II-XII Intact Skin: Present: Warm, Dry, Other (Right chest wall tunneled catheter in place, dressing with scant red blood. No purulence or erythema) Psychiatric: Present: Alert, Oriented x 3, Normal Insight, Normal Concentration <Mendy Tyler - Last Filed: 07/01/17 01:53> Vital Signs Temp Pulse Resp BP Pulse Ox 07/01/17 02:07 98.2 F 80 18 148/58 L 98 07/01/17 00:46 98.4 F 84 18 150/83 100 Medical Decision Making <Mendy Tyler - Last Filed: 07/01/17 01:53> <El Juan - Last Filed: 07/01/17 02:19> ED Course and Treatment: 07/01/17 01:59 Impression: Bleeding port site Differential Diagnosis included but are not limited to: bleeding diathesis, uremic platelet dysfunction, coagulopathy Plan: -- Reviewed labs from recent admission; INR 1.7 today, patient on coumadin, held for planned removal of tunneled catheter in 4 days. Mild uremia, likely causing some platelet dysfunction -- Changed dressing at bedside; no active bleeding noted -- Discharge to home Instructed patient to return to ER for any new or worsening concerns (Mendy Tyler) Impression: Pt seen and evaluated with medical charge entry specialist. Aware and agree with HPI, clinical findings, plan, and management. Pt, whose past medical history includes CAD, hypertension, atrial fibrillatino, DVT/PE, diabetes, presented for bleeding at right chest wall catheter site tonight. Plan: -- Reassess and disposition (El Juan) - PA / SENIOR ENGINEERING SPECIALIST / Resident Statement / has reviewed & agrees with the documentation as recorded. / has examined the patient and agrees with the treatment plan. <El Juan - Last Filed: 07/01/17 02:19> Disposition/Present on Arrival - Present on Arrival Any Indicators Present on Arrival: Yes History of DVT/PE: Yes History of Uncontrolled Diabetes: No Urinary Catheter: No History of Decub. Ulcer: No History Surgical Site Infection Following: None - Disposition Have Diagnosis and Disposition been Completed?: Yes Disposition Time: 02:04 Patient Plan: Discharge <Mendy Tyler - Last Filed: 07/01/17 01:53> <El Juan - Last Filed: 07/01/17 02:19> - Disposition Diagnosis: Bleeding due to dialysis catheter placement Disposition: HOME/ ROUTINE Condition: FAIR Additional Instructions: Follow up with your primary care doctor as scheduled Forms: [employer] ([place]) [employer] (Mal[place]ian)
[2017-07-01 02:08] VITALS: BP 148/58; PULSE 80; TEMP 98.2; O2SAT 98
== END 2017-07-01 02:08 | disposition home or self-care (01) ==
LOC: ED 00:19
DX: T82.838A Hemorrhage due to vascular prosthetic devices, implants and grafts, initial encounter (principal); E11.9 Type 2 diabetes mellitus without complications; I10 Essential (primary) hypertension; I25.10 Atherosclerotic heart disease of native coronary artery without angina pectoris; I48.91 Unspecified atrial fibrillation

== ENCOUNTER 2017-07-04 11:54 | Day surgery (SDC) | payer MEDICARE, OTHER ==
[2017-07-04 12:35] LABS: BASO # 0.01 K/mm3 (0.0-2.0); BASO % 0.1 % (0.0-3.0); EOS # 0.2 (0.0-0.7); EOS % 1.4 % (1.5-5.0); GRAN # 9.12 (1.4-6.5); GRAN % 75.5 % (50.0-68.0); LYMPH # 2.2 (1.2-3.4); MEAN CELL VOLUME 84.7 fl (80.0-105.0); MEAN CORPUSCULAR HEMOGLOBIN 26.6 pg (25.0-35.0); MEAN CORPUSCULAR HGB CONC 31.4 g/dl (31.0-37.0); MEAN PLATELET VOLUME 11.6 fl (7.0-11.0); MONO # 0.6 (0.1-0.6); RBC 4.13 10^6/uL (3.5-6.1); RED CELL DISTRIBUTION WIDTH 16.1 % (11.5-14.5); WHITE BLOOD COUNT 12.1 10^3/ul (4.5-11.0)
[2017-07-04 12:42] LABS: CALCIUM 9.3 mg/dL (8.4-10.5)
[2017-07-04 12:52] LABS: INR 1.19 (0.93-1.08); PARTIAL THROMBOPLASTIN TIME 27.1 Seconds (25.1-36.5); PROTHROMBIN TIME 13.7 SECONDS (9.4-12.5)
[2017-07-04] MEDS ORDERED: Lidocaine 2% Inj (20ml) ONE (13:20)
[2017-07-04] MEDS ORDERED: Midazolam 2 MG/2 ML VIAL ONE ×2 (13:21→14:23)
[2017-07-04] MEDS ORDERED: Oxycodone/Acetaminophen 5/325 mg Tab PO PRN (14:42)
[2017-07-04 15:48] VITALS: RESP 18; TEMP 98.4
[2017-07-04] MEDS ORDERED: Enoxaparin 100 mg Syringe SC ONE (16:32)
[2017-07-04 17:04] VITALS: BP 142/86; PULSE 89; O2SAT 94
--- NOTE | 2017-07-04 18:09 | VASCULAR ---
PROCEDURE: Removal of tunneled right IJ dialysis catheter. CLINICAL HISTORY: Acute renal failure. Short-term dialysis. Remove tunneled catheter. PHYSICIAN(S): Maikol Soares M.D. TECHNIQUE: The relative risks and indications of the procedure were explained to the patient and consent obtained. The patient was placed supine on the arteriogram table and the tunneled right IJ dialysis catheter prepped and draped in the usual sterile fashion. Conscious sedation and monitoring were provided throughout the procedure by nurse. 1% Xylocaine was used to anesthetize skin and soft tissues along the tunnel. The tunnel and cuff were bluntly dissected. The catheter was removed and pressure applied at the venous insertion site. A single interrupted suture was placed at the exit site. The patient tolerated the procedure well. IMPRESSION: 1. Removal of the patient's tunneled right IJ dialysis catheter.
== END 2017-07-04 17:00 | disposition home or self-care (01) ==
LOC: SDSVAS 11:54
PROVIDERS: ATTEND Radiology Vascular & Interventional Radiology
DX: Z49.01 Encounter for fitting and adjustment of extracorporeal dialysis catheter (principal); N17.9 Acute kidney failure, unspecified; I25.119 Atherosclerotic heart disease of native coronary artery with unspecified angina pectoris; I12.9 Hypertensive chronic kidney disease with stage 1 through stage 4 chronic kidney disease, or unspecified chronic kidney disease; E11.22 Type 2 diabetes mellitus with diabetic chronic kidney disease; E11.51 Type 2 diabetes mellitus with diabetic peripheral angiopathy without gangrene; N18.9 Chronic kidney disease, unspecified; Z87.891 Personal history of nicotine dependence; E66.9 Obesity, unspecified; I48.91 Unspecified atrial fibrillation; G47.30 Sleep apnea, unspecified; E78.5 Hyperlipidemia, unspecified; Z86.718 Personal history of other venous thrombosis and embolism; Z86.711 Personal history of pulmonary embolism
CPT/HCPCS: 36415; 36589; 80048; 85025; 85610; 85730; 99152; J1644; J1650; J2250; J2405; J3010; J7030

== ENCOUNTER 2017-09-23 17:41 | Emergency (ER) | payer MEDICARE, OTHER ==
[2017-09-23 17:48] VITALS: BMI 41.5
[2017-09-23 18:01] VITALS: RESP 18; TEMP 98.2
--- NOTE | 2017-09-23 18:19 | ED PDOC ---
Arrival/HPI - General Chief Complaint: Lower Extremity Problem/Injury Time Seen by Provider: 09/23/17 17:46 Historian: Patient - History of Present Illness Narrative History of Present Illness (Text): 09/23/17 18:18 Pt is a 66 yr old female with PMH of DMII, Gout, LBP, and PE who presents with bilateral LE edema and dysuria x 1 day. Pt states that she had edematous legs in the past and was treated with 3 dialysis txs. Was told in may of this year that she had renal failure and was admitted for 4 days. Pt states that she has numbness and tingling of the legs and decreased sensation on the top of the left foot. Denies chest pain, calf pain, shorteners of breath, fever, chills, leg pain, general weakness, change in bowel, recent travel or trauma. Time/Duration: Prior to Arrival Symptom Onset: Sudden Symptom Course: Unchanged Quality: Pressure Severity Level: 6 Activities at Onset: Rest Context: Sitting, Standing, Walking, Exertion Past Medical History - Provider Review Nursing Documentation Reviewed: Yes - Travel History Have you recently traveled outside [place] w/in the past 3 mons?: No - Past History Past History: No Previous - Infectious Disease Hx of Infectious Diseases: None - Tetanus Immunization Tetanus Immunization: Up to Date, Unknown - Cardiac Hx Pacemaker: No - Pulmonary Hx Respiratory Disorders: Yes (pe 3 yrs ago can't remember which lung) Hx Asthma: Yes Hx Bronchitis: Yes Hx Pneumonia: Yes Hx Sleep Apnea: Yes Other/Comment: medicare took cpap back pt was not using it, pt now in process of getting another one as per dr shepherd, pt's nebulizer machine at home is broken - Neurological Hx Paralysis: No - HEENT Hx HEENT Disorder: No - Renal Hx Renal Failure: Yes - Endocrine/Metabolic Hx Diabetes Mellitus Type 2: Yes - Hematological/Oncological Hx Blood Transfusions: No Hx Blood Transfusion Reaction: No - Integumentary Hx Dermatological Disorder: No - Musculoskeletal/Rheumatological Hx Musculoskeletal Disorders: Yes - Gastrointestinal Hx Gastrointestinal Disorders: No - Genitourinary/Gynecological Hx Reproductive Disorders: No - Psychiatric Hx Emotional Abuse: No Hx Physical Abuse: No Hx Substance Use: No - Surgical History Hx Cardiac Catheterization: Yes (07/2015) Hx Hysterectomy: Yes Other/Comment: RIGHT KNEE ARTHROSCOPIC SX 1998 - Anesthesia Hx Anesthesia Reactions: No Hx Malignant Hyperthermia: No - Suicidal Assessment Feels Threatened In Home Enviroment: No Family/Social History - Physician Review Nursing Documentation Reviewed: Yes Family/Social History: Unknown Family HX Smoking Status: Unknown If Ever Smoked Hx Alcohol Use: No Hx Substance Use: No Hx Substance Use Treatment: No Allergies/Home Meds Allergies/Adverse Reactions: Allergies prednisone Adverse Reaction (Verified 09/23/17 17:49) HEADACHE Home Medications: Home Meds Medication Instructions Recorded Confirmed Warfarin [Coumadin] 9 mg PO DAILY 07/27/15 09/23/17 Liraglutide [Victoza 2-Adam] 1.9 mg SC DAILY 07/03/17 09/23/17 Aspirin 81 mg PO DAILY 07/04/17 09/23/17 Ultram 50 mg PO DAILY 07/04/17 09/23/17 Review of Systems - Review of Systems Constitutional: Normal, Weight Change (legs ) Eyes: Normal ENT: Normal Respiratory: Normal. absent: SOB Cardiovascular: Normal. absent: Chest Pain Gastrointestinal: Normal. absent: Abdominal Pain Genitourinary Female: Normal, Dysuria, Frequency, Urine Output Changes. absent : Hematuria, Vaginal Bleeding Musculoskeletal: Normal, Arthralgias, Back Pain Skin: Normal Neurological: Normal, Gait Changes (antalgic d/t leg edema). absent: Headache, Dizziness, Focal Weakness Endocrine: Normal. absent: Diaphoresis Hemo/Lymphatic: Normal Psychiatric: Normal Physical Exam Vital Signs Reviewed: Yes Vital Signs Temp Pulse Resp BP Pulse Ox 09/23/17 21:47 87 18 138/79 100 09/23/17 20:52 145/72 09/23/17 18:23 88 09/23/17 17:49 98.2 F 91 H 18 155/68 H 98 Temperature: Afebrile Blood Pressure: Hypertensive Pulse: Regular Respiratory Rate: Normal Appearance: Positive for: Well-Appearing, Non-Toxic, Comfortable Pain Distress: Mild Mental Status: Positive for: Alert and Oriented X 3 - Systems Exam Head: Present: Atraumatic, Normocephalic Pupils: Present: PERRL Extroacular Muscles: Present: EOMI Conjunctiva: Present: Normal Mouth: Present: Moist Mucous Membranes Neck: Present: Normal Range of Motion Respiratory/Chest: Present: Clear to Auscultation, Good Air Exchange. No: Respiratory Distress, Accessory Muscle Use Cardiovascular: Present: Regular Rate and Rhythm, Normal S1, S2. No: Murmurs Abdomen: Present: Normal Bowel Sounds. No: Tenderness, Distention, Peritoneal Signs Back: Present: Normal Inspection Upper Extremity: Present: Normal Inspection. No: Cyanosis, Edema Lower Extremity: Present: Normal Inspection, Edema (bilateral LE edema), NORMAL PULSES (pulses 1+ bilateral dorsalis pedis), Normal ROM, Swelling, Neurovascularly Intact (decreased senation over the left dorsal foot surface), Capillary Refill < 2 s. No: CALF TENDERNESS, Denise's Sign, Tenderness, Deformity, Temperature Abnormalties Neurological: Present: GCS=15, CN II-XII Intact, Speech Normal, Motor Func Grossly Intact, Normal Sensory Function (decreased senation over the left dorsal foot surface) Skin: Present: Warm, Dry, Normal Color. No: Rashes Psychiatric: Present: Alert, Oriented x 3, Normal Insight, Normal Concentration Medical Decision Making ED Course and Treatment: 09/23/17 18:42 Impression Pt is a 66 yr old female with PMH of DMII, Gout, LBP, and PE who presents with bilateral LE edema and dysuria x 1 day. Working Dx: CHF vs, diabetic neuropathy Plan labs, UA ekg CXR assess and dispo 09/23/17 18:51 Progress Note EKG: NSR, ST and T-wave abnormalities, rate is 79 CXR unremarkable for cariopulmonary dz BNP 287, Troponin Neg, BUN 50/Cr 1.7, Glu 154, K3.9 09/23/17 20:21 09/23/17 20:[address] Parker who is covering for Dr Mitchell; advised to give lasix every second day and supplement K will send home with Lasix Rx and K-dur 20 daily Keflex for symptomatic UTI with (+) Leuk esterase and WBC f/u with PMD office in 2 days Vss on d/c 09/23/17 20:34 - Lab Interpretations Lab Results: 09/23/17 18:30 09/23/17 19:07 Lab Results 09/23/17 20:45: Urine Color Yellow, Urine Appearance Cloudy, Urine pH 8.0, Ur Specific Stephenson 1.015, Urine Protein 100 H, Urine Glucose (UA) Negative, Urine Ketones Negative, Urine Blood Small H, Urine Nitrate Negative, Urine Bilirubin Negative, Urine Urobilinogen 0.2, Ur Leukocyte Esterase Large H, Urine RBC 1 - 3 , Urine WBC Tntc, Ur Epithelial Cells 1 - 3, Urine Bacteria Large 09/23/17 20:26: PT 24.9 H, INR 2.15 H, APTT 37.5 H 09/23/17 19:07: Sodium 141, Chloride 106, Potassium 3.9, Carbon Dioxide 25, Anion Gap 14, BUN 50 H, Creatinine 1.7 H, Est GFR ( Amer) 36, Est GFR ( Non-Af Amer) 30, Random Glucose 154 H, Calcium 8.7, Magnesium 1.4 L, Total Bilirubin 0.4, AST 21, ALT 17, Alkaline Phosphatase 72, Lactate Dehydrogenase 599, Total Creatine Kinase 179, Troponin I < 0.01 D, NT-Pro-B Natriuret Pep 287 , Total Protein 6.8, Albumin 3.6, Globulin 3.2, Albumin/Globulin Ratio 1.1 09/23/17 18:30: pO2 66 H, VBG pH 7.35, VBG pCO2 50.0, VBG HCO3 27.6, VBG Total CO2 29.1 H, VBG O2 Sat (Calc) 94.8 H, VBG Base Excess 1.2, VBG Potassium 4.2, Sodium 140.0, Chloride 108.0 H, Glucose 160 H, Lactate 1.4, FiO2 21.0, Venous Blood Potassium 4.2 09/23/17 18:30: WBC 10.3, RBC 3.81, Hgb 10.2 L, Hct 31.4 L, MCV 82.4, MCH 26.8, MCHC 32.5, RDW 17.3 H, Plt Count 300, MPV 12.2 H, Gran % 67.1, Lymph % (Auto) 24.9, [place] % (Auto) 4.9, Eos % (Auto) 2.8, Baso % (Auto) 0.3, Gran # 6.89 H, Lymph # (Auto) 2.6, [place] # (Auto) 0.5, Eos # (Auto) 0.3, Baso # (Auto) 0.03 - RAD Interpretation Radiology Orders: 09/23/17 18:14 CHEST PORTABLE [RAD] Stat Educational Institution Curator: ED Physician (No change from last image 06/2017) - EKG Interpretation Interpreted by ED Physician: Yes (NSR ) - Medication Orders Current Medication Orders: Discontinued Medications Cephalexin Monohydrate (Keflex) 500 mg PO STAT STA PRN Reason: Protocol Stop: 09/23/17 21:15 Last Admin: 09/23/17 21:38 Dose: 500 mg Furosemide (Lasix) 40 mg PO STAT STA Stop: 09/23/17 20:32 Last Admin: 09/23/17 20:52 Dose: 40 mg MAR Blood Pressure Document 09/23/17 20:52 AD (Rec: 09/23/17 20:52 AD [id number]) Blood Pressure Blood Pressure (100/60-150/90) 145/72 Potassium Chloride (K-Dur 20 Meq Er Tab) 20 meq PO STAT STA Stop: 09/23/17 20:38 Last Admin: 09/23/17 20:52 Dose: 20 meq Disposition/Present on Arrival - Present on Arrival Any Indicators Present on Arrival: Yes History of DVT/PE: Yes History of Uncontrolled Diabetes: No Urinary Catheter: No History of Decub. Ulcer: No History Surgical Site Infection Following: None - Disposition Have Diagnosis and Disposition been Completed?: Yes Diagnosis: UTI (urinary tract infection), Bilateral edema of lower extremity, Diabetic neuropathy associated with type 2 diabetes mellitus Disposition: HOME/ ROUTINE Disposition Time: 21:30 Patient Plan: Discharge Condition: STABLE Discharge Instructions (ExitCare): Urinary Tract Infections in Adults, Foot Care for Diabetics Additional Instructions: LM CAZARES, thank you for letting us take care of you today. Your provider was Dragan Son DO and KERVIN Medina and you were treated for LOWER EXTREMITY EDEMA AND A URINARY TRACT INFECTION. The emergency medical care you received today was directed at your acute symptoms. If you were prescribed any medication, please fill it and take as directed. It may take several days for your symptoms to resolve. Return to the Emergency Department if your symptoms worsen, do not improve, or if you have any other problems. PLEASE FOLLOW UP AT YOUR DOCTOR'S OFFICE IN 2 DAYS. TAKE LASIX EVERY OTHER DAY ALONG WITH POTASSIUM. Please contact your doctor or call one of the physicians/clinics you have been referred to that are listed on the Patient Visit Information form that is included in your discharge packet. Bring any paperwork you were given at discharge with you along with any medications you are taking to your follow up visit. Our treatment cannot replace ongoing medical care by a primary care provider outside of the emergency department. Thank you for allowing the [facility] team to be part of your care today. If you had an X-Ray or CT scan: A Radiologist will review the ED reading if any change in treatment is needed we will contact you. If you had a blood, urine, or wound culture: It will take several days for the results, if any change in treatment is needed we will contact you. Prescriptions: Cephalexin [Keflex] 500 mg PO Q12 7 Days #14 cap Furosemide [Lasix] 20 mg PO BID 4 Days #8 tablet Potassium Chloride 20 meq PO DAILY 5 Days #5 tab.[email or web address] Forms: [employer] (Kiswahili)
[2017-09-23 18:50] LABS: BASO # 0.03 K/mm3 (0.0-2.0); BASO % 0.3 % (0.0-3.0); EOS # 0.3 (0.0-0.7); EOS % 2.8 % (1.5-5.0); GRAN # 6.89 (1.4-6.5); GRAN % 67.1 % (50.0-68.0); HEMOGLOBIN 10.2 g/dL (12.0-16.0); LYMPH # 2.6 (1.2-3.4); LYMPH % 24.9 % (22.0-35.0); MEAN CELL VOLUME 82.4 fl (80.0-105.0); MEAN CORPUSCULAR HEMOGLOBIN 26.8 pg (25.0-35.0); MEAN CORPUSCULAR HGB CONC 32.5 g/dl (31.0-37.0); MEAN PLATELET VOLUME 12.2 fl (7.0-11.0); MONO # 0.5 (0.1-0.6); MONO % 4.9 % (1.0-6.0); RBC 3.81 10^6/uL (3.5-6.1); RED CELL DISTRIBUTION WIDTH 17.3 % (11.5-14.5); WHITE BLOOD COUNT 10.3 10^3/ul (4.5-11.0)
[2017-09-23 18:54] LABS: VENOUS BLOOD GAS BASE EXCESS 1.2 mmol/L (0.0-2.0); VENOUS BLOOD GAS PO2 66 mm/Hg (30-55); VENOUS BLOOD PH 7.35 (7.32-7.43)
[2017-09-23 19:29] LABS: ALB/GLOB RATIO 1.1 (1.1-1.8); ALBUMIN 3.6 g/dL (3.0-4.8); ALT/SGPT 17 U/L (7-56); AST/SGOT 21 U/L (14-36); BLOOD UREA NITROGEN 50 mg/dL (7-21); CALCIUM 8.7 mg/dL (8.4-10.5); GFR AFRICAN-AMERICAN 36; GFR NON-AFRICAN AMERICAN 30
[2017-09-23 19:41] LABS: B-TYPE NATRIURETIC PEPTIDE 287 pg/mL (0-450); TROPONIN I < 0.01 ng/mL
[2017-09-23] MEDS ORDERED: Potassium Chloride 20 mEq ER Tab PO STA (20:37)
[2017-09-23 20:48] LABS: INR 2.15 (0.93-1.08); PARTIAL THROMBOPLASTIN TIME 37.5 Seconds (25.1-36.5); PROTHROMBIN TIME 24.9 SECONDS (9.4-12.5)
[2017-09-23 20:57] LABS: URINE BILIRUBIN NEGATIVE (NEGATIVE); URINE BLOOD SMALL (NEGATIVE); URINE GLUCOSE (UA) NEGATIVE (NEGATIVE); URINE LEUKOCYTE ESTERASE LARGE Leu/uL (NEGATIVE); URINE PROTEIN 100 mg/dL (<30 mg/dL); URINE UROBILINOGEN 0.2 E.U./dL (<1 E.U./dL)
[2017-09-23 20:58] LABS: URINE APPEARANCE CLOUDY (CLEAR); URINE COLOR YELLOW (YELLOW)
[2017-09-23 21:02] LABS: URINE BACTERIA LARGE (NEG); URINE WBC TNTC /hpf (0-6)
[2017-09-23 21:49] VITALS: BP 138/79; PULSE 87; O2SAT 100
--- NOTE | 2017-09-24 09:03 | RAD ---
HISTORY: h/o PE COMPARISON: 06/24/2017 FINDINGS: LUNGS: No active pulmonary disease. PLEURA: No significant pleural effusion identified, no pneumothorax apparent. CARDIOVASCULAR: No radiographic findings to suggest acute or significant cardiovascular disease. OSSEOUS STRUCTURES: No significant abnormalities. VISUALIZED UPPER ABDOMEN: Normal. OTHER FINDINGS: Removal of support apparatus since the prior study: Venous access catheter. IMPRESSION: No active disease.
--- NOTE | 2017-09-24 09:03 | CARD ---
APPROVED REPORT EKG Measurement Heart [id number] <Conclusion> Normal sinus rhythm NSSTW changes
== END 2017-09-23 21:47 | disposition home or self-care (01) ==
LOC: ED 17:41
DX: N39.0 Urinary tract infection, site not specified (principal); E11.40 Type 2 diabetes mellitus with diabetic neuropathy, unspecified

== ENCOUNTER 2018-08-16 18:20 | Observation (INO) | payer MEDICARE, BC ==
[2018-08-16 18:20] VITALS: BMI 41.5
--- NOTE | 2018-08-16 19:37 | ED PDOC ---
Arrival/HPI - General Chief Complaint: Medical Clearance Time Seen by Provider: 08/16/18 18:36 Historian: Patient - History of Present Illness Narrative History of Present Illness (Text): 08/16/18 19:33 67-year-old female with a history of COPD and hypertension presents today with left-sided jaw and neck pain left-sided chest pain dyspnea on exertion for the past 2 days. Patient denies fevers or chills. Denies cough. Patient states she was seen by her primary care physician 2 days ago and was advised to come to the emergency room. Patient denies abdominal pain. No vomiting or diarrhea. Past Medical History - Provider Review Nursing Documentation Reviewed: Yes - Travel History Have you recently traveled outside [place] w/in the past 3 mons?: No - Past History Past History: No Previous - Infectious Disease Hx of Infectious Diseases: None - Tetanus Immunization Tetanus Immunization: Up to Date, Unknown - Cardiac Hx Pacemaker: No - Pulmonary Hx Respiratory Disorders: Yes (pe 3 yrs ago can't remember which lung) Hx Asthma: Yes Hx Bronchitis: Yes Hx Pneumonia: Yes Hx Sleep Apnea: Yes Other/Comment: medicare took cpap back pt was not using it, pt now in process of getting another one as per dr shepherd, pt's nebulizer machine at home is broken - Neurological Hx Paralysis: No - HEENT Hx HEENT Disorder: No - Renal Hx Renal Failure: Yes - Endocrine/Metabolic Hx Diabetes Mellitus Type 2: Yes - Hematological/Oncological Hx Blood Transfusions: No Hx Blood Transfusion Reaction: No - Integumentary Hx Dermatological Disorder: No - Musculoskeletal/Rheumatological Hx Musculoskeletal Disorders: Yes - Gastrointestinal Hx Gastrointestinal Disorders: No - Genitourinary/Gynecological Hx Reproductive Disorders: No - Psychiatric Hx Emotional Abuse: No Hx Physical Abuse: No Hx Substance Use: No - Surgical History Hx Cardiac Catheterization: Yes (07/2015) Hx Hysterectomy: Yes Other/Comment: RIGHT KNEE ARTHROSCOPIC SX 1998 - Anesthesia Hx Anesthesia Reactions: No Hx Malignant Hyperthermia: No - Suicidal Assessment Feels Threatened In Home Enviroment: No Family/Social History - Physician Review Nursing Documentation Reviewed: Yes Family/Social History: Unknown Family HX Smoking Status: Unknown If Ever Smoked Hx Alcohol Use: No Hx Substance Use: No Hx Substance Use Treatment: No Allergies/Home Meds Allergies/Adverse Reactions: Allergies prednisone Adverse Reaction (Verified 08/16/18 18:32) HEADACHE Home Medications: Home Meds Medication Instructions Recorded Confirmed Warfarin [Coumadin] 9 mg PO DAILY 07/27/15 09/23/17 Liraglutide [Victoza 2-Adam] 1.9 mg SC DAILY 07/03/17 09/23/17 Aspirin 81 mg PO DAILY 07/04/17 09/23/17 Ultram 50 mg PO DAILY 07/04/17 09/23/17 Review of Systems - Review of Systems Constitutional: absent: Fatigue, Fevers ENT: Other (left sided jaw pain) Respiratory: SOB. absent: Cough Cardiovascular: Chest Pain, LEON Gastrointestinal: absent: Abdominal Pain, Nausea, Vomiting Genitourinary Female: absent: Dysuria Musculoskeletal: Back Pain (chronic). absent: Arthralgias Skin: absent: Rash, Pruritis Neurological: absent: Headache, Dizziness Physical Exam Vital Signs Reviewed: Yes Vital Signs Temp Pulse Resp BP Pulse Ox 08/16/18 18:37 98.3 F 76 18 138/88 97 Temperature: Afebrile Blood Pressure: Normal Pulse: Regular Respiratory Rate: Normal Appearance: Positive for: Well-Appearing, Non-Toxic, Comfortable Pain Distress: None Mental Status: Positive for: Alert and Oriented X 3 - Systems Exam Head: Present: Atraumatic Mouth: Present: Moist Mucous Membranes Nose (Internal): Present: Normal Inspection Neck: Present: Normal Range of Motion Respiratory/Chest: Present: Clear to Auscultation, Good Air Exchange. No: Respiratory Distress, Accessory Muscle Use Cardiovascular: Present: Regular Rate and Rhythm, Normal S1, S2. No: Murmurs, T achycardic Abdomen: No: Tenderness, Distention, Rebound, Guarding Upper Extremity: Present: Normal ROM Lower Extremity: Present: Normal ROM Neurological: Present: GCS=15, Speech Normal Skin: Present: Warm, Dry, Normal Color. No: Rashes Psychiatric: Present: Alert, Oriented x 3 Medical Decision Making ED Course and Treatment: 08/16/18 19:44 67yr old female with LEON, CP and jaw pain x 2 days. cbc; wnl cmp; bun: 82/cr; 2.4 INR: 2.89 BNP:1700 trop:wnl ekg; normal sinus rhythm at 79 bpm normal axis no ST elevations QTC 447 cxr: wnl pt reassessment; pt is non toxic well appearing; no distress. stable vitals. pt took asa this morning and is on coumadin. pts placement assistant is dr. keyes. case discussed with Dr. sagastume will Admit observational status to Tele for chest pain impression; chest pain, SOB, renal insufficiency Admit observational status to tele - RAD Interpretation Radiology Orders: 08/16/18 18:59 CHEST PORTABLE [RAD] Stat Disposition/Present on Arrival - Present on Arrival Any Indicators Present on Arrival: Yes History of DVT/PE: Yes History of Uncontrolled Diabetes: No Urinary Catheter: No History of Decub. Ulcer: No History Surgical Site Infection Following: None - Disposition Have Diagnosis and Disposition been Completed?: Yes Diagnosis: Chest pain, LEON (dyspnea on exertion) Disposition: HOSPITALIZED Disposition Time: 19:45 Patient Plan: Observation Condition: FAIR
[2018-08-16 20:16] LABS: BASO # 0.02 K/mm3 (0.0-2.0); BASO % 0.2 % (0.0-3.0); EOS # 0.3 (0.0-0.7); EOS % 3.2 % (1.5-5.0); HEMOGLOBIN 10.2 g/dL (12.0-16.0); LYMPH # 2.2 (1.2-3.4); LYMPH % 21.6 % (22.0-35.0); MEAN CELL VOLUME 84.8 fl (80.0-105.0); MEAN CORPUSCULAR HEMOGLOBIN 26.4 pg (25.0-35.0); MEAN CORPUSCULAR HGB CONC 31.1 g/dl (31.0-37.0); MEAN PLATELET VOLUME 12.1 fl (7.0-11.0); MONO # 0.6 (0.1-0.6); MONO % 5.9 % (1.0-6.0); RBC 3.87 10^6/uL (3.5-6.1); RED CELL DISTRIBUTION WIDTH 15.8 % (11.5-14.5); URINE BILIRUBIN NEGATIVE (NEGATIVE); URINE BLOOD TRACE-LYSED (NEGATIVE); URINE GLUCOSE (UA) NEGATIVE (NEGATIVE); URINE LEUKOCYTE ESTERASE NEGATIVE Leu/uL (NEGATIVE); URINE PROTEIN 100 mg/dL (<30 mg/dL); URINE UROBILINOGEN 0.2 E.U./dL (<1 E.U./dL); WHITE BLOOD COUNT 10.2 10^3/uL (4.5-11.0)
[2018-08-16 20:19] LABS: URINE APPEARANCE CLEAR (CLEAR); URINE COLOR YELLOW (YELLOW)
[2018-08-16 20:20] LABS: INR 2.89; PARTIAL THROMBOPLASTIN TIME 48.9 Seconds (26.9-38.3); PROTHROMBIN TIME 32.1 SECONDS (9.4-12.5)
[2018-08-16 20:22] LABS: ALB/GLOB RATIO 1.1 (1.1-1.8); ALBUMIN 3.9 g/dL (3.0-4.8); ALT/SGPT 11 U/L (7-56); AST/SGOT 23 U/L (14-36); BLOOD UREA NITROGEN 82 mg/dL (7-21); GFR NON-AFRICAN AMERICAN 20; LIPASE 211 U/L (23-300)
[2018-08-16 20:32] LABS: B-TYPE NATRIURETIC PEPTIDE 1700 pg/mL (0-450); TROPONIN I < 0.01 ng/mL
[2018-08-17 08:54] LABS: INR 2.5; PROTHROMBIN TIME 28.2 SECONDS (9.4-12.5)
[2018-08-17 09:07] LABS: TROPONIN I < 0.01 ng/mL
[2018-08-17] MEDS: Pantoprazole 20 mg EC Tab PO SCH (09:44)
[2018-08-17] MEDS ORDERED: LIRAGLUTIDE SC SCH (10:00)
--- NOTE | 2018-08-17 10:44 | RAD ---
Date of service: 08/16/2018 HISTORY: chest pain COMPARISON: 09/23/2017. FINDINGS: LUNGS: The lungs are well inflated and clear. PLEURA: No pleural effusions or pneumothorax. CARDIOVASCULAR: The heart is normal in size. No aortic atherosclerotic calcifications present. OSSEOUS STRUCTURES: Within normal limits for the patient's age. VISUALIZED UPPER ABDOMEN: Normal. OTHER FINDINGS: None. IMPRESSION: No active pulmonary disease.
--- NOTE | 2018-08-17 11:46 | CARD ---
APPROVED REPORT Date of service: 08/16/2018 EKG Measurement Heart [id number] <Conclusion> Normal sinus rhythm Normal ECG
--- NOTE | 2018-08-17 12:56 | CON ---
DATE: 08/17/2018 PULMONARY CONSULT NOTE REFERRING PHYSICIAN: Tracy Mitchell MD. REASON FOR CONSULT: Sleep apnea and COPD. HISTORY OF PRESENT ILLNESS: This is a 67-year-old female with past medical history significant for chronic lung disease, obstructive sleep apnea syndrome, history of noncompliance with CPAP/BiPAP use, history of DVT, history of pulmonary embolism. The patient is on anticoagulation therapy. She was came to the emergency room complaining of left-sided jaw and neck pain, chest pain, dyspnea on exertion for the past 2 days. The patient saw primary care physician who then advised her to come to the emergency room. Today, the patient states that she does not have any chest pain, but had a headache last night, complaining of still some left-sided face, neck, jaw, and shoulder pain. Still has shortness of breath with exertion. Denies any cough. PAST MEDICAL HISTORY: Chronic lung disease, obstructive sleep apnea syndrome, coronary artery disease, atrial fibrillation, hypertension, history of DVT, history of pulmonary embolism, renal failure and rheumatoid arthritis. ALLERGIES: PREDNISONE. SOCIAL HISTORY: Nonsmoker. No EtOH abuse. No illicit drug use. FAMILY HISTORY: Positive for renal failure. MEDICATIONS: Reviewed. Norvasc 10 mg daily, aspirin 81 mg daily, atenolol 100 mg daily, Lipitor 20 mg , calcium acetate 667 mg once a day Monday, ergocalciferol 50,000 units weekly, folic acid 1 mg daily, gabapentin 600 mg at breakfast, gabapentin 300 mg at 4:00 p.m., gabapentin 300 mg at bedtime, glimepiride of 1 mg twice a day, hydralazine 10 mg IV push every 6 hours p.r.n., hydralazine 50 mg twice a day, Humulin R sliding scale a.c. and at bedtime, Victoza subcutaneous daily, Protonix 20 mg a.c., tramadol 50 mg daily, Coumadin 9 mg daily. REVIEW OF SYSTEMS: No rhinitis, chest pain, abdominal pain, nausea, vomiting, diarrhea, leg pain, or leg swelling reported. The patient does complain of headache last night still with left-sided face pain, neck, jaw, and shoulder pain, shortness of breath with exertion. PHYSICAL EXAMINATION: GENERAL: No acute distress. VITAL SIGNS: Blood pressure 166/83, pulse 83, temperature 97.8, and oxygen saturation 100% on room air. HEENT: Moist mucous membranes. NECK: Supple. No JVD. RESPIRATORY: Few scattered rhonchi. CARDIOVASCULAR: S1 and S2. ABDOMEN: Soft and nontender. No distention. No organomegaly. EXTREMITIES: Trace bilateral lower extremity edema. NEUROLOGIC: Awake, alert and verbal. Following commands. LABORATORY DATA: Reviewed. WBC 10.2, RBC 3.87, hemoglobin 7.2, hematocrit 32.8, and platelets 226. PT 28.2 and INR 2.5. Sodium 142, potassium 4.4, chloride 108, carbon dioxide 25, anion gap 14, BUN 82, creatinine 2.4, GFR 24. POC glucose 137 and random glucose 248. Calcium 9.0, total bilirubin 0.4, AST 23, ALT 11, alkaline phosphatase 63, lactate dehydrogenase 18, total creatinine kinase 185, troponin less than 0.01, proBNP 1700, total protein 7.4, albumin 3.9, globulin 3.6, albumin and globulin ratio 1.1. Lipase 211. Chest x-ray, no active pulmonary disease. EKG normal sinus rhythm. IMPRESSION AND PLAN: Chronic lung disease, sleep apnea syndrome, anemia, history of coronary artery disease, history of atrial fibrillation. The patient on anticoagulation therapy, history of deep venous thrombosis, history of recurrent pulmonary embolism and acute renal failure. Echocardiogram from 06/2017 reviewed showed RVSP 53, ejection fraction 55%-60%. The patient has pulmonary hypertension. Discussed with the patient in depth using continuous positive airway pressure machine while hospitalized. The patient agreed to use continuous positive airway pressure machine if she can use nasal mask, we will order continuous positive airway pressure 7 cm 30% oxygen with nasal mask. We will placed the patient on inhaled bronchodilators for chronic lung disease. The patient is on Zithromax for chronic obstructive pulmonary disease. Continue Norvasc for pulmonary hypertension. Continue diuretics. Cardiology followup. Sleep apnea precaution. Head of bed elevated at 45 degrees. Gastroesophageal reflux disease precautions. Recommend the patient have sleep study as outpatient and full pulmonary function test as outpatient. The patient was seen and examined with Dr. Brooks. Discussed assessment and plan as described above. The patient was seen and examined with Yulia Colon, nurse practitioner. Discussed assessment and plan as described above. Thank you for this consult and we will follow with you. Yulia Colon APN Layla Brooks MD [facility] # [id number]
--- NOTE | 2018-08-17 13:50 | CP.PCM.PCO ---
Physician Communication Note - Physician Communication Note Physician Communication Note: cardiology and pulmonology following echo pending, renal consult pending
[2018-08-17] MEDS: Insulin Reg-LOW-Coverage SC SCH ×3 (14:01→22:30)
[2018-08-17 15:12] LABS: INR 2.48; PROTHROMBIN TIME 27.5 SECONDS (9.4-12.5)
[2018-08-17 15:13] LABS: PARTIAL THROMBOPLASTIN TIME 51.8 Seconds (26.9-38.3)
--- NOTE | 2018-08-17 19:38 | HP ---
This case was discussed with Dr. Mitchell she is inagreement with treatment plan. DATE OF EXAM: 08/17/2018 The patient was examined by me on 08/17/2018. A 67-year-old female was admitted with chest pain. HISTORY OF PRESENT ILLNESS: The patient was seen in office on with complaints of atypical chest pain with no radiation, some shortness of breath. The patient was encouraged to go to the ER that day. However did not go until last night to ER. BNP was elevated to 1700. The patient was admitted on telemetry floor. Cardiology was consulted. PAST MEDICAL HISTORY: The patient has a past medical history of obesity, type 2 diabetes, hyperlipidemia, hypertension, and COPD, CKD. FAMILY HISTORY: Mother and father medical history, noncontributory. SOCIAL HISTORY: The patient lives in community with daughter and grandchildren. The patient denies smoking, denies alcohol abuse. HOME MEDICATIONS: Reviewed by me. ALLERGIES: THE PATIENT IS ALLERGIC TO PREDNISONE. PHYSICAL EXAMINATION: VITAL SIGNS: Temperature 97.9, pulse rate 83, blood pressure 166/83, respiratory rate is 20, and saturation 97% on room air. HEENT: Normocephalic, atraumatic. PERRLA. Mucous membranes moist. NECK: Supple. No thyromegaly. Normal inspection. RESPIRATORY: Clear to auscultation. No wheeze. No rhonchi. CARDIOVASCULAR: S1 and S2. No JVD. ABDOMEN: Soft, distended. No organomegaly. EXTREMITIES: The patient is moving all extremities. SKIN: Intact. No cyanosis. No edema. NEUROLOGIC: The patient is alert and oriented x3. MEDICATIONS: Norvasc 10 mg p.o. daily, Brovana, Ecotrin 81 mg p.o. daily, Tenormin 100 mg daily, Lipitor 20 mg daily. The patient continues on Z-Adam 500 mg p.o. daily, Pulmicort, Drisdol 50,000 units once a week, folic acid 1 mg p.o. daily, Neurontin 600 mg, Amaryl 1 mg b.i.d. with Vaseline 10 mg IV piggyback every 6 hours, Accu-Chek a.c. and at bedtime for insulin coverage, Protonix 20 mg daily, Ultram 50 mg p.o. daily, and Coumadin 9 mg p.o. daily. LABORATORY DATA: Hematology; white blood cells 10.2, hemoglobin 10.2, hematocrit 32.8, and platelet count 326. Sodium 142, potassium 4.4, BUN 82, creatinine 2.4, and random glucose for 08/16/2018 of 248. BNP 1700. PT 28.2, INR 2.5. ASSESSMENT AND PLAN: This 67-year-old female came in with chest pain, has a history of hypertension, morbid obesity, diabetes mellitus, end-stage renal disease, and chronic obstructive pulmonary disease. Cardiology is on the case, reviewed EKG, normal sinus rhythm. The patient will be going for echocardiogram. Nephrology is on the case, also Pulmonology is on the case. She is on amlodipine, bronchodilators, Lipitor, gabapentin, Amaryl, hydralazine b.i.d., and Coumadin 9 mg daily. INR 2.5. The patient for labs in the morning. We will repeat PT/INR in the morning. We will follow up. ALL ABOVE NOTED , AGREED WITH DIRECTOR [employer] TREATMENT PLAN , EDUCATION DONE , D/D DONE WITH DIRECTOR [employer] AND STAFF , WILL CONT. SAME TREATMENT , Miguel Hadley APN Tracy Mitchell MD [facility]
--- NOTE | 2018-08-17 20:09 | CON ---
DATE OF CONSULTATION: 08/17/2018 REASON FOR CONSULTATION: Acute kidney injury superimposed on chronic kidney disease stage III. HISTORY OF PRESENTING ILLNESS: A 67-year-old lady was advised to come to the emergency room by PMD because of a finding of some crackles and wheezing when she went for her regular followup on Monday. The patient reports that she did not come to the hospital on Monday. But Monday she developed some left-sided chest pain and she had some shortness of breath, hence she came to the emergency room on . In the emergency room, her chest x-ray showed no active pulmonary disease. Her vital signs showed her blood pressure to be normal initially at 138/88. Her lab data showed a hemoglobin of 10.2, BUN of 82, and a creatinine of 2.4. The patient was admitted for acute kidney injury. PAST MEDICAL AND SURGICAL HISTORY: NIDDM, hypertension, episode of acute kidney injury, underlying chronic kidney disease stage III, anemia of chronic kidney disease, obesity, COPD, sleep apnea, pneumonia. FAMILY HISTORY: Hypertension, diabetes. SOCIAL HISTORY: No smoking, no alcohol use, no IV drug abuse. ALLERGIES: PREDNISONE. MEDICATIONS AT HOME: Gabapentin 300 b.i.d., Coumadin, vitamin D, Lipitor, atenolol 100, Protonix, Amaryl 1 mg b.i.d., amlodipine 10, Lasix 20 b.i.d., Keflex 500 every 12 hours, PhosLo. REVIEW OF SYSTEMS: The patient reports that she had some left-sided chest pain, left jaw pain, pain radiating to left side of her head, left arm. Currently, no pain. PHYSICAL EXAMINATION: GENERAL: Morbidly obese, elderly lady, sitting in bed. VITAL SIGNS: Blood pressure 157/78, heart rate 81, respiratory rate 20, temperature 97.8. HEENT: Normocephalic, atraumatic, positive pallor. NECK: Supple, no JVD. LUNGS: Bilateral equal entry, bilateral equal expansion. CARDIAC: S1 and S2, regular rate and rhythm, no murmur, no rub. ABDOMEN: Obese, distended, soft, nontender, bowel sounds present. EXTREMITIES: Trace lower extremity edema. LABORATORY DATA: WBC 10, hemoglobin 10.2, hematocrit 33, platelets 226. Sodium 142, potassium 4.4, chloride 108, CO2 of 25, BUN 82, creatinine 2.4, glucose 248, calcium 9, BNP 1700, albumin 3.9, globulin 3.6. Urine, yellow clear, pH 6, specific gravity 1025, protein 100, blood trace light, rbc's 5 to 10, wbc's, 5 to 10. ASSESSMENT: 1. Acute kidney injury superimposed on chronic kidney disease stage III, prerenal azotemia?. 2. Ktb-[id number] diabetes mellitus. 3. Hypertension. 4. Morbid obesity. 5. Anemia of chronic kidney disease. 6. Sleep apnea. PLAN: 1. Hold Lasix. 2. Push p.o. fluids. 3. Continue outpatient antihypertensives. 4. Repeat labs in a.m. 5. Expect creatinine to come down to baseline. Cheryl Jimenez MD
--- NOTE | 2018-08-17 20:27 | CON ---
DATE: 08/17/2018 CONSULT SERVICE: Cardiology. REASON FOR CONSULTATION: Uncontrolled hypertension, worsening renal insufficiency and shortness of breath. BRIEF CLINICAL HISTORY: This is a 67-year-old morbidly obese female with past medical history significant for hypertension, COPD, chronic renal insufficiency, came in with compliant of dyspnea on exertion and left-sided chest pain which was tender, went to see Dr. Mitchell's office, advised to come to the ER. The patient denies any chest pain now, but had chest pain yesterday and was tender over the left side of the chest. PAST MEDICAL HISTORY: Significant for chronic kidney failure, was started on dialysis in June, off dialysis. History of COPD, history of DVT and pulmonary embolism, was on anticoagulation. The patient had a cardiac catheterization on 07/27/2015, which shows nonobstructive coronary artery disease limited only to the obtuse marginal with OM2 55% stenosis, which is a small caliber vessel less than 1.5 cm and not suitable for PCI, preserved LV function, ejection fraction 55% to 60%. EDP was in the range of 14. The patient had echocardiography done on 06/19/2017 that shows normal LV size, mild concentric LVH, LV ejection fraction 55% to 60%, mild mitral regurgitation, [id number] tricuspid regurgitation, RV systolic pressure 53, moderate pulmonary hypertension. The last echo as mentioned on 06/19/2017, that showed ejection fraction of 55% to 60%, mild mitral regurgitation, [id number] tricuspid regurgitation and mild pulmonary hypertension. SOCIAL HISTORY: Denies smoking. Denies any history of alcohol abuse. CURRENT MEDICATIONS: Amlodipine 10 mg, Coumadin 9 mg, potassium chloride, glimepiride, gabapentin, Lasix, Keflex, atorvastatin and atenolol. ALLERGIES: TO PREDNISONE. REVIEW OF SYSTEMS: As per HPI. PHYSICAL EXAMINATION: GENERAL: Height of the patient 5 feet 10 inches. Weight of the patient 296 pounds. Body mass index 42.5 kg/m2. VITAL SIGNS: Temperature afebrile. Heart rate 83 and blood pressure 164/83. HEENT: PERRLA intact. NECK: Supple. No carotid bruits. No thyromegaly. CHEST: Clear to auscultation. Chest mild tenderness on upper quadrant of the chest. HEART: S1 and S2, regular. ABDOMEN: Soft. EXTREMITIES: Clubbing and cyanosis negative. Pedal trace edema. LABORATORY DATA: EKG shows normal sinus rhythm, no acute ST-T wave changes noted. Heart rate 79 on EKG. Blood workup as follows; WBC 10, hemoglobin 10.2, hematocrit 32.8 and platelet count 226. Chemistry shows sodium 140, potassium 4, chloride 108, carbon dioxide 25, anion gap of 40, BUN 82, creatinine 2.4 and troponin 0.01 negative. IMPRESSION: A 67-year-old morbidly obese female with a past medical history of deep venous thrombosis and pulmonary embolism status post cardiac catheterization in 1999, nonobstructive coronary artery disease, hypertension, and renal insufficiency, admitted with uncontrolled hypertension, atypical chest pain. So far, first troponin is negative. RECOMMENDATIONS: Repeat another troponin. Echo to assess LV function and mitral regurgitation. Lipid profile, TSH, hemoglobin A1c. Further recommendations will depend upon the hospital course. Adjust medication for antihypertensive. The patient has poorly controlled hypertension. The patient is already on amlodipine. We will put hydralazine 25 mg b.i.d. because the patient has renal insufficiency, avoid LALITA and ARB inhibitor, avoid nephrotoxic medication. We will follow with you. We will get a lipid profile, TSH, and hemoglobin A1c. INR is 2.5, therapeutic. We will follow with you. Thank you Dr. Mitchell for providing us the opportunity in taking care of the patient, Laura Emanuel. Layla Bal MD
[2018-08-17] MEDS: Budesonide 0.5 mg/2 ml Inhal Susp UD IH SCH (21:30)
[2018-08-17] MEDS: Arformoterol 15 mcg/2 ml Inh Sol IH SCH (21:30)
[2018-08-18 06:49] LABS: BASO # 0.04 K/mm3 (0.0-2.0); BASO % 0.4 % (0.0-3.0); EOS # 0.4 (0.0-0.7); EOS % 3.5 % (1.5-5.0); HEMOGLOBIN 9.4 g/dL (12.0-16.0); LYMPH # 2.7 (1.2-3.4); LYMPH % 26.9 % (22.0-35.0); MEAN CELL VOLUME 83.8 fl (80.0-105.0); MEAN CORPUSCULAR HEMOGLOBIN 25.8 pg (25.0-35.0); MEAN CORPUSCULAR HGB CONC 30.7 g/dl (31.0-37.0); MEAN PLATELET VOLUME 12.6 fl (7.0-11.0); MONO # 0.5 (0.1-0.6); MONO % 5.3 % (1.0-6.0); RBC 3.65 10^6/uL (3.5-6.1); RED CELL DISTRIBUTION WIDTH 15.6 % (11.5-14.5)
[2018-08-18 07:12] LABS: ALB/GLOB RATIO 1.2 (1.1-1.8); ALBUMIN 3.5 g/dL (3.0-4.8); CALCIUM 9.1 mg/dL (8.4-10.5)
[2018-08-18] MEDS: Arformoterol 15 mcg/2 ml Inh Sol IH SCH ×2 (08:09→20:08)
[2018-08-18] MEDS: Budesonide 0.5 mg/2 ml Inhal Susp UD IH SCH ×2 (08:09→20:08)
[2018-08-18] MEDS: Insulin Reg-LOW-Coverage SC SCH ×4 (08:28→21:44)
[2018-08-18] MEDS: Pantoprazole 20 mg EC Tab PO SCH (08:49)
--- NOTE | 2018-08-18 11:01 | PN ---
DATE: 08/18/2018 PULMONARY PROGRESS NOTE REFERRING PHYSICIAN: Tracy Mitchell MD SUBJECTIVE: The patient is seen lying in bed, asleep, easily arousable. Reports using CPAP machine last night and tolerating it well. States she still has some shortness of breath with exertion, but is feeling a little bit better this morning. No headache, rhinitis, cough, chest pain, abdominal pain, nausea, vomiting, diarrhea, leg pain, or leg swelling reported. OBJECTIVE: VITAL SIGNS: Blood pressure 133/82, pulse 61, temperature 98, oxygen saturation 100%. GENERAL: No acute distress. HEENT: Moist mucous membranes. NECK: Supple. No JVD. RESPIRATORY: Few scattered rhonchi bilaterally. CARDIOVASCULAR: S1 and S2. ABDOMEN: Soft, nontender. No distention. No organomegaly. EXTREMITIES: No bilateral lower extremity edema. NEUROLOGIC: Awake, alert, verbal. Following commands. MEDICATIONS: Reviewed. Norvasc 10 mg daily, Brovana 15 mcg inhalation every 12 hours, aspirin 81 mg daily, atenolol 100 mg daily, Lipitor 20 mg daily, Zithromax 500 mg daily, Pulmicort 0.5 mg inhalation every 12 hours, calcium acetate 667 mg Monday and Monday, ergocalciferol 50,000 units weekly, folic acid 1 mg daily, Neurontin 600 mg at breakfast, Neurontin 300 mg at 4:00 p.m., Neurontin 300 mg at bedtime, glimepiride 1 mg twice a day, hydralazine 10 mg IV push every 6 hours p.r.n., hydralazine 50 mg twice a day, Humulin R sliding scale a.c. and at bedtime, Victoza subcu daily 1.9 mg, Protonix 20 mg a.c., tramadol 50 mg daily, Coumadin 9 mg daily. LABORATORY DATA: Reviewed. WBC 10, RBC 3.65, hemoglobin 9.4, hematocrit 30.6, and platelets 220. Sodium 140, potassium 3.8, chloride 107, carbon dioxide 26, BUN 70, creatinine 2.4, anion gap 11, GFR 24. POC glucose 116 and random glucose 118. Calcium 9.1, phosphorous 4.7, magnesium 1.8. Total bilirubin 0.3, AST 29, ALT 9, alkaline phosphatase 54, total protein 6.5, albumin 3.5, globulin 3, albumin and globulin ratio 1.2. Triglycerides 102, cholesterol 154, LDL cholesterol 81, HDL cholesterol 34, TSH 1.84. Urine culture final, less than 10,000. IMPRESSION AND PLAN: Chronic lung disease, sleep apnea syndrome, anemia, history of coronary artery disease, history of atrial fibrillation, the patient on anticoagulation therapy, history of deep venous thrombosis, history of recurrent pulmonary embolism, acute renal failure, pulmonary hypertension. Continue continuous positive airway pressure use at bedtime, sleep apnea precaution, head of bed elevated to 45 degrees. Continue inhaled bronchodilators, continue antibiotic therapy for chronic obstructive pulmonary disease, continue Norvasc for pulmonary hypertension. Cardiology followup. Gastroesophageal reflux disease precaution. The patient has pending echocardiogram to be done. Recommend the patient to have sleep study as outpatient to assess sleep apnea syndrome. Recommend the patient on full pulmonary function test as outpatient to assess extensive chronic lung disease. The patient was seen and examined with Dr. Brooks. Discussed assessment and plan as described above. The patient was seen and examined by Yulia Colon, nurse practitioner. Discussed assessment and plan as described above. Thank you for this consult. We will follow with you. Yulia Colon APN aLyla Brooks MD
[2018-08-18 12:25] LABS: INR 2.45; PROTHROMBIN TIME 27.7 SECONDS (9.4-12.5)
--- NOTE | 2018-08-18 16:04 | PN ---
DATE: 08/18/2018 SUBJECTIVE: The patient is seen sitting in bed. She is awake. She is alert. She is comfortable. She does not complain of any chest pain. PHYSICAL EXAMINATION: GENERAL: Morbidly obese elderly lady sitting in bed. VITAL SIGNS: Blood pressure 133/82, heart rate 61, respiratory rate 18, temperature 98. HEENT: Normocephalic, atraumatic, positive pallor. NECK: Supple. No JVD. CARDIAC: S1 and S2. Regular rate and rhythm. No murmur. No rub. LUNGS: Bilateral equal entry, bilateral equal expansion. ABDOMEN: Obese, distended, soft, nontender, bowel sounds present. EXTREMITIES: No lower extremity edema. INTAKE AND OUTPUT: 3120/5. LABORATORY DATA: WBC 10, hemoglobin 9.4, hematocrit 30.6, platelets 220. Sodium 140, potassium 3.8, chloride 107, CO2 26, BUN 70, creatinine 2.4, glucose 118, calcium 9.1, phosphorus 4.7, magnesium 1.8, albumin 3.5, globulin 3.0. Urinalysis, yellow, clear, pH 6.0, specific gravity , protein 100, glucose negative, ketones negative. CURRENT MEDICATIONS: Amaryl 1 mg b.i.d., Apresoline 50 b.i.d., Coumadin 9 mg, Drisdol, Ecotrin, folic acid 1 mg, Lipitor 20, Victoza, Neurontin, amlodipine 10, PhosLo, Protonix, Pulmicort, Tenormin, tramadol, Zithromax. ASSESSMENT: 1. Acute kidney injury superimposed on chronic kidney disease stage III, baseline creatinine around 1.8 to 2.0, etiology of acute kidney injury is unclear. The patient was not on Lasix at home. Lasix had been discontinued as outpatient. On questioning, the patient reports she took some antibiotics 3 weeks ago for a tooth problem. She thinks it might have been amoxicillin.? AIN. We will check urine eosinophils. 2. Morbid obesity. 3. Xtj-zlayfrk-nhcvaihfo diabetes mellitus. 4. Hypertension. 5. Anemia of chronic kidney disease. 6. Diabetic neuropathy. PLAN: 1. Check urine eosinophils. 2. Continue to hold Lasix. 3. Avoid nephrotoxins. 4. Since the creatinine is stable, no objection to discharge and outpatient followup. 5. Decreased dose of Neurontin, max dose for this patient should be 600 mg. Cheryl Jimenez MD
--- NOTE | 2018-08-19 04:34 | DS ---
The patient was seen and examined at the bedside on 08/18/2018. CHIEF COMPLAINT: Chest pain. HISTORY OF PRESENT ILLNESS: Mrs. Adelfo Sanchez is a 67-year-old lady with multiple medical problems, history of diabetes mellitus type 2, hypercholesterolemia, hypertension, COPD and CKD, came in to our office with chest pain. No radiation, some shortness of breath. The patient was encouraged to go to emergency room. She did not go until last night, when she has started really chest pain. She went to emergency room, was admitted, seen by the sheep or calf grader Dr. Bal; chemist pharmaceutical, Dr. Jimenez and ash pit worker, Dr. Brooks. The patient went for echo, seen by me in Cardiology department, discharged home, no more chest pain, cleared by the Cardiology. PAST MEDICAL HISTORY: History of asthma, bronchitis, pneumonia, sleep apnea, history of PE, diabetes mellitus, hysterectomy, right knee arthroscopy. FAMILY HISTORY: Father and mother noncontributory. HABITS: No smoking, no drugs, no ethanol. ALLERGIES: THE PATIENT IS ALLERGIC TO PREDNISONE. HOME MEDICATIONS: Reviewed by me. REVIEW OF SYSTEMS: The patient was seen and examined at the bedside, looking comfortable. No fever, no chills. No hematuria, hematochezia. No headache or dizziness. No chest pain, no palpitation. PHYSICAL EXAMINATION: VITAL SIGNS: Blood pressure of 130/80, pulse of 61, temperature of 98, oxygen saturation of 100%. HEENT: Head; normocephalic, atraumatic. Eyes PERRLA. Extraocular muscles intact. Conjunctiva clear. Nose patent. Mucous membranes moist. NECK: Supple. No carotid bruit, JVD, or thyromegaly. CHEST: Bilaterally symmetrical. HEART: S1 and S2 positive. LUNGS: Clear to auscultation. ABDOMEN: Soft, bowel sounds present, no organomegaly. EXTREMITIES: No edema, no cyanosis. NEUROLOGIC: The patient is awake and alert, moving all 4 extremities. No focal deficits. MEDICATIONS: Norvasc, Brovana, aspirin, atenolol, Lipitor, Zithromax, vitamin D, and Neurontin. LABORATORY DATA: White blood cells 10.0, hemoglobin 9.4, hematocrit 30.6. Sodium 140, potassium 3.8 ,BUN 70, creatinine 2.4, AST of 29. ASSESSMENT AND PLAN: Ms. Adelfo Sanchez is a 67-year-old lady with multiple medical problems, chronic obstructive pulmonary disease, came with chest pain, sleep apnea syndrome, coronary artery disease, atrial fibrillation on Coumadin, history of pulmonary emboli, renal failure. Rib Cloth Knitter is on the case, pulmonary hypertension. Continue inhaled bronchodilators. The patient is cleared by the Cardiology. Went for echocardiography, results are pending. Reviewed Dr. Brooks's notes and Dr. Bal's notes. GI and DVT prophylaxis given. Repeat labs as outpatient. Discharged home , provided hydralazine at the bedside , rest of medications the patient has at home. Tracy Mitchell MD MTDD
[2018-08-19 07:00] LABS: BASO # 0.02 K/mm3 (0.0-2.0); BASO % 0.2 % (0.0-3.0); EOS # 0.5 (0.0-0.7); EOS % 4.4 % (1.5-5.0); HEMOGLOBIN 9.4 g/dL (12.0-16.0); LYMPH # 3.1 (1.2-3.4); LYMPH % 29.2 % (22.0-35.0); MEAN CELL VOLUME 84.5 fl (80.0-105.0); MEAN CORPUSCULAR HGB CONC 30.8 g/dl (31.0-37.0); MEAN PLATELET VOLUME 12.3 fl (7.0-11.0); MONO # 0.5 (0.1-0.6); RBC 3.61 10^6/uL (3.5-6.1); RED CELL DISTRIBUTION WIDTH 15.5 % (11.5-14.5); WHITE BLOOD COUNT 10.4 10^3/uL (4.5-11.0)
[2018-08-19 07:09] LABS: CALCIUM 8.8 mg/dL (8.4-10.5)
[2018-08-19] MEDS: Budesonide 0.5 mg/2 ml Inhal Susp UD IH SCH (07:58)
[2018-08-19] MEDS: Arformoterol 15 mcg/2 ml Inh Sol IH SCH (07:58)
[2018-08-19] MEDS: Insulin Reg-LOW-Coverage SC SCH (08:00)
[2018-08-19 08:18] VITALS: BP 131/77; PULSE 65; RESP 20; TEMP 97.7; O2SAT 94
[2018-08-19] MEDS: Pantoprazole 20 mg EC Tab PO SCH (09:32)
--- NOTE | 2018-08-19 09:52 | CT ---
Date of service: 08/18/2018 PROCEDURE: CT HEAD WITHOUT CONTRAST. HISTORY: headache COMPARISON: CT head dated 06/19/2017. TECHNIQUE: Axial computed tomography images were obtained through the head/brain without intravenous contrast. Radiation dose: Total exam DLP = 919.07 mGy-cm. This CT exam was performed using one or more of the following dose reduction techniques: Automated exposure control, adjustment of the mA and/or kV according to patient size, and/or use of iterative reconstruction technique. FINDINGS: HEMORRHAGE: No intracranial hemorrhage. BRAIN: No mass effect or edema. Atrophy. Chronic microvascular ischemic changes. VENTRICLES: Unremarkable. No hydrocephalus. CALVARIUM: Unremarkable. PARANASAL SINUSES: Unremarkable as visualized. No significant inflammatory changes. MASTOID AIR CELLS: Unremarkable as visualized. No inflammatory changes. OTHER FINDINGS: None. IMPRESSION: No acute intracranial pathology. Mild age-related changes. No significant interval change.
--- NOTE | 2018-08-19 15:11 | PN ---
DATE: 08/19/2018 PULMONARY PROGRESS NOTE REFERRING PHYSICIAN: Tracy Mitchell MD SUBJECTIVE: The patient is seen lying in bed. No acute distress. No overnight events reported. Reports feeling well today. Denies any cough, shortness of breath, wore CPAP machine last night. No headache, rhinitis, chest pain, abdominal pain, nausea, vomiting, diarrhea, leg pain, or leg swelling reported. OBJECTIVE: VITAL SIGNS: Blood pressure 131/77, pulse 55, temperature 97.7 and oxygen saturation 94%. GENERAL: No acute distress. HEENT: Moist mucous membranes. NECK: Supple. No JVD. RESPIRATORY: Fair airflow bilaterally. CARDIOVASCULAR: S1 and S2. ABDOMEN: Soft and nontender. No distention. No organomegaly. EXTREMITIES: No bilateral lower extremity edema. NEUROLOGIC: Awake, alert and verbal. Following commands. MEDICATIONS: Reviewed. Tylenol 650 every 6 hours p.r.n., Norvasc 10 mg daily, Brovana 15 mcg inhalation every 12 hours, aspirin 81 mg daily, atenolol 100 mg daily, Lipitor 20 mg at dinner, Zithromax 500 mg daily, Pulmicort 0.5 mg inhalation every 12 hours, calcium acetate 657 mg with meals, ergocalciferol 1 tab weekly, folic acid 1 mg daily, Neurontin 600 mg at breakfast, Neurontin 300 mg at 4:00 p.m., Neurontin 300 mg at bedtime, glimepiride 1 mg twice a day, hydralazine 10 mg IV push every 6 hours p.r.n., hydralazine 50 mg twice a day, Humulin R sliding scale a.c. and at bedtime, Victoza 1.9 mg subcutaneous daily, Protonix 40 mg a.c., tramadol 50 mg daily and Coumadin 9 mg daily. LABORATORY DATA: WBC 10.4, RBC 3.61, hemoglobin 9.4, hematocrit 30.5 and platelets 212. Sodium 139, potassium 4, chloride 107, carbon dioxide 26, anion gap 11, BUN 77, creatinine 2.6, GFR 22, POC glucose 77 and random glucose 71 and calcium 8.8. Head CT showed no acute intracranial pathology mild changes. No significant interval change. Echocardiogram report pending. IMPRESSION AND PLAN: Chronic lung disease, sleep apnea syndrome, anemia, history of coronary artery disease, history of atrial fibrillation. The patient on anticoagulation therapy, history of deep venous thrombosis, history of pulmonary embolism, acute renal failure and pulmonary hypertension. Continue to encourage continuous positive airway pressure use at bedtime, sleep apnea precaution and head of bed elevated to 45 degrees. Continue inhaled bronchodilators, antibiotic therapy for chronic obstructive pulmonary disease. Continue Norvasc for pulmonary hypertension. Gastroesophageal reflux disease precaution. Cardiology followup. Recommend the patient to have sleep study as outpatient to reevaluate sleep apnea syndrome. Recommend the patient have full pulmonary function test as outpatient to assess extensive of chronic lung disease. The patient was seen and examined with Dr. Brooks. Discussed assessment and plan as described above. The patient was seen and examined by Yulia Colon, nurse practitioner. Discussed assessment and plan as described above. Thank you for this consult and we will follow with you. Yulia Colon APN Layla Brooks MD
--- NOTE | 2018-08-20 11:39 | CARD ---
APPROVED REPORT Date of service: 08/18/2018 EXAM: Two-dimensional and M-mode echocardiogram with Doppler and color Doppler. INDICATION LV Function:SystolicDiastolic Chest Pain 2D DIMENSIONS Left Atrium (2D)3.3 (1.6-4.0cm)IVSd1.4 (0.7-1.1cm) Aortic Root (2D)3.4 (2.0-3.7cm)LVDd4.6 (3.9-5.9cm) PWd1.4 (0.7-1.1cm)LVDs3.3 (2.5-4.0cm) FS (%) 28.7 %LVEF (%)55.3 (>50%) M-Mode DIMENSIONS Aortic Cusp Exc.2.50 (1.5-2.0cm) Mitral Valve MV E Miojryhn13.1cm/sMV A Cbrvjvat90.7cm/sE/A ratio0.9 TDI Lateral E' Peak V9.65cm/sMedial E' Peak V6.43cm/sE/Lateral E'7.6 E/Medial E'11.4 Pulmonary Valve PV Peak Yjyjozpk103.0cm/sPV Peak Grad.4mmHg Tricuspid Valve TR Peak [id number] [id number] Peak Gr.21mmHg [id number] LEFT VENTRICLE The left ventricle is normal size. There is mild to moderate concentric left ventricular hypertrophy. Proximal septal thickening is noted. The left ventricular function is normal.EF-55% There is normal LV segmental wall motion. Transmitral Doppler flow pattern is Grade III-reversible restrictive diastolic dysfunction. No left ventricle thrombus noted on this study. There is no ventricular septal defect visualized. There is no left ventricular aneurysm. There is no mass noted in the left ventricle. RIGHT VENTRICLE The right ventricle is normal size. There is normal right ventricular wall thickness. The right ventricular systolic function is normal. ATRIA The left atrium size is normal. The right atrium size is normal. The interatrial septum is intact with no evidence for an atrial septal defect. AORTIC VALVE The aortic valve is thickened but opens well. No aortic regurgitation is present. There is no aortic valvular stenosis. There is no aortic valvular vegetation. MITRAL VALVE The mitral valve is thickened but opens well. Mitral regurgitation is trace to mild. There is no mitral valve stenosis. There is no evidence of mitral valve prolapse. TRICUSPID VALVE The tricuspid valve leaflets are thickened , but open well. There is trace tricuspid regurgitation.RVSP_24 mmof hg. There is no tricuspid valve stenosis. There is no tricuspid valve prolapse or vegetation. PULMONIC VALVE The pulmonary valve is normal in structure. Trivial PI There is no pulmonic valvular stenosis. GREAT VESSELS The aortic root is normal in size. The ascending aorta is normal in size. The pulmonary artery is normal. The IVC is normal in size and collapses >50% with inspiration. PERICARDIAL EFFUSION There is no pleural effusion. There is no pericardial effusion. <Conclusion> There is mild to moderate concentric left ventricular hypertrophy. Mitral regurgitation is trace to mild. There is trace tricuspid regurgitation.RVSP_24 mmof hg. The IVC is normal in size and collapses >50% with inspiration. There is no pericardial effusion.
[2018-08-22] MEDS ORDERED: Ergocalciferol 50,000 Intl Units Cap PO SCH (10:00)
== END 2018-08-19 15:39 | disposition home or self-care (01) ==
LOC: ED 18:20 → ERH 22:09 → 2RSO 08-17 01:27 → 3RNO 08-17 20:20
PROVIDERS: ADMIT Internal Medicine; ATTEND Internal Medicine
DX: R07.89 Other chest pain (principal); N17.9 Acute kidney failure, unspecified; E11.22 Type 2 diabetes mellitus with diabetic chronic kidney disease; I12.9 Hypertensive chronic kidney disease with stage 1 through stage 4 chronic kidney disease, or unspecified chronic kidney disease; N18.3 Chronic kidney disease, stage 3 (moderate); E11.40 Type 2 diabetes mellitus with diabetic neuropathy, unspecified; D63.1 Anemia in chronic kidney disease; I25.10 Atherosclerotic heart disease of native coronary artery without angina pectoris; I27.20 Pulmonary hypertension, unspecified; J44.9 Chronic obstructive pulmonary disease, unspecified; I48.91 Unspecified atrial fibrillation; G47.33 Obstructive sleep apnea (adult) (pediatric); M06.9 Rheumatoid arthritis, unspecified; E78.00 Pure hypercholesterolemia, unspecified; E78.5 Hyperlipidemia, unspecified; E66.01 Morbid (severe) obesity due to excess calories; Z86.711 Personal history of pulmonary embolism; Z86.718 Personal history of other venous thrombosis and embolism; Z79.84 Long term (current) use of oral hypoglycemic drugs; Z79.01 Long term (current) use of anticoagulants; Z79.82 Long term (current) use of aspirin
CPT/HCPCS: 36415; 70450; 71045; 80048; 80053; 80061; 81001; 82550; 82948; 83036; 83615; 83690; 83735; 83880; 84100; 84443; 84484; 85025; 85610; 85730; 87086; 87205; 93005; 93306; 94640; 94660; 94760; 97116; 97161; 99285; G0378; G8978; G8979; J0360